=== PATIENT | female | born 1935 | race Caucasian/White ===

== ENCOUNTER 2016-05-28 09:53 | Inpatient (IN) | payer MEDICARE, OTHER ==
[2016-05-28] MEDS ORDERED: SODIUM CHLORIDE 0.9% 500 ML IV STA (10:28)
[2016-05-28] MEDS ORDERED: PANTOPRAZOLE 40 MG/10 ML VIAL IVP STA (10:29)
--- NOTE | 2016-05-28 10:52 | ED ---
General Adult HPI - General Chief complaint: Nausea/Vomiting/Diarrhea Stated complaint: POST OP BLADDER VOMITING BLOOD Time Seen by Provider: 05/28/16 10:22 Source: patient, family, RN notes reviewed Mode of arrival: wheelchair Limitations: no limitations - History of Present Illness Initial comments: 81-year-old female with history of bladder cancer and recent significant surgery at [facility] presenting for nausea and vomiting. Patient states that she had significant surgeries on 05/16/2016 at [facility] including a cystectomy, total hysterectomy, partial colectomy, and diverting ileostomy. She states since this time her overall abdominal pain is improving, however she has had persistent nausea and vomiting. She states that last evening she was throwing up and they believe that there was some bright red blood in her emesis. She states that she has poor by mouth intake since discharge from [facility]. States that they called the doctor's office at [facility] recommended she go to the ER. She denies any fevers or chills. She denies any chest pain, but still states she is having persistent heartburn since the surgery. She states that her abdominal incisions are healing well. She denies blood in her stool. - Related Data Home Medications Medication Instructions Recorded Confirmed Cholecalciferol [Vitamin D3] 2,000 unit PO DAILY 03/05/15 05/28/16 Levothyroxine Sodium [Synthroid] 25 mcg PO DAILY 03/05/15 05/28/16 Losartan Potassium [Losartan 100 mg PO DAILY 03/05/15 05/28/16 Potassium] Metoprolol Succinate [Toprol XL] 50 mg PO AC-SUPPER 03/05/15 05/28/16 Omeprazole [PriLOSEC] 40 mg PO AC-BRKFST 03/05/15 05/28/16 Sodium Chloride 5% Ophth Soln 1 drops LEFT EYE QID 03/05/15 05/28/16 [Justin 128] cycloSPORINE 0.05% OPHTH SOLN 1 drop BOTH EYES BID 03/05/15 05/28/16 [Restasis] prednisoLONE ACETATE 1% OPHTH 1 drops BOTH EYES MO 03/05/15 05/28/16 [Pred Forte 1%] Aspirin EC [Ecotrin Low Dose] 81 mg PO DAILY 05/28/16 05/28/16 Carboxymethylcellulose Sodium 1 drop BOTH EYES QID PRN 05/28/16 05/28/16 [Refresh Tears] Allergies Allergy/AdvReac Type Severity Reaction Status Date / Time sulfamethoxazole Allergy Swelling Verified 05/28/16 10:44 [From Bactrim] lips, sore throat trimethoprim [From Bactrim] Allergy Swelling Verified 05/28/16 10:44 lips, sore throat levofloxacin [From Levaquin] AdvReac severe Verified 05/28/16 10:44 headache Ivbdsux-Yho-Uvs Reductase AdvReac PAINFUL Verified 05/28/16 10:44 Inhibitor ARMS AND LEGS W/ MULT RX TRIED Review of Systems ROS Statement: Those systems with pertinent positive or pertinent negative responses have been documented in the HPI. Constitutional: No fevers. No chills. Positive change in appetite. No unexpected weight loss. Eyes: No visual changes. No eye pain. No sensitivity to light. HENT: No sinus pressure. No ear pain. No hearing changes. No epistaxis. No sore throat. Respiratory: No cough. No SOB. No wheezing. Cardiovascular: No chest pain. No palpitations. No lower extremity edema. Abdomen: Positive abdominal pain. Positive nausea. Positive vomiting. No diarrhea. Positive hematemesis. Genitourinary: No dysuria. No hematuria. No difficulty urinating. No flank pain. Musculoskeletal: No injury. No back pain. No myalgias. Skin: No rash. No lesions. No lacerations. Neuro: No gross strength deficits. No LOC. No seizures. No headache. Psych: No confusion. No memory changes. No anxiety/depression. ROS Other: All systems not noted in ROS Statement are negative. Past Medical History Past Medical History: Cancer, Hyperlipidemia, Hypertension, Thyroid Disorder Additional Past Medical History / Comment(s): bladder,urterine,vaginal CA History of Any Multi-Drug Resistant Organisms: None Reported Past Surgical History: Bladder Surgery, Bowel Resection, Tubal Ligation Additional Past Surgical History / Comment(s): eye surgery Past Psychological History: No Psychological Hx Reported Smoking Status: Never smoker Past Alcohol Use History: None Reported Past Drug Use History: None Reported General Exam - General Exam Comments Initial Comments: General: Awake and Alert. No acute distress. Does not appear acutely ill. Eyes: GERRY, EOM intact. No nystagmus. No scleral icterus. HENT: Atraumatic, normocephalic. Mucous membranes moist. Trachea midline. Neck: The neck is supple, there is no tenderness or JVD. Cardiovascular: Regular rate and rhythm. No murmur, rub, or gallop is appreciated. Distal pulses intact. Lower extremity pitting edema 2+ bilateral. Respiratory: Lungs are clear to auscultation bilaterally. No wheezes, rales, rhonchi. No respiratory distress. Gastrointestinal: Soft, appropriate postsurgical mild diffuse tenderness. Midline surgical incision is well healing with mimi intact, there is a small area around the umbilicus used to be shows a small area of dehiscence and drainage - patient states this has been present since surgery and is healing well. Right lower abdomen ostomy with stoma intact. No rebound or guarding. Mild distension. Abdominal binder in place. Musculoskeletal: No tenderness. Normal ROM. No gross deformity. No strength deficits. Neurological: A&Ox3. CN II-XII grossly intact, There are no obvious motor or sensory deficits. Coordination appears grossly intact. Speech is normal. Skin: Skin is warm and dry and no rashes or lesions are noted. Psychiatric: Cooperative, appropriate mood & affect, normal judgment. Limitations: no limitations Course Vital Signs 05/28/16 05/28/16 10:15 13:32 Temperature 97.0 F L 99.4 F Pulse Rate 117 H 98 Respiratory 18 18 Rate Blood Pressure 137/66 145/75 O2 Sat by Pulse 97 100 Oximetry EKG Findings - EKG Comments: EKG Findings:: EKG 10:45. Sinus rhythm. Rate 108. NH 166. QRS 78. QT/QTC 368/493. Normal axis. No STEMI. Normal EKG. Medical Decision Making - Medical Decision Making 81-year-old female presenting for nausea and vomiting and abdominal pain. Patient has had persistent nausea and vomiting since significant surgery at [facility] on 05/16/2016. Initial exam was soft but mildly distended abdomen. She has mild diffuse tenderness. Her surgical incisions appear intact and well healing. Family also states that she's had small amount of hematemesis with red blood in vomiting last evening. Was given a dose of Protonix for possible GI bleed although she does not appear to have any significant or acute hemorrhage at this time. Lab work with stable CBC. Daughter states that her recent hemoglobin was down to 8 after surgery, which appears stable here today. BMP with hypoK, replacement ordered. LFTs are grossly stable. Lipase negative. Acute abdominal series showing evidence of obstructive process. NG tube was placed. There is concern for possible obstruction given her recent significant surgery. Daughter states that she did have an ileus while she was a [facility] prior to leaving. Patient was reevaluated and remained stable. Updated patient and family on results and imaging. Discussed concern for obstruction and plan for admission. They're agreeable to this. Patient is agreeable to NG tube placement at this time. Given history of a small amount hematemesis will defer anticoagulation for DVT prophylaxis time, we will order compression devices. I called discussed with Dr. Salinas, agrees with plan for admission. Requests consultation to Dr. Nevarez. - Lab Data Result diagrams: 05/28/16 11:15 05/28/16 11:15 Lab Results 05/28/16 05/28/16 Range/Units 11:15 11:15 WBC 10.3 (3.8-10.6) k/uL RBC 2.95 L (3.80-5.40) m/uL Hgb 8.8 L (11.4-16.0) gm/dL Hct 27.8 L (34.0-46.0) % MCV 94.4 (80.0-100.0) fL MCH 30.0 (25.0-35.0) pg MCHC 31.8 (31.0-37.0) g/dL RDW 13.9 (11.5-15.5) % Plt Count 644 H (150-450) k/uL Neutrophils % 87 % Lymphocytes % 7 % Monocytes % 4 % Eosinophils % 1 % Basophils % 0 % Neutrophils # 8.9 H (1.3-7.7) k/uL Lymphocytes # 0.7 L (1.0-4.8) k/uL Monocytes # 0.4 (0-1.0) k/uL Eosinophils # 0.1 (0-0.7) k/uL Basophils # 0.0 (0-0.2) k/uL Hypochromasia Slight Sodium 136 L (137-145) mmol/L Potassium 3.3 L (3.5-5.1) mmol/L Chloride 103 (98-107) mmol/L Carbon Dioxide 24 (22-30) mmol/L Anion Gap 9 mmol/L BUN 9 (7-17) mg/dL Creatinine 0.49 L (0.52-1.04) mg/dL Est GFR (MDRD) Af Amer >60 (>60 ml/min/1.73 sqM) Est GFR (MDRD) Non-Af >60 (>60 ml/min/1.73 sqM) Glucose 97 (74-99) mg/dL Calcium 8.1 L (8.4-10.2) mg/dL Magnesium 1.8 (1.6-2.3) mg/dL Total Bilirubin 0.5 (0.2-1.3) mg/dL AST 22 (14-36) U/L ALT 38 (9-52) U/L Alkaline Phosphatase 134 H (38-126) U/L Total Protein 5.2 L (6.3-8.2) g/dL Albumin 2.6 L (3.5-5.0) g/dL Lipase 108 (23-300) U/L - EKG Data -: EKG Interpreted by Tn EKG shows normal: sinus rhythm Rate: normal - Radiology Data Radiology results: report reviewed, image reviewed Disposition Clinical Impression: SBO (small bowel obstruction), Intractable nausea and vomiting, Abdominal pain , History of total cystectomy, Hematemesis, Anemia Disposition: ADMITTED IP TO THIS [facility] Condition: Stable Decision to Admit Reason: Admit from EC
[2016-05-28 11:30] LABS: Basophils % (A) 0 %; CH 30.5; CHCM 32.4; Eosinophils # (A) 0.1 k/uL (0-0.7); Eosinophils % (A) 1 %; HCT 27.8 % (34.0-46.0); HDW 3.12; HGB 8.8 gm/dL (11.4-16.0); Hypochromasia Slight; Luc # (Auto) 0.13; Luc % (Auto) 1; Lymphocytes # (A) 0.7 k/uL (1.0-4.8); Lymphocytes % (A) 7 %; MCHC 31.8 g/dL (31.0-37.0); MCV 94.4 fL (80.0-100.0); Mean Platelet Volume 6.9; Monocytes # (A) 0.4 k/uL (0-1.0); Monocytes % (A) 4 %; Neutrophils # (A) 8.9 k/uL (1.3-7.7); Neutrophils % (A) 87 %; RBC 2.95 m/uL (3.80-5.40); RDW 13.9 % (11.5-15.5); WBC 10.3 k/uL (3.8-10.6); WBC (Perox) 10.76
[2016-05-28 11:42] LABS: ALT 38 U/L (9-52); AST 22 U/L (14-36); Alkaline Phosphatase 134 U/L (38-126); Anion Gap 9 mmol/L; Blood Urea Nitrogen 9 mg/dL (7-17); Calcium 8.1 mg/dL (8.4-10.2); Carbon Dioxide 24 mmol/L (22-30); Chloride 103 mmol/L (98-107); Glucose 97 mg/dL (74-99); Magnesium 1.8 mg/dL (1.6-2.3); Non-African American GFR(MDRD) >60 (>60 ml/min/1.73 sqM); Potassium 3.3 mmol/L (3.5-5.1); Sodium 136 mmol/L (137-145); Total Bilirubin 0.5 mg/dL (0.2-1.3); Total Protein 5.2 g/dL (6.3-8.2)
[2016-05-28] MEDS ORDERED: POTASSIUM CHLORIDE ER 20 MEQ TAB.ER PO STA (12:36)
[2016-05-28] MEDS ORDERED: SODIUM CHLORIDE 0.9% 1,000 ML IV STA (12:40)
--- NOTE | 2016-05-28 12:59 | XR ---
EXAMINATION TYPE: XR abdomen acute w cxr DATE OF EXAM: 05/28/2016 12:47 PM COMPARISON: CT abdomen pelvis dated 31 January 2015 HISTORY: Vomiting, nausea and heartburn TECHNIQUE: Frontal view of the chest and 2 views of the abdomen on 3 images FINDINGS: There are dilated loops of small bowel present in the mid abdomen. Postop changes are present. No pne umoperitoneum. Lung bases are clear. Air-fluid levels on the upright exam. IMPRESSION: Findings suspicious for small bowel obstruction
[2016-05-28] MEDS ORDERED: NALOXONE 0.4 MG/ML 1 ML VIAL IV PRN (13:05)
[2016-05-28] MEDS ORDERED: MORPHINE SULFATE 4 MG/ML SYRINGE IV PRN (13:05)
[2016-05-28] MEDS ORDERED: ONDANSETRON 4 MG/2 ML VIAL IVP PRN (13:05)
[2016-05-28] MEDS ORDERED: MORPHINE SULFATE 2 MG/ML SYRINGE IV PRN (16:20)
--- NOTE | 2016-05-28 16:20 | P.HPIM ---
History of Present Illness H&P Date: 05/28/16 81-year-old female presented to the emergency room to be evaluated for persistent nausea vomiting inability to keep fluids down poor oral intake for the past several days. Patient stated this morning she vomited up what appeared to be dark bloody emesis. Patient recently had surgery at [facility] on May 16 a cystectomy total hysterectomy a partial colectomy and a diverting ileostomy for bladder cancer. Patient states that she was discharged 9 days after the procedure to home. Patient states that over the last several days she has experienced increased fatigue decreased endurance no appetite subjectively felt chills. In the emergency room the temp is 99.4 heart rate was in the 110s 120s the hemoglobin was 8.8 the abdominal x-ray done in the emergency room was suspicious for small bowel obstruction. Air-fluid levels on the upright exam noted dilated loops of small bowel noted postop changes noted currently has a nasogastric tube in place with clear secretions noted in the canister. Currently has an abdominal binder on abdomen slightly distended a few hypoactive bowel tones. The urostomy connected to a drainage bag moderate bony urine noted dark carlyn distal to the surgical incision area open draining serous drainage Review of Systems Essentially unremarkable except as mentioned in the present illness Past Medical History Past Medical History: Cancer, GERD/Reflux, Hyperlipidemia, Hypertension, Thyroid Disorder Additional Past Medical History / Comment(s): bladder,urterine,vaginal CA, VERTIGO,MURMUR,UTI. PER PAST MED HX -KERATOCONIS O[facility] History of Any Multi-Drug Resistant Organisms: None Reported Past Surgical History: Bladder Surgery, Bowel Resection, Tubal Ligation Additional Past Surgical History / Comment(s): 2015 CYSTOCOPY W/ TRANSURETHRAL RESECTION OF BLADDER TUMOR, JUANCARLOS CATARACTS, CORNEAL TRANSPLANTS, D&C, "[facility] CYSTECTOMY,TOTAL HYSTERECTOMY, PARTIAL COLECTOMY,DIVERTING ILEOSTOMY". Past Anesthesia/Blood Transfusion Reactions: Postoperative Nausea & Vomiting ( PONV) Past Psychological History: Depression Additional Psychological History / Comment(s): PT STATED THAT WITH ALL THE MEDCIAL PROBLEMS AND HOW SHE HAS FELT SINCE SX SHE AT TIMES THOUGHT SHE WOULD BE BETTER OFF NOT HERE, BUT NEVER WOULD ACT ON IT. JUST FEELS CRUMMY.PT LIVES WITH ([place]) IN SINGLE LEVEL HOME THAT HAS 3 STEPS TO ENTER,ALSO HAS A BASEMENT WHERE LAUNDRY IS BUT FAMILY HELPS OUT WITH THAT. CURRENTLY RECEIVING HOME CARE THRU BILLINGS. Smoking Status: Never smoker Past Alcohol Use History: None Reported Past Drug Use History: None Reported - Past Family History Father Family Medical History: Cancer Mother Family Medical History: Diabetes Mellitus Sister(s) Family Medical History: Cancer Additional Family Medical History / Comment(s): BREAST CANCER Brother(s) Family Medical History: Cancer Additional Family Medical History / Comment(s): COLON CANCER AND LEUKEMIA Medications and Allergies Home Medications Medication Instructions Recorded Confirmed Type Cholecalciferol [Vitamin D3] 2,000 unit PO DAILY 03/05/15 05/28/16 History Levothyroxine Sodium [Synthroid] 25 mcg PO DAILY 03/05/15 05/28/16 History Losartan Potassium [Losartan 100 mg PO DAILY 03/05/15 05/28/16 History Potassium] Metoprolol Succinate [Toprol XL] 50 mg PO AC-SUPPER 03/05/15 05/28/16 History Omeprazole [PriLOSEC] 40 mg PO AC-BRKFST 03/05/15 05/28/16 History Sodium Chloride 5% Ophth Soln 1 drops LEFT EYE QID 03/05/15 05/28/16 History [Justin 128] cycloSPORINE 0.05% OPHTH SOLN 1 drop BOTH EYES BID 03/05/15 05/28/16 History [Restasis] prednisoLONE ACETATE 1% OPHTH 1 drops BOTH EYES MO 03/05/15 05/28/16 History [Pred Forte 1%] Aspirin EC [Ecotrin Low Dose] 81 mg PO DAILY 05/28/16 05/28/16 History Carboxymethylcellulose Sodium 1 drop BOTH EYES QID PRN 05/28/16 05/28/16 History [Refresh Tears] Allergies Allergy/AdvReac Type Severity Reaction Status Date / Time sulfamethoxazole Allergy Swelling Verified 05/28/16 10:44 [From Bactrim] lips, sore throat trimethoprim [From Bactrim] Allergy Swelling Verified 05/28/16 10:44 lips, sore throat levofloxacin [From Levaquin] AdvReac severe Verified 05/28/16 10:44 headache Nztmkkt-Doh-Wdr Reductase AdvReac PAINFUL Verified 05/28/16 10:44 Inhibitor ARMS AND LEGS W/ MULT RX TRIED Physical Exam Vitals: Vital Signs Temp Pulse Pulse Resp BP BP Pulse Ox 05/28/16 14:30 98.3 F 109 H 18 150/78 96 05/28/16 13:32 99.4 F 98 18 145/75 100 GENERAL APPEARANCE: 81-year-old female pale is alert, oriented oriented 3, in no acute distress. VITAL SIGNS: Reviewed HEENT: Head is normocephalic and atraumatic. Pupils are equal and reactive. The nares are patent. Oropharynx is clear without lesions. NECK: Supple without lymphadenopathy. Traches midline. HEART: S1, S2. Regular rate and rhythm. No murmur noted denying chest pain LUNGS: No crackles or wheezes are heard. Diminished at the bases otherwise adequate air movement on room air no cough noted ABDOMEN: Slightly distended a few hypoactive bowel tones stoma pink urostomy connected to a drainage bag dark urine. No peritoneal signs. No palpable organomegaly or masses. Nasal gastric tube in the left Nare connected to suction clear secretions noted in the canister approximately 100 mL no blood noted patient states no stool states has been passing gas rectally EXTREMITIES: Normal skin color and turgor. No cyanosis, rash, ulceration, clubbing or edema. Radial pedal pulses are 2/4 bilaterally. NEUROLOGICAL: No focal deficits. Strength and sensation are grossly intact. Results CBC & Chem 7: 05/28/16 11:15 05/28/16 11:15 Assessment and Plan Plan: Impression Present on admission hematemesis unclear etiology History of bladder cancer diagnosed 2014 Present on admission nausea vomiting poor oral intake suspect due to small bowel obstruction not ruled out by abdominal imaging A recent discharge from the [facility] on the 16 of May for treatment of a cystectomy, total hysterectomy, partial colectomy and a diverging ileostomy for bladder, uterine, vaginal cancer Present on admission anemia suspect due to a GI bleed not ruled out Present on admission hypokalemia Mild protein calorie malnutrition suspect due to poor caloric intake Hyperlipidemia Essential hypertension Hypothyroid Plan Continue with the nasal gastric tube Continue recommendations by surgical service Repeat labs in the morning Potassium to be be replaced Pain control DVT and GI prophylaxis Further recommendations pending The above dictated assessment and findings were discussed with dr ray . Impression and the plan of care have been dictated as directed. Urvashi Waters nurse practitioner acting as a scribe for dr ray
[2016-05-28] MEDS: LACTATED RINGERS 1,000 ML IV SCH (17:21)
[2016-05-28] MEDS: POTASSIUM CHLORIDE 10 MEQ, LIDOCAINE 2% INJ 10 MG in SODIUM CHLORIDE 0.9% 100 ML IVPB SCH ×4 (17:22→22:14)
[2016-05-28 17:27] LABS: Appearance,Urine Cloudy (Clear); Bacteria,Urine Occasional /hpf; Bilirubin,Urine Negative (Negative); Glucose,Urine (UA) Negative (Negative); Ketones,Urine 2+ (Negative); Leukocyte Esterase,Urine Large (Negative); Mucus,Urine Many /hpf; Nitrite,Urine Negative (Negative); PH, Urine 6.5 (5.0-8.0); Particle Count 84371; Protein,Urine Trace (Negative); RBC,Urine 13 /hpf (0-5); UA Billing (MACRO vs. MICRO) MICRO; Urobilinogen,Urine <2.0 mg/dL (<2.0); WBC,Urine 63 /hpf (0-5)
[2016-05-28 20:27] LABS: Glucose,Whole Blood 77 mg/dL (75-99)
[2016-05-28] MEDS: METOPROLOL SUCCINATE (ER) 50 MG TAB.ER.24H PO SCH (21:28)
[2016-05-28] MEDS: DEXTROSE 5%-0.9% NACL 1,000 ML IV SCH (21:29)
[2016-05-29] MEDS: LACTATED RINGERS 1,000 ML IV SCH (01:37)
[2016-05-29 07:25] LABS: Glucose,Whole Blood 103 mg/dL (75-99)
[2016-05-29 08:29] LABS: Basophils % (A) 0 %; CH 30.4; CHCM 32.2; Eosinophils # (A) 0.3 k/uL (0-0.7); Eosinophils % (A) 3 %; HCT 28.1 % (34.0-46.0); HDW 3.11; HGB 8.9 gm/dL (11.4-16.0); Hypochromasia Slight; Luc % (Auto) 2; Lymphocytes # (A) 0.9 k/uL (1.0-4.8); Lymphocytes % (A) 9 %; MCH 30.2 pg (25.0-35.0); MCHC 31.8 g/dL (31.0-37.0); Mean Platelet Volume 8.3; Monocytes # (A) 0.6 k/uL (0-1.0); Monocytes % (A) 5 %; Neutrophils # (A) 8.6 k/uL (1.3-7.7); Neutrophils % (A) 81 %; RBC 2.96 m/uL (3.80-5.40); RDW 13.9 % (11.5-15.5); WBC 10.6 k/uL (3.8-10.6); WBC (Perox) 10.87
[2016-05-29] MEDS: PANTOPRAZOLE 40 MG/10 ML VIAL IV SCH (08:38)
[2016-05-29 09:28] LABS: Anion Gap 6 mmol/L; Blood Urea Nitrogen 7 mg/dL (7-17); Calcium 7.9 mg/dL (8.4-10.2); Carbon Dioxide 23 mmol/L (22-30); Chloride 112 mmol/L (98-107); Glucose 94 mg/dL (74-99); Magnesium 1.9 mg/dL (1.6-2.3); Non-African American GFR(MDRD) >60 (>60 ml/min/1.73 sqM); Phosphorous 3.4 mg/dL (2.5-4.5); Potassium 5.1 mmol/L (3.5-5.1); Sodium 141 mmol/L (137-145)
[2016-05-29 10:01] VITALS: BMI 25.4
--- NOTE | 2016-05-29 11:40 | XR ---
EXAMINATION TYPE: XR abdomen complete w decub DATE OF EXAM: 05/29/2016 11:34 AM COMPARISON: Acute abdominal series from yesterday. HISTORY: Possible small bowel obstruction progress study. TECHNIQUE: Supine, upright, and left side down lateral decubitus views of the abdomen are obtained. FINDINGS: Nasogastric tube is now present with gas seen in decompressed stomach. Some gas prominent s mall bowel loops in the midabdomen are identified, degree of gaseous distention in number of dilated loops is improved. Gas is seen in nondistended colon along the periphery. Vertical skin mimi overl ie the pelvis. There are numerous surgical clips overlying the bilateral pelvis. Moderate joint space loss in both hips is present. Lung bases are clear. No pneumoperitoneum is present. IMPRESSION: Overall nonspecific bowel gas pattern. Interval improvement in amount of dilated and degree of dilate d mid small bowel loops supports resolving ileus or obstruction.
[2016-05-29 11:57] LABS: Glucose,Whole Blood 108 mg/dL (75-99)
[2016-05-29] MEDS: DEXTROSE 5%-0.9% NACL 1,000 ML IV SCH ×2 (12:14→20:49)
--- NOTE | 2016-05-29 14:25 | P.PN ---
Subjective 81-year-old female being seen this morning no new events noted family at bedside updated on plan of care abdomen softer bowel tones present repeat abdominal x-ray done this morning show interval improvement in the amount of dilated and the degree of dilated mid small bowel loops support resolving ileus or obstruction Objective - Vital Signs Vital signs: Vital Signs Temp 98.3 F 05/29/16 07:00 Pulse 95 05/29/16 07:00 Resp 16 05/29/16 07:00 BP 154/81 05/29/16 07:00 Pulse Ox 98 05/29/16 07:00 Intake & Output 05/28/16 05/29/16 05/29/16 18:59 06:59 18:59 Intake Total 900 Output Total 900 600 Balance 0 -600 Weight 65.317 kg Intake: IV 900 Dextrose 5%-0.9% NaCl 1, 900 000 ml @ 100 mls/hr IV . Q10H [facility] Rx#:[id number] Output: Urine 900 600 Uretheral (Garcia) 600 - Exam Physical exam 81-year-old female pleasant cooperative sitting up in bed and nasal gastric tube connected to suction small amount output noted Lungs essentially clear adequate air movement on room air no shortness of breath Heart S1-S2 audible regular Abdomen soft bowel tones present dressing to surgical site dry urostomy connected to a drainage bag moderate amount of urine noted no stool nasal gastric tube connected to suction small amount of drainage noted in the container clear secretions Extremities no edema - Labs CBC & Chem 7: 05/29/16 07:24 05/29/16 07:24 Labs: Abnormal Lab Results - Last 24 Hours (Table) 05/28/16 05/29/16 05/29/16 Range/Units 17:00 07:06 07:24 RBC 2.96 L (3.80-5.40) m/uL Hgb 8.9 L (11.4-16.0) gm/dL Hct 28.1 L (34.0-46.0) % Plt Count 598 H (150-450) k/uL Neutrophils # 8.6 H (1.3-7.7) k/uL Lymphocytes # 0.9 L (1.0-4.8) k/uL Chloride (98-107) mmol/L Creatinine (0.52-1.04) mg/dL POC Glucose (mg/dL) 103 H (75-99) mg/dL Calcium (8.4-10.2) mg/dL Urine Appearance Cloudy H (Clear) Urine Protein Trace H (Negative) Urine Ketones 2+ H (Negative) Urine Blood Small H (Negative) Ur Leukocyte Esterase Large H (Negative) Urine RBC 13 H (0-5) /hpf Urine WBC 63 H (0-5) /hpf Urine WBC Clumps Few H (None) /hpf Urine Bacteria Occasional H (None) /hpf Urine Mucus Many H (None) /hpf Urine Yeast (Budding) Few H (None) /hpf 05/29/16 05/29/16 Range/Units 07:24 11:49 RBC (3.80-5.40) m/uL Hgb (11.4-16.0) gm/dL Hct (34.0-46.0) % Plt Count (150-450) k/uL Neutrophils # (1.3-7.7) k/uL Lymphocytes # (1.0-4.8) k/uL Chloride 112 H (98-107) mmol/L Creatinine 0.48 L (0.52-1.04) mg/dL POC Glucose (mg/dL) 108 H (75-99) mg/dL Calcium 7.9 L (8.4-10.2) mg/dL Urine Appearance (Clear) Urine Protein (Negative) Urine Ketones (Negative) Urine Blood (Negative) Ur Leukocyte Esterase (Negative) Urine RBC (0-5) /hpf Urine WBC (0-5) /hpf Urine WBC Clumps (None) /hpf Urine Bacteria (None) /hpf Urine Mucus (None) /hpf Urine Yeast (Budding) (None) /hpf Microbiology - Last 24 Hours (Table) 05/28/16 17:00 Urine Culture - Preliminary Urine,Catheterized Assessment and Plan Plan: Impression Present on admission hematemesis unclear etiology History of bladder cancer diagnosed 2014 Present on admission nausea vomiting poor oral intake suspect due to small bowel obstruction resolving A recent discharge from the [facility] on the 16 of May for treatment of a cystectomy, total hysterectomy, partial colectomy and a diverging ileostomy for bladder, uterine, vaginal cancer Present on admission anemia suspect due to a GI bleed not ruled out Present on admission hypokalemia Mild protein calorie malnutrition suspect due to poor caloric intake Hyperlipidemia Essential hypertension Hypothyroid on supplement Abdominal x-ray interval improvement in the amount of dilated small bowel loops supports resolving ileus or obstruction Plan Continue with the nasal gastric tube likely will remove within the next 24 hours if clinically stable Continue recommendations by surgical service Repeat labs in the morning Pain control DVT and GI prophylaxis Further recommendations pending Continue wound care as ordered The above dictated assessment and findings were discussed with dr ray . Impression and the plan of care have been dictated as directed. Urvashi Waters nurse practitioner acting as a scribe for dr ray
[2016-05-29] MEDS ORDERED: MORPHINE SULFATE 2 MG/ML SYRINGE IV PRN (14:26)
--- NOTE | 2016-05-29 16:14 | P.GSCN ---
History of Present Illness Consult date: 05/29/16 Reason for Consult: Small bowel obstruction Requesting physician: Madan Salinas History of present illness: Patient is an 85-year-old female, patient of Dr. Madan Salinas in the outpatient setting, with medical history significant for bladder cancer with recent surgery at [facility] 10 days ago including a cystectomy, total hysterectomy, partial colectomy, and diverting ileostomy. Patient presented to the emergency department with complaints of persistent nausea and vomiting and one episode of hematemesis prior to arrival. No history of fevers , chills, chest pain. Patient did complain of heartburn. No history of melena or hematochezia. Patient denies similar symptoms in past. Acute abdominal series with evidence of dilated loops of small bowel present in the mid abdomen with findings suspicious for small bowel obstruction. Hemoglobin on admission 8.8. In the emergency department, a nasogastric tube was inserted for small bowel decompression. Patient was made nothing by mouth and started on PPI in the form of Protonix. Patient was admitted to the surgical unit. Surgical consult was requested for small bowel obstruction. Repeat abdominal x-ray from this morning shows interval improvement in amount of dilated and degree of dilated mild small bowel loops supporting resolution of ileus or obstruction. Upon examination, patient is feeling much better. Denies chills, nausea, vomiting, shortness of breath, chest pain, epigastric or abdominal pain. Patient reports flatus without bowel movements. Gastric drainage 50 mL recorded since admission. T-max the last 24 hours 99. No evidence of leukocytosis. Hemoglobin stable at 8.9. Past Medical History Past Medical History: Cancer, GERD/Reflux, Hyperlipidemia, Hypertension, Thyroid Disorder Additional Past Medical History / Comment(s): bladder,urterine,vaginal CA, VERTIGO,MURMUR,UTI. PER PAST MED HX -KERATOCONIS OU History of Any Multi-Drug Resistant Organisms: None Reported Past Surgical History: Bladder Surgery, Bowel Resection, Tubal Ligation Additional Past Surgical History / Comment(s): 2015 CYSTOCOPY W/ TRANSURETHRAL RESECTION OF BLADDER TUMOR, JUANCARLOS CATARACTS, CORNEAL TRANSPLANTS, D&C, "[facility]16-16 [facility] CYSTECT[facility]Y,TOTAL HYSTERECTOMY, PARTIAL COLECTOMY,DIVERTING ILEOSTOMY". Past Anesthesia/Blood Transfusion Reactions: Postoperative Nausea & Vomiting ( PONV) Past Psychological History: Depression Additional Psychological History / Comment(s): PT STATED THAT WITH ALL THE MEDCIAL PROBLEMS AND HOW SHE HAS FELT SINCE SX SHE AT TIMES THOUGHT SHE WOULD BE BETTER OFF NOT HERE, BUT NEVER WOULD ACT ON IT. JUST FEELS CRUMMY.PT LIVES WITH (LIZ) IN SINGLE LEVEL HOME THAT HAS 3 STEPS TO ENTER,ALSO HAS A BASEMENT WHERE LAUNDRY IS BUT FAMILY HELPS OUT WITH THAT. CURRENTLY RECEIVING HOME CARE THRU [facility]. Smoking Status: Never smoker Past Alcohol Use History: None Reported Past Drug Use History: None Reported - Past Family History Father Family Medical History: Cancer Mother Family Medical History: Diabetes Mellitus Sister(s) Family Medical History: Cancer Additional Family Medical History / Comment(s): BREAST CANCER Brother(s) Family Medical History: Cancer Additional Family Medical History / Comment(s): COLON CANCER AND LEUKEMIA Medications and Allergies Home Medications Medication Instructions Recorded Confirmed Type Cholecalciferol [Vitamin D3] 2,000 unit PO DAILY 03/05/15 05/28/16 History Levothyroxine Sodium [Synthroid] 25 mcg PO DAILY 03/05/15 05/28/16 History Losartan Potassium [Losartan 100 mg PO DAILY 03/05/15 05/28/16 History Potassium] Metoprolol Succinate [Toprol XL] 50 mg PO AC-SUPPER 03/05/15 05/28/16 History Omeprazole [PriLOSEC] 40 mg PO AC-BRKFST 03/05/15 05/28/16 History Sodium Chloride 5% Ophth Soln 1 drops LEFT EYE QID 03/05/15 05/28/16 History [Justin 128] cycloSPORINE 0.05% OPHTH SOLN 1 drop BOTH EYES BID 03/05/15 05/28/16 History [Restasis] prednisoLONE ACETATE 1% OPHTH 1 drops BOTH EYES MO 03/05/15 05/28/16 History [Pred Forte 1%] Aspirin EC [Ecotrin Low Dose] 81 mg PO DAILY 05/28/16 05/28/16 History Carboxymethylcellulose Sodium 1 drop BOTH EYES QID PRN 05/28/16 05/28/16 History [Refresh Tears] Allergies Allergy/AdvReac Type Severity Reaction Status Date / Time sulfamethoxazole Allergy Swelling Verified 05/28/16 10:44 [From Bactrim] lips, sore throat trimethoprim [From Bactrim] Allergy Swelling Verified 05/28/16 10:44 lips, sore throat levofloxacin [From Levaquin] AdvReac severe Verified 05/28/16 10:44 headache Jzocycw-Glv-Ihs Reductase AdvReac PAINFUL Verified 05/28/16 10:44 Inhibitor ARMS AND LEGS W/ MULT RX TRIED Surgical - Exam Vital Signs Temp Pulse Resp BP Pulse Ox 97.0 F L 117 H 18 137/66 97 05/28/16 10:15 05/28/16 10:15 05/28/16 10:15 05/28/16 10:15 05/28/16 10:15 GENERAL: Pt awake and alert, well-appearing, well-nourished, and in no acute distress. HEAD: Atraumatic, normocephalic. EYES: Pupils equal and round. Sclera anicteric, conjunctiva are normal. ENT: Moist mucous membranes. Nasogastric tube to low intermittent suction for small bowel decompression. NECK: Supple without lymphadenopathy or JVD. LUNGS: Breath sounds clear to auscultation bilaterally. No wheezes, rales, or rhonchi. HEART: Heart S1, S2, no S3 or S4. Regular rate and rhythm. No murmurs, rubs or gallops. ABDOMEN: Soft, mild epigastric tenderness, nondistended, normoactive bowel sounds. No guarding, no rebound. No masses or organomegaly appreciated. Ileostomy present. Abdominal incision closed with mimi with a few areas open where mimi been removed. No evidence of erythema or purulent drainage. EXTREMITIES: Palpable peripheral pulses. NEUROLOGICAL: Pt oriented x 3. PSYCH: Normal mood, normal affect. SKIN: Warm, dry, intact. Results - Labs 05/29/16 07:24 05/29/16 07:24 Abnormal Lab Results - Last 24 Hours (Table) 05/28/16 05/29/16 05/29/16 Range/Units 17:00 07:06 07:24 RBC 2.96 L (3.80-5.40) m/uL Hgb 8.9 L (11.4-16.0) gm/dL Hct 28.1 L (34.0-46.0) % Plt Count 598 H (150-450) k/uL Neutrophils # 8.6 H (1.3-7.7) k/uL Lymphocytes # 0.9 L (1.0-4.8) k/uL Chloride (98-107) mmol/L Creatinine (0.52-1.04) mg/dL POC Glucose (mg/dL) 103 H (75-99) mg/dL Calcium (8.4-10.2) mg/dL Urine Appearance Cloudy H (Clear) Urine Protein Trace H (Negative) Urine Ketones 2+ H (Negative) Urine Blood Small H (Negative) Ur Leukocyte Esterase Large H (Negative) Urine RBC 13 H (0-5) /hpf Urine WBC 63 H (0-5) /hpf Urine WBC Clumps Few H (None) /hpf Urine Bacteria Occasional H (None) /hpf Urine Mucus Many H (None) /hpf Urine Yeast (Budding) Few H (None) /hpf 05/29/16 05/29/16 Range/Units 07:24 11:49 RBC (3.80-5.40) m/uL Hgb (11.4-16.0) gm/dL Hct (34.0-46.0) % Plt Count (150-450) k/uL Neutrophils # (1.3-7.7) k/uL Lymphocytes # (1.0-4.8) k/uL Chloride 112 H (98-107) mmol/L Creatinine 0.48 L (0.52-1.04) mg/dL POC Glucose (mg/dL) 108 H (75-99) mg/dL Calcium 7.9 L (8.4-10.2) mg/dL Urine Appearance (Clear) Urine Protein (Negative) Urine Ketones (Negative) Urine Blood (Negative) Ur Leukocyte Esterase (Negative) Urine RBC (0-5) /hpf Urine WBC (0-5) /hpf Urine WBC Clumps (None) /hpf Urine Bacteria (None) /hpf Urine Mucus (None) /hpf Urine Yeast (Budding) (None) /hpf Microbiology - Last 24 Hours (Table) 05/28/16 17:00 Urine Culture - Preliminary Urine,Catheterized Diabetes panel 05/29/16 05/29/16 Range/Units 01:58 07:24 Sodium 141 (137-145) mmol/L Potassium 4.1 5.1 (3.5-5.1) mmol/L Chloride 112 H (98-107) mmol/L Carbon Dioxide 23 (22-30) mmol/L BUN 7 (7-17) mg/dL Creatinine 0.48 L (0.52-1.04) mg/dL Glucose 94 (74-99) mg/dL Calcium 7.9 L (8.4-10.2) mg/dL Calcium panel 05/29/16 Range/Units 07:24 Calcium 7.9 L (8.4-10.2) mg/dL Phosphorus 3.4 (2.5-4.5) mg/dL Pituitary panel 05/29/16 05/29/16 Range/Units 01:58 07:24 Sodium 141 (137-145) mmol/L Potassium 4.1 5.1 (3.5-5.1) mmol/L Chloride 112 H (98-107) mmol/L Carbon Dioxide 23 (22-30) mmol/L BUN 7 (7-17) mg/dL Creatinine 0.48 L (0.52-1.04) mg/dL Glucose 94 (74-99) mg/dL Calcium 7.9 L (8.4-10.2) mg/dL Adrenal panel 05/29/16 05/29/16 Range/Units 01:58 07:24 Sodium 141 (137-145) mmol/L Potassium 4.1 5.1 (3.5-5.1) mmol/L Chloride 112 H (98-107) mmol/L Carbon Dioxide 23 (22-30) mmol/L BUN 7 (7-17) mg/dL Creatinine 0.48 L (0.52-1.04) mg/dL Glucose 94 (74-99) mg/dL Calcium 7.9 L (8.4-10.2) mg/dL - Imaging Abdominal x-ray: report reviewed Assessment and Plan Plan: Impression: 1. Abdominal pain associated with nausea and vomiting, present on admission, suspect secondary to ileus, improved. 2. History of hematemesis prior to admission suspect secondary to possible gastritis. Hemoglobin 8.8 on admission, 8.9 today. Plan: 1. Continue nothing by mouth status. Continue nasogastric tube to low intermittent suction until patient has bowel movement. Continue IV fluids. Continue PPI. Increase activity. Continue supportive treatment and pain management. Repeat CBC in a.m. We'll continue to follow with medical service. The above impression and plan have been discussed and directed by Dr. Hartman. Birgitte KERSEY DEPARTMENT SUPERVISOR-C acting as scribe for Dr. Mejía.
[2016-05-29 17:23] LABS: Glucose,Whole Blood 121 mg/dL (75-99)
[2016-05-29] MEDS: METOPROLOL SUCCINATE (ER) 50 MG TAB.ER.24H PO SCH (18:04)
[2016-05-30] MEDS: DEXTROSE 5%-0.9% NACL 1,000 ML IV SCH (06:13)
[2016-05-30 07:38] LABS: Basophils % (A) 0 %; CHCM 31.1; Eosinophils # (A) 0.2 k/uL (0-0.7); Eosinophils % (A) 2 %; HDW 3.17; HGB 8.4 gm/dL (11.4-16.0); Hypochromasia Moderate; Luc # (Auto) 0.12; Luc % (Auto) 1; Lymphocytes # (A) 0.7 k/uL (1.0-4.8); Lymphocytes % (A) 9 %; MCH 30.3 pg (25.0-35.0); MCHC 31.2 g/dL (31.0-37.0); MCV 97.1 fL (80.0-100.0); Mean Platelet Volume 6.5; Monocytes # (A) 0.4 k/uL (0-1.0); Monocytes % (A) 5 %; Neutrophils # (A) 6.8 k/uL (1.3-7.7); Neutrophils % (A) 83 %; RBC 2.78 m/uL (3.80-5.40); RDW 13.9 % (11.5-15.5); WBC 8.2 k/uL (3.8-10.6); WBC (Perox) 8.76
[2016-05-30 08:02] LABS: ALT 29 U/L (9-52); AST 14 U/L (14-36); Alkaline Phosphatase 108 U/L (38-126); Anion Gap 9 mmol/L; Blood Urea Nitrogen 3 mg/dL (7-17); Calcium 7.9 mg/dL (8.4-10.2); Carbon Dioxide 23 mmol/L (22-30); Chloride 110 mmol/L (98-107); Glucose 109 mg/dL (74-99); Non-African American GFR(MDRD) >60 (>60 ml/min/1.73 sqM); Potassium 3.5 mmol/L (3.5-5.1); Sodium 142 mmol/L (137-145); Total Bilirubin 0.3 mg/dL (0.2-1.3); Total Protein 4.9 g/dL (6.3-8.2)
[2016-05-30] MEDS ORDERED: Potassium Replacement Protocol 1 EACH MISC MISCELLANE PRN (08:27)
[2016-05-30] MEDS: PANTOPRAZOLE 40 MG/10 ML VIAL IV SCH (08:38)
--- NOTE | 2016-05-30 11:20 | P.PN ---
Subjective Thing up in bed 81 year female being seen on rounds this morning reports has been up ambulating in the hallway states "passing gas small stool" abdomen is softer with bowel tones present nasal gastric tube in place clear secretions in the canister urostomy pink connected to a drainage bag urine carlyn. Patients being treated for initial presentation nausea vomiting abdominal distention suspect due to early small bowel ileus or obstruction with repeat imaging showing an improvement Objective - Vital Signs Vital signs: Vital Signs Temp 98.4 F 05/30/16 07:00 Pulse 86 05/30/16 07:00 Resp 16 05/30/16 07:00 BP 142/71 05/30/16 07:00 Pulse Ox 99 05/30/16 07:00 Intake & Output 05/29/16 05/30/16 05/30/16 18:59 06:59 18:59 Intake Total 800 Output Total 650 1200 Balance 150 -1200 Weight 65.317 kg Intake: IV 800 Dextrose 5%-0.9% NaCl 1, 800 000 ml @ 100 mls/hr IV . Q10H [facility] Rx#:[id number] Output: Gastric Drainage 50 Urine 600 1200 Uretheral (Garcia) 600 - Exam Physical exam 81-year-old female pleasant oriented x 3 resting in bed states there is less abdominal pain this morning Lungs essentially clear with adequate air movement on room air sats greater than 95% no cough noted Heart S1-S2 audible and regular denying chest pain no murmur Abdomen softer less tenderness not distended bowel tones present nasal gastric tube in place connected to suction clear secretions noted small amount out for the last 24 hours patient states had a small stool last night reports no nausea vomiting states passing gas Extremities Venodyne's on to the bilateral lower extremities - Labs CBC & Chem 7: 05/30/16 07:12 05/30/16 07:12 Labs: Abnormal Lab Results - Last 24 Hours (Table) 05/29/16 05/29/16 05/30/16 Range/Units 11:49 17:11 07:12 RBC 2.78 L (3.80-5.40) m/uL Hgb 8.4 L (11.4-16.0) gm/dL Hct 27.0 L (34.0-46.0) % Plt Count 586 H (150-450) k/uL Lymphocytes # 0.7 L (1.0-4.8) k/uL Chloride (98-107) mmol/L BUN (7-17) mg/dL Creatinine (0.52-1.04) mg/dL Glucose (74-99) mg/dL POC Glucose (mg/dL) 108 H 121 H (75-99) mg/dL Calcium (8.4-10.2) mg/dL Total Protein (6.3-8.2) g/dL Albumin (3.5-5.0) g/dL 05/30/16 Range/Units 07:12 RBC (3.80-5.40) m/uL Hgb (11.4-16.0) gm/dL Hct (34.0-46.0) % Plt Count (150-450) k/uL Lymphocytes # (1.0-4.8) k/uL Chloride 110 H (98-107) mmol/L BUN 3 L (7-17) mg/dL Creatinine 0.51 L (0.52-1.04) mg/dL Glucose 109 H (74-99) mg/dL POC Glucose (mg/dL) (75-99) mg/dL Calcium 7.9 L (8.4-10.2) mg/dL Total Protein 4.9 L (6.3-8.2) g/dL Albumin 2.3 L (3.5-5.0) g/dL Microbiology - Last 24 Hours (Table) 05/28/16 17:00 Urine Culture - Preliminary Urine,Catheterized Gram Neg Bacilli Assessment and Plan Plan: Impression Present on admission hematemesis unclear etiology History of bladder cancer diagnosed 2014 Present on admission nausea vomiting poor oral intake suspect due to small bowel obstruction not ruled out by abdominal imaging A recent discharge from the [facility] on the 16 of May for treatment of a cystectomy, total hysterectomy, partial colectomy and a diverging ileostomy for bladder, uterine, vaginal cancer Present on admission anemia suspect due to a GI bleed not ruled out Present on admission hypokalemia corrected Mild protein calorie malnutrition suspect due to poor caloric intake Hyperlipidemia Essential hypertension Hypothyroid Plan Remove the nasal gastric tube Continue recommendations by surgical service Repeat labs in the morning Pain control DVT and GI prophylaxis Further recommendations pending Increase activity Spoke with the surgeon updated on plan of care will initiate full liquid diet and monitor the response Family at bedside updated on plan of care questions answered The above dictated assessment and findings were discussed with dr ray . Impression and the plan of care have been dictated as directed. Urvashi Waters nurse practitioner acting as a scribe for dr ray
[2016-05-30] MEDS: POTASSIUM CHLORIDE 10 MEQ, LIDOCAINE 2% INJ 10 MG in SODIUM CHLORIDE 0.9% 100 ML IV SCH ×2 (12:33→14:28)
--- NOTE | 2016-05-30 13:26 | CDI ---
In responding to this query, please exercise your independent professional judgment. The [facility] Coding Staff and Clinical Documentation Specialists appreciate your assistance in clarifying documentation, maintaining compliance with coding guidelines, accurately documenting patients condition and capturing severity of illness. The fact that a question is asked does not imply that any particular answer is desired or expected. Communication forms are a method of clarifying documentation and are not made part of the Legal Health Record. Thank you in advance for your clarification. Last Revision, May 2015 Marybeth Bethea [address] [place] [address] Documentation Clarification Form Date: 05/30/2016 12:25:00 PM From: Perlita Zhou Admit Date: 05/28/2016 1:05:00 PM Patient Name: Elsie Whitley Visit Number: [id number] Discharge Date: Dr. Kyle Mejía/Bill Haro INFANT CAREGIVER-C Ileus or obstruction is documented in the consult and progress notes on . Patients Admitting Diagnosis: Small bowel obstruction Procedure performed: Cystectomy, Total Hysterectomy, partial colectomy and diverting ileostomy at [facility] on 05/16/16. History/Risk Factors: Bladder cancer, hypertension, Clinical Indicators: Patient states that she has had persistent nausea and vomiting and abdominal pain since surgery. She has had poor intake since discharge from [facility]. Vital signs: 137/66 117 18 97.0 Labs: HGB 8.8, HCT 27.8, NA+ 136, K+ 3.3 Abdominal series: evidence of obstructive process. Air-fluid levels on the upright exam noted dilated loops of small bowel, postop changes. Treatment: NGT NPO IV Fluids Morphine Sulfate IV PRN, Protonix IVP daily Zofran IVP PRN Consults: In order to accurately reflect this patients severity of illness, please clarify if the Ileus Is: Post-operative diagnosis? An expected post-procedural or post-surgical condition Integral to the procedure Inherent to the procedure An unexpected post-procedural or post-surgical condition, related to the patients underlying medical comorbidities Other, please specify Unable to determine Please document in your progress notes in order to capture severity of illness and risk of mortality. Include clinical findings that support your diagnosis. FYI: Press F11 to launch patient chart Place X here if this finding has no clinical significance, is not applicable or if you are not able to provide any additional documentation. MTDD
--- NOTE | 2016-05-30 16:02 | P.PN ---
Subjective Principal diagnosis: Ileus Patient is 85-year-old female admitted with ileus. Patient is doing better. Nasogastric tube has been discontinued. Patient states tolerating a full liquid diet. Denies nausea, vomiting, or abdominal pain. Patient reports flatus and states she had a bowel movement last night. Afebrile. No evidence of leukocytosis. Hemoglobin stable at 8.4. Objective - Vital Signs Vital signs: Vital Signs Temp 98.1 F 05/30/16 15:00 Pulse 89 05/30/16 15:00 Resp 16 05/30/16 15:00 BP 135/84 05/30/16 15:00 Pulse Ox 100 05/30/16 15:00 Intake & Output 05/29/16 05/30/16 05/30/16 18:59 06:59 18:59 Intake Total 800 240 Output Total 650 1200 Balance 150 -1200 240 Weight 65.317 kg Intake: IV 800 Dextrose 5%-0.9% NaCl 1, 800 000 ml @ 100 mls/hr IV . Q10H [facility] Rx#:[id number] Oral 240 Output: Gastric Drainage 50 Urine 600 1200 Uretheral (Garcia) 600 Other: # Bowel Movements 1 - Exam GENERAL: Pt awake and alert, well-appearing, well-nourished, and in no acute distress. HEAD: Atraumatic, normocephalic. EYES: Pupils equal and round. Sclera anicteric, conjunctiva are normal. ENT: Moist mucous membranes. Nasogastric tube to low intermittent suction for small bowel decompression. NECK: Supple without lymphadenopathy or JVD. LUNGS: Breath sounds clear to auscultation bilaterally. No wheezes, rales, or rhonchi. HEART: Heart S1, S2, no S3 or S4. Regular rate and rhythm. No murmurs, rubs or gallops. ABDOMEN: Soft, nontender, nondistended, normoactive bowel sounds. No guarding, no rebound. No masses or organomegaly appreciated. Ileostomy present. Abdominal dry and intact. EXTREMITIES: Palpable peripheral pulses. NEUROLOGICAL: Pt oriented x 3. PSYCH: Normal mood, normal affect. SKIN: Warm, dry, intact. - Labs CBC & Chem 7: 05/30/16 07:12 05/30/16 07:12 Labs: Abnormal Lab Results - Last 24 Hours (Table) 05/29/16 05/30/16 05/30/16 Range/Units 17:11 07:12 07:12 RBC 2.78 L (3.80-5.40) m/uL Hgb 8.4 L (11.4-16.0) gm/dL Hct 27.0 L (34.0-46.0) % Plt Count 586 H (150-450) k/uL Lymphocytes # 0.7 L (1.0-4.8) k/uL Chloride 110 H (98-107) mmol/L BUN 3 L (7-17) mg/dL Creatinine 0.51 L (0.52-1.04) mg/dL Glucose 109 H (74-99) mg/dL POC Glucose (mg/dL) 121 H (75-99) mg/dL Calcium 7.9 L (8.4-10.2) mg/dL Total Protein 4.9 L (6.3-8.2) g/dL Albumin 2.3 L (3.5-5.0) g/dL Microbiology - Last 24 Hours (Table) 05/28/16 17:00 Urine Culture - Preliminary Urine,Catheterized Gram Neg Bacilli Assessment and Plan Plan: Impression: 1. Abdominal pain associated with nausea and vomiting, present on admission, suspect secondary to ileus, unable to determine. 2. History of hematemesis prior to admission suspect secondary to possible gastritis. Hemoglobin 8.8 on admission, 8.4 today. Plan: 1. Advance diet as tolerated. Continue PPI. Increase activity. Continue supportive treatment and pain management. We'll continue to follow with medical service. The above impression and plan have been discussed and directed by Dr. Hartman. Bill CLARKE acting as scribe for Dr. Mejía.
[2016-05-30] MEDS: METOPROLOL SUCCINATE (ER) 50 MG TAB.ER.24H PO SCH (18:04)
[2016-05-31] MEDS: DEXTROSE 5%-0.9% NACL 1,000 ML IV SCH ×3 (07:52→16:56)
[2016-05-31] MEDS: PANTOPRAZOLE 40 MG TABLET PO SCH (07:54)
[2016-05-31] MEDS: METOPROLOL SUCCINATE (ER) 50 MG TAB.ER.24H PO SCH (07:54)
--- NOTE | 2016-05-31 11:30 | XR ---
EXAMINATION TYPE: XR abdomen 2V DATE OF EXAM ORDERED: 05/31/2016 11:18 AM HISTORY: sbo. COMPARISON: Previous study dated 05/29/2016. FINDINGS: There are extensive surgical clips throughout the pelvis. There are metallic skin sutures present overlying the pelvis. There is mild small bowel dilatation. There are scattered air-fluid levels. No free air is seen. No u nusual calcifications are seen. IMPRESSION: FINDINGS MOST CONSISTENT WITH MILD ILEUS.
[2016-05-31] MEDS: SODIUM FERRIC GLUCONAT-SUCROSE 125 MG in SODIUM CHLORIDE 0.9% 100 ML IVPB SCH (13:09)
[2016-05-31] MEDS: LEVOFLOXACIN 500MG-D5W PMX 500 MG in DEXTROSE/WATER 1 100ML.BAG IVPB SCH (14:22)
[2016-05-31] MEDS ORDERED: ARTIFICIAL TEARS-HYPROMELLOSE DROPS 15 ML BTL BOTH EYES PRN (14:54)
--- NOTE | 2016-05-31 15:27 | P.PN ---
Progress Note - Text The patient is stable. She is tolerating her liquids. He is passing flatus and had some bowel movements. Any nausea or vomiting. Abdominal x-ray showed some mild ileus. On examination the patient is awake alert cheerful in no distress. Vitals are stable. Hydration is good. Abdomen is quite soft mild distention. Has seropurulent drainage from wound the day disease being packed with the gauze. Stoma looks healthy. Impression improving small bowel obstruction. Chronic wound infection. Recommendation. We will advance her diet. Close monitoring and local wound care. Cultures are pending.
[2016-05-31] MEDS: ASPIRIN 81 MG CHEW PO SCH (16:49)
[2016-05-31] MEDS: LOSARTAN 50 MG TAB PO SCH (16:49)
[2016-05-31] MEDS: SODIUM CHLORIDE 5% OPHTH DROPS 15 ML BTL LEFT EYE SCH ×3 (16:50→21:31)
[2016-05-31] MEDS: CHOLECALCIFEROL 1,000 UNIT TAB PO SCH (16:50)
[2016-05-31] MEDS ORDERED: LEVOTHYROXINE 25 MCG TAB PO SCH (17:00)
[2016-05-31] MEDS: cycloSPORINE 0.05% OPHTH 0.4 ML DROPERETTE BOTH EYES SCH (21:29)
[2016-06-01] MEDS ORDERED: LEVOTHYROXINE 50 MCG TAB PO SCH (06:30)
[2016-06-01] MEDS ORDERED: LEVOTHYROXINE 25 MCG TAB PO SCH (06:30)
[2016-06-01 07:34] LABS: ALT 29 U/L (9-52); AST 13 U/L (14-36); Alkaline Phosphatase 96 U/L (38-126); Anion Gap 7 mmol/L; Blood Urea Nitrogen <2 mg/dL (7-17); Calcium 7.8 mg/dL (8.4-10.2); Carbon Dioxide 23 mmol/L (22-30); Chloride 110 mmol/L (98-107); Glucose 98 mg/dL (74-99); Non-African American GFR(MDRD) >60 (>60 ml/min/1.73 sqM); Potassium 3.5 mmol/L (3.5-5.1); Sodium 140 mmol/L (137-145); Total Bilirubin 0.2 mg/dL (0.2-1.3); Total Protein 4.6 g/dL (6.3-8.2)
[2016-06-01 08:05] LABS: Basophils % (A) 0 %; CH 29.9; CHCM 31.3; Eosinophils # (A) 0.1 k/uL (0-0.7); Eosinophils % (A) 2 %; HCT 26.6 % (34.0-46.0); HDW 3.38; HGB 8.2 gm/dL (11.4-16.0); Hypochromasia Moderate; Luc % (Auto) 2; Lymphocytes # (A) 0.7 k/uL (1.0-4.8); Lymphocytes % (A) 13 %; MCH 29.6 pg (25.0-35.0); MCHC 30.9 g/dL (31.0-37.0); MCV 95.8 fL (80.0-100.0); Mean Platelet Volume 7.2; Monocytes # (A) 0.4 k/uL (0-1.0); Monocytes % (A) 8 %; Neutrophils # (A) 3.9 k/uL (1.3-7.7); Neutrophils % (A) 74 %; RBC 2.78 m/uL (3.80-5.40); RDW 13.9 % (11.5-15.5); WBC 5.2 k/uL (3.8-10.6); WBC (Perox) 5.79
[2016-06-01] MEDS: DEXTROSE 5%-0.9% NACL 1,000 ML IV SCH ×2 (08:36→15:50)
[2016-06-01] MEDS: PANTOPRAZOLE 40 MG TABLET PO SCH (08:36)
[2016-06-01] MEDS: ASPIRIN 81 MG CHEW PO SCH (08:36)
[2016-06-01] MEDS: cycloSPORINE 0.05% OPHTH 0.4 ML DROPERETTE BOTH EYES SCH ×2 (08:37→22:10)
[2016-06-01] MEDS: LOSARTAN 50 MG TAB PO SCH (08:37)
[2016-06-01] MEDS: SODIUM CHLORIDE 5% OPHTH DROPS 15 ML BTL LEFT EYE SCH ×4 (08:37→22:11)
[2016-06-01] MEDS: SODIUM FERRIC GLUCONAT-SUCROSE 125 MG in SODIUM CHLORIDE 0.9% 100 ML IVPB SCH (08:40)
--- NOTE | 2016-06-01 10:38 | P.PN ---
Progress Note - Text The patient is a progressively improving. Did have a good bowel movement yesterday. No nausea or vomiting. Tolerated a full liquids. Less drainage performed. On examination the patient is awake alert cheerful in no distress. No fever. Abdomen is soft nondistended. Open wound in the lower part. 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 Packing is in place. Remainder the incision looks fine. 2 mimi 1 above and below the opening are removed today. Impression improving small bowel obstruction. Extensive abdominal surgeries. Recommendation we will advance her diet to soft diet the and continue monitoring.
--- NOTE | 2016-06-01 12:17 | PN ---
SUBJECTIVE: This is a white female who is on a clear liquid diet. No nausea or vomiting. She had some diarrhea with some slight increase in firming of the stools today. Vital signs are stable. She had a hemoglobin that went from 8.8 down to 8.3, a lot of serosanguineous drainage from the wound, stoma looks okay. She has small bowel obstruction. chronic wound infection, urinary tract infection, positive pseudomonas. Advance her diet. Cultures are pending. Continue with Levaquin, IV iron will be given. PROGNOSIS: Guarded.
[2016-06-01] MEDS ORDERED: SODIUM FERRIC GLUCONAT-SUCROSE 125 MG in SODIUM CHLORIDE 0.9% 100 ML IVPB SCH (12:45)
[2016-06-01] MEDS: CHOLECALCIFEROL 1,000 UNIT TAB PO SCH (12:53)
[2016-06-01 13:25] LABS: Basophils % (A) 0 %; CH 29.8; CHCM 32.1; Eosinophils # (A) 0.2 k/uL (0-0.7); Eosinophils % (A) 3 %; HCT 29.7 % (34.0-46.0); HGB 9.4 gm/dL (11.4-16.0); Hypochromasia Moderate; Luc # (Auto) 0.13; Luc % (Auto) 2; Lymphocytes # (A) 0.9 k/uL (1.0-4.8); Lymphocytes % (A) 13 %; MCH 29.7 pg (25.0-35.0); MCHC 31.8 g/dL (31.0-37.0); MCV 93.4 fL (80.0-100.0); Mean Platelet Volume 7.6; Monocytes # (A) 0.5 k/uL (0-1.0); Monocytes % (A) 7 %; Neutrophils # (A) 5.3 k/uL (1.3-7.7); Neutrophils % (A) 75 %; Poikilocytosis Slight; RBC 3.18 m/uL (3.80-5.40); RDW 13.9 % (11.5-15.5); WBC (Perox) 6.97
--- NOTE | 2016-06-01 14:26 | PN ---
SUBJECTIVE: This is an 81-year-old white female, status post cholecystectomy. She is being treated for Pseudomonas UTI with IV Levaquin and half of the mimi were removed yesterday. A couple of mimi will be removed today, and possible seroma will be removed. CARDIOVASCULAR: S1, S2. LUNGS: Clear. GI: ( ) INTEGUMENT: Clean, dry, and intact. ASSESSMENT: Ileus wound infection, Pseudomonas urinary tract infection, bladder cancer, metastatic. PLAN: Continue with IV Levaquin, hypothyroid medicines will be continued. Wound care will be done and possible seroma drainage will be done.
[2016-06-01] MEDS: LEVOFLOXACIN 500 MG TAB PO SCH (15:52)
[2016-06-01] MEDS: LEVOFLOXACIN 500MG-D5W PMX 500 MG in DEXTROSE/WATER 1 100ML.BAG IVPB SCH (15:57)
[2016-06-01] MEDS: METOPROLOL SUCCINATE (ER) 50 MG TAB.ER.24H PO SCH (15:58)
[2016-06-02] MEDS: LEVOTHYROXINE 25 MCG TAB PO SCH (05:42)
[2016-06-02] MEDS: DEXTROSE 5%-0.9% NACL 1,000 ML IV SCH ×2 (05:46→10:32)
[2016-06-02] MEDS: LOSARTAN 50 MG TAB PO SCH (07:41)
[2016-06-02] MEDS: PANTOPRAZOLE 40 MG TABLET PO SCH (07:41)
[2016-06-02] MEDS: ASPIRIN 81 MG CHEW PO SCH (07:41)
[2016-06-02] MEDS: SODIUM CHLORIDE 5% OPHTH DROPS 15 ML BTL LEFT EYE SCH ×4 (07:41→21:15)
[2016-06-02] MEDS: cycloSPORINE 0.05% OPHTH 0.4 ML DROPERETTE BOTH EYES SCH ×2 (07:42→21:15)
[2016-06-02] MEDS: SODIUM FERRIC GLUCONAT-SUCROSE 125 MG in SODIUM CHLORIDE 0.9% 100 ML IVPB SCH (10:32)
[2016-06-02] MEDS: CHOLECALCIFEROL 1,000 UNIT TAB PO SCH (11:52)
[2016-06-02] MEDS ORDERED: BISACODYL 10 MG SUPP RECTAL STA (11:57)
[2016-06-02] MEDS ORDERED: prednisoLONE ACETATE 1% OPHTH DROPS 1 ML BTL BOTH EYES SCH (12:00)
--- NOTE | 2016-06-02 13:04 | P.PN ---
Subjective Principal diagnosis: Ileus Patient is 85-year-old female admitted with ileus. Patient is doing better. Patient complains of occasional abdominal cramping near incision site. Denies nausea or vomiting. Patient reports flatus. Patient's last bowel movement 2 days ago. Tolerating soft diet. Afebrile. No evidence of leukocytosis. Hemoglobin stable at 9.4. Objective - Vital Signs Vital signs: Vital Signs Temp 98.5 F 06/02/16 07:33 Pulse 102 H 06/02/16 07:33 Resp 16 06/02/16 07:33 BP 137/71 06/02/16 07:33 Pulse Ox 97 06/02/16 07:33 Intake & Output 06/01/16 06/02/16 06/02/16 18:59 06:59 18:59 Intake Total 180 60 240 Output Total 1100 2625 Balance -920 -2565 240 Intake: Oral 180 60 240 Output: Urine 600 2375 Uretheral (Garcia) 1750 Stool 500 250 Other: Voiding Method Ileal Conduit (Right) - Exam GENERAL: Pt awake and alert, well-appearing, well-nourished, and in no acute distress. HEAD: Atraumatic, normocephalic. EYES: Pupils equal and round. Sclera anicteric, conjunctiva are normal. ENT: Moist mucous membranes. Nasogastric tube to low intermittent suction for small bowel decompression. NECK: Supple without lymphadenopathy or JVD. LUNGS: Breath sounds clear to auscultation bilaterally. No wheezes, rales, or rhonchi. HEART: Heart S1, S2, no S3 or S4. Regular rate and rhythm. No murmurs, rubs or gallops. ABDOMEN: Soft, nontender, nondistended, normoactive bowel sounds. No guarding, no rebound. No masses or organomegaly appreciated. Ileostomy present. Abdominal dressings dry and intact. EXTREMITIES: Palpable peripheral pulses. NEUROLOGICAL: Pt oriented x 3. PSYCH: Normal mood, normal affect. SKIN: Warm, dry, intact. - Labs CBC & Chem 7: 06/01/16 13:02 06/01/16 06:33 Labs: Abnormal Lab Results - Last 24 Hours (Table) 06/01/16 Range/Units 13:02 RBC 3.18 L (3.80-5.40) m/uL Hgb 9.4 L (11.4-16.0) gm/dL Hct 29.7 L (34.0-46.0) % Plt Count 517 H (150-450) k/uL Lymphocytes # 0.9 L (1.0-4.8) k/uL Microbiology - Last 24 Hours (Table) 05/31/16 12:10 Gram Stain - Preliminary Abdomen Wound Culture - Preliminary Assessment and Plan Plan: Impression: 1. Abdominal pain associated with nausea and vomiting, present on admission, suspect secondary to ileus, unable to determine. 2. History of hematemesis prior to admission suspect secondary to possible gastritis. Hemoglobin stable. Plan: 1. Continue soft diet. Continue PPI. Increase activity. Continue supportive treatment and pain management. Continue local wound care. We'll continue to follow with medical service. The above impression and plan have been discussed and directed by Dr. Hartman. Bill CLARKE acting as scribe for Dr. Mejía.
[2016-06-02] MEDS: LEVOFLOXACIN 500 MG TAB PO SCH (13:08)
--- NOTE | 2016-06-02 13:31 | P.PN ---
Subjective 81-year-old up ambulating in the hallway states passing gas no stool. Patient reports the abdominal discomfort cramping resolving tolerating diet. Is been no reports of nausea vomiting patient's hemoglobin remained stable at 9.4 afebrile with no evidence of leukocytosis Objective - Vital Signs Vital signs: Vital Signs Temp 98.5 F 06/02/16 07:33 Pulse 102 H 06/02/16 07:33 Resp 16 06/02/16 07:33 BP 137/71 06/02/16 07:33 Pulse Ox 97 06/02/16 07:33 Intake & Output 06/01/16 06/02/16 06/02/16 18:59 06:59 18:59 Intake Total 180 60 240 Output Total 1100 2625 Balance -920 -2565 240 Intake: Oral 180 60 240 Output: Urine 600 2375 Uretheral (Garcia) 1750 Stool 500 250 Other: Voiding Method Ileal Conduit (Right) - Exam Physical exam 81-year-old female pleasant oriented x 3 resting in bed states there is less abdominal pain this morning Lungs essentially clear with adequate air movement on room air sats greater than 95% no cough noted Heart S1-S2 audible and regular denying chest pain no murmur Abdomen soft not distended nontender dressing removed suspected suture line mimi in place small opening to the distal incision line packing in place no redness at the site bowel tones present 4 quadrants urostomy right lower quadrant connected to a drainage bag carlyn urine noted Extremities Venodyne's on to the bilateral lower extremities - Labs CBC & Chem 7: 06/01/16 13:02 06/01/16 06:33 Labs: Abnormal Lab Results - Last 24 Hours (Table) 06/01/16 Range/Units 13:02 RBC 3.18 L (3.80-5.40) m/uL Hgb 9.4 L (11.4-16.0) gm/dL Hct 29.7 L (34.0-46.0) % Plt Count 517 H (150-450) k/uL Lymphocytes # 0.9 L (1.0-4.8) k/uL Microbiology - Last 24 Hours (Table) 05/31/16 12:10 Gram Stain - Preliminary Abdomen Wound Culture - Preliminary Pseudomonas spec Assessment and Plan Plan: Impression Present on admission hematemesis likely due to gastritis History of bladder cancer diagnosed 2014 Present on admission nausea vomiting poor oral intake suspect due to small bowel obstruction not ruled out by abdominal imaging A recent discharge from the [facility] on the 16 of May for treatment of a cystectomy, total hysterectomy, partial colectomy and a diverging ileostomy for bladder, uterine, vaginal cancer Present on admission anemia suspect due to a GI bleed not ruled out Present on admission hypokalemia corrected Mild protein calorie malnutrition suspect due to poor caloric intake Hyperlipidemia Essential hypertension Hypothyroid Present on admission UTI with positive urine culture for Pseudomonas aeruginosa Plan Continue recommendations by surgical service Repeat labs in the morning Pain control DVT and GI prophylaxis Increase activity Dulcolax suppository 1 now Continue Levaquin as ordered Anticipate discharge in 24 hours if medically stable The above dictated assessment and findings were discussed with dr ray . Impression and the plan of care have been dictated as directed. Urvashi Waters nurse practitioner acting as a scribe for dr ray
[2016-06-02] MEDS: METOPROLOL SUCCINATE (ER) 50 MG TAB.ER.24H PO SCH (15:59)
[2016-06-03 02:18] VITALS: RESP 16
[2016-06-03] MEDS: LEVOTHYROXINE 25 MCG TAB PO SCH (05:35)
[2016-06-03] MEDS: ASPIRIN 81 MG CHEW PO SCH (08:52)
[2016-06-03] MEDS: SODIUM CHLORIDE 5% OPHTH DROPS 15 ML BTL LEFT EYE SCH ×4 (08:52→21:11)
[2016-06-03] MEDS: cycloSPORINE 0.05% OPHTH 0.4 ML DROPERETTE BOTH EYES SCH ×2 (08:52→21:10)
[2016-06-03] MEDS: PANTOPRAZOLE 40 MG TABLET PO SCH (08:53)
[2016-06-03] MEDS: LOSARTAN 50 MG TAB PO SCH (08:53)
[2016-06-03] MEDS: CHOLECALCIFEROL 1,000 UNIT TAB PO SCH (12:43)
[2016-06-03] MEDS ORDERED: BISACODYL 5 MG TABLET.DR PO STA (13:56)
--- NOTE | 2016-06-03 14:07 | P.PN ---
Subjective 81-year-old female being seen. Currently is sitting up in a chair. Patient states she has ambulated twice in the hallway this morning. Patient states no stool passing gas. Patient states tolerating a diet no abdominal bloating or cramping the urostomy is functioning appropriately stoma pink. Adequate urine output noted currently no labs pending has remained afebrile Objective - Vital Signs Vital signs: Vital Signs Temp 98.1 F 06/03/16 08:48 Pulse 101 H 06/03/16 08:48 Resp 16 06/03/16 08:48 BP 148/67 06/03/16 08:48 Pulse Ox 97 06/03/16 08:48 Intake & Output 06/02/16 06/03/16 06/03/16 18:59 06:59 18:59 Intake Total 720 60 Output Total 1000 3525 Balance -280 -3465 Weight 65.317 kg 65.317 kg Intake: Oral 720 60 Output: Urine 1000 2525 Uretheral (Garcia) 1000 900 Stool 1000 Other: Voiding Method Ileal Conduit (Right) Ileal Conduit (Right) Ileal Conduit ( Right) - Exam Physical exam 81-year-old female pleasant oriented x 3 in up in a chair states there is less abdominal pain this morning Lungs essentially clear with adequate air movement on room air sats greater than 95% no cough noted Heart S1-S2 audible and regular denying chest pain no murmur Abdomen soft not distended nontender dressing removed suture line mimi in place small opening to the distal incision line packing in place no redness at the site mimi in place bowel tones present 4 quadrants urostomy right lower quadrant connected to a drainage bag carlyn urine noted no stool Extremities Venodyne's on to the bilateral lower extremities - Labs CBC & Chem 7: 06/01/16 13:02 06/01/16 06:33 Labs: Microbiology - Last 24 Hours (Table) 05/31/16 12:10 Gram Stain - Preliminary Abdomen Wound Culture - Preliminary Pseudomonas spec Assessment and Plan Plan: Impression Present on admission hematemesis likely due to gastritis History of bladder cancer diagnosed 2014 Present on admission nausea vomiting poor oral intake suspect due to small bowel obstruction not ruled out by abdominal imaging A recent discharge from the [facility] on the 16 of May for treatment of a cystectomy, total hysterectomy, partial colectomy and a diverging ileostomy for bladder, uterine, vaginal cancer Present on admission anemia suspect due to a GI bleed not ruled out Present on admission hypokalemia corrected Mild protein calorie malnutrition suspect due to poor caloric intake Hyperlipidemia Essential hypertension Hypothyroid Present on admission UTI with positive urine culture for Pseudomonas aeruginosa Positive wound culture Pseudomonas Plan He move the mimi and Steri-Strips Repeat labs in the morning Pain control DVT and GI prophylaxis Increase activity Bowel stimulant program Continue Levaquin as ordered The above dictated assessment and findings were discussed with dr ray . Impression and the plan of care have been dictated as directed. Urvashi Waters nurse practitioner acting as a scribe for dr ray
[2016-06-03] MEDS: SODIUM FERRIC GLUCONAT-SUCROSE 125 MG in SODIUM CHLORIDE 0.9% 100 ML IVPB SCH (14:17)
--- NOTE | 2016-06-03 15:40 | P.PN ---
Subjective Principal diagnosis: Ileus Patient is 85-year-old female admitted with ileus. Patient is doing better. Patient complains of occasional abdominal cramping near incision site. Denies nausea or vomiting. Patient reports flatus with no bowel movement.. Patient's last bowel movement 3 days ago. Tolerating soft diet. Afebrile. Objective - Vital Signs Vital signs: Vital Signs Temp 98.6 F 06/03/16 15:24 Pulse 101 H 06/03/16 15:24 Resp 16 06/03/16 15:24 BP 152/75 06/03/16 15:24 Pulse Ox 98 06/03/16 15:24 Intake & Output 06/02/16 06/03/16 06/03/16 18:59 06:59 18:59 Intake Total 720 60 Output Total 1000 3525 Balance -280 -3465 Weight 65.317 kg 65.317 kg Intake: Oral 720 60 Output: Urine 1000 2525 Uretheral (Garcia) 1000 900 Stool 1000 Other: Voiding Method Ileal Conduit (Right) Ileal Conduit (Right) Ileal Conduit ( Right) - Exam GENERAL: Pt awake and alert, well-appearing, well-nourished, and in no acute distress. LUNGS: Breath sounds clear to auscultation bilaterally. No wheezes, rales, or rhonchi. HEART: Heart S1, S2, no S3 or S4. Regular rate and rhythm. No murmurs, rubs or gallops. ABDOMEN: Soft, nontender, nondistended, normoactive bowel sounds. No guarding, no rebound. No masses or organomegaly appreciated. Ileostomy present, stoma healthy looking. Abdominal incision with no erythema or purulent drainage. Richard intact with a small opening inferiorly packed with dressing. NEUROLOGICAL: Pt oriented x 3. - Labs CBC & Chem 7: 06/01/16 13:02 06/01/16 06:33 Labs: Microbiology - Last 24 Hours (Table) 05/31/16 12:10 Gram Stain - Final Abdomen Wound Culture - Final Pseudomonas aeruginosa 05/31/16 12:10 Anaerobic Culture - Final Abdomen Anaerobic Gm Negative Bacilli Assessment and Plan Plan: Impression: 1. Abdominal pain associated with nausea and vomiting, present on admission, suspect secondary to ileus, unable to determine, improved. 2. History of hematemesis prior to admission suspect secondary to possible gastritis. Hemoglobin stable. Plan: 1. Continue soft diet. Continue PPI. Increase activity. Continue supportive treatment and pain management. Continue local wound care. We'll continue to follow with medical service. The above impression and plan have been discussed and directed by Dr. Hartman. Bill CLARKE acting as scribe for Dr. Mejía.
[2016-06-03] MEDS: LEVOFLOXACIN 500 MG TAB PO SCH (15:56)
[2016-06-03] MEDS: SENNOSIDES 8.6 MG TAB PO SCH ×2 (15:56→21:10)
[2016-06-03] MEDS: ACETAMINOPHEN TAB 325 MG TAB PO PRN ×2 (15:57→23:22)
[2016-06-03] MEDS: METOPROLOL SUCCINATE (ER) 50 MG TAB.ER.24H PO SCH (17:13)
[2016-06-04] MEDS: LEVOTHYROXINE 25 MCG TAB PO SCH (05:46)
[2016-06-04 07:53] LABS: CH 29.9; HCT 29.5 % (34.0-46.0); HDW 3.46; HGB 9.2 gm/dL (11.4-16.0); Hypochromasia Moderate; MCH 29.4 pg (25.0-35.0); MCHC 31.4 g/dL (31.0-37.0); MCV 93.8 fL (80.0-100.0); Mean Platelet Volume 8.2; Poikilocytosis Slight; RBC 3.14 m/uL (3.80-5.40); RDW 14.8 % (11.5-15.5); WBC 6.1 k/uL (3.8-10.6); WBC (Perox) 6.11
[2016-06-04 07:57] LABS: ALT 22 U/L (9-52); AST 28 U/L (14-36); Alkaline Phosphatase 83 U/L (38-126); Anion Gap 9 mmol/L; Blood Urea Nitrogen 8 mg/dL (7-17); Calcium 8.7 mg/dL (8.4-10.2); Carbon Dioxide 25 mmol/L (22-30); Chloride 109 mmol/L (98-107); Glucose 93 mg/dL (74-99); Non-African American GFR(MDRD) >60 (>60 ml/min/1.73 sqM); Potassium 4.6 mmol/L (3.5-5.1); Sodium 143 mmol/L (137-145); Total Bilirubin 0.5 mg/dL (0.2-1.3); Total Protein 5.6 g/dL (6.3-8.2)
[2016-06-04 08:20] LABS: Add Differential Manual Differential
[2016-06-04 08:22] LABS: Manual Review Performed; Nucleated Red Blood Cells 0 /100 WBC (0-0); Total Cells Counted 100
[2016-06-04] MEDS: SODIUM FERRIC GLUCONAT-SUCROSE 125 MG in SODIUM CHLORIDE 0.9% 100 ML IVPB SCH (09:52)
[2016-06-04] MEDS: cycloSPORINE 0.05% OPHTH 0.4 ML DROPERETTE BOTH EYES SCH (09:53)
[2016-06-04] MEDS: LOSARTAN 50 MG TAB PO SCH (09:53)
[2016-06-04] MEDS: PANTOPRAZOLE 40 MG TABLET PO SCH (09:53)
[2016-06-04] MEDS: SODIUM CHLORIDE 5% OPHTH DROPS 15 ML BTL LEFT EYE SCH ×2 (09:53→12:43)
[2016-06-04] MEDS: ASPIRIN 81 MG CHEW PO SCH (09:53)
[2016-06-04] MEDS: SENNOSIDES 8.6 MG TAB PO SCH (09:54)
[2016-06-04] MEDS: CHOLECALCIFEROL 1,000 UNIT TAB PO SCH (12:43)
[2016-06-04 14:03] VITALS: BP 121/60; PULSE 103; TEMP 98.9
--- NOTE | 2016-06-04 14:30 | P.PN ---
Subjective Patient is 85-year-old female admitted with ileus. Patient is doing better. Patient complains of occasional abdominal cramping near incision site. Denies nausea or vomiting. Patient reports flatus and states she had 2 bowel movements this morning. Tolerating soft diet. Afebrile. Objective - Vital Signs Vital signs: Vital Signs Temp 98.9 F 06/04/16 14:02 Pulse 103 H 06/04/16 14:02 Resp 16 06/04/16 14:02 BP 121/60 06/04/16 14:02 Pulse Ox 95 06/04/16 14:02 Intake & Output 06/03/16 06/04/16 06/04/16 18:59 06:59 18:59 Intake Total 650 470 Output Total 1450 1550 250 Balance -1450 -900 220 Weight 65.317 kg Intake: Oral 590 470 Other 60 Output: Urine 1200 1300 Uretheral (Garcia) 1200 Stool 250 250 250 Other: Voiding Method Ileal Conduit (Right) Ileal Conduit (Right) Ileal Conduit ( Right) # Voids 1 # Bowel Movements 1 - Exam GENERAL: Pt awake and alert, well-appearing, well-nourished, and in no acute distress. LUNGS: Breath sounds clear to auscultation bilaterally. No wheezes, rales, or rhonchi. HEART: Heart S1, S2, no S3 or S4. Regular rate and rhythm. No murmurs, rubs or gallops. ABDOMEN: Soft, nontender, nondistended, normoactive bowel sounds. No guarding, no rebound. No masses or organomegaly appreciated. Ileostomy present, stoma healthy looking. Abdominal incision with no erythema or purulent drainage. Richard intact with a small opening inferiorly packed with dressing. NEUROLOGICAL: Pt oriented x 3. - Labs CBC & Chem 7: 06/04/16 06:47 06/04/16 06:47 Labs: Abnormal Lab Results - Last 24 Hours (Table) 06/04/16 06/04/16 Range/Units 06:47 06:47 RBC 3.14 L (3.80-5.40) m/uL Hgb 9.2 L (11.4-16.0) gm/dL Hct 29.5 L (34.0-46.0) % Plt Count 498 H (150-450) k/uL Chloride 109 H (98-107) mmol/L Total Protein 5.6 L (6.3-8.2) g/dL Albumin 2.8 L (3.5-5.0) g/dL Microbiology - Last 24 Hours (Table) 05/31/16 12:10 Gram Stain - Final Abdomen Wound Culture - Final Pseudomonas aeruginosa 05/31/16 12:10 Anaerobic Culture - Final Abdomen Anaerobic Gm Negative Bacilli Assessment and Plan Plan: Impression: 1. Abdominal pain associated with nausea and vomiting, present on admission, suspect secondary to ileus, unable to determine, resolved. 2. History of hematemesis prior to admission suspect secondary to possible gastritis. Hemoglobin stable. Plan: 1. Continue soft diet. Continue PPI. Increase activity. Continue supportive treatment and pain management. Continue local wound care. We'll continue to follow with medical service. From a surgical standpoint, patient is stable for discharge. The above impression and plan have been discussed and directed by Dr. Hartman. Bill CLARKE acting as scribe for Dr. Mejía.
[2016-06-04] MEDS: LEVOFLOXACIN 500 MG TAB PO SCH (15:02)
--- NOTE | 2016-06-26 16:19 | P.DS ---
Providers Date of admission: 05/28/16 13:05 Expected date of discharge: 06/04/16 Attending physician: Madan Ray Consults: 05/29/16 10:43 Consult Physician Urgent Consulting Provider: Kyle Mejía Consult Reason/Comments: sbo Do you want consulting provider notified?: Yes Primary care physician: [facility] Course: 81-year-old female admitted on the day of admission was seen by surgical service treated for abdominal pain associated with nausea vomiting suspect due to an ileus unable to determine did resolve. Patient was followed throughout the hospitalization by surgical service stabilized and able to be discharged on June 04 Impression discharge diagnosis Present on admission abdominal pain associated with nausea vomiting suspect due to an ileus unable to determine resolved prior to admission suspect secondary to possible gastritis hemoglobin stable Present on admission nausea vomiting poor oral intake suspect due to a small bowel obstruction not ruled out by abdominal imaging A recent discharge from the [facility] on May 16 for treatment of bladder cancer and vaginal cancer underwent a cystectomy, total hysterectomy, partial colectomy, and a diverging ileostomy. Present on admission anemia suspect due to a GI bleed not ruled out Present on admission hypokalemia corrected Mild protein calorie malnutrition suspect due to poor caloric intake Hyperlipidemia Essential hypertension Hypothyroid Present on admission UTI with positive urine culture for Pseudomonas aeruguginos Positive wound culture Pseudomonas The above dictated assessment and findings were discussed with dr ray Impression and the plan of care have been dictated as directed. Urvashi Waters nurse practitioner acting as a scribe for dr ray . Patient Condition at Discharge: Stable Plan - Discharge Summary Discharge Medication List Cholecalciferol [Vitamin D3] 2,000 unit PO DAILY 03/05/15 [History] Levothyroxine Sodium [Synthroid] 25 mcg PO DAILY 03/05/15 [History] Losartan Potassium [Losartan Potassium] 100 mg PO DAILY 03/05/15 [History] Metoprolol Succinate [Toprol XL] 50 mg PO AC-SUPPER 03/05/15 [History] Omeprazole [PriLOSEC] 40 mg PO AC-BRKFST 03/05/15 [History] Sodium Chloride 5% Ophth Soln [Justin 128] 1 drops LEFT EYE QID 03/05/15 [History] cycloSPORINE 0.05% OPHTH SOLN [Restasis] 1 drop BOTH EYES BID 03/05/15 [History] prednisoLONE ACETATE 1% OPHTH [Pred Forte 1%] 1 drops BOTH EYES MO 03/05/15 [ History] Aspirin EC [Ecotrin Low Dose] 81 mg PO DAILY 05/28/16 [History] Carboxymethylcellulose Sodium [Refresh Tears] 1 drop BOTH EYES QID PRN 05/28/16 [History] Follow up Appointment(s)/Referral(s): [facility], [NON-STAFF] - 1 Week Madan Ray MD [Primary Care Provider] - 06/05/16 9:45 am Kyle Mejía MD [STAFF PHYSICIAN] - 06/10/16 2:00 pm (Please bring Medication List, DL and Insurance Cards.) Discharge Disposition: HOME WITH HOME HEALTH SERVICES
== END 2016-06-04 15:36 | disposition home health service (06) | DRG 389 ==
LOC: EC 09:53 → 3SUR 13:05
PROVIDERS: ADMIT Family Medicine; ATTEND Family Medicine
DX: K56.60 Unspecified intestinal obstruction (principal); E44.1 Mild protein-calorie malnutrition; K92.2 Gastrointestinal hemorrhage, unspecified; N39.0 Urinary tract infection, site not specified; C67.9 Malignant neoplasm of bladder, unspecified; I10 Essential (primary) hypertension; B96.5 Pseudomonas (aeruginosa) (mallei) (pseudomallei) as the cause of diseases classified elsewhere; D64.9 Anemia, unspecified; F32.9 Major depressive disorder, single episode, unspecified; E03.9 Hypothyroidism, unspecified; E78.5 Hyperlipidemia, unspecified; E87.6 Hypokalemia; K21.9 Gastro-esophageal reflux disease without esophagitis; Z79.899 Other long term (current) drug therapy; Z80.0 Family history of malignant neoplasm of digestive organs; Z80.3 Family history of malignant neoplasm of breast
CPT/HCPCS: 36415; 74020; 74022; 80048; 80053; 81001; 83690; 83735; 84100; 84132; 84439; 84443; 85025; 87070; 87075; 87077; 87086; 87186; 87205; 93005; 96361; 96374; 99285

== ENCOUNTER → 2016-07-02 | Outpatient (CLI) | payer MEDICARE, OTHER ==
--- NOTE | 2016-07-02 11:58 | CT ---
EXAMINATION TYPE: CT abdomen pelvis wo con DATE OF EXAM: 07/02/2016 11:49 AM COMPARISON: 01/31/2015 HISTORY: Lower pelvic pain, hx of bladder removal sx due to CA. CT DLP: 808 mGycm FINDINGS: LUNG BASES: No evidence for nodule. No evidence for infiltrate. Small sliding-type hiatal hernia is d etected. LIVER/GB: The gallbladder is unremarkable. No space-occupying hepatic lesion. PANCREAS: No pancreatic mass identified. No inflammatory process seen. SPLEEN: No evidence for splenomegaly. No intrasplenic lesions seen. ADRENALS: No adrenal nodules identified. No evidence for thickening. KIDNEYS: No evidence for renal mass. No nephrolithiasis. No hydronephrosis. There is evidence of radi kianna cystectomy with ileal loop and ileostomy. Fluid-filled structure right lower quadrant measures 8 x 6.2 cm may reflect neobladder. Correlate with surgical intervention. BOWEL: Nonvisualization of the appendix. Sigmoid diverticulosis without diverticulitis. No evidence o f bowel obstruction. No inflammatory process. Lymph nodes: No evidence for adenopathy greater than 1 cm. Abdominal aorta: Atheromatous changes seen. No evidence for aneurysm. Genital organs: No significant abnormality. Other: No significant abnormality. IMPRESSION: 1. POSTOPERATIVE CHANGES OF RADICAL CYSTECTOMY WITH PROBABLE NEOBLADDER FORMATION AND RIGHT LOWER STEPHANIE DRANT ILEOSTOMY. 2. SIGMOID DIVERTICULOSIS WITHOUT DIVERTICULITIS. 3. SMALL SLIDING-TYPE HIATAL HERNIA.
== END ==
LOC: RADCTMAIN 11:30
PROVIDERS: ATTEND Family Medicine
DX: K57.30 Diverticulosis of large intestine without perforation or abscess without bleeding (principal); K44.9 Diaphragmatic hernia without obstruction or gangrene; Z93.2 Ileostomy status; Z90.6 Acquired absence of other parts of urinary tract
CPT/HCPCS: 74176

== ENCOUNTER → 2016-10-28 | Outpatient (CLI) | payer MEDICARE, OTHER ==
[2016-10-28 13:02] LABS: Blood Urea Nitrogen 17 mg/dL (7-17); Non-African American GFR(MDRD) 58 (>60 ml/min/1.73 sqM)
--- NOTE | 2016-10-28 16:03 | CT ---
EXAMINATION TYPE: CT abdomen pelvis w con DATE OF EXAM: 10/28/2016 COMPARISON: NONE INDICATION: Bladder cancer DLP: 536 mGycm, Automated exposure control for dose reduction was used. CONTRAST: 95 mL of Omnipaque 300. Study performed with Oral Contrast TECHNIQUE: Axial images were obtained from above the diaphragm to the pubic rami in the axial plane a t 5 mm thick sections. Reconstructed images are reviewed on the computer in the coronal plane. FINDINGS: Limited CT sections are obtained the lung bases. The lung bases are clear. Small hiatal hernia is p resent. CT ABDOMEN: Liver: Normal Spleen: Normal Pancreas: Normal Adrenal glands: The adrenal glands are normal. Gallbladder: Normal Kidneys: No masses are evident. There is mild right and moderate left hydronephrosis. Bilateral hydro ureter extends to the ileal conduit. A urostomy is in the right upper quadrant. No filling defects ar e identified. Delayed images were obtained through the renal collecting system there is delayed contr ast within the left ureter. The right ureter appears normal to the ileal conduit. No cysts are presen t. Delayed images were obtained through the kidneys, which remain unremarkable. Aorta: Vascular calcification is within the aorta. Inferior vena cava: Normal. CT PELVIS: Loops of bowel within the abdomen and pelvis are normal. Postsurgical changes are present. Oral c ontrast extends to the distal colon. Multiple diverticuli without acute diverticulitis is within the sigmoid colon. Appendix: Not identified Urinary bladder: Surgically absent. No free fluid is within the pelvis. Genitourinary structures: Uterus and ovaries are not identified. Osseous structures: No suspicious lytic or sclerotic lesions. IMPRESSIONS: 1. Postsurgical changes discussed above. No recurrent masses are evident suggest recurrent urinary b ladder cancer. No suspicious filling defects are within the renal collecting system. There is some sl ight delay in contrast excretion into the ureters on the left compared to the right there is mild chidi ateral hydronephrosis.
== END | disposition home or self-care (01) ==
LOC: RADCTMAIN 12:26
PROVIDERS: ATTEND Urology
DX: C67.2 Malignant neoplasm of lateral wall of bladder (principal); N13.30 Unspecified hydronephrosis; Z88.1 Allergy status to other antibiotic agents; Z98.890 Other specified postprocedural states
CPT/HCPCS: 82565; 84520; 74177; 36415; Q9967

== ENCOUNTER → 2017-05-19 | Outpatient (CLI) | payer MEDICARE, OTHER ==
--- NOTE | 2017-05-19 13:43 | XR ---
EXAMINATION TYPE: XR chest 2V DATE OF EXAM: 05/19/2017 COMPARISON: 12/18/2009 INDICATION: Bladder cancer TECHNIQUE: Frontal and lateral views of the chest are obtained. FINDINGS: The heart size is normal. The pulmonary vasculature is normal. The lungs are clear. IMPRESSION: 1. No acute pulmonary process.
--- NOTE | 2017-05-19 13:48 | CT ---
EXAMINATION TYPE: CT abdomen pelvis w con DATE OF EXAM: 05/19/2017 COMPARISON: October 28, 2016 HISTORY: Bladder CA follow up CT DLP: 560.6 mGycm CONTRAST: CT scan of the abdomen and pelvis is performed with Oral Contrast and with IV Contrast, patient injec gayathri with 100 mL of Omnipaque 300. FINDINGS: LUNG BASES-: No visible nodule. No infiltrate. LIVER/GB: No calcified gallstones. No space occupying hepatic lesion. Biliary tree is of normal ca liber. PANCREAS: No inflammation. No distinct mass. SPLEEN: No splenic enlargement. No lesion seen. ADRENALS: No nodule. No thickening. KIDNEYS/BLADDER: No nephrolithiasis. No distinct renal mass. Cystectomy changes are noted with div erting ileostomy and ileal conduit. Mild hydroureter persists. No evidence for obstructing calculus o r mass. BOWEL: Normal appendix. Small sliding-type hiatal hernia. Normal bowel caliber. No inflammation. GENITAL ORGANS: No gross abnormality. LYMPH NODES: No greater than 1cm abdominal or pelvic lymph nodes are appreciated. AORTA: No significant abnormality. OSSEOUS STRUCTURES: No significant abnormality is seen. OTHER: No significant additional abnormality is seen. IMPRESSION: 1. Stable postoperative changes without evidence for recurrent or residual disease. No evidence for m etastatic disease. Mild bilateral hydroureter. 2. Small sliding-type hiatal hernia.
== END | disposition home or self-care (01) ==
LOC: RADCTMAIN 11:20
PROVIDERS: ATTEND Urology
DX: C67.9 Malignant neoplasm of bladder, unspecified (principal); K44.9 Diaphragmatic hernia without obstruction or gangrene; N13.4 Hydroureter; Z98.890 Other specified postprocedural states
CPT/HCPCS: 82565; 84520; 71046; 74177; 36415; Q9967

== ENCOUNTER → 2017-11-26 | Outpatient (CLI) | payer MEDICARE, OTHER ==
--- NOTE | 2017-11-26 10:28 | XR ---
EXAMINATION TYPE: XR chest 2V DATE OF EXAM: 11/26/2017 COMPARISON: Chest x-ray May 19, 2017 HISTORY: Ladder cancer. TECHNIQUE: Frontal and lateral views of the chest are obtained. FINDINGS: There is mild to moderate biapical pleural/parenchymal scarring. There is no focal air spac e opacity, pleural effusion, or pneumothorax seen. The cardiac silhouette size is within normal limi ts with atherosclerotic change in thoracic aorta. Slight underlying scoliotic curvature is redemonstr ated. Old right lateral mid rib fractures are redemonstrated IMPRESSION: Chronic changes without acute pulmonary process.
--- NOTE | 2017-11-26 12:42 | CT ---
EXAMINATION TYPE: CT abdomen pelvis w con DATE OF EXAM: 11/26/2017 COMPARISON: 05/19/2017 HISTORY: Bladder cancer CT DLP: 477 mGycm Automated exposure control for dose reduction was used. CONTRAST: CT scan of the abdomen pelvis is performed with IV Contrast, patient injected with 100 mL of Isovue 3 00. FINDINGS- LUNG BASES-interlobular septal thickening involving the right lower lobe could be associated with ear ly interstitial lung disease. There is a calcified lung nodule at the right lung base subpleural in l ocation LIVER/GB- No gross abnormality is appreciated. PANCREAS- No gross abnormality is seen. SPLEEN- No gross abnormality is seen. ADRENALS- No gross abnormality is seen. KIDNEYS/BLADDER- no hydronephrosis nephrolithiasis or renal mass. Cystectomy changes are noted with d iverting ileostomy and ileal conduit. Mild hydroureter persists. BOWEL-nonspecific abdomen small hiatal hernia noted. Diverticulosis of colon. LYMPH NODES- No greater than 1cm abdominal or pelvic lymph nodes areappreciated. OSSEOUS STRUCTURES-chronic rib deformity noted. Hypertrophic and degenerative changes spine noted. OTHER- aorta of normal caliber with atherosclerotic changes. 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 IMPRESSION- 1. Stable postoperative changes without evidence for recurrent or residual disease. No evidence for m etastatic disease. Mild bilateral hydroureter.
== END | disposition home or self-care (01) ==
LOC: RADCTMAIN 10:00
PROVIDERS: ATTEND Urology
DX: C67.9 Malignant neoplasm of bladder, unspecified (principal); N13.4 Hydroureter; Z98.890 Other specified postprocedural states
CPT/HCPCS: 82565; 84520; 71046; 74177; 36415; Q9967

== ENCOUNTER → 2018-05-28 | Outpatient (CLI) | payer MEDICARE ==
--- NOTE | 2018-05-28 10:20 | XR ---
EXAMINATION TYPE: XR chest 2V DATE OF EXAM: 05/28/2018 COMPARISON: Chest x-ray November 26, 2017 HISTORY: Bladder cancer. TECHNIQUE: Frontal and lateral views of the chest are obtained. FINDINGS: There is chronic parenchymal changes bilaterally without new suspicious focal air space op acity, pleural effusion, or pneumothorax seen. The cardiac silhouette size is within normal limits w ith atherosclerotic change in the aorta. Old right lateral rib fractures are redemonstrated.. IMPRESSION: No suspicious acute process. No significant change from prior.
--- NOTE | 2018-05-28 12:16 | CT ---
EXAMINATION TYPE: CT abdomen pelvis w con DATE OF EXAM: 05/28/2018 COMPARISON: 11/26/2017 HISTORY: Bladder CA follow up CT DLP: 521.3 mGycm CONTRAST: CT scan of the abdomen and pelvis is performed with Oral Contrast and with IV Contrast, patient injec gayathri with 100 mL of Isovue 300. FINDINGS: LUNG BASES-: No visible nodule. No infiltrate. Small hiatal hernia noted. LIVER/GB: Small gallbladder polyp or noncalcified gallstone. Mild hepatic steatosis. No space occu pying hepatic lesion. Biliary tree is of normal caliber. PANCREAS: No inflammation. No distinct mass. SPLEEN: No splenic enlargement. No lesion seen. ADRENALS: No nodule. No thickening. KIDNEYS/BLADDER: No hydronephrosis. No nephrolithiasis. No distinct renal mass. Cystectomy changes are redemonstrated with diverging ileostomy and ileal conduit. Mild hydroureter persists unchanged f rom prior study. No evidence for recurrent disease or metastatic disease. BOWEL: Normal appendix. Normal bowel caliber. No inflammation. GENITAL ORGANS: No gross abnormality. LYMPH NODES: No greater than 1cm abdominal or pelvic lymph nodes are appreciated. AORTA: No significant abnormality. OSSEOUS STRUCTURES: No significant abnormality is seen. OTHER: No significant additional abnormality is seen. IMPRESSION: 1. Cystectomy changes are redemonstrated with diverging ileostomy and ileal conduit. Mild hydrourete r persists unchanged from prior study. No evidence for recurrent disease or metastatic disease.
== END | disposition home or self-care (01) ==
LOC: RADCTMAIN 09:46
PROVIDERS: ATTEND Urology
DX: Z03.89 Encounter for observation for other suspected diseases and conditions ruled out (principal); N13.4 Hydroureter; Z85.51 Personal history of malignant neoplasm of bladder; Z90.6 Acquired absence of other parts of urinary tract; Z93.2 Ileostomy status
CPT/HCPCS: 82565; 84520; 71046; 74177; 36415; Q9967

== ENCOUNTER 2018-07-20 18:32 | Inpatient (IN) | payer MEDICARE ==
[2018-07-20] MEDS ORDERED: ONDANSETRON 4 MG/2 ML VIAL IVP STA (19:08)
[2018-07-20] MEDS ORDERED: MORPHINE SULFATE 4 MG/ML SYRINGE IV STA (19:08)
[2018-07-20] MEDS ORDERED: SODIUM CHLORIDE 0.9% 1,000 ML IV STA (19:08)
--- NOTE | 2018-07-20 19:31 | ED ---
Abdominal Pain HPI - General Source: patient Mode of arrival: ambulatory Limitations: no limitations <Lucero Valadez - Last Filed: 07/20/18 21:42> <Prosper Caraballo - Last Filed: 07/20/18 22:02> - General Chief Complaint: Abdominal Pain Stated Complaint: Vomiting Time Seen by Provider: 07/20/18 18:58 - History of Present Illness Initial Comments: 83-year-old female patient presents to the emergency department today for evaluation of generalized abdominal pain, dry heaves, and body aches. Patient states that symptoms started this morning. Patient states that she feels quite unwell. She is unsure if she is having chest pain. She denies any shortness of breath, dizziness, or weakness. Denies any constipation, diarrhea, hematochezia, or melena. Denies any hematemesis. Denies fever or chills. Patient does have history of urostomy due to bladder cancer, states her urine output has been normal. Patient denies any recent rash, back pain, numbness, tingling, dizziness, weakness, visual changes, or any other complaints. (Lucero Valadez) - Related Data Home Medications Medication Instructions Recorded Confirmed Cholecalciferol [Vitamin D3] 2,000 unit PO DAILY 03/05/15 07/20/18 Levothyroxine Sodium [Synthroid] 25 mcg PO DAILY 03/05/15 07/20/18 Losartan Potassium 100 mg PO DAILY 03/05/15 07/20/18 Omeprazole [PriLOSEC] 40 mg PO AC-BRKFST 03/05/15 07/20/18 cycloSPORINE 0.05% OPHTH SOLN 1 drop BOTH EYES BID 03/05/15 07/20/18 [Restasis] prednisoLONE ACETATE 1% OPHTH 1 drops BOTH EYES MO 03/05/15 07/20/18 [Pred Forte 1%] Aspirin EC [Ecotrin Low Dose] 81 mg PO DAILY 05/28/16 07/20/18 Docusate [Colace] 100 mg PO DAILY PRN 07/20/18 07/20/18 Metoprolol Tartrate 25 mg PO BID 07/20/18 07/20/18 Allergies Allergy/AdvReac Type Severity Reaction Status Date / Time sulfamethoxazole Allergy Swelling Verified 07/20/18 19:10 [From Bactrim] lips, sore throat trimethoprim [From Bactrim] Allergy Swelling Verified 07/20/18 19:10 lips, sore throat levofloxacin [From Levaquin] AdvReac severe Verified 07/20/18 19:10 headache Vvwskru-Nzu-Sdd Reductase AdvReac PAINFUL Verified 07/20/18 19:10 Inhibitor ARMS AND LEGS W/ MULT RX TRIED Review of Systems ROS Other: All systems not noted in ROS Statement are negative. <Lucero Valadez - Last Filed: 07/20/18 21:42> ROS Other: All systems not noted in ROS Statement are negative. <Prosper Caraballo - Last Filed: 07/20/18 22:02> ROS Statement: Those systems with pertinent positive or pertinent negative responses have been documented in the HPI. Past Medical History Past Medical History: Cancer, GERD/Reflux, Hyperlipidemia, Hypertension, Thyroid Disorder Additional Past Medical History / Comment(s): bladder,urterine,vaginal CA,VERTIGO,MURMUR,UTI. PER PAST MED HX -KERATOCONIS OU History of Any Multi-Drug Resistant Organisms: None Reported Past Surgical History: Bladder Surgery, Bowel Resection, Tubal Ligation Additional Past Surgical History / Comment(s): 2015 CYSTOCOPY W/ TRANSURETHRAL RESECTION OF BLADDER TUMOR, JUANCARLOS CATARACTS, CORNEAL TRANSPLANTS, D&C, "05-16-16 AT [facility] HAD CYSTECTOMY,TOTAL HYSTERECTOMY, PARTIAL COLECTOMY,DIVERTING ILEOSTOMY". Past Anesthesia/Blood Transfusion Reactions: Postoperative Nausea & Vomiting (PONV) Past Psychological History: Depression Smoking Status: Never smoker Past Alcohol Use History: None Reported Past Drug Use History: None Reported - Past Family History Father Family Medical History: Cancer Mother Family Medical History: Diabetes Mellitus Sister(s) Family Medical History: Cancer Additional Family Medical History / Comment(s): BREAST CANCER Brother(s) Family Medical History: Cancer Additional Family Medical History / Comment(s): COLON CANCER AND LEUKEMIA Father Brother(s) Family Medical History: Cancer <Lucero Valadez - Last Filed: 07/20/18 21:42> General Exam Limitations: no limitations General appearance: alert, in no apparent distress, other (Physical well- developed, well-nourished elderly female patient in no acute distress. Vital signs upon presentation are temperature 97.5F, pulse 97, respirations 20, blood pressure 167/91, pulse ox 98% on room air.) Eye exam: Present: normal appearance, PERRL, EOMI. Absent: scleral icterus, conjunctival injection, periorbital swelling ENT exam: Present: normal exam, normal oropharynx, mucous membranes moist Respiratory exam: Present: normal lung sounds bilaterally. Absent: respiratory distress, wheezes, rales, rhonchi, stridor Cardiovascular Exam: Present: regular rate, normal rhythm, normal heart sounds. Absent: systolic murmur, diastolic murmur, rubs, gallop, clicks GI/Abdominal exam: Present: soft, tenderness (Generalized), normal bowel sounds. Absent: distended, guarding, rebound, rigid Neurological exam: Present: alert, oriented X3, CN II-XII intact Psychiatric exam: Present: normal affect, normal mood Skin exam: Present: warm, dry, intact, normal color. Absent: rash <Lucero Valadez - Last Filed: 07/20/18 21:42> Course <Prosper Caraballo - Last Filed: 07/20/18 22:02> Vital Signs 07/20/18 18:44 Temperature 97.5 F L Pulse Rate 97 Respiratory 20 Rate Blood Pressure 167/91 O2 Sat by Pulse 98 Oximetry - Reevaluation(s) Reevaluation #1: 07/20/18 22:02 And P supervision: I proceeded [id number] evaluation the patient she did present with complaints of lower abdominal pain of a urostomy. Patient feels weak she does demonstrate evidence of dehydration with urinary tract infection. She will be admitted I did discuss case with Dr. Salinas. (Prosper Caraballo) Medical Decision Making - Lab Data Result diagrams: 07/20/18 19:30 07/20/18 19:30 - Radiology Data Radiology results: report reviewed, image reviewed <Lucero Valadez - Last Filed: 07/20/18 21:42> - Lab Data Result diagrams: 07/20/18 19:30 07/20/18 19:30 - EKG Data -: EKG Interpreted by Dc EKG shows normal: sinus rhythm (Sinus rhythm rate 96. Interval 166 QRS duration 82 QT since QTC 386/487 by atrial enlargement poor R-wave progression) <Prosper Caraballo - Last Filed: 07/20/18 22:02> - Medical Decision Making 83-year-old female patient presented to the emergency department today for evaluation of generalized abdominal pain, vomiting, leg cramping. Physical examination did reveal generalized abdominal tenderness. Labs reviewed and were unremarkable. Patient does have urostomy, urine sample was obtained from her bag did show evidence of urinary tract infection, this is possibly chronic colonization but we will treat with Rocephin. Upon reevaluation patient reports no improvement in symptoms and does not feel comfortable being discharged home. We will admit for intractable abdominal pain and vomiting. She'll be admitted [facility]inas [facility] - Lab Data Lab Results 07/20/18 07/20/18 07/20/18 Range/Units 19:30 19:30 19:30 WBC 9.0 (3.8-10.6) k/uL RBC 4.48 (3.80-5.40) m/uL Hgb 13.2 (11.4-16.0) gm/dL Hct 40.7 (34.0-46.0) % MCV 90.9 (80.0-100.0) fL MCH 29.6 (25.0-35.0) pg MCHC 32.5 (31.0-37.0) g/dL RDW 14.0 (11.5-15.5) % Plt Count 323 (150-450) k/uL Neutrophils % 83 % Lymphocytes % 9 % Monocytes % 5 % Eosinophils % 2 % Basophils % 0 % Neutrophils # 7.5 (1.3-7.7) k/uL Lymphocytes # 0.8 L (1.0-4.8) k/uL Monocytes # 0.4 (0-1.0) k/uL Eosinophils # 0.1 (0-0.7) k/uL Basophils # 0.0 (0-0.2) k/uL Sodium 135 L (137-145) mmol/L Potassium 3.9 (3.5-5.1) mmol/L Chloride 105 (98-107) mmol/L Carbon Dioxide 22 (22-30) mmol/L Anion Gap 8 mmol/L BUN 14 (7-17) mg/dL Creatinine 0.61 (0.52-1.04) mg/dL Est GFR (CKD-EPI)AfAm >90 (>60 ml/min/1.73 sqM) Est GFR (CKD-EPI)NonAf 84 (>60 ml/min/1.73 sqM) Glucose 123 H (74-99) mg/dL Calcium 9.4 (8.4-10.2) mg/dL Magnesium (1.6-2.3) mg/dL Total Bilirubin 0.7 (0.2-1.3) mg/dL AST 20 (14-36) U/L ALT 17 (9-52) U/L Alkaline Phosphatase 103 (38-126) U/L Creatine Kinase 44 (30-135) U/L Troponin I <0.012 (0.000-0.034) ng/mL Total Protein 7.4 (6.3-8.2) g/dL Albumin 4.2 (3.5-5.0) g/dL Amylase 136 H (30-110) U/L Lipase 154 (23-300) U/L Urine Color Urine Appearance (Clear) Urine pH (5.0-8.0) Ur Specific [place] (1.001-1.035) Urine Protein (Negative) Urine Glucose (UA) (Negative) Urine Ketones (Negative) Urine Blood (Negative) Urine Nitrite (Negative) Urine Bilirubin (Negative) Urine Urobilinogen (<2.0) mg/dL Ur Leukocyte Esterase (Negative) Urine RBC (0-5) /hpf Urine WBC (0-5) /hpf Urine WBC Clumps (None) /hpf Urine Bacteria (None) /hpf Urine Mucus (None) /hpf 07/20/18 07/20/18 Range/Units 19:30 20:39 WBC (3.8-10.6) k/uL RBC (3.80-5.40) m/uL Hgb (11.4-16.0) gm/dL Hct (34.0-46.0) % MCV (80.0-100.0) fL MCH (25.0-35.0) pg MCHC (31.0-37.0) g/dL RDW (11.5-15.5) % Plt Count (150-450) k/uL Neutrophils % % Lymphocytes % % Monocytes % % Eosinophils % % Basophils % % Neutrophils # (1.3-7.7) k/uL Lymphocytes # (1.0-4.8) k/uL Monocytes # (0-1.0) k/uL Eosinophils # (0-0.7) k/uL Basophils # (0-0.2) k/uL Sodium (137-145) mmol/L Potassium (3.5-5.1) mmol/L Chloride (98-107) mmol/L Carbon Dioxide (22-30) mmol/L Anion Gap mmol/L BUN (7-17) mg/dL Creatinine (0.52-1.04) mg/dL Est GFR (CKD-EPI)AfAm (>60 ml/min/1.73 sqM) Est GFR (CKD-EPI)NonAf (>60 ml/min/1.73 sqM) Glucose (74-99) mg/dL Calcium (8.4-10.2) mg/dL Magnesium 1.7 (1.6-2.3) mg/dL Total Bilirubin (0.2-1.3) mg/dL AST (14-36) U/L ALT (9-52) U/L Alkaline Phosphatase (38-126) U/L Creatine Kinase (30-135) U/L Troponin I (0.000-0.034) ng/mL Total Protein (6.3-8.2) g/dL Albumin (3.5-5.0) g/dL Amylase (30-110) U/L Lipase (23-300) U/L Urine Color Light Yellow Urine Appearance Turbid H (Clear) Urine pH 6.5 (5.0-8.0) Ur Specific [place] 1.014 (1.001-1.035) Urine Protein Trace H (Negative) Urine Glucose (UA) Negative (Negative) Urine Ketones 1+ H (Negative) Urine Blood Small H (Negative) Urine Nitrite Positive H (Negative) Urine Bilirubin Negative (Negative) Urine Urobilinogen <2.0 (<2.0) mg/dL Ur Leukocyte Esterase Moderate H (Negative) Urine RBC 5 (0-5) /hpf Urine WBC 22 H (0-5) /hpf Urine WBC Clumps Rare H (None) /hpf Urine Bacteria Occasional H (None) /hpf Urine Mucus Rare H (None) /hpf - Radiology Data CT abdomen and pelvis without contrast was obtained. Report was reviewed in its entirety. Impression by Dr. Wagner shows ileal conduit. Cystectomy. I see no sign of recurrent tumor. There is slight fullness of the renal collecting systems but this is unchanged compared to old exam. I do not see evidence for obstruction. No renal atrophy. Colonic diverticulosis without diverticulitis. (Lucero Valadez) Disposition Decision to Admit Reason: Admit from EC Decision Date: 07/20/18 Decision Time: 21:46 <Lucero Valadez - Last Filed: 07/20/18 21:42> <Prosper Caraballo - Last Filed: 07/20/18 22:02> Clinical Impression: Intractable abdominal pain, Vomiting Disposition: ADMITTED IP TO THIS [facility] Condition: Serious Referrals: Madan Salinas MD [Primary Care Provider] - 1-2 days
[2018-07-20 19:42] LABS: Basophils % (A) 0 %; Eosinophils # (A) 0.1 k/uL (0-0.7); Eosinophils % (A) 2 %; HCT 40.7 % (34.0-46.0); HGB 13.2 gm/dL (11.4-16.0); Lymphocytes # (A) 0.8 k/uL (1.0-4.8); Lymphocytes % (A) 9 %; MCH 29.6 pg (25.0-35.0); MCHC 32.5 g/dL (31.0-37.0); MCV 90.9 fL (80.0-100.0); Mean Platelet Volume 6.6; Monocytes # (A) 0.4 k/uL (0-1.0); Monocytes % (A) 5 %; Neutrophils # (A) 7.5 k/uL (1.3-7.7); Neutrophils % (A) 83 %; Platelet Count 323 k/uL (150-450); RBC 4.48 m/uL (3.80-5.40)
[2018-07-20 19:50] LABS: ALT 17 U/L (9-52); AST 20 U/L (14-36); Albumin 4.2 g/dL (3.5-5.0); Alkaline Phosphatase 103 U/L (38-126); Amylase 136 U/L (30-110); Anion Gap 8 mmol/L; Blood Urea Nitrogen 14 mg/dL (7-17); Calcium 9.4 mg/dL (8.4-10.2); Carbon Dioxide 22 mmol/L (22-30); Chloride 105 mmol/L (98-107); Creatine Kinase 44 U/L (30-135); Glucose 123 mg/dL (74-99); Lipase 154 U/L (23-300); Potassium 3.9 mmol/L (3.5-5.1); Sodium 135 mmol/L (137-145); Total Bilirubin 0.7 mg/dL (0.2-1.3); Total Protein 7.4 g/dL (6.3-8.2)
--- NOTE | 2018-07-20 20:54 | CT ---
EXAMINATION TYPE: CT abdomen pelvis wo con DATE OF EXAM: 07/20/2018 COMPARISON: 11/26/2017 HISTORY: Abdominal pain and vomiting CT DLP: 404.3 mGycm Automated exposure control for dose reduction was used. TECHNIQUE: Helical acquisition of images was performed from the lung bases through the pelvis. FINDINGS: Lung bases are clear. There is no pleural effusion. Heart size is normal. There is no pericardial eff usion. There is small hiatal hernia. Liver shows no focal defect. Gallbladder appears normal. There i s no evidence of pancreatic mass. Pancreas appears normal. Spleen appears normal. There is no adrenal mass. Kidneys have normal size. There is bilateral mild fullness of the renal col lecting systems. There is no retroperitoneal adenopathy. Abdominal aorta is atheromatous. There is ap parent ileal conduit in the right mid abdomen. Urinary bladder is present. I see no pelvic mass. Ther e is no free fluid in the pelvis. There are some sigmoid diverticula without evidence of diverticulit is. There is no mesenteric edema. The bony pelvis is intact. Lumbar spine is intact. I see no bony de structive process. IMPRESSION: THERE IS ILEAL CONDUIT. THERE IS CYSTECTOMY. I see no sign of recurrent tumor. There is slight fullne ss of the renal collecting systems but this is unchanged compared to old exam. I do not see evidence for obstruction.. No renal atrophy. Colonic diverticulosis without diverticulitis.
[2018-07-20 21:14] LABS: Appearance,Urine Turbid (Clear); Bacteria,Urine Occasional /hpf; Bilirubin,Urine Negative (Negative); Blood,Urine Small (Negative); Color,Urine Light Yellow; Glucose,Urine (UA) Negative (Negative); Ketones,Urine 1+ (Negative); Leukocyte Esterase,Urine Moderate (Negative); Mucus,Urine Rare /hpf; Nitrite,Urine Positive (Negative); PH, Urine 6.5 (5.0-8.0); Protein,Urine Trace (Negative); RBC,Urine 5 /hpf (0-5); Specific Gravity,Urine 1.014 (1.001-1.035); Urobilinogen,Urine <2.0 mg/dL (<2.0); WBC,Urine 22 /hpf (0-5)
[2018-07-20] MEDS ORDERED: cefTRIAXone IN SWFI 1,000 MG/10 ML SYRINGE IVP STA (21:16)
[2018-07-20] MEDS ORDERED: METOCLOPRAMIDE 5 MG/ML 2 ML VIAL IVP STA (21:38)
[2018-07-20] MEDS ORDERED: diphenhydrAMINE 50 MG/ML 1 ML VIAL IVP STA (21:38)
[2018-07-20] MEDS ORDERED: MORPHINE SULFATE 4 MG/ML SYRINGE IV PRN (21:39)
[2018-07-20] MEDS ORDERED: NALOXONE 0.4 MG/ML 1 ML VIAL IV PRN (21:39)
[2018-07-20] MEDS: SODIUM CHLORIDE 0.9% 1,000 ML IV SCH (22:00)
[2018-07-20] MEDS ORDERED: DOCUSATE 100 MG CAP PO PRN (22:43)
[2018-07-21] MEDS: PANTOPRAZOLE 40 MG TABLET PO SCH (07:49)
[2018-07-21] MEDS: METOPROLOL TARTRATE 25 MG TAB PO SCH ×2 (07:49→21:22)
[2018-07-21] MEDS: CHOLECALCIFEROL 1,000 UNIT TAB PO SCH (07:49)
[2018-07-21] MEDS: ASPIRIN 81 MG PO SCH (07:50)
[2018-07-21] MEDS: LEVOTHYROXINE 25 MCG TAB PO SCH (07:50)
[2018-07-21] MEDS: LOSARTAN 50 MG TAB PO SCH (07:50)
[2018-07-21] MEDS: cycloSPORINE 0.05% OPHTH 0.4 ML DROPERETTE BOTH EYES SCH ×2 (07:58→21:23)
--- NOTE | 2018-07-21 11:16 | HP ---
HISTORY AND PHYSICAL CHIEF COMPLAINT: An 83-year-old with generalized abdominal pain, dry heaves, body aches, started this morning, felt unwell. She was having some chest pain. She apparently had some nausea, vomiting but no diarrhea. History of urostomy due to bladder cancer. Urine output has been normal. Denied any rash, back pain, numbness, dizziness, or blood in the urine. She has a history of hypothyroidism, bladder cancer, hypertension, chronic renal disease, hypertension. ALLERGIES: BACTRIM, LEVAQUIN, STATINS. A 14-point review of systems is negative except for as mentioned in the HPI. FAMILY HISTORY: Father had cancer, mother diabetes mellitus. Sister with breast cancer. Brother with cancer of the colon and leukemia. PHYSICAL EXAM: Vital signs, temp 97.5, pulse 99, respiratory 18-20, blood pressure 140s 5o 160s/90, O2 98% on room air. CARDIOVASCULAR: S1, S2. LUNGS: Transmitted upper airway sounds. HEMATOLOGY: Negative Homans. GI: Increased bowel sounds. SKIN: Warm, dry, intact. ENT: External ear canals within normal limits. PSYCH: Fair mood and affect. ASSESSMENT: 1. Urinary tract infection, dehydration, history of bladder cancer with urostomy. 2. Hypertension. 3. Mild hyponatremia. PLAN: Rocephin. Wait for cultures. Rehydrate and then possible discharge once rehydrated. CT scan of the abdomen is reviewed. No recurrent tumor. No obstruction. She has diverticulosis without diverticulitis. Please see history and physical. MMODL / IJN: [id number] /
[2018-07-21] MEDS: ONDANSETRON 4 MG/2 ML VIAL IVP PRN (17:18)
[2018-07-21] MEDS: SODIUM CHLORIDE 0.9% 1,000 ML IV SCH (17:19)
[2018-07-22] MEDS: ONDANSETRON 4 MG/2 ML VIAL IVP PRN ×2 (03:10→08:44)
[2018-07-22] MEDS: PANTOPRAZOLE 40 MG TABLET PO SCH (07:44)
[2018-07-22] MEDS: METOPROLOL TARTRATE 25 MG TAB PO SCH ×2 (07:44→20:56)
[2018-07-22] MEDS: LEVOTHYROXINE 25 MCG TAB PO SCH (07:44)
[2018-07-22] MEDS: ASPIRIN 81 MG PO SCH (07:44)
[2018-07-22] MEDS: LOSARTAN 50 MG TAB PO SCH (07:44)
[2018-07-22] MEDS: cycloSPORINE 0.05% OPHTH 0.4 ML DROPERETTE BOTH EYES SCH ×2 (07:45→22:14)
[2018-07-22] MEDS: CHOLECALCIFEROL 1,000 UNIT TAB PO SCH (07:45)
[2018-07-22 08:34] LABS: ALT 20 U/L (9-52); AST 20 U/L (14-36); Albumin 3.9 g/dL (3.5-5.0); Alkaline Phosphatase 87 U/L (38-126); Amylase 138 U/L (30-110); Anion Gap 8 mmol/L; Blood Urea Nitrogen 12 mg/dL (7-17); Calcium 8.9 mg/dL (8.4-10.2); Carbon Dioxide 23 mmol/L (22-30); Chloride 108 mmol/L (98-107); Glucose 98 mg/dL (74-99); Lipase 96 U/L (23-300); Sodium 139 mmol/L (137-145); Total Bilirubin 0.8 mg/dL (0.2-1.3); Total Protein 6.9 g/dL (6.3-8.2)
[2018-07-22 08:36] LABS: Potassium 3.8 mmol/L (3.5-5.1)
[2018-07-22] MEDS: amLODIPine 5 MG TAB PO SCH (08:44)
[2018-07-22] MEDS ORDERED: KETOROLAC 30 MG/ML 1 ML VIAL IVP STA (08:44)
[2018-07-22] MEDS: LIDOCAINE 5% PATCH TOPICAL SCH (08:44)
[2018-07-22] MEDS: MAGNESIUM HYDROXIDE 2,400 MG/10 ML CUP PO PRN (08:44)
[2018-07-22] MEDS ORDERED: PANTOPRAZOLE 40 MG/10 ML VIAL IVP SCH (09:00)
[2018-07-22 09:09] LABS: Basophils % (A) 1 %; Eosinophils # (A) 0.1 k/uL (0-0.7); Eosinophils % (A) 1 %; HCT 40.7 % (34.0-46.0); HGB 13.2 gm/dL (11.4-16.0); Lymphocytes # (A) 0.8 k/uL (1.0-4.8); Lymphocytes % (A) 11 %; MCH 30.1 pg (25.0-35.0); MCHC 32.4 g/dL (31.0-37.0); MCV 92.9 fL (80.0-100.0); Mean Platelet Volume 6.6; Monocytes # (A) 0.4 k/uL (0-1.0); Monocytes % (A) 6 %; Neutrophils # (A) 5.4 k/uL (1.3-7.7); Neutrophils % (A) 79 %; Platelet Count 298 k/uL (150-450); RBC 4.38 m/uL (3.80-5.40); RDW 13.8 % (11.5-15.5); WBC 6.8 k/uL (3.8-10.6)
--- NOTE | 2018-07-22 10:22 | P.PN ---
Subjective Progress Note Date: 07/22/18 This is an 83-year-old female admitted with abdominal pain, history of urostomy secondary to bladder CA, diverticulosis, hypertension and multiple other medical issues. Abdominal CT reported no recurrent tumor, no obstruction, no free fluid in pelvis, diverticulosis without diverticulitis, slight fullness of the renal collecting system-unchanged compared to prior exam. Maintained on IV antibiotics. Afebrile, normal WBC.Urine Culture pending. Urostomy appliance/last changed on Thursday. Good urine output. Continues to have nausea, vomiting -reports one emesis early this morning.Denies diarrhea. Reports last bowel movement was Thursday, normal .Currently denies abdominal pain , states it fluctuates,worse at night.Denies chest pain, palpitations or shortness of breath. Objective - Vital Signs Vital signs: Vital Signs Temp 97.7 F 07/22/18 07:00 Pulse 67 07/22/18 07:00 Resp 20 07/22/18 07:00 BP 191/92 07/22/18 07:00 Pulse Ox 98 07/22/18 07:00 Intake & Output 07/21/18 07/22/18 07/22/18 18:59 06:59 18:59 Output Total 301 1300 Balance -301 -1300 Output: Urine 300 1300 Right Lower Abdomen 200 Emesis 1 Other: Voiding Method Ileal Conduit (Right) Ileal Conduit (Right) # Voids 2 - Exam PHYSICAL EXAM: VITAL SIGNS: As above GENERAL: Sitting up in bed, no acute distress HEENT: Conjunctivae normal. eyes normal. NECK: No JVD. No thyroid enlargement. No LNs CARDIOVASCULAR: S1, S2 muffled. No murmur RESPIRATION: Breath sounds diminished in the bases. No rhonchi or crackles. ABDOMEN: Soft, mild diffuse tenderness-noted more on suprapubic to right lower quadrant . No guarding. no masses palpable. Bowel sounds heard. LEGS: No edema. no swelling PSYCHIATRY: Alert and oriented -3, mood and affect normal. NERVOUS SYSTEM: Cranial N 2-12 grossly normal. Moves all 4 limbs. Diffuse weakness No focal deficits. No sensory deficit. Skin: no lesions no rash Joints: No active swelling. No inflammation. Lymphatic system. No LN neck axilla or groin. - Labs CBC & Chem 7: 07/22/18 08:07 07/22/18 08:07 Labs: Microbiology - Last 24 Hours (Table) 07/20/18 22:02 Urine Culture - Preliminary Urine,Voided Assessment and Plan Assessment: -Acute UTI, cultures pending -Dehydration -Hypertension -Hyponatremia resolved -History of bladder cancer with urostomy -Diverticulosis Plan: Continue on current medication regime ,monitoring and symptomatic treatment. Gentle IV fluid hydration.Maintain IV antibiotics, urine culture pending. Ultrasound and general surgical consult ordered. Continue Zofran. Norvasc added with close monitoring of blood pressure. Further recommendations to follow. The impression and plan of care has been dictated as directed. : I performed a history and examination of this patient, discussed the same with the dictator. I agree with the dictator's note ,documented as a scribe. Any additional findings or plans will be noted.
[2018-07-22] MEDS: KETOROLAC 30 MG/ML 1 ML VIAL IVP SCH ×2 (11:14→17:23)
--- NOTE | 2018-07-22 13:38 | P.GSCN ---
<Stephanie Sandy - Last Filed: 07/22/18 13:36> History of Present Illness Consult date: 07/22/18 Reason for Consult: abdominal pain Requesting physician: Madan Salinas History of present illness: CHIEF COMPLAINT: abdominal pain HISTORY OF PRESENT ILLNESS: 83-year-old female with a history of bladder cancer and urostomy who presented to the hospital with abdominal pain and malaise. General surgery was consulted for further evaluation. Patient examined at the bedside. Spouse present. Patient reports she has been feeling unwell since Thursday. She reports suprapubic since that time that comes and goes. She reports her stomach feels "unsettled". She reports nausea, but denies episodes of vomiting. She reports only taking a few sips of water today and little PO intake over the past few days. Last bowel movement was Thursday and was normal in characteristics. Reports last colonoscopy was performed in [address] Marin revealing diverticulosis. PAST MEDICAL HISTORY: See list. PAST SURGICAL HISTORY: See list. SOCIAL HISTORY: No illicit drug use. REVIEW OF SYSTEMS: CONSTITUTIONAL: Denies fever or chills. HEENT: Denies blurred vision, vision changes, or eye pain. Denies hemoptysis CARDIOVASCULAR: Denies chest pain or pressure. RESPIRATORY: No shortness of breath. GASTROINTESTINAL: Refer to HPI for pertinent findings HEMATOLOGIC: Denies bleeding disorders. GENITOURINARY: Denies any blood in urine. SKIN: Denies pruitis. Denies rash. PHYSICAL EXAM: VITAL SIGNS: Reviewed. GENERAL: Well-developed in no acute distress. HEENT: No sclera icterus. Extraocular movements grossly intact. Moist buccal mucosa. Head is atraumatic, normocephalic. ABDOMEN: Soft. Nondistended. Positive bowel sounds. Suprapubic tenderness upon palpation. Urostomy present with pale yellow urine. NEUROLOGIC: Alert and oriented. Cranial nerves II through XII grossly intact. LABORATORY DATA: Laboratory data upon admission reveals white count 9.0. Hemoglobin 13.2. Sodium 135. Potassium 3.9. Bilirubin 0.7. AST 20. ALT 17. Alk phos 103. Amylase 136. Lipase 154. IMAGING: CT abdomen/pelvis: Sigmoid diverticulosis without evidence of diverticulitis. No pelvic mass. No free fluid in pelvis. No mesenteric edema. No evidence of obstruction. ASSESSMENT: 1. Suprapubic pain with nausea 2. History of bladder cancer with urostomy 3. History of partial colectomy secondary to urostomy creation PLAN: Patients suprapubic pain may be secondary to UTI. Patient reports urine sample was collected from drainage bag that had not been changed since beginning of the week. Recommend to change urostomy bag today to a new bag and obtain new UA/culture to ensure accurate results. Continue Zofran. Continue IV fluids for hydration. Continue clear liquid diet as tolerated. Further recommendations pending evaluation this afternoon by Dr. Marin Nurse practitioner note has been reviewed by physician. Signing provider agrees with the documented findings, assessment, and plan of care. Past Medical History Past Medical History: Cancer, GERD/Reflux, Hyperlipidemia, Hypertension, Thyroid Disorder Additional Past Medical History / Comment(s): bladder,urterine,vaginal CA,VERTI GO,MURMUR,UTI. PER PAST MED HX -KERATOCONIS OU History of Any Multi-Drug Resistant Organisms: None Reported Past Surgical History: Bladder Surgery, Bowel Resection, Tubal Ligation Additional Past Surgical History / Comment(s): 2015 CYSTOCOPY W/ TRANSURETHRAL RESECTION OF BLADDER TUMOR, JUANCARLOS CATARACTS, CORNEAL TRANSPLANTS, D&C, "05-16-16 AT [facility] HAD CYSTECTOMY,TOTAL HYSTERECTOMY, PARTIAL COLECTOMY,DIVERTING ILEOSTOMY". Past Anesthesia/Blood Transfusion Reactions: Postoperative Nausea & Vomiting ( PONV) Past Psychological History: Depression Smoking Status: Never smoker Past Alcohol Use History: None Reported Past Drug Use History: None Reported - Past Family History Father Family Medical History: Cancer Mother Family Medical History: Diabetes Mellitus Sister(s) Family Medical History: Cancer Additional Family Medical History / Comment(s): BREAST CANCER Brother(s) Family Medical History: Cancer Additional Family Medical History / Comment(s): COLON CANCER AND LEUKEMIA Father Brother(s) Family Medical History: Cancer Medications and Allergies Home Medications Medication Instructions Recorded Confirmed Type Cholecalciferol [Vitamin D3] 2,000 unit PO DAILY 03/05/15 07/20/18 History Levothyroxine Sodium [Synthroid] 25 mcg PO DAILY 03/05/15 07/20/18 History Losartan Potassium 100 mg PO DAILY 03/05/15 07/20/18 History Omeprazole [PriLOSEC] 40 mg PO AC-BRKFST 03/05/15 07/20/18 History cycloSPORINE 0.05% OPHTH SOLN 1 drop BOTH EYES BID 03/05/15 07/20/18 History [Restasis] prednisoLONE ACETATE 1% OPHTH 1 drops BOTH EYES MO 03/05/15 07/20/18 History [Pred Forte 1%] Aspirin EC [Ecotrin Low Dose] 81 mg PO DAILY 05/28/16 07/20/18 History Docusate [Colace] 100 mg PO DAILY PRN 07/20/18 07/20/18 History Metoprolol Tartrate 25 mg PO BID 07/20/18 07/20/18 History Allergies Allergy/AdvReac Type Severity Reaction Status Date / Time sulfamethoxazole Allergy Swelling Verified 07/20/18 19:10 [From Bactrim] lips, sore throat trimethoprim [From Bactrim] Allergy Swelling Verified 07/20/18 19:10 lips, sore throat levofloxacin [From Levaquin] AdvReac severe Verified 07/20/18 19:10 headache Pkaavyv-Lsp-Qcw Reductase AdvReac PAINFUL Verified 07/20/18 19:10 Inhibitor ARMS AND LEGS W/ MULT RX TRIED Surgical - Exam Vital Signs Temp Pulse Resp BP Pulse Ox 97.5 F L 97 20 167/91 98 07/20/18 18:44 07/20/18 18:44 07/20/18 18:44 07/20/18 18:44 07/20/18 18:44 Results - Labs 07/22/18 08:07 07/22/18 08:07 Abnormal Lab Results - Last 24 Hours (Table) 07/22/18 07/22/18 Range/Units 08:07 08:07 Lymphocytes # 0.8 L (1.0-4.8) k/uL Chloride 108 H (98-107) mmol/L Amylase 138 H (30-110) U/L Microbiology - Last 24 Hours (Table) 07/20/18 22:02 Urine Culture - Preliminary Urine,Voided Diabetes panel 07/22/18 Range/Units 08:07 Sodium 139 (137-145) mmol/L Potassium 3.8 (3.5-5.1) mmol/L Chloride 108 H (98-107) mmol/L Carbon Dioxide 23 (22-30) mmol/L BUN 12 (7-17) mg/dL Creatinine 0.68 (0.52-1.04) mg/dL Glucose 98 (74-99) mg/dL Calcium 8.9 (8.4-10.2) mg/dL AST 20 (14-36) U/L ALT 20 (9-52) U/L Alkaline Phosphatase 87 (38-126) U/L Total Protein 6.9 (6.3-8.2) g/dL Albumin 3.9 (3.5-5.0) g/dL Calcium panel 07/22/18 Range/Units 08:07 Calcium 8.9 (8.4-10.2) mg/dL Albumin 3.9 (3.5-5.0) g/dL Pituitary panel 07/22/18 Range/Units 08:07 Sodium 139 (137-145) mmol/L Potassium 3.8 (3.5-5.1) mmol/L Chloride 108 H (98-107) mmol/L Carbon Dioxide 23 (22-30) mmol/L BUN 12 (7-17) mg/dL Creatinine 0.68 (0.52-1.04) mg/dL Glucose 98 (74-99) mg/dL Calcium 8.9 (8.4-10.2) mg/dL Adrenal panel 07/22/18 Range/Units 08:07 Sodium 139 (137-145) mmol/L Potassium 3.8 (3.5-5.1) mmol/L Chloride 108 H (98-107) mmol/L Carbon Dioxide 23 (22-30) mmol/L BUN 12 (7-17) mg/dL Creatinine 0.68 (0.52-1.04) mg/dL Glucose 98 (74-99) mg/dL Calcium 8.9 (8.4-10.2) mg/dL Total Bilirubin 0.8 (0.2-1.3) mg/dL AST 20 (14-36) U/L ALT 20 (9-52) U/L Alkaline Phosphatase 87 (38-126) U/L Total Protein 6.9 (6.3-8.2) g/dL Albumin 3.9 (3.5-5.0) g/dL <Prakash Marin - Last Filed: 07/22/18 18:55> History of Present Illness History of present illness: As above. Patient says her pain has improved. Some nausea with narcotic use last night. Tolerating clear liquids currently. CAT scan report noted. Her abdominal examination is benign. We'll reevaluate tomorrow. Continue clear liquids for now. Surgical - Exam Vital Signs Temp Pulse Resp BP Pulse Ox 97.5 F L 97 20 167/91 98 07/20/18 18:44 07/20/18 18:44 07/20/18 18:44 07/20/18 18:44 07/20/18 18:44 Results - Labs 07/22/18 08:07 07/22/18 08:07 Abnormal Lab Results - Last 24 Hours (Table) 07/22/18 07/22/18 Range/Units 08:07 08:07 Lymphocytes # 0.8 L (1.0-4.8) k/uL Chloride 108 H (98-107) mmol/L Amylase 138 H (30-110) U/L Microbiology - Last 24 Hours (Table) 07/20/18 22:02 Urine Culture - Preliminary Urine,Voided Gram Neg Bacilli Diabetes panel 07/22/18 Range/Units 08:07 Sodium 139 (137-145) mmol/L Potassium 3.8 (3.5-5.1) mmol/L Chloride 108 H (98-107) mmol/L Carbon Dioxide 23 (22-30) mmol/L BUN 12 (7-17) mg/dL Creatinine 0.68 (0.52-1.04) mg/dL Glucose 98 (74-99) mg/dL Calcium 8.9 (8.4-10.2) mg/dL AST 20 (14-36) U/L ALT 20 (9-52) U/L Alkaline Phosphatase 87 (38-126) U/L Total Protein 6.9 (6.3-8.2) g/dL Albumin 3.9 (3.5-5.0) g/dL Calcium panel 07/22/18 Range/Units 08:07 Calcium 8.9 (8.4-10.2) mg/dL Albumin 3.9 (3.5-5.0) g/dL Pituitary panel 07/22/18 Range/Units 08:07 Sodium 139 (137-145) mmol/L Potassium 3.8 (3.5-5.1) mmol/L Chloride 108 H (98-107) mmol/L Carbon Dioxide 23 (22-30) mmol/L BUN 12 (7-17) mg/dL Creatinine 0.68 (0.52-1.04) mg/dL Glucose 98 (74-99) mg/dL Calcium 8.9 (8.4-10.2) mg/dL Adrenal panel 07/22/18 Range/Units 08:07 Sodium 139 (137-145) mmol/L Potassium 3.8 (3.5-5.1) mmol/L Chloride 108 H (98-107) mmol/L Carbon Dioxide 23 (22-30) mmol/L BUN 12 (7-17) mg/dL Creatinine 0.68 (0.52-1.04) mg/dL Glucose 98 (74-99) mg/dL Calcium 8.9 (8.4-10.2) mg/dL Total Bilirubin 0.8 (0.2-1.3) mg/dL AST 20 (14-36) U/L ALT 20 (9-52) U/L Alkaline Phosphatase 87 (38-126) U/L Total Protein 6.9 (6.3-8.2) g/dL Albumin 3.9 (3.5-5.0) g/dL
[2018-07-22] MEDS: SODIUM CHLORIDE 0.9% 1,000 ML IV SCH (15:37)
[2018-07-22] MEDS: METOCLOPRAMIDE 5 MG/ML 2 ML VIAL IVP PRN (15:55)
[2018-07-22 23:22] LABS: Appearance,Urine Clear (Clear); Bacteria,Urine Rare /hpf; Bilirubin,Urine Negative (Negative); Blood,Urine Small (Negative); Color,Urine Light Yellow; Glucose,Urine (UA) Negative (Negative); Ketones,Urine 2+ (Negative); Leukocyte Esterase,Urine Small (Negative); Mucus,Urine Rare /hpf; Nitrite,Urine Negative (Negative); PH, Urine 6.5 (5.0-8.0); Protein,Urine Trace (Negative); RBC,Urine 21 /hpf (0-5); Specific Gravity,Urine 1.016 (1.001-1.035); Urobilinogen,Urine <2.0 mg/dL (<2.0); WBC,Urine 24 /hpf (0-5)
[2018-07-23] MEDS: KETOROLAC 30 MG/ML 1 ML VIAL IVP SCH ×4 (00:08→17:28)
[2018-07-23] MEDS: LEVOTHYROXINE 25 MCG TAB PO SCH (05:57)
[2018-07-23] MEDS: amLODIPine 5 MG TAB PO SCH (09:01)
[2018-07-23] MEDS: METOPROLOL TARTRATE 25 MG TAB PO SCH ×2 (09:01→20:38)
[2018-07-23] MEDS: ASPIRIN 81 MG PO SCH (09:01)
[2018-07-23] MEDS: LOSARTAN 50 MG TAB PO SCH (09:02)
[2018-07-23] MEDS: CHOLECALCIFEROL 1,000 UNIT TAB PO SCH (09:02)
[2018-07-23] MEDS: cycloSPORINE 0.05% OPHTH 0.4 ML DROPERETTE BOTH EYES SCH ×2 (09:03→20:38)
[2018-07-23] MEDS: PANTOPRAZOLE 40 MG/10 ML VIAL IVP SCH (09:04)
[2018-07-23] MEDS: hydrALAZINE HCL 20 MG/ML 1 ML VIAL IVP PRN (09:04)
[2018-07-23] MEDS: MAGNESIUM HYDROXIDE 2,400 MG/10 ML CUP PO PRN (09:08)
--- NOTE | 2018-07-23 10:24 | P.PN ---
<Stephanie Sandy - Last Filed: 07/23/18 11:16> Subjective Progress Note Date: 07/23/18 CHIEF COMPLAINT: abdominal pain HISTORY OF PRESENT ILLNESS: Patient examined at the bedside this morning. Patient states she is overall feeling better in comparison to yesterday. Patient reports improvement in suprapubic pain. She denies nausea this morning. She is hungry and asking for her diet to be advanced. PHYSICAL EXAM: VITAL SIGNS: Reviewed. GENERAL: Well-developed in no acute distress. HEENT: No sclera icterus. Extraocular movements grossly intact. Moist buccal mucosa. Head is atraumatic, normocephalic. ABDOMEN: Soft. Nondistended. Positive bowel sounds. Nontender. Urostomy present with yellow urine. NEUROLOGIC: Alert and oriented. Cranial nerves II through XII grossly intact. ASSESSMENT: 1. Suprapubic pain with nausea 2. History of bladder cancer with urostomy 3. History of partial colectomy secondary to urostomy creation PLAN: Advance diet as tolerated No surgical intervention recommended Nurse practitioner note has been reviewed by physician. Signing provider agrees with the documented findings, assessment, and plan of care. Objective - Vital Signs Vital signs: Vital Signs Temp 98.3 F 07/23/18 07:00 Pulse 71 07/23/18 07:00 Resp 14 07/23/18 07:00 BP 185/77 07/23/18 07:00 Pulse Ox 98 07/23/18 07:00 Intake & Output 07/22/18 07/23/18 07/23/18 18:59 06:59 18:59 Intake Total 400 Output Total 300 Balance 400 -300 Intake: IV 400 Sodium Chloride 0.9% 1, 400 000 ml @ 50 mls/hr IV . Q20H [facility] Rx#:[id number] Output: Urine 300 Other: Voiding Method Ileal Conduit (Right) # Voids 2 - Labs CBC & Chem 7: 07/22/18 08:07 07/22/18 08:07 Labs: Abnormal Lab Results - Last 24 Hours (Table) 07/22/18 Range/Units 23:00 Urine Protein Trace H (Negative) Urine Ketones 2+ H (Negative) Urine Blood Small H (Negative) Ur Leukocyte Esterase Small H (Negative) Urine RBC 21 H (0-5) /hpf Urine WBC 24 H (0-5) /hpf Urine WBC Clumps Rare H (None) /hpf Urine Bacteria Rare H (None) /hpf Urine Mucus Rare H (None) /hpf Microbiology - Last 24 Hours (Table) 07/20/18 22:02 Urine Culture - Preliminary Urine,Voided Gram Neg Bacilli <Prakash Marin - Last Filed: 07/23/18 20:06> Subjective As above. Patient had episodes of vomiting today. Denies abdominal pain. X- rays from today show ileus versus enteritis. Abdominal exam benign. Continue antibiotics for suspected urinary tract infection. We'll reevaluate in a.m. Objective - Vital Signs Vital signs: Vital Signs Temp 98.2 F 07/23/18 19:27 Pulse 84 07/23/18 19:27 Resp 17 07/23/18 19:27 BP 168/80 07/23/18 19:27 Pulse Ox 96 07/23/18 19:27 Intake & Output 07/23/18 07/23/18 07/24/18 06:59 18:59 06:59 Output Total 300 200 Balance -300 -200 Weight 63.503 kg Output: Urine 300 200 Other: Voiding Method Ileal Conduit (Right) Ileal Conduit (Right) # Voids 2 - Labs CBC & Chem 7: 07/22/18 08:07 07/22/18 08:07 Labs: Abnormal Lab Results - Last 24 Hours (Table) 07/22/18 Range/Units 23:00 Urine Protein Trace H (Negative) Urine Ketones 2+ H (Negative) Urine Blood Small H (Negative) Ur Leukocyte Esterase Small H (Negative) Urine RBC 21 H (0-5) /hpf Urine WBC 24 H (0-5) /hpf Urine WBC Clumps Rare H (None) /hpf Urine Bacteria Rare H (None) /hpf Urine Mucus Rare H (None) /hpf Microbiology - Last 24 Hours (Table) 07/20/18 22:02 Urine Culture - Final Urine,Voided Escherichia coli 07/22/18 23:00 Urine Culture - Preliminary Urine,Suprapubic
[2018-07-23] MEDS: LIDOCAINE 5% PATCH TOPICAL SCH (10:56)
[2018-07-23] MEDS: SODIUM CHLORIDE 0.9% 1,000 ML IV SCH (11:03)
[2018-07-23] MEDS: METOCLOPRAMIDE 5 MG/ML 2 ML VIAL IVP PRN (11:07)
--- NOTE | 2018-07-23 11:57 | P.PN ---
Subjective Progress Note Date: 07/23/18 This is an 83-year-old female admitted with abdominal pain, history of urostomy secondary to bladder CA, diverticulosis, hypertension and multiple other medical issues. Abdominal CT reported no recurrent tumor, no obstruction, no free fluid in pelvis, diverticulosis without diverticulitis, slight fullness of the renal collecting system-unchanged compared to prior exam. Maintained on IV antibiotics. Afebrile, normal WBC.Urine Culture pending. Urostomy appliance/last changed on Thursday. Good urine output. Continues to have nausea, vomiting -reports one emesis early this morning.Denies diarrhea. Reports last bowel movement was Thursday, normal .Currently denies abdominal pain , states it fluctuates,worse at night.Denies chest pain, palpitations or shortness of breath. 07/23/2018 Minimal nausea this morning, reports last emesis -last night. Significant improvement in abdominal pain, reports minimal suprapubic to left lower quadrant discomfort. Feels hungry and requesting diet advancement. Afebrile, initial urine culture growing gram-negative bacilli. Urostomy appliance change with repeat urine culture sent yesterday, pending. Norvasc added to med regime yesterday for uncontrolled hypertension, blood pressure post-administration of antihypertensives pending. Denies chest pain, p alpitations or shortness of breath. Denies lightheadedness dizziness or focal deficits. Denies headache. Objective - Vital Signs Vital signs: Vital Signs Temp 98.3 F 07/23/18 07:00 Pulse 71 07/23/18 07:00 Resp 14 07/23/18 07:00 BP 185/77 07/23/18 07:00 Pulse Ox 98 07/23/18 07:00 Intake & Output 07/22/18 07/23/18 07/23/18 18:59 06:59 18:59 Intake Total 400 Output Total 300 Balance 400 -300 Intake: IV 400 Sodium Chloride 0.9% 1, 400 000 ml @ 50 mls/hr IV . Q20H [facility] Rx#:[id number] Output: Urine 300 Other: # Voids 2 - Exam PHYSICAL EXAM: VITAL SIGNS: As above GENERAL: Sitting up in bed, no acute distress HEENT: Conjunctivae normal. eyes normal. NECK: No JVD. No thyroid enlargement. No LNs CARDIOVASCULAR: S1, S2 muffled. No murmur RESPIRATION: Breath sounds diminished in the bases. No rhonchi or crackles. ABDOMEN: Soft, mild diffuse tenderness-noted more on suprapubic to left lower quadrant . No guarding. no masses palpable. Bowel sounds heard. Urostomy appliance present with clear yellow urine. LEGS: No edema. no swelling PSYCHIATRY: Alert and oriented -3, mood and affect normal. NERVOUS SYSTEM: Cranial N 2-12 grossly normal. Moves all 4 limbs. Diffuse weakness No focal deficits. No sensory deficit. Skin: no lesions no rash Joints: No active swelling. No inflammation. Lymphatic system. No LN neck axilla or groin. - Labs CBC & Chem 7: 07/22/18 08:07 07/22/18 08:07 Labs: Abnormal Lab Results - Last 24 Hours (Table) 07/22/18 07/22/18 07/22/18 Range/Units 08:07 08:07 23:00 Lymphocytes # 0.8 L (1.0-4.8) k/uL Chloride 108 H (98-107) mmol/L Amylase 138 H (30-110) U/L Urine Protein Trace H (Negative) Urine Ketones 2+ H (Negative) Urine Blood Small H (Negative) Ur Leukocyte Esterase Small H (Negative) Urine RBC 21 H (0-5) /hpf Urine WBC 24 H (0-5) /hpf Urine WBC Clumps Rare H (None) /hpf Urine Bacteria Rare H (None) /hpf Urine Mucus Rare H (None) /hpf Microbiology - Last 24 Hours (Table) 07/20/18 22:02 Urine Culture - Preliminary Urine,Voided Gram Neg Bacilli Assessment and Plan Assessment: -Acute UTI, gram-negative bacilli from initial culture, repeat cultures pending. -Dehydration, improving -Hypertension -History of bladder cancer with urostomy -Diverticulosis Plan: Continue on current medication regime ,monitoring and symptomatic treatment. Gentle IV fluid hydration.Maintain IV antibiotics, repeat urine culture pending. Diet advancement as per surgery. Increase ambulation as tolerated. Further recommendations to follow. The impression and plan of care has been dictated as directed. : I performed a history and examination of this patient, discussed the same with the dictator. I agree with the dictator's note ,documented as a scribe. Any additional findings or plans will be noted.
[2018-07-23] MEDS: ONDANSETRON 4 MG/2 ML VIAL IVP PRN (12:57)
--- NOTE | 2018-07-23 13:21 | XR ---
2 view abdomen HISTORY: Nausea vomiting and pain 2 views the abdomen on 3 images Correlated to prior exam 05/31/2016 Multiple surgical clips are present in the pelvis. Lung bases are clear. There is no evident bowel ob struction or pneumoperitoneum. There are air-fluid levels without bowel distention. Degenerative disc changes in the visualized spine. IMPRESSION: Correlate for ileus or enteritis. Follow-up as indicated.
[2018-07-23] MEDS: HEPARIN SODIUM,PORCINE 5,000 UNIT/ML 1 ML VIAL SQ SCH ×2 (13:39→20:39)
[2018-07-23 16:22] VITALS: BMI 24.7
[2018-07-24] MEDS: KETOROLAC 30 MG/ML 1 ML VIAL IVP SCH ×5 (02:11→18:20)
[2018-07-24] MEDS: SODIUM CHLORIDE 0.9% 1,000 ML IV SCH (05:52)
[2018-07-24] MEDS: LEVOTHYROXINE 25 MCG TAB PO SCH (05:57)
[2018-07-24] MEDS ORDERED: ACETAMINOPHEN TAB 500 MG TAB PO PRN (08:42)
[2018-07-24] MEDS: ACETAMINOPHEN TAB 500 MG TAB PO PRN ×2 (09:10→20:30)
[2018-07-24] MEDS: PANTOPRAZOLE 40 MG/10 ML VIAL IVP SCH (09:11)
[2018-07-24] MEDS: HEPARIN SODIUM,PORCINE 5,000 UNIT/ML 1 ML VIAL SQ SCH ×2 (09:11→20:31)
[2018-07-24] MEDS: LOSARTAN 50 MG TAB PO SCH (10:08)
[2018-07-24] MEDS: amLODIPine 5 MG TAB PO SCH (10:08)
--- NOTE | 2018-07-24 14:45 | P.PN ---
Subjective Progress Note Date: 07/24/18 Principal diagnosis: Abdominal pain Patient doing better today. Denies abdominal pain currently. She did have a small bowel movement. She is currently tolerating solid foods without nausea or vomiting. Objective - Vital Signs Vital signs: Vital Signs Temp 98.2 F 07/24/18 07:35 Pulse 86 07/24/18 07:35 Resp 15 07/24/18 07:35 BP 156/72 07/24/18 07:35 Pulse Ox 98 07/24/18 07:35 Intake & Output 07/23/18 07/24/18 07/24/18 18:59 06:59 18:59 Intake Total 400 Output Total 200 500 425 Balance -200 -500 -25 Weight 63.503 kg Intake: IV 400 Sodium Chloride 0.9% 1, 400 000 ml @ 50 mls/hr IV . Q20H [facility] Rx#:[id number] Output: Urine 200 500 425 Other: Voiding Method Ileal Conduit (Right) Ileal Conduit (Right) Ileal Conduit (Right) - Exam Abdomen: Soft, nontender, nondistended - Labs CBC & Chem 7: 07/22/18 08:07 07/22/18 08:07 Labs: Microbiology - Last 24 Hours (Table) 07/22/18 23:00 Urine Culture - Preliminary Urine,Suprapubic Group D Enterococcus 07/20/18 22:02 Urine Culture - Final Urine,Voided Escherichia coli Assessment and Plan (1) Abdominal pain Narrative/Plan: Patient doing well at this time. Suspect ileus related to underlying urinary tract infection. Tolerating regular diet currently. We'll sign off. Please call if needed. Current Visit: No Status: Acute Code(s): R10.9 - UNSPECIFIED ABDOMINAL PAIN SNOMED Code(s): 85239485
[2018-07-24] MEDS: METOPROLOL TARTRATE 25 MG TAB PO SCH ×2 (17:25→20:31)
[2018-07-24] MEDS: ASPIRIN 81 MG PO SCH (17:25)
[2018-07-24] MEDS: CHOLECALCIFEROL 1,000 UNIT TAB PO SCH (17:25)
[2018-07-24] MEDS: LIDOCAINE 5% PATCH TOPICAL SCH (17:25)
[2018-07-24] MEDS: cycloSPORINE 0.05% OPHTH 0.4 ML DROPERETTE BOTH EYES SCH ×2 (17:25→20:31)
--- NOTE | 2018-07-24 19:21 | PN ---
PROGRESS NOTE SUBJECTIVE: An 82-year-old white female, irretractable nausea, vomiting. X-ray show ileus versus enteritis. She is able to tolerate some soft material today without vomiting. Her labs are improving. Her urine cultures are back. Remains on IV antibiotics. With advanced diet slowly over the next couple days. Possible discharge home. CARDIOVASCULAR: S1, S2. LUNGS are clear. HEMATOLOGY negative Homans. GI is increased bowel sounds, less than yesterday, more normal bowel sounds. ASSESSMENT: 1. Ileus versus enteritis. 2. Urinary tract infection. 3. Abdominal pain secondary to above. Continue current treatments at this time with IV antibiotics. Advance diet. Follow up in the next 24-48 hours. MMODL / IJN: [id number] /
[2018-07-25] MEDS: SODIUM CHLORIDE 0.9% 1,000 ML IV SCH ×2 (01:17→23:26)
[2018-07-25] MEDS: KETOROLAC 30 MG/ML 1 ML VIAL IVP SCH ×5 (01:17→23:27)
[2018-07-25] MEDS: ACETAMINOPHEN TAB 500 MG TAB PO PRN (04:41)
[2018-07-25] MEDS: LEVOTHYROXINE 25 MCG TAB PO SCH (04:41)
[2018-07-25] MEDS: PANTOPRAZOLE 40 MG/10 ML VIAL IVP SCH (08:43)
[2018-07-25] MEDS: CHOLECALCIFEROL 1,000 UNIT TAB PO SCH (08:43)
[2018-07-25] MEDS: LOSARTAN 50 MG TAB PO SCH (08:44)
[2018-07-25] MEDS: ASPIRIN 81 MG PO SCH (08:44)
[2018-07-25] MEDS: HEPARIN SODIUM,PORCINE 5,000 UNIT/ML 1 ML VIAL SQ SCH ×2 (08:45→20:15)
[2018-07-25] MEDS: amLODIPine 5 MG TAB PO SCH (08:45)
[2018-07-25] MEDS: cycloSPORINE 0.05% OPHTH 0.4 ML DROPERETTE BOTH EYES SCH ×2 (08:45→20:15)
[2018-07-25] MEDS: LIDOCAINE 5% PATCH TOPICAL SCH (08:49)
[2018-07-25] MEDS: METOPROLOL TARTRATE 25 MG TAB PO SCH ×2 (08:49→20:15)
--- NOTE | 2018-07-25 17:12 | P.CONS ---
History of Present Illness - Reason for Consult Consult date: 07/25/18 - Chief Complaint abdominal pain - History of Present Illness 83-year-old female presents to Hospital several days ago from her home setting feeling poorly. The patient relates that she had some vague abdominal pain, felt like an abdominal fullness. It was quite uncomfortable and she had difficulty eating. She was having nausea without much emesis. She had no hematemesis. She had no diarrhea. The patient did not believe that she had significant fever. She over felt poorly enough to present to Hospital where she was found evidence of an ileus surgical consult occurred. There is evidence of a bowel obstruction and it was thought that underlying infection was etiology for her ileus. The patient has an extensive past medical history in that she had a cystectomy for bladder cancer and does have an ileoconduit in place. She has have difficulties intermittently with urinary tract infection and routinely she feels very poorly with a UTI with nausea and abdominal discomforts. Because she is an ileoconduit her urine is often somewhat murky with mucus. Review of Systems HEENT patient denies sinus her mouth discomfort. No dysphagia. No oral pain. No neck stiffness or lymphadenopathy Lungs patient denies shortness of breath cough or sputum production no hemoptysis Heart patient denies chest pain or pressure. He is not having dyspnea on exertion, orthopnea, or syncope Abdomen as per the history of present illness make abdominal pain some nausea at admission this is improved. She's had no hematemesis melena or hematochezia. Extremities patient denies pain or swelling to the upper extremities. Patient as per the history of present illness has difficulties with the ulcerations to the bilateral heels but does not have ongoing difficulties with edema Neuro patient denies dizziness, or new deficits Past Medical History Past Medical History: Cancer, GERD/Reflux, Hyperlipidemia, Hypertension, Thyroid Disorder Additional Past Medical History / Comment(s): bladder,urterine,vaginal CA,VERTIGO,MURMUR,UTI. PER PAST MED HX -KERATOCONIS O[facility] History of Any Multi-Drug Resistant Organisms: None Reported Past Surgical History: Bladder Surgery, Bowel Resection, Tubal Ligation Additional Past Surgical History / Comment(s): 2015 CYSTOCOPY W/ TRANSURETHRAL RESECTION OF BLADDER TUMOR, JUANCARLOS CATARACTS, CORNEAL TRANSPLANTS, D&C, "05[facility]16-16 [facility] CYSTECTOMY,TOTAL HYSTERECTOMY, PARTIAL COLECTOMY,DIVERTING ILEOS REGINA". Past Anesthesia/Blood Transfusion Reactions: Postoperative Nausea & Vomiting (PONV) Past Psychological History: Depression Additional Psychological History / Comment(s): and lives in the family home with her . Adult children who are involved. Try to go to a wedding out of town next weekend. [employer] nonsmoker no alcohol use. Retired. No experience. No current animal exposures Smoking Status: Never smoker Past Alcohol Use History: None Reported Past Drug Use History: None Reported - Past Family History Father Family Medical History: Cancer Mother Family Medical History: Diabetes Mellitus Sister(s) Family Medical History: Cancer Additional Family Medical History / Comment(s): BREAST CANCER Brother(s) Family Medical History: Cancer Additional Family Medical History / Comment(s): COLON CANCER AND LEUKEMIA Father Brother(s) Family Medical History: Cancer Medications and Allergies Home Medications and Allergies Comment(s): Current Medications Acetaminophen (Tylenol Tab) 500 mg PO Q6HR PRN PRN Reason: Fever and/ or Pain Last Admin: 07/25/18 04:41 Dose: 500 mg Documented by: Acetaminophen (Tylenol Tab) 1,000 mg PO Q6HR PRN PRN Reason: Fever and/ or Pain Amlodipine Besylate (Norvasc) 5 mg PO DAILY [facility] Last Admin: 07/25/18 08:45 Dose: 5 mg Documented by: Aspirin (Aspirin) 81 mg PO DAILY [facility] Last Admin: 07/25/18 08:44 Dose: 81 mg Documented by: Cholecalciferol (Vitamin D3 (25 Mcg = 1000 Iu)) 2,000 unit PO DAILY [facility] Last Admin: 07/25/18 08:43 Dose: 2,000 unit Documented by: Cyclosporine (Restasis 0.05% Ophth Soln) 1 drops BOTH EYES BID [facility] Last Admin: 07/25/18 08:45 Dose: 1 drops Documented by: Docusate Sodium (Colace) 100 mg PO DAILY PRN PRN Reason: Constipation Heparin Sodium (Porcine) (Heparin) 5,000 unit SQ Q12HR [facility] Last Admin: 07/25/18 08:45 Dose: 5,000 unit Documented by: Hydralazine HCl (Apresoline) 10 mg IVP Q6HR PRN PRN Reason: Blood Pressure - High Last Admin: 07/23/18 09:04 Dose: 10 mg Documented by: Ceftriaxone Sodium 1 gm/ (Sodium Chloride) 50 mls @ 100 mls/hr IVPB HS [facility] Last Admin: 07/24/18 20:30 Dose: 100 mls/hr Documented by: Sodium Chloride (Saline 0.9%) 1,000 mls @ 50 mls/hr IV .Q20H [facility] Last Admin: 07/25/18 01:17 Dose: Not Given Documented by: Ketorolac Tromethamine (Toradol) 15 mg IVP Q6HR [facility] Stop: 07/26/18 08:45 Last Admin: 07/25/18 15:03 Dose: Not Given Documented by: Levothyroxine Sodium (Synthroid) 25 mcg PO DAILY@0630 [facility] Last Admin: 07/25/18 04:41 Dose: 25 mcg Documented by: Lidocaine (Lidoderm) 1 patch TOPICAL DAILY [facility] Last Admin: 07/25/18 08:49 Dose: Not Given Documented by: Losartan Potassium (Cozaar) 100 mg PO DAILY [facility] Last Admin: 07/25/18 08:44 Dose: 100 mg Documented by: Magnesium Hydroxide (Milk Of Magnesia) 2,400 mg PO DAILY PRN PRN Reason: Constipation Last Admin: 07/23/18 09:08 Dose: 2,400 mg Documented by: Metoclopramide HCl (Reglan) 10 mg IVP Q6HR PRN PRN Reason: Nausea Last Admin: 07/23/18 11:07 Dose: 10 mg Documented by: Metoprolol Tartrate (Lopressor) 25 mg PO BID [facility] Last Admin: 07/25/18 08:49 Dose: 25 mg Documented by: Naloxone HCl (Narcan) 0.2 mg IV Q2M PRN PRN Reason: Opioid Reversal Ondansetron HCl (Zofran) 4 mg IVP Q6HR PRN PRN Reason: Nausea And Vomiting Last Admin: 07/23/18 12:57 Dose: 4 mg Documented by: Pantoprazole Sodium (Protonix) 40 mg IVP DAILY [facility] Last Admin: 07/25/18 08:43 Dose: 40 mg Documented by: Prednisolone Acetate (Pred Forte 1%) 1 drops BOTH EYES MO [facility] ceftriaxone Home Medications Medication Instructions Recorded Confirmed Type Cholecalciferol [Vitamin D3] 2,000 unit PO DAILY 03/05/15 07/20/18 History Levothyroxine Sodium [Synthroid] 25 mcg PO DAILY 03/05/15 07/20/18 History Losartan Potassium 100 mg PO DAILY 03/05/15 07/20/18 History Omeprazole [PriLOSEC] 40 mg PO AC-BRKFST 03/05/15 07/20/18 History cycloSPORINE 0.05% OPHTH SOLN 1 drop BOTH EYES BID 03/05/15 07/20/18 History [Restasis] prednisoLONE ACETATE 1% OPHTH 1 drops BOTH EYES MO 03/05/15 07/20/18 History [Pred Forte 1%] Aspirin EC [Ecotrin Low Dose] 81 mg PO DAILY 05/28/16 07/20/18 History Docusate [Colace] 100 mg PO DAILY PRN 07/20/18 07/20/18 History Metoprolol Tartrate 25 mg PO BID 07/20/18 07/20/18 History Allergies Allergy/AdvReac Type Severity Reaction Status Date / Time sulfamethoxazole Allergy Swelling Verified 07/20/18 19:10 [From Bactrim] lips, sore throat trimethoprim [From Bactrim] Allergy Swelling Verified 07/20/18 19:10 lips, sore throat levofloxacin [From Levaquin] AdvReac severe Verified 07/20/18 19:10 headache Iaeuuow-Wax-Tey Reductase AdvReac PAINFUL Verified 07/20/18 19:10 Inhibitor ARMS AND LEGS W/ MULT RX TRIED Physical Exam Vitals: Vital Signs Temp Pulse Resp BP Pulse Ox 07/25/18 16:13 16 07/25/18 14:23 98.5 F 66 16 144/78 97 07/25/18 07:34 97.7 F 71 16 166/78 99 07/25/18 01:24 98.4 F 81 17 148/82 93 L 07/24/18 19:59 98.5 F 85 18 156/85 98 Intake and Output 07/25/18 07/25/18 07/25/18 06:59 14:59 22:59 Output Total 300 500 Balance -300 -500 Output: Urine 300 500 Other: Voiding Method Ileal Conduit (Right) Ileal Conduit (Right) HEENT: Anicteric, conjunctiva are pink and moist, nasal or oral mucosa are without lesion. The neck is supple without lymphadenopathy or thyromegaly. No oral thrush is noted. Lungs: good bilateral air entry, there are no significant crackles or wheezes, no bronchial sounds or egophony. Heart: Regular rate and rhythm with an audible S1-S2, no S3 or S4 noted. No sign ificant murmur click or rub noted. Abdomen: Positive bowel sounds, it is soft there is tenderness in the mid epigastric area The urostomy from ileoconduit is intact with nonbloody urine present in the urostomy pouch no significant flank tenderness Extremities:Upper extremities reveal evidence of equal pulses, no lesions are seen, no petechiae or telangiectasia. The lower extremities have no significant edema, peripheral pulses were 2+ and symmetric, no lesions or ulcerations are seen. Capillary refill was brisk. Skin: Intact without significant rash or lesions. Neuro:Awake and alert, oriented to person place and time. No gross focal sensory motor deficits noted. Musculoskeletal: Patient is ambulatory No acute joint effusions are noted. Lymph: No cervical, supraclavicular, axillary, epitrochlear, or inguinal lymphadenopathy was noted. Results CBC & Chem 7: 07/22/18 08:07 07/22/18 08:07 Labs: Microbiology - Last 24 Hours (Table) 07/22/18 23:00 Urine Culture - Final Urine,Suprapubic Enterococcus faecalis Laboratory Results WBC 6.8 k/uL (3.8-10.6) 07/22/18 08:07 RBC 4.38 m/uL (3.80-5.40) 07/22/18 08:07 Hgb 13.2 gm/dL (11.4-16.0) 07/22/18 08:07 Hct 40.7 % (34.0-46.0) 07/22/18 08:07 MCV 92.9 fL (80.0-100.0) 07/22/18 08:07 MCH 30.1 pg (25.0-35.0) 07/22/18 08:07 MCHC 32.4 g/dL (31.0-37.0) 07/22/18 08:07 RDW 13.8 % (11.5-15.5) 07/22/18 08:07 Plt Count 298 k/uL (150-450) 07/22/18 08:07 Neutrophils % 79 % 07/22/18 08:07 Lymphocytes % 11 % 07/22/18 08:07 Monocytes % 6 % 07/22/18 08:07 Eosinophils % 1 % 07/22/18 08:07 Basophils % 1 % 07/22/18 08:07 Neutrophils # 5.4 k/uL (1.3-7.7) 07/22/18 08:07 Lymphocytes # 0.8 k/uL (1.0-4.8) L 07/22/18 08:07 Monocytes # 0.4 k/uL (0-1.0) 07/22/18 08:07 Eosinophils # 0.1 k/uL (0-0.7) 07/22/18 08:07 Basophils # 0.0 k/uL (0-0.2) 07/22/18 08:07 Sodium 139 mmol/L (137-145) 07/22/18 08:07 Potassium 3.8 mmol/L (3.5-5.1) 07/22/18 08:07 Chloride 108 mmol/L (98-107) H 07/22/18 08:07 Carbon Dioxide 23 mmol/L (22-30) 07/22/18 08:07 Anion Gap 8 mmol/L 07/22/18 08:07 BUN 12 mg/dL (7-17) 07/22/18 08:07 Creatinine 0.68 mg/dL (0.52-1.04) 07/22/18 08:07 Est GFR (CKD-EPI)AfAm >90 (>60 ml/min/1.73 sqM) 07/22/18 08:07 Est GFR (CKD-EPI)NonAf 81 (>60 ml/min/1.73 sqM) 07/22/18 08:07 Glucose 98 mg/dL (74-99) 07/22/18 08:07 Calcium 8.9 mg/dL (8.4-10.2) 07/22/18 08:07 Magnesium 1.7 mg/dL (1.6-2.3) 07/20/18 19:30 Total Bilirubin 0.8 mg/dL (0.2-1.3) 07/22/18 08:07 AST 20 U/L (14-36) 07/22/18 08:07 ALT 20 U/L (9-52) 07/22/18 08:07 Alkaline Phosphatase 87 U/L (38-126) 07/22/18 08:07 Creatine Kinase 44 U/L (30-135) 07/20/18 19:30 Troponin I <0.012 ng/mL (0.000-0.034) 07/20/18 19:30 Total Protein 6.9 g/dL (6.3-8.2) 07/22/18 08:07 Albumin 3.9 g/dL (3.5-5.0) 07/22/18 08:07 Amylase 138 U/L (30-110) H 07/22/18 08:07 Lipase 96 U/L (23-300) 07/22/18 08:07 Urine Color Light Yellow 07/22/18 23:00 Urine Appearance Clear (Clear) 07/22/18 23:00 Urine pH 6.5 (5.0-8.0) 07/22/18 23:00 Ur Specific Inez 1.016 (1.001-1.035) 07/22/18 23:00 Urine Protein Trace (Negative) H 07/22/18 23:00 Urine Glucose (UA) Negative (Negative) 07/22/18 23:00 Urine Ketones 2+ (Negative) H 07/22/18 23:00 Urine Blood Small (Negative) H 07/22/18 23:00 Urine Nitrite Negative (Negative) 07/22/18 23:00 Urine Bilirubin Negative (Negative) 07/22/18 23:00 Urine Urobilinogen <2.0 mg/dL (<2.0) 07/22/18 23:00 Ur Leukocyte Esterase Small (Negative) H 07/22/18 23:00 Urine RBC 21 /hpf (0-5) H 07/22/18 23:00 Urine WBC 24 /hpf (0-5) H 07/22/18 23:00 Urine WBC Clumps Rare /hpf (None) H 07/22/18 23:00 Urine Bacteria Rare /hpf (None) H 07/22/18 23:00 Urine Mucus Rare /hpf (None) H 07/22/18 23:00 Microbiology 07/22/18 23:00 Urine,Suprapubic Urine Culture - Final Enterococcus faecalis 07/20/18 22:02 Urine,Voided Urine Culture - Final Escherichia coli Assessment and Plan (1) Intractable abdominal pain Current Visit: Yes Status: Acute Code(s): R10.9 - UNSPECIFIED ABDOMINAL PAIN SNOMED Code(s): 39848491 (2) Ileus Current Visit: Yes Status: Acute Code(s): K56.7 - ILEUS, UNSPECIFIED SNOMED Code(s): 708616696 (3) Enterococcus UTI Narrative/Plan: 83-year-old female presents to Hospital complaining of abdominal pain nausea malaise and some vague symptoms related to urinary infection that she's had in the past. Since admission and hydration she is definitely feeling better. Cytosis some lactic acidosis of definitely improved but she still feels poorly. The most recent culture does show evidence of enterococcus faecalis her which the Rocephin would not be effective. Consequently antibiotic therapy is transition to Unasyn. The should give adequate coverage for the isolate a pathogen's. Hopefully will rapidly improve and they can be transitioned to oral Augmentin to complete her therapy at home. We'll expect with treatment of urinary tract infection the ileus will also rapidly improve, concur with surgical opinion. Current Visit: Yes Status: Acute Code(s): N39.0 - URINARY TRACT INFECTION, SITE NOT SPECIFIED; B95.2 - ENTEROCOCCUS THE CAUSE OF DISEASES CLASSIFIED ELSEWHERE SNOMED Code(s): 913048964762791
[2018-07-25] MEDS: AMPICILLIN-SULBACTAM 3 GM in SODIUM CHLORIDE 0.9% 100 ML IVPB SCH ×2 (18:12→23:25)
--- NOTE | 2018-07-25 22:56 | PN ---
PROGRESS NOTE SUBJECTIVE: 83-year-old white female with irretractable nausea, vomiting, abdominal pain. Antibiotics were switched per Infectious Disease to Unasyn. Hopefully ileus and UTI will be improved. 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 Vital signs stable. Afebrile. Cardiovascular S1, S2. Lungs clear. GI: Urostomy tubes intact. Clear urine. ASSESSMENT: 1. Acute abdominal pain. Unclear etiology, possibly due to drug-resistant urinary tract infection versus ileus. 2. History of bladder cancer. Switched antibiotics to Unasyn. Please see further orders. If she does not improve, we will have to order an MRI of the abdomen. MMODL / IJN: [id number] /
[2018-07-26] MEDS: hydrALAZINE HCL 20 MG/ML 1 ML VIAL IVP PRN ×2 (01:59→23:48)
[2018-07-26] MEDS: KETOROLAC 30 MG/ML 1 ML VIAL IVP SCH (05:18)
[2018-07-26] MEDS: AMPICILLIN-SULBACTAM 3 GM in SODIUM CHLORIDE 0.9% 100 ML IVPB SCH ×4 (05:19→23:37)
[2018-07-26] MEDS: LEVOTHYROXINE 25 MCG TAB PO SCH (07:24)
[2018-07-26] MEDS: cycloSPORINE 0.05% OPHTH 0.4 ML DROPERETTE BOTH EYES SCH ×2 (10:22→21:15)
[2018-07-26] MEDS: PANTOPRAZOLE 40 MG/10 ML VIAL IVP SCH (10:22)
[2018-07-26] MEDS: HEPARIN SODIUM,PORCINE 5,000 UNIT/ML 1 ML VIAL SQ SCH ×2 (10:22→21:15)
[2018-07-26] MEDS: LOSARTAN 50 MG TAB PO SCH (10:23)
[2018-07-26] MEDS: amLODIPine 5 MG TAB PO SCH (10:23)
[2018-07-26] MEDS: ASPIRIN 81 MG PO SCH (10:23)
[2018-07-26] MEDS: METOPROLOL TARTRATE 25 MG TAB PO SCH ×2 (10:24→21:15)
[2018-07-26] MEDS: LIDOCAINE 5% PATCH TOPICAL SCH (10:24)
[2018-07-26] MEDS: ACETAMINOPHEN TAB 500 MG TAB PO PRN ×2 (13:24→22:25)
--- NOTE | 2018-07-26 14:35 | P.PN ---
Subjective Progress Note Date: 07/26/18 This is an 83-year-old female admitted with abdominal pain, history of urostomy secondary to bladder CA, diverticulosis, hypertension and multiple other medical issues. Abdominal CT reported no recurrent tumor, no obstruction, no free fluid in pelvis, diverticulosis without diverticulitis, slight fullness of the renal collecting system-unchanged compared to prior exam. Maintained on IV antibiotics. Afebrile, normal WBC.Urine Culture pending. Urostomy appliance/last changed on Thursday. Good urine output. Continues to have nausea, vomiting -reports one emesis early this morning.Denies diarrhea. Reports last bowel movement was Thursday, normal .Currently denies abdominal pain , states it fluctuates,worse at night.Denies chest pain, palpitations or shortness of breath. 07/23/2018 Minimal nausea this morning, reports last emesis -last night. Significant improvement in abdominal pain, reports minimal suprapubic to left lower quadrant discomfort. Feels hungry and requesting diet advancement. Afebrile, initial urine culture growing gram-negative bacilli. Urostomy appliance change with repeat urine culture sent yesterday, pending. Norvasc added to med regime yesterday for uncontrolled hypertension, blood pressure post-administration of antihypertensives pending. Denies chest pain, p alpitations or shortness of breath. Denies lightheadedness dizziness or focal deficits. Denies headache. 07/26/2018 improving -denies abdominal pain.antibiotics adjusted and patient now on Unasyn as per infectious disease. Afebrile, normal WBC .Low Fiber Diet intake improved. No nausea, No emesis. Passing flatus, no bowel movement. Objective - Vital Signs Vital signs: Vital Signs Temp 97.9 F 07/26/18 07:00 Pulse 86 07/26/18 07:00 Resp 16 07/26/18 08:10 BP 155/75 07/26/18 07:00 Pulse Ox 99 07/26/18 07:00 Intake & Output 07/25/18 07/26/18 07/26/18 18:59 06:59 18:59 Intake Total 540 250 Output Total 875 809 500 Balance -335 -700 -500 Weight 63.503 kg Intake: Intake, IV Titration 250 Amount Ampicillin-Sulbactam 3 gm 100 In Sodium Chloride 0.9% 100 ml @ 200 mls/hr IVPB Q6HR [facility] Rx#:[id number] Sodium Chloride 0.9% 1, 150 000 ml @ 50 mls/hr IV . Q20H [facility] Rx#:[id number] Oral 540 Output: Urine 875 950 500 Other: Voiding Method Ileal Conduit (Right) Ileal Conduit (Right) Ileal Conduit (Right) - Exam PHYSICAL EXAM: VITAL SIGNS: As above GENERAL: Sitting up in chair, no acute distress HEENT: Conjunctivae normal. eyes normal. Oral mucosa moist NECK: No JVD. No thyroid enlargement. No LNs CARDIOVASCULAR: S1, S2 muffled. No murmur RESPIRATION: Breath sounds diminished in the bases. No rhonchi or crackles. ABDOMEN: Soft, nondistended, nontender. No guarding. no masses palpable. Bowel sounds heard. Urostomy appliance with clear yellow urine. LEGS: No edema. no swelling PSYCHIATRY: Alert and oriented -3, mood and affect normal. NERVOUS SYSTEM: Cranial N 2-12 grossly normal. Moves all 4 limbs. Diffuse weakness No focal deficits. No sensory deficit. Skin: no lesions no rash Joints: No active swelling. No inflammation. Lymphatic system. No LN neck axilla or groin. Microbiology 07/22/18 23:00 Urine,Suprapubic Urine Culture - Final Enterococcus faecalis 07/20/18 22:02 Urine,Voided Urine Culture - Final Escherichia coli - Labs CBC & Chem 7: 07/22/18 08:07 07/22/18 08:07 Labs: Microbiology - Last 24 Hours (Table) 07/22/18 23:00 Urine Culture - Final Urine,Suprapubic Enterococcus faecalis Assessment and Plan Assessment: -Acute UTI, Enterococcus faecalis -No pain, acute of unclear etiology, possibly secondary to ileus secondary to underlying drug resistant UTI -Ileus secondary to underlying UTI, -Dehydration, improving -Hypertension -History of bladder cancer with urostomy -Diverticulosis Plan: Continue on current medication regime ,monitoring and symptomatic treatment. Antibiotics changed, patient improving .discharge planning in progress pending ID clearance. Increase ambulation as tolerated. Further recommendations to follow. The impression and plan of care has been dictated as directed. : I performed a history and examination of this patient, discussed the same with the dictator. I agree with the dictator's note ,documented as a scribe. Any additional findings or plans will be noted.
[2018-07-26] MEDS: ONDANSETRON 4 MG/2 ML VIAL IVP PRN (15:32)
[2018-07-26] MEDS: SODIUM CHLORIDE 0.9% 1,000 ML IV SCH (17:49)
[2018-07-26] MEDS ORDERED: prednisoLONE ACETATE 1% OPHTH DROPS 5 ML BTL BOTH EYES SCH (22:43)
[2018-07-26] MEDS: METOCLOPRAMIDE 5 MG/ML 2 ML VIAL IVP PRN (23:48)
--- NOTE | 2018-07-27 00:16 | P.PN ---
Subjective Progress Note Date: 07/26/18 83-year-old female presents to Hospital several days ago from her home setting feeling poorly. The patient relates that she had some vague abdominal pain, felt like an abdominal fullness. It was quite uncomfortable and she had difficulty eating. She was having nausea without much emesis. She had no hematemesis. She had no diarrhea. The patient did not believe that she had significant fever. She over felt poorly enough to present to Hospital where she was found evidence of an ileus surgical consult occurred. There is evidence of a bowel obstruction and it was thought that underlying infection was etiology for her ileus. The patient has an extensive past medical history in that she had a cystectomy for bladder cancer and does have an ileoconduit in place. She has have difficulties intermittently with urinary tract infection and routinely she feels very poorly with a UTI with nausea and abdominal discomforts. Because she is an ileoconduit her urine is often somewhat murky with mucus. 07/26/2018 patient is feeling better. They have a bout of nausea and dry heaves during the day that responded well to some Zofran. She routinely has nausea and GI symptoms when she has urinary tract infection. She's been initiated antibiotic therapy with Unasyn for the enterococcus since been found. She does believe this afternoon she is feeling considerably better. Objective - Vital Signs Vital signs: Vital Signs Temp 98.2 F 07/26/18 19:34 Pulse 67 07/26/18 23:44 Resp 14 07/26/18 23:48 BP 184/81 07/26/18 23:44 Pulse Ox 97 07/26/18 19:34 Intake & Output 07/26/18 07/26/18 07/27/18 06:59 18:59 06:59 Intake Total 250 400 Output Total 950 500 325 Balance -700 -500 75 Weight 63.503 kg Intake: IV 400 Sodium Chloride 0.9% 1, 400 000 ml @ 50 mls/hr IV . Q20H [facility] Rx#:[id number] Intake, IV Titration 250 Amount Ampicillin-Sulbactam 3 gm 100 In Sodium Chloride 0.9% 100 ml @ 200 mls/hr IVPB Q6HR [facility] Rx#:[id number] Sodium Chloride 0.9% 1, 150 000 ml @ 50 mls/hr IV . Q20H [facility] Rx#:[id number] Output: Urine 950 500 325 Other: Voiding Method Ileal Conduit (Right) Ileal Conduit (Right) Ileal Conduit (Right) - Exam HEENT: Anicteric, conjunctiva are pink and moist, nasal or oral mucosa are without lesion. The neck is supple without lymphadenopathy or thyromegaly. No oral thrush is noted. Lungs: good bilateral air entry, there are no significant crackles or wheezes, no bronchial sounds or egophony. Heart: Regular rate and rhythm with an audible S1-S2, no S3 or S4 noted. No significant murmur click or rub noted. Abdomen: Positive bowel sounds, it is soft there is tenderness in the mid epigastric area The urostomy from ileoconduit is intact with nonbloody urine present in the urostomy pouch no significant flank tenderness Extremities:Upper extremities reveal evidence of equal pulses, no lesions are seen, no petechiae or telangiectasia. The lower extremities have no significant edema, peripheral pulses were 2+ and symmetric, no lesions or ulcerations are seen. Capillary refill was brisk. Skin: Intact without significant rash or lesions. Neuro:Awake and alert, oriented to person place and time. No gross focal sensory motor deficits noted. Musculoskeletal: Patient is ambulatory No acute joint effusions are noted. Lymph: No cervical, supraclavicular, axillary, epitrochlear, or inguinal lymphadenopathy was noted. - Labs CBC & Chem 7: 07/22/18 08:07 07/22/18 08:07 Assessment and Plan (1) Intractable abdominal pain Current Visit: Yes Status: Acute Code(s): R10.9 - UNSPECIFIED ABDOMINAL PAIN SNOMED Code(s): 95482566 (2) Ileus Current Visit: Yes Status: Acute Code(s): K56.7 - ILEUS, UNSPECIFIED SNOMED Code(s): 230722087 (3) Enterococcus UTI Narrative/Plan: 83-year-old female presents to Hospital complaining of abdominal pain nausea malaise and some vague symptoms related to urinary infection that she's had in the past. Since admission and hydration she is definitely feeling better. Cytosis some lactic acidosis of definitely improved but she still feels poorly. The most recent culture does show evidence of enterococcus faecalis her which the Rocephin would not be effective. Consequently antibiotic therapy is transition to Unasyn. The should give adequate coverage for the isolate a pathogen's. Hopefully will rapidly improve and they can be transitioned to oral Augmentin to complete her therapy at home. We'll expect with treatment of urinary tract infection the ileus will also rapidly improve, concur with surgical opinion. 07/26/2018 reveals the patient to be showing some improvement. She had one bout of nausea and dry heaves earlier which is now resolved. Appears her ileus is improving. Urinary tract infection with enterococcus has been found in she's been initiated Unison. She is to be tolerating this well and overall improvement. When she has resolved her ileus and is eating well can complete a course of oral Augmentin the home setting. Current Visit: Yes Status: Acute Code(s): N39.0 - URINARY TRACT INFECTION, SITE NOT SPECIFIED; B95.2 - ENTEROCOCCUS THE CAUSE OF DISEASES CLASSIFIED ELSEWHERE SNOMED Code(s): 648009517989775
[2018-07-27 01:45] VITALS: RESP 16
[2018-07-27] MEDS: LEVOTHYROXINE 25 MCG TAB PO SCH (05:33)
[2018-07-27] MEDS: AMPICILLIN-SULBACTAM 3 GM in SODIUM CHLORIDE 0.9% 100 ML IVPB SCH ×2 (05:33→11:19)
[2018-07-27 07:58] LABS: Basophils # (A) 0.1 k/uL (0-0.2); Basophils % (A) 1 %; Eosinophils # (A) 0.2 k/uL (0-0.7); Eosinophils % (A) 3 %; HCT 40.6 % (34.0-46.0); HGB 13.2 gm/dL (11.4-16.0); Lymphocytes # (A) 0.8 k/uL (1.0-4.8); Lymphocytes % (A) 14 %; MCH 29.7 pg (25.0-35.0); MCHC 32.5 g/dL (31.0-37.0); MCV 91.5 fL (80.0-100.0); Mean Platelet Volume 7.1; Monocytes # (A) 0.3 k/uL (0-1.0); Monocytes % (A) 6 %; Neutrophils # (A) 4.2 k/uL (1.3-7.7); Neutrophils % (A) 74 %; Platelet Count 248 k/uL (150-450); RBC 4.44 m/uL (3.80-5.40); RDW 14.6 % (11.5-15.5); WBC 5.7 k/uL (3.8-10.6)
[2018-07-27 07:59] LABS: ALT 22 U/L (9-52); AST 18 U/L (14-36); Albumin 3.5 g/dL (3.5-5.0); Alkaline Phosphatase 76 U/L (38-126); Anion Gap 6 mmol/L; Blood Urea Nitrogen 12 mg/dL (7-17); Calcium 8.8 mg/dL (8.4-10.2); Carbon Dioxide 25 mmol/L (22-30); Chloride 108 mmol/L (98-107); Glucose 90 mg/dL (74-99); Potassium 3.8 mmol/L (3.5-5.1); Sodium 139 mmol/L (137-145); Total Bilirubin 0.5 mg/dL (0.2-1.3); Total Protein 6.4 g/dL (6.3-8.2)
[2018-07-27 09:23] VITALS: TEMP 98.4
[2018-07-27] MEDS: LIDOCAINE 5% PATCH TOPICAL SCH (09:23)
[2018-07-27] MEDS: LOSARTAN 50 MG TAB PO SCH (09:28)
[2018-07-27] MEDS: ASPIRIN 81 MG PO SCH (09:28)
[2018-07-27] MEDS: amLODIPine 5 MG TAB PO SCH (09:28)
[2018-07-27] MEDS: METOPROLOL TARTRATE 25 MG TAB PO SCH (09:28)
[2018-07-27] MEDS: PANTOPRAZOLE 40 MG/10 ML VIAL IVP SCH (09:29)
[2018-07-27] MEDS: HEPARIN SODIUM,PORCINE 5,000 UNIT/ML 1 ML VIAL SQ SCH (09:29)
[2018-07-27] MEDS: cycloSPORINE 0.05% OPHTH 0.4 ML DROPERETTE BOTH EYES SCH (09:29)
[2018-07-27 11:53] VITALS: BP 167/74; PULSE 68
[2018-07-27] MEDS: SODIUM CHLORIDE 0.9% 1,000 ML IV SCH (13:49)
--- NOTE | 2018-07-27 15:24 | P.DS ---
Providers Date of admission: 07/23/18 13:20 Expected date of discharge: 07/27/18 Attending physician: Madan Salinas Consults: 07/22/18 07:50 Consult Physician Routine Consulting Provider: Prakash Marin Consult Reason/Comments: abd pain, n/v Do you want consulting provider notified?: Yes 07/23/18 20:09 Consult Physician Routine Consulting Provider: Madan Poon Consult Reason/Comments: urosepsis Do you want consulting provider notified?: Yes Primary care physician: [facility] Hospital Course: Final Diagnoses: -Acute UTI, Enterococcus faecalis -No pain, acute of unclear etiology, possibly secondary to ileus secondary to underlying drug resistant UTI -Ileus secondary to underlying UTI, -Dehydration, improving -Hypertension -History of bladder cancer with urostomy -Diverticulosis Hospital course:This is an 83-year-old female admitted with abdominal pain, history of urostomy secondary to bladder CA, diverticulosis, hypertension and multiple other medical issues. Abdominal CT reported no recurrent tumor, no obstruction, no free fluid in pelvis, diverticulosis without diverticulitis, slight fullness of the renal collecting system-unchanged compared to prior exam. Maintained on IV antibiotics. Afebrile, normal WBC.Urine Culture pending. Urostomy appliance/last changed on Thursday. Good urine output. Continues to have nausea, vomiting -reports one emesis early this morning.Denies diarrhea. Reports last bowel movement was Thursday, normal .Currently denies abdominal pain , states it fluctuates,worse at night.Denies chest pain, palpitations or shor tness of breath. 07/23/2018 Minimal nausea this morning, reports last emesis -last night. Significant improvement in abdominal pain, reports minimal suprapubic to left lower quadrant discomfort. Feels hungry and requesting diet advancement. Afebrile, initial urine culture growing gram-negative bacilli. Urostomy appliance change with repeat urine culture sent yesterday, pending. Norvasc added to med regime yesterday for uncontrolled hypertension, blood pressure post-administration of antihypertensives pending. Denies chest pain, palpitations or shortness of breath. Denies lightheadedness dizziness or focal deficits. Denies headache. Evaluated by a general surgery, suspected ileus related to underlying UTI, conservative management recommended. 07/26/2018 improving -denies abdominal pain.antibiotics adjusted and patient now on Unasyn as per infectious disease. Afebrile, normal WBC .Low Fiber Diet intake improved. No nausea, No emesis. Passing flatus, no bowel movement. Significant clinical improvement. Patient has been cleared by all consults for discharge. Patient is being discharged home in a stable condition with guarded prognosis. EXAM: GENERAL: alert & oriented X3, no acute distress CARDIOVASCULAR: S1, S2 muffled. No murmur RESPIRATION: Breath sounds diminished in the bases. No rhonchi or crackles. ABDOMEN: Soft, nondistended, nontender. No guarding. no masses palpable. Bowel sounds heard. Urostomy appliance with clear yellow urine. NERVOUS SYSTEM: No focal deficits. The impression and plan of care has been dictated as directed. : I performed a history and examination of this patient, discussed the same with the dictator. I agree with the dictator's note ,documented as a scribe. Any additional findings or plans will be noted. Time taken: 35 minutes Patient Condition at Discharge: Stable Plan - Discharge Summary Discharge Rx Participant: No New Discharge Prescriptions: New amLODIPine [Norvasc] 5 mg PO DAILY #30 tab Amoxic-Pot Clav 875-125Mg [Augmentin 875-125] 1 tab PO Q12HR #14 tablet Continue prednisoLONE ACETATE 1% OPHTH [Pred Forte 1%] 1 drops BOTH EYES MO cycloSPORINE 0.05% OPHTH SOLN [Restasis] 1 drop BOTH EYES BID Cholecalciferol [Vitamin D3 (25 Mcg = 1000 Iu)] 2,000 unit PO DAILY Omeprazole [PriLOSEC] 40 mg PO AC-BRKFST Losartan Potassium 100 mg PO DAILY Levothyroxine Sodium [Synthroid] 25 mcg PO DAILY Aspirin EC [Ecotrin Low Dose] 81 mg PO DAILY Docusate [Colace] 100 mg PO DAILY PRN PRN Reason: Constipation Metoprolol Tartrate 25 mg PO BID Discharge Medication List Cholecalciferol [Vitamin D3 (25 Mcg = 1000 Iu)] 2,000 unit PO DAILY 03/05/15 [History] Levothyroxine Sodium [Synthroid] 25 mcg PO DAILY 03/05/15 [History] Losartan Potassium 100 mg PO DAILY 03/05/15 [History] Omeprazole [PriLOSEC] 40 mg PO AC-BRKFST 03/05/15 [History] cycloSPORINE 0.05% OPHTH SOLN [Restasis] 1 drop BOTH EYES BID 03/05/15 [History] prednisoLONE ACETATE 1% OPHTH [Pred Forte 1%] 1 drops BOTH EYES MO 03/05/15 [History] Aspirin EC [Ecotrin Low Dose] 81 mg PO DAILY 05/28/16 [History] Docusate [Colace] 100 mg PO DAILY PRN 07/20/18 [History] Metoprolol Tartrate 25 mg PO BID 07/20/18 [History] Amoxic-Pot Clav 875-125Mg [Augmentin 875-125] 1 tab PO Q12HR #14 tablet 07/27/18 [Rx] amLODIPine [Norvasc] 5 mg PO DAILY #30 tab 07/27/18 [Rx] Follow up Appointment(s)/Referral(s): Madan Salinas MD [Primary Care Provider] - 08/03/18 10:00 am Ambulatory/Diagnostic Orders: Complete Blood Count w/diff [LAB.AMB] Time Frame: 3 Days, Location: None Selected Patient Instructions/Handouts: Urinary Tract Infection in Women (DC), Acute Nausea and Vomiting (DC) Activity/Diet/Wound Care/Special Instructions: Blood pressures every morning, maintain log and take to follow-up visit with PCP for further recommendations. Antibiotics as per ID Diet: Low fiber Activity: Limited until follow up
[2018-07-28] MEDS ORDERED: AMOXIC-POT CLAV 875-125MG 1 EACH TAB PO SCH (21:00)
== END 2018-07-27 15:14 | disposition home or self-care (01) | DRG 690 ==
LOC: EC 18:32 → 4MS4W 22:02 → 4SSUR 07-22 17:49 → OBSVTOIN 07-23 13:20
PROVIDERS: ADMIT Family Medicine; ATTEND Family Medicine
DX: N39.0 Urinary tract infection, site not specified (principal); E87.1 Hypo-osmolality and hyponatremia; K56.7 Ileus, unspecified; E87.2 Acidosis; E86.0 Dehydration; Z93.6 Other artificial openings of urinary tract status; B95.2 Enterococcus as the cause of diseases classified elsewhere; E03.9 Hypothyroidism, unspecified; K57.30 Diverticulosis of large intestine without perforation or abscess without bleeding; I12.9 Hypertensive chronic kidney disease with stage 1 through stage 4 chronic kidney disease, or unspecified chronic kidney disease; N18.9 Chronic kidney disease, unspecified; K21.9 Gastro-esophageal reflux disease without esophagitis; E78.5 Hyperlipidemia, unspecified; Z79.82 Long term (current) use of aspirin; Z79.890 Hormone replacement therapy; Z79.899 Other long term (current) drug therapy; Z94.7 Corneal transplant status; Z85.51 Personal history of malignant neoplasm of bladder; Z90.49 Acquired absence of other specified parts of digestive tract; Z90.710 Acquired absence of both cervix and uterus; Z85.44 Personal history of malignant neoplasm of other female genital organs; Z86.59 Personal history of other mental and behavioral disorders; Z98.51 Tubal ligation status; Z98.42 Cataract extraction status, left eye; Z98.41 Cataract extraction status, right eye; Z88.2 Allergy status to sulfonamides; Z88.1 Allergy status to other antibiotic agents; Z88.8 Allergy status to other drugs, medicaments and biological substances; Z83.3 Family history of diabetes mellitus; Z80.3 Family history of malignant neoplasm of breast; Z80.0 Family history of malignant neoplasm of digestive organs; Z80.6 Family history of leukemia
CPT/HCPCS: 36415; 74019; 74176; 80053; 81001; 82150; 82550; 83690; 83735; 84484; 85025; 87077; 87086; 87186; 93005; 96361; 96374; 96375; 99285

== ENCOUNTER 2018-08-11 09:00 | Inpatient (IN) | payer MEDICARE ==
[2018-08-11] MEDS ORDERED: DOCUSATE 100 MG CAP PO PRN (10:49)
[2018-08-11] MEDS ORDERED: PANTOPRAZOLE 40 MG/10 ML VIAL IVP SCH (11:00)
[2018-08-11] MEDS: SODIUM CHLORIDE 0.9% 1,000 ML IV SCH (11:26)
[2018-08-11] MEDS: HEPARIN SODIUM,PORCINE 5,000 UNIT/ML 1 ML VIAL SQ SCH ×2 (11:26→21:17)
[2018-08-11] MEDS: ASPIRIN 81 MG PO SCH (11:27)
[2018-08-11 11:47] LABS: Basophils # (A) 0.1 k/uL (0-0.2); Basophils % (A) 1 %; Eosinophils % (A) 1 %; HCT 43.4 % (34.0-46.0); HGB 14.2 gm/dL (11.4-16.0); Lymphocytes # (A) 0.4 k/uL (1.0-4.8); Lymphocytes % (A) 6 %; MCH 29.7 pg (25.0-35.0); MCHC 32.7 g/dL (31.0-37.0); MCV 90.6 fL (80.0-100.0); Mean Platelet Volume 7.1; Monocytes # (A) 0.4 k/uL (0-1.0); Monocytes % (A) 6 %; Neutrophils # (A) 5.8 k/uL (1.3-7.7); Neutrophils % (A) 85 %; Platelet Count 335 k/uL (150-450); RBC 4.79 m/uL (3.80-5.40); WBC 6.8 k/uL (3.8-10.6)
[2018-08-11 11:52] LABS: African American GFR (CKD) >90 (>60 ml/min/1.73 sqM); Anion Gap 11 mmol/L; Blood Urea Nitrogen 15 mg/dL (7-17); Calcium 9.5 mg/dL (8.4-10.2); Carbon Dioxide 25 mmol/L (22-30); Chloride 101 mmol/L (98-107); Glucose 102 mg/dL (74-99); Potassium 4.6 mmol/L (3.5-5.1); Sodium 137 mmol/L (137-145)
[2018-08-11] MEDS: cycloSPORINE 0.05% OPHTH 0.4 ML DROPERETTE BOTH EYES SCH ×2 (12:28→21:20)
[2018-08-11] MEDS ORDERED: VANCOMYCIN IV PER PHARMACY 1 EACH MISC MISCELLANE PRN (12:31)
[2018-08-11] MEDS: VANCOMYCIN 1,000 MG in SODIUM CHLORIDE 0.9% 250 ML IVPB SCH ×2 (13:58→21:15)
--- NOTE | 2018-08-11 14:10 | P.PN ---
Progress Note - Text Progress Note Date: 08/11/18 Consult placed today to Dr. Marin for abdominal pain and emesis. Patient known to our service from most recent admission, July 2018. Dr. Mejía is currently covering for Dr. Marin for the rest of the week and Dr. Mejía covering surgery over the weekend. Patient very pleasant but does not want to be seen by Dr. Mejía. Explained that Dr. Marin will not be available until Thursday08/16/2018. Patient requesting consult with a different surgical group. Spoke with Demond CORE ANALYST with Dr. Salinas who will place consult for Dr. Wolf/Marlon
--- NOTE | 2018-08-11 17:28 | P.GSCN ---
History of Present Illness Consult date: 08/11/18 History of present illness: This is a 83-year-old female who presented to the hospital with a chief complaint of malaise and nausea. She is passing normal bowel movements daily. She is also passing flatus. She denies abdominal pain but she does admit to some right flank pain. She was being treated as an outpatient for UTI. She has a past history of bladder cancer and had a cystectomy with ileal conduit 2 years ago by the urology team at [facility]. She denies any fevers or chills. She denies any other abdominal surgeries. She has no other complaints at this time. Her last colonoscopy showed diverticulosis. Past Medical History Past Medical History: Cancer, GERD/Reflux, Hyperlipidemia, Hypertension, Thyroid Disorder Additional Past Medical History / Comment(s): bladder,urterine,vaginal CA,VERTIGO,MURMUR,UTI. PER PAST MED HX -KERATOCONIS OU; urostomy History of Any Multi-Drug Resistant Organisms: None Reported Past Surgical History: Bladder Surgery, Bowel Resection, Tubal Ligation Additional Past Surgical History / Comment(s): 2015 CYSTOCOPY W/ TRANSURETHRAL RESECTION OF BLADDER TUMOR, JUANCARLOS CATARACTS, CORNEAL TRANSPLANTS, D&C, "05-16-16 AT [facility] HAD CYSTECTOMY,TOTAL HYSTERECTOMY, PARTIAL COLECTOMY,DIVERTING ILEOSTOMY" reversal. Past Anesthesia/Blood Transfusion Reactions: Postoperative Nausea & Vomiting (PONV) Past Psychological History: Depression Additional Psychological History / Comment(s): and lives in the family home with her . Adult children who are involved. Try to go to a wedding out of town next weekend. [employer] nonsmoker no alcohol use. Retired. No experience. No current animal exposures Smoking Status: Never smoker Past Alcohol Use History: None Reported Past Drug Use History: None Reported - Past Family History Father Family Medical History: Cancer Mother Family Medical History: Diabetes Mellitus Sister(s) Family Medical History: Cancer Additional Family Medical History / Comment(s): BREAST CANCER Brother(s) Family Medical History: Cancer Additional Family Medical History / Comment(s): COLON CANCER AND LEUKEMIA Father Brother(s) Family Medical History: Cancer Medications and Allergies Home Medications Medication Instructions Recorded Confirmed Type Cholecalciferol [Vitamin D3 (25 3,000 unit PO DAILY 03/05/15 08/11/18 History Mcg = 1000 Iu)] Levothyroxine Sodium [Synthroid] 50 mcg PO DAILY 03/05/15 08/11/18 History Omeprazole [PriLOSEC] 40 mg PO AC-BRKFST 03/05/15 08/11/18 History cycloSPORINE 0.05% OPHTH SOLN 1 drop BOTH EYES BID 03/05/15 08/11/18 History [Restasis] prednisoLONE ACETATE 1% OPHTH 1 drops BOTH EYES MO 03/05/15 08/11/18 History [Pred Forte 1%] Aspirin EC [Ecotrin Low Dose] 81 mg PO DAILY 05/28/16 08/11/18 History Docusate [Colace] 100 mg PO DAILY PRN 07/20/18 08/11/18 History Metoprolol Tartrate 25 mg PO BID 07/20/18 08/11/18 History amLODIPine [Norvasc] 5 mg PO DAILY #30 tab 07/27/18 08/11/18 Rx Nitrofurantoin Monohyd/M-Cryst 100 mg PO BID 08/11/18 08/11/18 History [Macrobid] Allergies Allergy/AdvReac Type Severity Reaction Status Date / Time sulfamethoxazole Allergy Swelling Verified 08/11/18 11:08 [From Bactrim] lips, sore throat trimethoprim [From Bactrim] Allergy Swelling Verified 08/11/18 11:08 lips, sore throat levofloxacin [From Levaquin] AdvReac severe Verified 08/11/18 11:08 headache Znlofmb-Kds-Lrg Reductase AdvReac PAINFUL Verified 08/11/18 11:08 Inhibitor ARMS AND LEGS W/ MULT RX TRIED Surgical - Exam Osteopathic Statement: *. No significant issues noted on an osteopathic structural exam other than those noted in the History and Physical/Consult. Vital Signs Temp Pulse Resp BP Pulse Ox 98.2 F 112 H 16 124/84 99 08/11/18 10:08/11/18 10:05 08/11/18 10:05 08/11/18 10:08/11/18 10:05 - General well developed, well nourished, no distress - Eyes PERRL - Neck no masses, no bruits - Respiratory normal expansion, normal respiratory effort - Cardiovascular Rhythm: regular - Abdomen Ileal conduit is pink and patent with urination urostomy bag. Abdomen: soft, non tender - Neurologic normal coordination, normal sensation - Psychiatric oriented to time, oriented to person, oriented to place Results - Labs 08/11/18 11:10 08/11/18 11:10 Abnormal Lab Results - Last 24 Hours (Table) 08/11/18 08/11/18 Range/Units 11:10 11:10 Lymphocytes # 0.4 L (1.0-4.8) k/uL Glucose 102 H (74-99) mg/dL Diabetes panel 08/11/18 Range/Units 11:10 Sodium 137 (137-145) mmol/L Potassium 4.6 (3.5-5.1) mmol/L Chloride 101 (98-107) mmol/L Carbon Dioxide 25 (22-30) mmol/L BUN 15 (7-17) mg/dL Creatinine 0.69 (0.52-1.04) mg/dL Glucose 102 H (74-99) mg/dL Calcium 9.5 (8.4-10.2) mg/dL Calcium panel 08/11/18 Range/Units 11:10 Calcium 9.5 (8.4-10.2) mg/dL Pituitary panel 08/11/18 Range/Units 11:10 Sodium 137 (137-145) mmol/L Potassium 4.6 (3.5-5.1) mmol/L Chloride 101 (98-107) mmol/L Carbon Dioxide 25 (22-30) mmol/L BUN 15 (7-17) mg/dL Creatinine 0.69 (0.52-1.04) mg/dL Glucose 102 H (74-99) mg/dL Calcium 9.5 (8.4-10.2) mg/dL Adrenal panel 08/11/18 Range/Units 11:10 Sodium 137 (137-145) mmol/L Potassium 4.6 (3.5-5.1) mmol/L Chloride 101 (98-107) mmol/L Carbon Dioxide 25 (22-30) mmol/L BUN 15 (7-17) mg/dL Creatinine 0.69 (0.52-1.04) mg/dL Glucose 102 H (74-99) mg/dL Calcium 9.5 (8.4-10.2) mg/dL Assessment and Plan Assessment: Malaise and nausea, UTI Plan: I do not believe the patient has an acute intra-abdominal process that would require surgery at this time. Patient may have a clear liquid diet as tolerated and advance as tolerated. Continue antibiotics per primary and infectious disease. Antiemetics as needed.
--- NOTE | 2018-08-11 20:43 | P.GSCN ---
History of Present Illness Consult date: 08/11/18 Reason for Consult: Urosepsis History of present illness: The patient is an 83-year-old female admitted earlier today with an admitting diagnosis of urosepsis. According to the patient she has had no recent fever or chills and her main complaint has been anorexia, nausea and intermittent vomiting. The patient was admitted to this hospital on 07/20 with the same complaints. During her hospital stay she remained afebrile. Her initial urine culture on 07/20 grew Escherichia coli and a follow-up urine culture on 07/22 grew enterococcus. The patient has a history of bladder cancer treated with radical cystectomy and ileal conduit urinary diversion at [facility] in 2017. She says that the urine samples that had been obtained for culture have come from her urostomy bag and never from catheterization of her ileal conduit. CT scan of the abdomen and pelvis without IV contrast on 07/20 showed no evidence of hydronephrosis and was essentially unchanged from a previous CT scan of the abdomen and pelvis performed with IV contrast on 05/28. The patient was discharged on an antibiotic for treatment of the enterococcus urinary tract infection but she says she never actually felt better. She had an MR of the pelvis with and without IV contrast at [facility] last week which showed no evidence of hydronephrosis or other abnormality of the urinary system. She does have some discomfort in the lower abdomen but denies any flank tenderness. She has had no gross hematuria. Her urine has been more concentrated over the last 24 hours but she attributes this to reduce fluid intake. Review of Systems - Constitutional Reports anorexia, Denies chills, Denies fever - Cardiovascular Denies chest pain, Denies shortness of breath - Respiratory Denies cough - Gastrointestinal Reports as per HPI - Genitourinary Genitourinary: Reports as per HPI Past Medical History Past Medical History: Cancer, GERD/Reflux, Hyperlipidemia, Hypertension, Thyroid Disorder Additional Past Medical History / Comment(s): bladder,urterine,vaginal CA,VERTIGO,MURMUR,UTI. PER PAST MED HX -KERATOCONIS OU; urostomy History of Any Multi-Drug Resistant Organisms: None Reported Past Surgical History: Bladder Surgery, Bowel Resection, Tubal Ligation Additional Past Surgical History / Comment(s): 2015 CYSTOCOPY W/ TRANSURETHRAL RESECTION OF BLADDER TUMOR, JUANCARLOS CATARACTS, CORNEAL TRANSPLANTS, D&C, "3-10-17 Radical cystectomy with ileal conduit urinary diversion at [facility],TOTAL HYSTERECTOMY, PARTIAL COLECTOMY,DIVERTING ILEOSTOMY" reversal. Past Anesthesia/Blood Transfusion Reactions: Postoperative Nausea & Vomiting (PONV) Past Psychological History: Depression Additional Psychological History / Comment(s): and lives in the family home with her . Adult children who are involved. Try to go to a wedding out of town next weekend. [employer] nonsmoker no alcohol use. Retired. No experience. No current animal exposures Smoking Status: Never smoker Past Alcohol Use History: None Reported Past Drug Use History: None Reported - Past Family History Father Family Medical History: Cancer Mother Family Medical History: Diabetes Mellitus Sister(s) Family Medical History: Cancer Additional Family Medical History / Comment(s): BREAST CANCER Brother(s) Family Medical History: Cancer Additional Family Medical History / Comment(s): COLON CANCER AND LEUKEMIA Father Brother(s) Family Medical History: Cancer Medications and Allergies Home Medications Medication Instructions Recorded Confirmed Type Cholecalciferol [Vitamin D3 (25 3,000 unit PO DAILY 03/05/15 08/11/18 History Mcg = 1000 Iu)] Levothyroxine Sodium [Synthroid] 50 mcg PO DAILY 03/05/15 08/11/18 History Omeprazole [PriLOSEC] 40 mg PO AC-BRKFST 03/05/15 08/11/18 History cycloSPORINE 0.05% OPHTH SOLN 1 drop BOTH EYES BID 03/05/15 08/11/18 History [Restasis] prednisoLONE ACETATE 1% OPHTH 1 drops BOTH EYES MO 03/05/15 08/11/18 History [Pred Forte 1%] Aspirin EC [Ecotrin Low Dose] 81 mg PO DAILY 05/28/16 08/11/18 History Docusate [Colace] 100 mg PO DAILY PRN 07/20/18 08/11/18 History Metoprolol Tartrate 25 mg PO BID 07/20/18 08/11/18 History amLODIPine [Norvasc] 5 mg PO DAILY #30 tab 07/27/18 08/11/18 Rx Nitrofurantoin Monohyd/M-Cryst 100 mg PO BID 08/11/18 08/11/18 History [Macrobid] Allergies Allergy/AdvReac Type Severity Reaction Status Date / Time sulfamethoxazole Allergy Swelling Verified 08/11/18 11:08 [From Bactrim] lips, sore throat trimethoprim [From Bactrim] Allergy Swelling Verified 08/11/18 11:08 lips, sore throat levofloxacin [From Levaquin] AdvReac severe Verified 08/11/18 11:08 headache Ugswnat-Xec-Hqc Reductase AdvReac PAINFUL Verified 08/11/18 11:08 Inhibitor ARMS AND LEGS W/ MULT RX TRIED Surgical - Exam Vital Signs Temp Pulse Resp BP Pulse Ox 98.2 F 112 H 16 124/84 99 08/11/18 10:05 08/11/18 10:05 08/11/18 10:05 08/11/18 10:05 08/11/18 10:05 - General well developed, well nourished, no distress - ENT no hearing loss - Neck no masses, no lymphadectomy - Respiratory normal respiratory effort - Abdomen Abdomen: soft, tender (Minimal tenderness lower abdomen. Urostomy bud is pink), no organomegaly Results - Labs 08/11/18 11:10 08/11/18 11:10 Abnormal Lab Results - Last 24 Hours (Table) 08/11/18 08/11/18 Range/Units 11:10 11:10 Lymphocytes # 0.4 L (1.0-4.8) k/uL Glucose 102 H (74-99) mg/dL Diabetes panel 08/11/18 Range/Units 11:10 Sodium 137 (137-145) mmol/L Potassium 4.6 (3.5-5.1) mmol/L Chloride 101 (98-107) mmol/L Carbon Dioxide 25 (22-30) mmol/L BUN 15 (7-17) mg/dL Creatinine 0.69 (0.52-1.04) mg/dL Glucose 102 H (74-99) mg/dL Calcium 9.5 (8.4-10.2) mg/dL Calcium panel 08/11/18 Range/Units 11:10 Calcium 9.5 (8.4-10.2) mg/dL Pituitary panel 08/11/18 Range/Units 11:10 Sodium 137 (137-145) mmol/L Potassium 4.6 (3.5-5.1) mmol/L Chloride 101 (98-107) mmol/L Carbon Dioxide 25 (22-30) mmol/L BUN 15 (7-17) mg/dL Creatinine 0.69 (0.52-1.04) mg/dL Glucose 102 H (74-99) mg/dL Calcium 9.5 (8.4-10.2) mg/dL Adrenal panel 08/11/18 Range/Units 11:10 Sodium 137 (137-145) mmol/L Potassium 4.6 (3.5-5.1) mmol/L Chloride 101 (98-107) mmol/L Carbon Dioxide 25 (22-30) mmol/L BUN 15 (7-17) mg/dL Creatinine 0.69 (0.52-1.04) mg/dL Glucose 102 H (74-99) mg/dL Calcium 9.5 (8.4-10.2) mg/dL Assessment and Plan (1) Abdominal pain Narrative/Plan: The source of the patient's abdominal pain, nausea and vomiting is not clear. She has no evidence of hydronephrosis. It is unclear whether the patient has actually had urinary tract infections or colonization of her urostomy bag. She has no systemic symptoms of sepsis such as fever, chills or leukocytosis. She has no evidence of hydronephrosis or recurrance of her bladder cancer and the source of her discomfort and nausea is most likely not related to her urinary system. Current Visit: No Status: Acute Code(s): R10.9 - UNSPECIFIED ABDOMINAL PAIN SNOMED Code(s): 65805692
[2018-08-11] MEDS: METOPROLOL TARTRATE 25 MG TAB PO SCH (21:17)
--- NOTE | 2018-08-11 23:32 | HP ---
HISTORY AND PHYSICAL CHIEF COMPLAINT: [age] female came to the hospital with malaise, nausea, passing normal bowel movements at the baseline, passing flatus. She has drug-resistant UTI with enterococcus with some right flank pain, failed outpatient treatment with penicillin, Macrobid, and she has never fully recovered from her recent stay 3 weeks ago. She has a history of bladder cancer. Recent MRI of the abdomen showed no further worsening of bladder cancer. She had a cystectomy with ileal conduit 2 years ago. She has a history of diverticulosis. PAST MEDICAL HISTORY: 1. Bladder cancer. 2. GERD. 3. Dyslipidemia. 4. Hypertension. 5. Hypothyroidism. 6. Vertigo. PAST SURGICAL HISTORY: 1. Bladder surgery. 2. Bowel resection. 3. Tubal ligation. 4. Total hysterectomy. 5. Partial colectomy. 6. Diverting ileostomy. 7. Cystectomy. 8. Corneal transplants. SOCIAL HISTORY: No smoking. No alcohol. FAMILY HISTORY: Father had cancer. Mother had diabetes mellitus. Sister with cancer of breast. Brother with cancer of the colon and leukemia. HOME MEDICINES: Home medicines include: 1. Synthroid 50 mcg daily. 2. Prilosec 40 mg daily. 3. Cyclosporin ophthalmologic drops b.i.d. 4. Prednisolone ophthalmologic drops daily. 5. Aspirin 81 daily. 6. Colace 100 daily. 7. Metoprolol 25 b.i.d. 8. Norvasc 5 mg daily. ALLERGIES: See above. PHYSICAL EXAMINATION: Respiratory rate 16 to 18, pulse 100 to 120, temperature 98.2, oxygen saturation 99. Well developed, well nourished, no acute distress. CARDIOVASCULAR: S1, S2. HEMATOLOGY: Negative Homans. PSYCH: Fair mood and affect. OPHTHALMOLOGIC: Pupils equal, round, reactive to light and accommodation. ASSESSMENT: 1. Acute abdominal pain of unclear etiology. 2. Drug-resistant enterococcus urinary tract infection. Start IV vancomycin. Surgical and urology recommendations. Unclear why she has nausea, vomiting and severe abdominal pain at this point except for possible drug-resistant UTI from enterococcus, failing all outpatient oral medicines. Will start with vancomycin and the next resistant medication that she could possibly take if she is resistant to all the oral stuff. MMODL / IJN: [id number] /
[2018-08-12] MEDS: LEVOTHYROXINE 50 MCG TAB PO SCH (06:14)
[2018-08-12] MEDS: VANCOMYCIN 1,000 MG in SODIUM CHLORIDE 0.9% 250 ML IVPB SCH ×2 (07:20→21:14)
[2018-08-12] MEDS: CHOLECALCIFEROL 1,000 UNIT TAB PO SCH (07:20)
[2018-08-12] MEDS: ASPIRIN 81 MG PO SCH (07:21)
[2018-08-12] MEDS: HEPARIN SODIUM,PORCINE 5,000 UNIT/ML 1 ML VIAL SQ SCH ×2 (07:21→21:18)
[2018-08-12] MEDS: amLODIPine 5 MG TAB PO SCH (07:21)
[2018-08-12] MEDS: METOPROLOL TARTRATE 25 MG TAB PO SCH ×2 (07:21→21:18)
[2018-08-12] MEDS: SODIUM CHLORIDE 0.9% 1,000 ML IV SCH (07:57)
[2018-08-12] MEDS: cycloSPORINE 0.05% OPHTH 0.4 ML DROPERETTE BOTH EYES SCH ×2 (07:57→21:17)
[2018-08-12] MEDS ORDERED: ONDANSETRON 4 MG/2 ML VIAL IVP PRN (08:59)
[2018-08-12] MEDS ORDERED: PANTOPRAZOLE 40 MG TABLET PO SCH (09:00)
[2018-08-12] MEDS ORDERED: KETOROLAC 30 MG/ML 1 ML VIAL IVP STA (09:00)
[2018-08-12] MEDS: METOCLOPRAMIDE 5 MG/ML 2 ML VIAL IVP SCH ×3 (09:16→17:03)
[2018-08-12] MEDS: LOSARTAN 50 MG TAB PO SCH (11:14)
[2018-08-12] MEDS: PANTOPRAZOLE 40 MG/10 ML VIAL IVP SCH (11:15)
--- NOTE | 2018-08-12 12:06 | P.CONS ---
History of Present Illness - Reason for Consult Consult date: 08/12/18 Drug-resistant urinary tract infection, failed outpatient treatment - History of Present Illness This is an 83-year-old female known to ID service due to her recent hospitalization in July at which time she presented with feeling poorly, abdominal pain, felt like an abdominal fullness. It was quite uncomfortable and she had difficulty eating. She was having nausea without much emesis. She had no hematemesis. She had no diarrhea. The patient did not believe that she had significant fever. She over felt poorly enough to present to Hospital where she was found evidence of an ileus surgical consult occurred. There is evidence of a bowel obstruction and it was thought that underlying infection was etiology for her ileus. The patient has an extensive past medical history in that she had a cystectomy for bladder cancer and does have an ileoconduit in place. She has have difficulties intermittently with urinary tract infection and routinely she feels very poorly with a UTI with nausea and abdominal discomfo rts. Because she is an ileoconduit her urine is often somewhat murky with mucus. Urine culture was positive for Enterococcus faecalis and Rocephin was then transitioned to Unasyn and she was discharged home on Augmentin. Patient states she completed her course but states she really did not feel much better at home. She has abdominal pain, nausea with dry heaving and no appetite. She complains of right lower quadrant pain with no significant tenderness but does have tenderness in the right flank. She has had good urine output from ileoconduit. She denies having any fever or chills. She had an MR of the pelvis with and without IV contrast at [facility] last week which showed no evidence of hydronephrosis or other abnormality of the urinary system. She attained urine specimen from her ostomy bag and took this to Dr. Salinas's office on Thursday. There was concern for continued enterococcus urinary tract infection and patient was placed on vancomycin and [facility] She has been seen by Dr. macias in no acute abdomen and no surgical intervention is needed. She was resumed on clear liquid diet and this has been advanced. Patient is also been seen by Dr. Woods and he feels symptoms are not likely related to her urinary system. Review Of Systems: Constitutional: No fever, no chills, no night sweats. No weight change. Generalized fatigue. No daytime sleepiness. EENT: No headache. No blurred vision or double vision, no loss of vision. No loss of Hearing, no ringing in the ears, no dizziness. No nasal drainage or congestion. No epistaxis. No sore throat. Lungs: No shortness of breath, cough, no sputum production. No wheezing. Cardiovascular: No chest pain, no lower extremity edema. No palpitations. No paroxysmal nocturnal dyspnea. No orthopnea. Reports lightheadedness denies dizziness. No syncopal episodes. Abdominal: Reports abdominal pain. Reports nausea with dry heaving. No diarrhea. No constipation. No bloody or tarry stools reports loss of appetite. Genitourinary: Good urine output from ileoconduit Musculoskeletal: No myalgias. No muscle weakness, no gait dysfunction, no frequent falls. No back pain. No neck pain. Integumentary: No wounds, no lesions. No rash or pruritus. No unusual bruising. No change in hair or nails. Neurologic: No aphasia. No facial droop. No change in mentation. No head injury. No headache. No paralysis. No paresthesia. Psychiatric: No depression. No anxiety. No mood swings. Endocrine: No abnormal blood sugars. No weight change. No excessive sweating or thirst. No cold intolerance. Past Medical History Past Medical History: Cancer, GERD/Reflux, Hyperlipidemia, Hypertension, Thyroid Disorder Additional Past Medical History / Comment(s): bladder,urterine,vaginal CA,VERTIGO,MURMUR,UTI. PER PAST MED HX -KERATOCONIS OU; urostomy History of Any Multi-Drug Resistant Organisms: None Reported Past Surgical History: Bladder Surgery, Bowel Resection, Tubal Ligation Additional Past Surgical History / Comment(s): 2015 CYSTOCOPY W/ TRANSURETHRAL RESECTION OF BLADDER TUMOR, JUANCARLOS CATARACTS, CORNEAL TRANSPLANTS, D&C, "05-16-16 Radical cystectomy with ileal conduit urinary diversion at [facility],TOTAL HYSTERECTOMY, PARTIAL COLECTOMY,DIVERTING ILEOSTOMY" reversal. Past Anesthesia/Blood Transfusion Reactions: Postoperative Nausea & Vomiting (PONV) Past Psychological History: Depression Additional Psychological History / Comment(s): and lives in the family home with her . Adult children who are involved. Try to go to a wedding out of town next weekend. [employer] nonsmoker no alcohol use. Retired. No experience. No current animal exposures Smoking Status: Never smoker Past Alcohol Use History: None Reported Past Drug Use History: None Reported - Past Family History Father Family Medical History: Cancer Mother Family Medical History: Diabetes Mellitus Sister(s) Family Medical History: Cancer Additional Family Medical History / Comment(s): BREAST CANCER Brother(s) Family Medical History: Cancer Additional Family Medical History / Comment(s): COLON CANCER AND LEUKEMIA Father Brother(s) Family Medical History: Cancer Medications and Allergies Home Medications Medication Instructions Recorded Confirmed Type Cholecalciferol [Vitamin D3 (25 3,000 unit PO DAILY 03/05/15 08/11/18 History Mcg = 1000 Iu)] Levothyroxine Sodium [Synthroid] 50 mcg PO DAILY 03/05/15 08/11/18 History Omeprazole [PriLOSEC] 40 mg PO AC-BRKFST 03/05/15 08/11/18 History cycloSPORINE 0.05% OPHTH SOLN 1 drop BOTH EYES BID 03/05/15 08/11/18 History [Restasis] prednisoLONE ACETATE 1% OPHTH 1 drops BOTH EYES MO 03/05/15 08/11/18 History [Pred Forte 1%] Aspirin EC [Ecotrin Low Dose] 81 mg PO DAILY 05/28/16 08/11/18 History Docusate [Colace] 100 mg PO DAILY PRN 07/20/18 08/11/18 History Metoprolol Tartrate 25 mg PO BID 07/20/18 08/11/18 History amLODIPine [Norvasc] 5 mg PO DAILY #30 tab 07/27/18 08/11/18 Rx Nitrofurantoin Monohyd/M-Cryst 100 mg PO BID 08/11/18 08/11/18 History [Macrobid] Allergies Allergy/AdvReac Type Severity Reaction Status Date / Time sulfamethoxazole Allergy Swelling Verified 08/11/18 11:08 [From Bactrim] lips, sore throat trimethoprim [From Bactrim] Allergy Swelling Verified 08/11/18 11:08 lips, sore throat levofloxacin [From Levaquin] AdvReac severe Verified 08/11/18 11:08 headache Iaovrgn-Wal-Cei Reductase AdvReac PAINFUL Verified 08/11/18 11:08 Inhibitor ARMS AND LEGS W/ MULT RX TRIED Physical Exam Vitals: Vital Signs Temp Pulse Resp BP Pulse Ox 08/12/18 11:11 61 136/75 08/12/18 06:15 98.2 F 76 18 155/80 96 08/11/18 21:39 98.0 F 92 18 136/74 97 08/11/18 12:43 98.0 F 99 18 123/77 98 Intake and Output 08/11/18 08/12/18 08/12/18 22:59 06:59 14:59 Intake Total 200 600 Output Total 300 Balance 200 300 Intake: IV 600 Sodium Chloride 0.9% 1, 300 000 ml @ 50 mls/hr IV . Q20H MARY Rx#:[id number] Vancomycin 1,000 mg In 250 Sodium Chloride 0.9% 250 ml @ 125 mls/hr IVPB Q12HR MARY Rx#:[id number] cefTRIAXone 1 gm In 50 Sodium Chloride 0.9% 50 ml @ 100 mls/hr IVPB Q24HR MARY Rx#:[id number] Oral 200 0 Output: Urine 300 Other: # Voids 0 Gen.: This is an 83-year-old female. She is resting in bed and appears to be comfortable and in no acute distress. Patient's is at the bedside. HEENT: Anicteric, conjunctiva are pink and moist, nasal or oral mucosa are without lesion. The neck is supple without lymphadenopathy or thyromegaly. No oral thrush is noted. Oral mucous membranes are moist. Lungs: good bilateral air entry, there are no significant crackles or wheezes, no bronchial sounds or egophony. Heart: Regular rate and rhythm with an audible S1-S2, no S3 or S4 noted. No significant murmur click or rub noted. Abdomen: Positive bowel sounds, it is soft there is tenderness right lower quadrant. The urostomy from ileoconduit is intact with nonbloody urine present in the urostomy pouch, mild right flank tenderness Extremities:Upper extremities reveal evidence of equal pulses, no lesions are seen, no petechiae or telangiectasia. The lower extremities have no significant edema, peripheral pulses were 2+ and symmetric, no lesions or ulcerations are seen. Capillary refill was brisk. Skin: Intact without significant rash or lesions. Neuro:Awake and alert, oriented to person place and time. No gross focal sensory motor deficits noted. Musculoskeletal: Patient is ambulatory Results Results: Laboratory Results WBC 6.8 k/uL (3.8-10.6) 08/11/18 11:10 RBC 4.79 m/uL (3.80-5.40) 08/11/18 11:10 Hgb 14.2 gm/dL (11.4-16.0) 08/11/18 11:10 Hct 43.4 % (34.0-46.0) 08/11/18 11:10 MCV 90.6 fL (80.0-100.0) 08/11/18 11:10 MCH 29.7 pg (25.0-35.0) 08/11/18 11:10 MCHC 32.7 g/dL (31.0-37.0) 08/11/18 11:10 RDW 15.0 % (11.5-15.5) 08/11/18 11:10 Plt Count 335 k/uL (150-450) 08/11/18 11:10 Neutrophils % 85 % 08/11/18 11:10 Lymphocytes % 6 % 08/11/18 11:10 Monocytes % 6 % 08/11/18 11:10 Eosinophils % 1 % 08/11/18 11:10 Basophils % 1 % 08/11/18 11:10 Neutrophils # 5.8 k/uL (1.3-7.7) 08/11/18 11:10 Lymphocytes # 0.4 k/uL (1.0-4.8) L 08/11/18 11:10 Monocytes # 0.4 k/uL (0-1.0) 08/11/18 11:10 Eosinophils # 0.0 k/uL (0-0.7) 08/11/18 11:10 Basophils # 0.1 k/uL (0-0.2) 08/11/18 11:10 Sodium 137 mmol/L (137-145) 08/11/18 11:10 Potassium 4.6 mmol/L (3.5-5.1) 08/11/18 11:10 Chloride 101 mmol/L (98-107) 08/11/18 11:10 Carbon Dioxide 25 mmol/L (22-30) 08/11/18 11:10 Anion Gap 11 mmol/L 08/11/18 11:10 BUN 15 mg/dL (7-17) 08/11/18 11:10 Creatinine 0.69 mg/dL (0.52-1.04) 08/11/18 11:10 Est GFR (CKD-EPI)AfAm >90 (>60 ml/min/1.73 sqM) 08/11/18 11:10 Est GFR (CKD-EPI)NonAf 81 (>60 ml/min/1.73 sqM) 08/11/18 11:10 Glucose 102 mg/dL (74-99) H 08/11/18 11:10 Calcium 9.5 mg/dL (8.4-10.2) 08/11/18 11:10 CBC & Chem 7: 08/11/18 11:10 08/11/18 11:10 Labs: Abnormal Lab Results - Last 24 Hours (Table) 08/11/18 08/11/18 Range/Units 11:10 11:10 Lymphocytes # 0.4 L (1.0-4.8) k/uL Glucose 102 H (74-99) mg/dL Microbiology - Last 24 Hours (Table) 08/11/18 18:19 Urine Culture - Preliminary Urine,Suprapubic Assessment and Plan Plan: Pleasant 83-year-old female who has had ongoing difficulty with abdominal pain as well as nausea and dry heaving, lack of appetite. She was recently treated for enterococcus urinary tract infection. She had a urinalysis and urine culture completed and Dr. Salinas's office. We will try to obtain this from the office. A urine culture is in progress here. Patient is currently on vancomycin. Continue supportive care. Further recommendations as patient progresses. The above dictated assessment and findings were discussed with Dr. Poon. The impression and plan of care have been directed as dictated. Venita Rivera nurse practitioner acting as scribe for Dr. Poon.
[2018-08-12] MEDS: KETOROLAC 30 MG/ML 1 ML VIAL IVP SCH ×2 (13:25→17:03)
--- NOTE | 2018-08-12 22:20 | P.CON ---
Consult Note - . Consult date: 08/12/18 Assessment/Plan:: This is an 83-year-old female known to ID service due to her recent hospitalization in July at which time she presented with feeling poorly, abdominal pain, felt like an abdominal fullness. It was quite uncomfortable and she had difficulty eating. She was having nausea without much emesis. She had no hematemesis. She had no diarrhea. The patient did not believe that she had significant fever. She over felt poorly enough to present to Hospital where she was found evidence of an ileus surgical consult occurred. There is evidence of a bowel obstruction and it was thought that underlying infection was etiology for her ileus. The patient has an extensive past medical history in that she had a cystectomy for bladder cancer and does have an ileoconduit in place. She has have difficulties intermittently with urinary tract infection and routinely she feels very poorly with a UTI with nausea and abdominal discomforts. Because she is an ileoconduit her urine is often somewhat murky with mucus. Urine culture was positive for Enterococcus faecalis and Rocephin was then transitioned to Unasyn and she was discharged home on Augmentin. Patient states she completed her course but states she really did not feel much better at home. She has abdominal pain, nausea with dry heaving and no appetite. She complains of right lower quadrant pain with no significant tenderness but does have tenderness in the right flank. She has had good urine output from ileoconduit. She denies having any fever or chills. She had an MR of the pelvis with and without IV contrast at [facility] last week which showed no evidence of hydronephrosis or other abnormality of the urinary system. She attained urine specimen from her ostomy bag and took this to Dr. Salinas's office on Thursday. There was concern for continued enterococcus urinary tract infection and patient was placed on vancomycin [facility] She has been seen by Dr. macias in no acute abdomen and no surgical intervention is needed. She was resumed on clear liquid diet and this has been advanced. Patient is also been seen by Dr. Woods and he feels symptoms are not likely related to her urinary system.Please see the consult note as dictated by nurse practitioner Mrs. Venita Rivera. The patient has been seen by neurology without evidence of acute urinary obstruction or infection. Patient is without leukocytosis or fever. She again presented with some nausea and abdominal discomfort since been seen by surgery and not thought to have a surgical issue. I agree with evaluation, assessment and plan as dictated by nurse practitioner Mrs. Venita Rivera. No evidence of infection at this time.
[2018-08-13] MEDS: METOCLOPRAMIDE 5 MG/ML 2 ML VIAL IVP SCH ×4 (00:40→16:53)
[2018-08-13] MEDS: KETOROLAC 30 MG/ML 1 ML VIAL IVP SCH ×4 (00:42→16:56)
[2018-08-13] MEDS: SODIUM CHLORIDE 0.9% 1,000 ML IV SCH (03:10)
[2018-08-13] MEDS: amLODIPine 5 MG TAB PO SCH (05:49)
[2018-08-13] MEDS: LEVOTHYROXINE 50 MCG TAB PO SCH (05:56)
[2018-08-13] MEDS: METOPROLOL TARTRATE 25 MG TAB PO SCH ×2 (07:03→20:33)
[2018-08-13] MEDS: CHOLECALCIFEROL 1,000 UNIT TAB PO SCH (07:03)
[2018-08-13] MEDS: LOSARTAN 50 MG TAB PO SCH (07:03)
[2018-08-13] MEDS: ASPIRIN 81 MG PO SCH (07:03)
[2018-08-13] MEDS: HEPARIN SODIUM,PORCINE 5,000 UNIT/ML 1 ML VIAL SQ SCH ×2 (07:04→20:34)
[2018-08-13] MEDS: PANTOPRAZOLE 40 MG/10 ML VIAL IVP SCH (07:04)
[2018-08-13] MEDS: cycloSPORINE 0.05% OPHTH 0.4 ML DROPERETTE BOTH EYES SCH ×2 (07:05→20:33)
[2018-08-13] MEDS ORDERED: VANCOMYCIN TROUGH DUE 1 EACH MISC MISCELLANE ONE ×2 (08:00→20:00)
[2018-08-13] MEDS: CYCLOBENZAPRINE 5 MG TAB PO PRN ×2 (08:13→20:34)
--- NOTE | 2018-08-13 08:44 | XR ---
EXAMINATION TYPE: XR abdomen 2V DATE OF EXAM: 08/13/2018 8:03 AM CLINICAL HISTORY: Abdominal pain and hyperactive bowel sounds. TECHNIQUE: Single upright image of the abdomen is obtained. COMPARISON: 07/23/2018. FINDINGS: No evidence of pneumoperitoneum is seen. Old healed fracture deformities of the right mid p osterior lateral ribs are identified. Postsurgical change is seen of the pelvis with numerous surgica l clips present. New faint punctate calcification overlying the right L4 transverse process could be within bowel or a right ureter. This measures 2 mm. Small bowel loops appear nondilated but clustered within the low pelvis as seen on the prior. When correlated with the prior CT this is a result of pr ior with prolapse of bowel inferiorly. Generalized osseous demineralization is seen with degenerative changes of the spine and femoral acetabular joints. Overall no dilated large or small bowel. There a ppears to be curvilinear sutures overlying the right sacrum. IMPRESSION: 1. Nonobstructive bowel gas pattern. Low-lying small bowel in the pelvis from prior cystectomy. 2. Faint 2 mm density in the possible calcification overlying the right L4 transverse process is favo red to be within large bowel and related to colonic debris rather than within a ureter as no renal ca lculi were seen on the CT of 07/20/2018.
[2018-08-13] MEDS: VANCOMYCIN 1,000 MG in SODIUM CHLORIDE 0.9% 250 ML IVPB SCH ×2 (09:35→21:36)
[2018-08-13 10:25] LABS: African American GFR (CKD) >90 (>60 ml/min/1.73 sqM); Amylase 74 U/L (30-110); Lipase 184 U/L (23-300)
--- NOTE | 2018-08-13 13:58 | P.CONS ---
History of Present Illness - Reason for Consult Consult date: 08/13/18 Nausea vomiting Requesting physician: Madan Salinas - Chief Complaint Weakness nausea and dry heaves right flank pain - History of Present Illness 83-year-old female with a history of bladder carcinoma status post neobladder ileal conduit approximately 2 years ago [facility], UTIs, hypertension, hyperlipidemia, GERD, vertigo. Admitted with multiple constitut ional symptoms malaise weakness nausea and dry heaves denies fever chills hematemesis hematochezia or melena. She has been seen by general surgery and urology with no surgical or urologic plans at this time. She reports recent MRI of the abdomen showed no evidence of recurrent disease. Abdominal x-rays this morning nonobstructive bowel gas pattern. Multiple CAT scans of the abdomen over the past month reported expected findings of ileal conduit surgery. No pelvic mass. Colonic diverticulosis. No obstruction. No sign of recurrent tumor. Presently she denies epigastric or abdominal pain. She is reporting right flank retroperitoneal discomfort. This morning she tolerated O male and a banana without emesis or dry heaves. Mild nausea. Overall she states her GI symptoms are improving. Denies diarrhea or constipation. Passing flatus. White count 6.8. Hemoglobin 14.2. BUN 15. Creatinine 0.6. Amylase lipase within normal limits. Home medications include omeprazole 40 mg daily. Baby aspirin. No NSAIDs or alcohol. Last colonoscopy 5-6 years ago colonic diverticulosis. No recent EGD. Review of Systems Constitutional: Denies fever, chills, sweats, weight gain, or loss. HEENT: Negative for migraines, blurred vision or loss, earaches, drainage, tinnitus, oral mucosal lesions, dysphagia, or odynophagia. CARDIAC: Negative for chest pain, arrhythmias, or palpitation. RESPIRATORY: Negative for shortness of breath, hemoptysis, cough, or sputum production. GI: See HPI for pertinent findings. : Negative for hematuria, urgency, frequency, polyuria, or dysuria. History of ileal conduit GYNc: Negative vaginal discharge. MUSCULOSKELETAL: Negative for muscle aches, swelling, arthritis, and arthralgias. NEUROLOGIC: Negative for stroke or TIA. ENDOCRINE: Negative for thyroid problems. SKIN: Negative for rash or itching. PSYCHIATRIC: Negative history for depression and anxiety Past Medical History Past Medical History: Cancer, GERD/Reflux, Hyperlipidemia, Hypertension, Thyroid Disorder Additional Past Medical History / Comment(s): bladder,urterine,vaginal CA,VERTIGO,MURMUR,UTI. PER PAST MED HX -KERATOCONIS OU; urostomy History of Any Multi-Drug Resistant Organisms: None Reported Past Surgical History: Bladder Surgery, Bowel Resection, Tubal Ligation Additional Past Surgical History / Comment(s): 2015 CYSTOCOPY W/ TRANSURETHRAL RESECTION OF BLADDER TUMOR, JUANCARLOS CATARACTS, CORNEAL TRANSPLANTS, D&C, "05-16-16 Radical cystectomy with ileal conduit urinary diversion at [facility],TOTAL HYSTERECTOMY, PARTIAL COLECTOMY,DIVERTING ILEOSTOMY" reversal. Past Anesthesia/Blood Transfusion Reactions: Postoperative Nausea & Vomiting (PONV) Past Psychological History: Depression Additional Psychological History / Comment(s): and lives in the family home with her . Adult children who are involved. Try to go to a wedding out of town next weekend. [employer] nonsmoker no alcohol use. Retired. No experience. No current animal exposures Smoking Status: Never smoker Past Alcohol Use History: None Reported Past Drug Use History: None Reported - Past Family History Father Family Medical History: Cancer Mother Family Medical History: Diabetes Mellitus Sister(s) Family Medical History: Cancer Additional Family Medical History / Comment(s): BREAST CANCER Brother(s) Family Medical History: Cancer Additional Family Medical History / Comment(s): COLON CANCER AND LEUKEMIA Father Brother(s) Family Medical History: Cancer Medications and Allergies Home Medications Medication Instructions Recorded Confirmed Type Cholecalciferol [Vitamin D3 (25 3,000 unit PO DAILY 03/05/15 08/11/18 History Mcg = 1000 Iu)] Levothyroxine Sodium [Synthroid] 50 mcg PO DAILY 03/05/15 08/11/18 History Omeprazole [PriLOSEC] 40 mg PO AC-BRKFST 03/05/15 08/11/18 History cycloSPORINE 0.05% OPHTH SOLN 1 drop BOTH EYES BID 03/05/15 08/11/18 History [Restasis] prednisoLONE ACETATE 1% OPHTH 1 drops BOTH EYES MO 03/05/15 08/11/18 History [Pred Forte 1%] Aspirin EC [Ecotrin Low Dose] 81 mg PO DAILY 05/28/16 08/11/18 History Docusate [Colace] 100 mg PO DAILY PRN 07/20/18 08/11/18 History Metoprolol Tartrate 25 mg PO BID 07/20/18 08/11/18 History amLODIPine [Norvasc] 5 mg PO DAILY #30 tab 07/27/18 08/11/18 Rx Nitrofurantoin Monohyd/M-Cryst 100 mg PO BID 08/11/18 08/11/18 History [Macrobid] Allergies Allergy/AdvReac Type Severity Reaction Status Date / Time sulfamethoxazole Allergy Swelling Verified 08/11/18 11:08 [From Bactrim] lips, sore throat trimethoprim [From Bactrim] Allergy Swelling Verified 08/11/18 11:08 lips, sore throat levofloxacin [From Levaquin] AdvReac severe Verified 08/11/18 11:08 headache Cscauuc-Aad-Xsc Reductase AdvReac PAINFUL Verified 08/11/18 11:08 Inhibitor ARMS AND LEGS W/ MULT RX TRIED Physical Exam Vitals: Vital Signs Temp Pulse Resp BP Pulse Ox 08/13/18 13:13 97.3 F L 73 16 114/66 98 08/13/18 05:59 98.2 F 70 18 163/78 99 08/12/18 23:26 67 16 08/12/18 21:30 98.3 F 67 18 147/67 98 08/12/18 14:30 98.4 F 67 16 109/65 99 Intake and Output 08/12/18 08/13/18 08/13/18 22:59 06:59 14:59 Intake Total 250 225 400 Output Total 200 1000 Balance 50 -775 400 Intake: Oral 250 225 400 Output: Urine 200 1000 Other: # Voids 0 0 # Bowel Movements 0 0 1 General appearance: The patient is alert, oriented, in no acute distress. HET: Head is normocephalic and atraumatic. Pupils are equal and reactive. Oropharynx is clear without lesions. Neck: Supple without lymphadenopathy. Trachea midline. Heart: S1 S2. Regular rate and rhythm. Lungs: No crackles or wheezes are heard. Abdomen: Soft, mild tenderness to the right flank otherwise nontender, nondistended with bowel sounds. No peritoneal signs. No palpable organomegaly or masses. Extremities: Urostomy ileal conduit clear urine. Normal skin color and turgor. No cyanosis, rash, ulceration, clubbing, or edema. Radial and pedal pulses are 2/4 bilaterally. Neurological: No focal deficits. Strength and sensation are grossly intact. Results CBC & Chem 7: 08/11/18 11:10 08/13/18 09:29 Labs: Microbiology - Last 24 Hours (Table) 08/11/18 18:19 Urine Culture - Preliminary Urine,Suprapubic Gram Neg Bacilli Abdominal x-ray: report reviewed (Dr. Gilliland) Assessment and Plan (1) Weakness Narrative/Plan: 83-year-old female admitted with malaise weakness dry heaves nausea right flank pain without fever chills hematemesis hematochezia or melena. Patient has been seen by urology infectious disease and general surgery no surgical urologic plans at this time. No clinical evidence of active UTI at this time. Etiology of her symptoms are unclear. Biochemically stable. Morning x-rays reported no evidence of bowel obstruction or ileus. She is tolerating small amounts of liquid diet with some improvement of nausea without dry heaves. Presently without abdominal pain. Current Visit: Yes Status: Acute Code(s): R53.1 - WEAKNESS SNOMED Code(s): 46542065 (2) History of total cystectomy Current Visit: No Status: Acute Code(s): Z98.890 - OTHER SPECIFIED POSTPROCEDURAL STATES SNOMED Code(s): 688865963 (3) Intractable nausea and vomiting Current Visit: No Status: Acute Code(s): R11.2 - NAUSEA WITH VOMITING, UNSPECIFIED SNOMED Code(s): 063076102 Plan: 1. Supportive measures. IV hydration. Continue GI prophylaxis. Thank you for this kind referral and the opportunity to participate in the care of your patient. This consultation was discussed with Dr. Gilliland. The impression and plan of care have been directed as dictated.
--- NOTE | 2018-08-13 15:10 | P.PN ---
Subjective Progress Note Date: 08/12/18 This is an 83-year-old female admitted with acute diffuse abdominal pain, unclear etiology, generalized weakness, fatigue, nausea and vomiting 2 weeks, recent drug-resistant enterococcus UTI, history of bladder cancer, status post ileal conduit, colonic diverticulosis and multiple other medical issues. E valuated by surgery and urology with no further recommendations at this time. Completed MRI of the abdomen at [facility] last Thursday, report being obtained; patient states was negative. Complains of diffuse right lower quadrant pain radiating to right flank further radiating to lower mid back. Upon further questioning patient reports that she did stumble on bedspread ,nearly fell, prior to this visit. Flexeril added to med regime. Reports she did not sleep well. Maintained on clear liquid diet. Positive nausea with no emesis. Zofran and reglan added to med regime. Afebrile, normal WBCs, urine culture pending. Objective - Vital Signs Vital signs: Vital Signs Temp 98.2 F 08/12/18 06:15 Pulse 61 08/12/18 11:11 Resp 18 08/12/18 06:15 BP 136/75 08/12/18 11:11 Pulse Ox 96 08/12/18 06:15 Intake & Output 08/11/18 08/12/18 08/12/18 18:59 06:59 18:59 Intake Total 700 800 Output Total 175 300 Balance 525 500 Weight 59.24 kg Intake: IV 700 600 Sodium Chloride 0.9% 1, 400 300 000 ml @ 50 mls/hr IV . Q20H [facility] Rx#:[id number] Vancomycin 1,000 mg In 250 250 Sodium Chloride 0.9% 250 ml @ 125 mls/hr IVPB Q12HR [facility] Rx#:[id number] cefTRIAXone 1 gm In 50 50 Sodium Chloride 0.9% 50 ml @ 100 mls/hr IVPB Q24HR [facility] Rx#:[id number] Oral 200 Output: Urine 175 300 Other: # Voids 0 # Bowel Movements 0 - Exam PHYSICAL EXAM: VITAL SIGNS: As above GENERAL: Sitting up in bed, no acute distress HEENT: Conjunctivae normal. eyes normal. Oral mucosa moist NECK: No JVD. No thyroid enlargement. No LNs CARDIOVASCULAR: S1, S2 regular.No murmur, rub or gallop RESPIRATION: Breath sounds diminished in the bases. No rhonchi or crackles. No bronchial breathing. ABDOMEN: Soft, nondistended, mild right lower quadrant tenderness. Urostomy pouch present with clear urine No guarding. no masses palpable. No ascites, No hepatosplenomegaly.Bowel sounds heard. LEGS: No edema. no swelling PSYCHIATRY: Alert and oriented ?-3, mood and affect normal. NERVOUS SYSTEM: Cranial N 2-12 grossly normal. Moves all 4 limbs. Diffuse weakness No focal deficits. Strength and sensation grossly intact.. Skin: no lesions, no rash Joints: No active swelling. No inflammation. Lymphatic system. No LN neck axilla or groin. - Labs CBC & Chem 7: 08/11/18 11:10 08/13/18 09:29 Labs: Microbiology - Last 24 Hours (Table) 08/11/18 18:19 Urine Culture - Preliminary Urine,Suprapubic Assessment and Plan Assessment: -Abdominal pain with nausea ,vomiting weakness,of unclear etiology, in a patient with recently treated for drug-resistant enterococcus UTI -Hypertension -History of bladder cancer with urostomy -Diverticulosis Plan: Continue on current medication regime ,monitoring and symptomatic treatment. Maintain IV fluid hydration, PPI. Patient completed an MRI this past Thursday at [facility]; both CD and report being obtained. GI consulted regarding nausea and vomiting 2 weeks.GI and DVT prophylaxis in place. Pain management/anti-emetics. Home meds have been reviewed and resumed. Further recommendations to follow. The impression and plan of care has been dictated as directed. : I performed a history and examination of this patient, discussed the same with the dictator. I agree with the dictator's note ,documented as a scribe. Any additional findings or plans will be noted.
--- NOTE | 2018-08-13 15:19 | P.PN ---
Subjective Progress Note Date: 08/13/18 This is an 83-year-old female admitted with acute diffuse abdominal pain, unclear etiology, generalized weakness, fatigue, nausea and vomiting 2 weeks, recent drug-resistant enterococcus UTI, history of bladder cancer, status post ileal conduit, colonic diverticulosis and multiple other medical issues. E valuated by surgery and urology with no further recommendations at this time. Completed MRI of the abdomen at [facility] last Thursday, report being obtained; patient states was negative. Complains of diffuse right lower quadrant pain radiating to right flank further radiating to lower mid back. Upon further questioning patient reports that she did stumble on bedspread ,nearly fell, prior to this visit. Flexeril added to med regime. Reports she did not sleep well. Maintained on clear liquid diet. Positive nausea with no emesis. Zofran and reglan added to med regime. Afebrile, normal WBCs, urine culture pending. 08/23/2018 Significant improvement on Flexeril, currently denies abdominal//back pain. Mild right flank pain. Tolerating diet with no nausea this morning. Denies diarrhea. Denies constipation-passing flatus. Diet intake 50%. Afebrile. Labs unremarkable.[facility] MRI report still being obtained. Denies chest pain, palpitations or shortness of breath. Denies lightheadedness dizziness or focal deficits. Objective - Vital Signs Vital signs: Vital Signs Temp 97.3 F L 08/13/18 13:13 Pulse 73 08/13/18 13:13 Resp 16 08/13/18 13:13 BP 114/66 08/13/18 13:13 Pulse Ox 98 08/13/18 13:13 Intake & Output 08/12/18 08/13/18 08/13/18 18:59 06:59 18:59 Intake Total 475 400 Output Total 650 1200 Balance -650 -725 400 Intake: Oral 475 400 Output: Urine 650 1200 Other: # Voids 0 # Bowel Movements 0 1 - Exam PHYSICAL EXAM: VITAL SIGNS: As above GENERAL: Sitting up in chair, no acute distress HEENT: Conjunctivae normal. eyes normal. Oral mucosa moist NECK: No JVD. No thyroid enlargement. No LNs CARDIOVASCULAR: S1, S2 regular.No murmur, rub or gallop RESPIRATION: Breath sounds diminished in the bases. No rhonchi or crackles. ABDOMEN: Soft, nondistended, mild right flank tenderness. Urostomy pouch present with clear urine No guarding. no masses palpable. Bowel sounds heard. LEGS: No edema. no swelling PSYCHIATRY: Alert and oriented ?-3, mood and affect normal. NERVOUS SYSTEM: Cranial N 2-12 grossly normal. Moves all 4 limbs. Diffuse weakness No focal deficits. Strength and sensation grossly intact.. Skin: no lesions, no rash - Labs CBC & Chem 7: 08/11/18 11:10 08/13/18 09:29 Labs: Microbiology - Last 24 Hours (Table) 08/11/18 18:19 Urine Culture - Preliminary Urine,Suprapubic Gram Neg Bacilli Assessment and Plan Assessment: -Abdominal pain with nausea ,vomiting weakness,of unclear etiology, in a patient with recently treated for drug-resistant enterococcus UTI -Hypertension -History of bladder cancer with urostomy -Diverticulosis Plan: Continue on current medication regime ,monitoring and symptomatic treatment. Maintain IV fluid hydration, PPI, Zofran, Reglan, Flexeril. [facility] MRI report/CD being obtained. GI evaluation in progress, recommendations pending. Further recommendations to follow. The impression and plan of care has been dictated as directed. : I performed a history and examination of this patient, discussed the same with the dictator. I agree with the dictator's note ,documented as a scribe. Any ad ditional findings or plans will be noted.
[2018-08-14] MEDS: KETOROLAC 30 MG/ML 1 ML VIAL IVP SCH ×4 (00:06→17:28)
[2018-08-14] MEDS: METOCLOPRAMIDE 5 MG/ML 2 ML VIAL IVP SCH ×4 (00:07→17:27)
[2018-08-14] MEDS: SODIUM CHLORIDE 0.9% 1,000 ML IV SCH ×2 (01:03→05:42)
[2018-08-14] MEDS: LEVOTHYROXINE 50 MCG TAB PO SCH (05:38)
[2018-08-14 07:33] LABS: Basophils % (A) 1 %; Eosinophils # (A) 0.2 k/uL (0-0.7); Eosinophils % (A) 4 %; HCT 38.5 % (34.0-46.0); HGB 12.5 gm/dL (11.4-16.0); Lymphocytes # (A) 0.8 k/uL (1.0-4.8); Lymphocytes % (A) 18 %; MCH 29.5 pg (25.0-35.0); MCHC 32.4 g/dL (31.0-37.0); MCV 91.2 fL (80.0-100.0); Monocytes # (A) 0.3 k/uL (0-1.0); Monocytes % (A) 7 %; Neutrophils # (A) 2.7 k/uL (1.3-7.7); Neutrophils % (A) 67 %; Platelet Count 301 k/uL (150-450); RBC 4.22 m/uL (3.80-5.40); RDW 15.6 % (11.5-15.5); WBC 4.1 k/uL (3.8-10.6)
[2018-08-14 07:47] LABS: ALT 20 U/L (9-52); AST 16 U/L (14-36); African American GFR (CKD) >90 (>60 ml/min/1.73 sqM); Albumin 3.3 g/dL (3.5-5.0); Alkaline Phosphatase 68 U/L (38-126); Anion Gap 6 mmol/L; Blood Urea Nitrogen 10 mg/dL (7-17); Calcium 8.6 mg/dL (8.4-10.2); Carbon Dioxide 25 mmol/L (22-30); Chloride 109 mmol/L (98-107); Glucose 89 mg/dL (74-99); Potassium 4.2 mmol/L (3.5-5.1); Sodium 140 mmol/L (137-145); Total Bilirubin 0.4 mg/dL (0.2-1.3); Total Protein 6.1 g/dL (6.3-8.2)
[2018-08-14] MEDS: METOPROLOL TARTRATE 25 MG TAB PO SCH ×2 (08:20→21:59)
[2018-08-14] MEDS: HEPARIN SODIUM,PORCINE 5,000 UNIT/ML 1 ML VIAL SQ SCH ×2 (08:20→22:08)
[2018-08-14] MEDS: VANCOMYCIN 1,000 MG in SODIUM CHLORIDE 0.9% 250 ML IVPB SCH (08:21)
[2018-08-14] MEDS: ASPIRIN 81 MG PO SCH (08:21)
[2018-08-14] MEDS: LOSARTAN 50 MG TAB PO SCH (08:21)
[2018-08-14] MEDS: PANTOPRAZOLE 40 MG TABLET PO SCH (08:21)
[2018-08-14] MEDS: amLODIPine 5 MG TAB PO SCH (08:21)
[2018-08-14] MEDS: cycloSPORINE 0.05% OPHTH 0.4 ML DROPERETTE BOTH EYES SCH ×2 (08:21→21:59)
[2018-08-14] MEDS: CHOLECALCIFEROL 1,000 UNIT TAB PO SCH (08:21)
[2018-08-14] MEDS: CYCLOBENZAPRINE 5 MG TAB PO PRN (10:54)
--- NOTE | 2018-08-14 13:14 | P.PN ---
Subjective Progress Note Date: 08/14/18 Principal diagnosis: Nausea and dry heaving Patient seen lying in bed reporting that nausea is improved. She is tolerating her diet. No vomiting reported. Flank pain improved. Objective - Vital Signs Vital signs: Vital Signs Temp 98.3 F 08/14/18 07:42 Pulse 68 08/14/18 07:42 Resp 16 08/14/18 07:42 BP 130/71 08/14/18 07:42 Pulse Ox 98 08/14/18 07:42 Intake & Output 08/13/18 08/14/18 08/14/18 18:59 06:59 18:59 Intake Total 400 600 Output Total 1200 850 Balance -800 -250 Intake: IV 600 Sodium Chloride 0.9% 1, 600 000 ml @ 50 mls/hr IV . Q20H [facility] Rx#:[id number] Oral 400 Output: Urine 1200 850 Other: Voiding Method Ileal Conduit (Right) # Bowel Movements 1 - Exam On physical examination, patient appears comfortable in no apparent distress. HEAD: Normocephalic, atraumatic. EYES: No scleral icterus. No conjunctival injection. MOUTH: No lesions, tongue midline. NECK: Trachea midline, no gross abnormalities. CHEST: Clear to auscultation with no wheezing or rhonchi appreciated. HEART: Regular rate and rhythm. ABDOMEN: Soft, nontender to palpation. Bowel sounds are positive. No organomegaly. No guarding or rigidity. EXTREMITIES: No pedal edema. SKIN: No rashes, no jaundice. NEUROLOGIC: Alert and oriented x3. No focal deficits. - Labs CBC & Chem 7: 08/14/18 07:04 08/14/18 07:04 Labs: Abnormal Lab Results - Last 24 Hours (Table) 08/14/18 08/14/18 Range/Units 07:04 07:04 RDW 15.6 H (11.5-15.5) % Lymphocytes # 0.8 L (1.0-4.8) k/uL Chloride 109 H (98-107) mmol/L Total Protein 6.1 L (6.3-8.2) g/dL Albumin 3.3 L (3.5-5.0) g/dL Microbiology - Last 24 Hours (Table) 08/11/18 18:19 Urine Culture - Final Urine,Suprapubic Stenotrophomonas maltophilia Assessment and Plan (1) Nausea Narrative/Plan: 83-year-old female admitted with multiple complaints including malaise, weakness, nausea and dry heaving as well as right flank pain. The patient had denied any signs or symptoms of GI bleeding on admission. Currently she is receiving antibiotic treatment for urinary tract infection. She is continued to tolerate diet and reports improvement in nausea. Current Visit: Yes Status: Acute Code(s): R11.0 - NAUSEA SNOMED Code(s): 424100088 (2) History of total cystectomy Current Visit: No Status: Acute Code(s): Z98.890 - OTHER SPECIFIED POSTPROC EDURAL STATES SNOMED Code(s): 827786909 Plan: Supportive care Continue IV hydration Continue antibiotic therapy Continue antiemetic therapy as needed Continue to monitor symptoms No plan for endoscopic evaluation at this time Thank you for allowing us to dissipate in the care of the patient we will continue to follow
--- NOTE | 2018-08-14 13:36 | P.PN ---
Subjective Progress Note Date: 08/14/18 Principal diagnosis: Abdominal pain nausea. Tract infection, bladder cancer diverticulosis history of lung cancer with urostomy 08/14/2018, patient seen eval reexamined while covering for Dr. Madan Salinas this patient has urine come back positive for S. Maltophillia in the Urine, Bactrim and Levaquin cannot be taken due to ALLERGIES will put on Rocephin and hold the discharge This is an 83-year-old female admitted with acute diffuse abdominal pain, unclear etiology, generalized weakness, fatigue, nausea and vomiting 2 weeks, recent drug-resistant enterococcus UTI, history of bladder cancer, status post ileal conduit, colonic diverticulosis and multiple other medical issues. Evaluated by surgery and urology with no further recommendations at this time. Completed MRI of the abdomen at [facility] last Thursday, report being obtained; patient states was negative. Complains of diffuse right lower quadrant pain radiating to right flank further radiating to lower mid back. Upon further questioning patient reports that she did stumble on bedspread ,nearly f ell, prior to this visit. Flexeril added to med regime. Reports she did not sleep well. Maintained on clear liquid diet. Positive nausea with no emesis. Zofran and reglan added to med regime. Afebrile, normal WBCs, urine culture pending. Objective - Vital Signs Vital signs: Vital Signs Temp 98.3 F 08/14/18 07:42 Pulse 68 08/14/18 07:42 Resp 16 08/14/18 07:42 BP 130/71 08/14/18 07:42 Pulse Ox 98 08/14/18 07:42 Intake & Output 08/13/18 08/14/18 08/14/18 18:59 06:59 18:59 Intake Total 400 600 Output Total 1200 850 Balance -800 -250 Intake: IV 600 Sodium Chloride 0.9% 1, 600 000 ml @ 50 mls/hr IV . Q20H [facility] Rx#:[id number] Oral 400 Output: Urine 1200 850 Other: Voiding Method Ileal Conduit (Right) # Bowel Movements 1 - Constitutional General appearance: Present: average body habitus, cooperative - EENT Eyes: Present: PERRLA, dentition normal ENT: Present: normal oropharynx Ears: bilateral: normal - Neck Neck: Present: normal ROM Carotids: bilateral: upstroke normal Thyroid: bilateral: normal size - Respiratory Respiratory: bilateral: CTA - Cardiovascular Rhythm: regular Heart sounds: normal: S1, S2 - Gastrointestinal General gastrointestinal: Present: soft - Neurologic Neurologic: Present: CNII-XII intact - Musculoskeletal Musculoskeletal: Present: gait normal, generalized weakness, strength equal bilaterally - Psychiatric Psychiatric: Present: A&O x's 3, appropriate affect, intact judgment & insight - Labs CBC & Chem 7: 08/14/18 07:04 08/14/18 07:04 Labs: Abnormal Lab Results - Last 24 Hours (Table) 08/14/18 08/14/18 Range/Units 07:04 07:04 RDW 15.6 H (11.5-15.5) % Lymphocytes # 0.8 L (1.0-4.8) k/uL Chloride 109 H (98-107) mmol/L Total Protein 6.1 L (6.3-8.2) g/dL Albumin 3.3 L (3.5-5.0) g/dL Microbiology - Last 24 Hours (Table) 08/11/18 18:19 Urine Culture - Final Urine,Suprapubic Stenotrophomonas maltophilia Assessment and Plan Assessment: Urinary tract infection Abdominal pain nausea vomiting related to that Hypertension hypertensive cardiovascular disease History of bladder cancer with urostomy Diverticulosis Plan: Start Rocephin Repeat urine culture Hold discharge Further recommendations pending plan of care as per clinical response Time with Patient: Greater than 30
[2018-08-14 17:49] LABS: Glucose,Whole Blood 91 mg/dL (75-99)
--- NOTE | 2018-08-14 18:07 | CT ---
EXAMINATION TYPE: CT brain wo con for TPA DATE OF EXAM: 08/14/2018 COMPARISON: 02/25/2014 HISTORY: Altered mental status. Aphasia. CT DLP: 1070.4 mGycm Automated exposure control for dose reduction was used. FINDINGS: There is some cerebral cortical atrophy. There is no mass effect nor midline shift. There is no sign of intracranial hemorrhage. Calvarium is intact. There is some 2 x 1 cm area of slight decreased dens ity white matter of the left frontal lobe near the left anterior internal capsule. There are small fo ci of increased signal in the left and right anterior internal capsule. IMPRESSION: CEREBRAL ATROPHY. 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 No change compared to old exam.
[2018-08-14 18:30] LABS: Basophils % (A) 1 %; Eosinophils # (A) 0.2 k/uL (0-0.7); Eosinophils % (A) 3 %; HGB 12.9 gm/dL (11.4-16.0); Lymphocytes % (A) 20 %; MCH 28.9 pg (25.0-35.0); MCHC 31.6 g/dL (31.0-37.0); MCV 91.6 fL (80.0-100.0); Mean Platelet Volume 6.6; Monocytes # (A) 0.3 k/uL (0-1.0); Monocytes % (A) 6 %; Neutrophils # (A) 3.4 k/uL (1.3-7.7); Neutrophils % (A) 68 %; Platelet Count 292 k/uL (150-450); RBC 4.47 m/uL (3.80-5.40)
[2018-08-14 18:31] LABS: Prothrombin Time 10.4 sec (9.0-12.0)
[2018-08-14 18:41] LABS: Albumin 3.8 g/dL (3.5-5.0); Potassium 3.8 mmol/L (3.5-5.1); Total Bilirubin 0.3 mg/dL (0.2-1.3); Total Protein 6.7 g/dL (6.3-8.2)
[2018-08-14] MEDS ORDERED: tPA (Alteplase) PER PHARMACY 1 EACH MISC MISCELLANE PRN (19:08)
[2018-08-14] MEDS ORDERED: ALTEPLASE BOLUS IV STA (19:15)
[2018-08-14] MEDS ORDERED: ALTEPLASE 47 MG in EMPTY BAG 1 BAG IV STA (19:16)
[2018-08-14] MEDS ORDERED: SODIUM CHLORIDE 0.9% 50 ML IVPB ONE (20:16)
[2018-08-14] MEDS ORDERED: Magnesium Replacement Protocol 1 EACH MISC MISCELLANE PRN (21:08)
[2018-08-14] MEDS ORDERED: Phosphorus Replacement Protoco 1 EACH MISC MISCELLANE PRN (21:08)
[2018-08-14] MEDS ORDERED: NALOXONE 0.4 MG/ML 1 ML VIAL IV PRN (21:08)
[2018-08-14] MEDS ORDERED: Potassium Replacement Protocol 1 EACH MISC MISCELLANE PRN (21:08)
[2018-08-14] MEDS ORDERED: ACETAMINOPHEN IV (For NPO) 1,000 MG in EMPTY BAG 1 BAG IVPB PRN (21:08)
[2018-08-15] MEDS: KETOROLAC 30 MG/ML 1 ML VIAL IVP SCH ×4 (00:24→17:32)
[2018-08-15] MEDS: METOCLOPRAMIDE 5 MG/ML 2 ML VIAL IVP SCH ×4 (00:29→17:31)
[2018-08-15 05:00] LABS: Basophils % (A) 1 %; Eosinophils # (A) 0.2 k/uL (0-0.7); Eosinophils % (A) 3 %; HCT 41.4 % (34.0-46.0); HGB 13.2 gm/dL (11.4-16.0); Lymphocytes # (A) 0.7 k/uL (1.0-4.8); Lymphocytes % (A) 10 %; MCH 29.1 pg (25.0-35.0); MCHC 31.9 g/dL (31.0-37.0); MCV 91.1 fL (80.0-100.0); Mean Platelet Volume 6.8; Monocytes # (A) 0.4 k/uL (0-1.0); Monocytes % (A) 6 %; Neutrophils # (A) 5.3 k/uL (1.3-7.7); Neutrophils % (A) 79 %; Platelet Count 320 k/uL (150-450); RBC 4.55 m/uL (3.80-5.40); RDW 15.2 % (11.5-15.5); WBC 6.7 k/uL (3.8-10.6)
[2018-08-15 05:07] LABS: INR 0.9 (<1.2); Partial Thromboplastin Time 24.6 sec (22.0-30.0); Prothrombin Time 10.2 sec (9.0-12.0)
[2018-08-15 05:22] LABS: African American GFR (CKD) >90 (>60 ml/min/1.73 sqM); Anion Gap 8 mmol/L; Blood Urea Nitrogen 9 mg/dL (7-17); Carbon Dioxide 24 mmol/L (22-30); Chloride 105 mmol/L (98-107); Glucose 95 mg/dL (74-99); Magnesium 1.8 mg/dL (1.6-2.3); Phosphorus 4.2 mg/dL (2.5-4.5); Sodium 137 mmol/L (137-145)
[2018-08-15] MEDS: LEVOTHYROXINE 50 MCG TAB PO SCH (06:18)
[2018-08-15] MEDS: PANTOPRAZOLE 40 MG TABLET PO SCH (09:08)
[2018-08-15] MEDS: CHOLECALCIFEROL 1,000 UNIT TAB PO SCH (09:08)
[2018-08-15] MEDS: cycloSPORINE 0.05% OPHTH 0.4 ML DROPERETTE BOTH EYES SCH ×2 (09:22→20:59)
[2018-08-15] MEDS: HEPARIN SODIUM,PORCINE 5,000 UNIT/ML 1 ML VIAL SQ SCH ×2 (09:33→21:00)
[2018-08-15] MEDS: ASPIRIN 81 MG PO SCH (09:33)
[2018-08-15] MEDS: METOPROLOL TARTRATE 25 MG TAB PO SCH ×2 (09:33→21:00)
--- NOTE | 2018-08-15 10:55 | US ---
EXAMINATION TYPE: US carotid duplex BILAT DATE OF EXAM: 08/15/2018 COMPARISON: CT CLINICAL HISTORY: Code Stroke; dysarthria EXAM MEASUREMENTS: RIGHT: Peak Systolic Velocity (PSV) cm/sec ----- Right CCA: 43.5 ----- Right ICA: 74.4 ----- Right ECA: 59.8 ICA/CCA ratio: 1.7 RIGHT: End Diastole cm/sec ----- Right CCA: 10.4 ----- Right ICA: 17.7 ----- Right ECA: 0.0 LEFT: Peak Systolic Velocity (PSV) cm/sec ----- Left CCA: 50.1 ----- Left ICA: 71.2 ----- Left ECA: 59.8 ICA/CCA ratio: 1.4 LEFT: End Diastole cm/sec ----- Left CCA: 9.5 ----- Left ICA: 18.0 ----- Left ECA: 0.0 VERTEBRALS (direction of flow): Right Vertebral: Antegrade Left Vertebral: Antegrade Rhythm: Normal Irregular and mixed plaque is noted at bilateral carotid bifurcation, but PSV is wnl bilaterally. IMPRESSION: I DO NOT SEE EVIDENCE OF A HEMODYNAMICALLY SIGNIFICANT STENOSIS IN EITHER CAROTID SYSTEM. Criteria for Assigning % of Stenosis / Diameter reduction (Estimation based on the indirect measurements of the internal carotid artery velocities (ICA PSV). 1. Normal (no stenosis)=ICA PSV < 125 cm/s: ratio < 2.0: ICA EDV<40 cm/s. 2. Less than 50% stenosis=ICA PSV < 125 cm/s: ratio < 2.0: ICA EDV<40 cm/s. 3. 50 to 69% stenosis=ICA PSV of 125 to 230 cm/s: ration 2.0 ? 4.0: ICA EDV 40-100 cm/s. 4. Greater than 70% stenosis to near occlusion= ICA PSV > 230 cm/s: ratio > 4.0: ICA EDV > 100 cm/s. 5. Near occlusion= ICA PSV velocities may be low or undetectable: variable ratio and ICA EDV. 6. Total occlusion=unable to detect flow.
--- NOTE | 2018-08-15 11:02 | P.PN ---
Subjective Progress Note Date: 08/15/18 Principal diagnosis: Acute CVA Abdominal pain nausea. Tract infection, bladder cancer diverticulosis history of lung cancer with urostomy 08/15/2018, patient seen and evaluated examined during the rounds he even from yesterday noted patient yesterday evening had some speech impairment and sensory impairment upper extremity on the right side case was discussed by staff to neuro service and neurology recommended to give TPA and observe at [facility] her speech is better computed tomography scan of the head unremarkable except encephalomalacia and repeat is pending been ordered patient is getting every hourly neuro check breathing comfortably alert oriented 3 sensation in the right upper extremity has improved, and labs reviewed medications reviewed care plan discussed with nursing at length, 08/14/2018, patient seen eval reexamined while covering for Dr. Madan Salinas this patient has urine come back positive for S. Maltophillia in the Urine, Bactrim and Levaquin cannot be taken due to ALLERGIES will put on Rocephin and hold the discharge This is an 83-year-old female admitted with acute diffuse abdominal pain, unclear etiology, generalized weakness, fatigue, nausea and vomiting 2 weeks, recent drug-resistant enterococcus UTI, history of bladder cancer, status post ileal conduit, colonic diverticulosis and multiple other medical issues. Evaluated by surgery and urology with no further recommendations at this time. Completed MRI of the abdomen at [facility] last Thursday, report being obtained; patient states was negative. Complains of diffuse right lower quadrant pain radiating to right flank further radiating to lower mid back. Upon further questioning patient reports that she did stumble on bedspread ,nearly fell, prior to this visit. Flexeril added to med regime. Reports she did not sleep well. Maintained on clear liquid diet. Positive nausea with no emesis. Zofran and reglan added to med regime. Afebrile, normal WBCs, urine culture pending. Objective - Vital Signs Vital signs: Vital Signs Temp 98.1 F 08/15/18 09:00 Pulse 88 08/15/18 10:00 Resp 17 08/15/18 10:00 BP 150/80 08/15/18 10:00 Pulse Ox 98 08/15/18 10:00 Intake & Output 08/14/18 08/15/18 08/15/18 18:59 06:59 18:59 Intake Total 700 500 250 Output Total 1635 330 Balance 700 -8655 -80 Weight 58.8 kg Intake: IV 700 500 250 Sodium Chloride 0.9% 1, 400 500 200 000 ml @ 50 mls/hr IV . Q20H [facility] Rx#:[id number] Vancomycin 1,000 mg In 250 Sodium Chloride 0.9% 250 ml @ 125 mls/hr IVPB Q12HR [facility] Rx#:[id number] cefTRIAXone 1 gm In 50 50 Sodium Chloride 0.9% 50 ml @ 100 mls/hr IVPB Q24HR [facility] Rx#:[id number] Output: Urine 1635 330 Other: Voiding Method Ileal Conduit (Right) Ileal Conduit (Right) - Exam - Constitutional General appearance: Present: average body habitus, cooperative - EENT Eyes: Present: PERRLA, dentition normal ENT: Present: normal oropharynx Ears: bilateral: normal - Neck Neck: Present: normal ROM Carotids: bilateral: upstroke normal Thyroid: bilateral: normal size - Respiratory Respiratory: bilateral: CTA - Cardiovascular Rhythm: regular Heart sounds: normal: S1, S2 - Gastrointestinal General gastrointestinal: Present: soft - Neurologic Neurologic: Present: CNII-XII intact - Musculoskeletal Musculoskeletal: Present: gait normal, generalized weakness, strength equal bilaterally - Psychiatric Psychiatric: Present: A&O x's 3, appropriate affect, intact judgment & insight - Labs CBC & Chem 7: 08/15/18 04:47 08/15/18 04:47 Labs: Abnormal Lab Results - Last 24 Hours (Table) 08/14/18 08/15/18 Range/Units 18:11 04:47 Lymphocytes # 0.7 L (1.0-4.8) k/uL Chloride 108 H (98-107) mmol/L Glucose 101 H (74-99) mg/dL Microbiology - Last 24 Hours (Table) 08/15/18 02:50 Urine Culture - Preliminary Urine,Catheterized Assessment and Plan Assessment: Left hemispheric TIA versus CVA with transient aphasia and speech impairment along with sensory deficit in right upper extremity Urinary tract infection Abdominal pain nausea vomiting related to that Hypertension hypertensive cardiovascular disease History of bladder cancer with urostomy Diverticulosis Plan: Patient is status post TPA per neurology recommendation from [facility] and NIH stroke scale We'll obtain a follow-up CT Continue neuro checks every hour after 24-hour decreases to every 2 hours he Continue Rocephin Repeat urine culture Hold discharge Further recommendations pending plan of care as per clinical response Time with Patient: Greater than 30
[2018-08-15] MEDS: amLODIPine 5 MG TAB PO SCH (13:28)
[2018-08-15] MEDS: LOSARTAN 50 MG TAB PO SCH (13:29)
--- NOTE | 2018-08-15 13:51 | P.CNNES ---
History of Present Illness Consult date: 08/15/18 Reason for Consult: Stroke code, status post TPA History of Present Illness: Patient is a 83-year-old female, who was actually admitted on 08/11/2018 for UTI and sepsis. Patient does have urostomy related to her history of bladder cancer. Patient was also complaining of abdominal pain. Yesterday patient was noted to have acute onset of neurological deficits, with evidence of speech difficulty, difficulty expressing herself, right arm weakness, right arm numbness and some visual field deficits, that started at 5 PM, which was last known well time. Patient underwent computed tomography scan of the head, which revealed cerebral atrophy. 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 No change compared to the old exam from 02/25/2014. Patient's NIH stroke scale was reported as 4. I was contacted at 6:29 PM about patient's condition. Patient still had measurable deficits. I discussed with patient's family on the phone about risk and benefits of TPA. After some time of discussion between the family members, they consented for TPA. Patient was transferred to ICU. Bolus dose of IV TPA was given at 7:34 PM, infusion started at 7:36 PM. Patient apparently tolerated TPA well, and at this time her neurological deficits have completely resolved as per examination below. Patient denies any headache. Patient has history of hypertension but no diabetes,. She has hyperlipidemia. Patient does take aspirin 81 mg daily for last 3 years. Denies any tobacco use. Patient has history of bladder cancer for which she has urostomy. Patient has history of bilateral corneal transplant, and has some baseline visual field deficits on the right. Past Medical History Past Medical History: Cancer, GERD/Reflux, Hyperlipidemia, Hypertension, Thyroid Disorder Additional Past Medical History / Comment(s): bladder,urterine,vaginal CA,VERTIGO,MURMUR,UTI. PER PAST MED HX -KERATOCONIS OU; urostomy History of Any Multi-Drug Resistant Organisms: None Reported Past Surgical History: Bladder Surgery, Bowel Resection, Tubal Ligation Additional Past Surgical History / Comment(s): 2015 CYSTOCOPY W/ TRANSURETHRAL RESECTION OF BLADDER TUMOR, JUANCARLOS CATARACTS, CORNEAL TRANSPLANTS, D&C, "05-16-16 Radical cystectomy with ileal conduit urinary diversion at [facility],TOTAL HYSTERECTOMY, PARTIAL COLECTOMY,DIVERTING ILEOSTOMY" reversal. Past Anesthesia/Blood Transfusion Reactions: Postoperative Nausea & Vomiting (PONV) Past Psychological History: Depression Additional Psychological History / Comment(s): and lives in the family home with her . Adult children who are involved. Try to go to a wedding out of town next weekend. [employer] nonsmoker no alcohol use. Retired. No experience. No current animal exposures Smoking Status: Never smoker Past Alcohol Use History: None Reported Past Drug Use History: None Reported - Past Family History Father Family Medical History: Cancer Mother Family Medical History: Diabetes Mellitus Sister(s) Family Medical History: Cancer Additional Family Medical History / Comment(s): BREAST CANCER Brother(s) Family Medical History: Cancer Additional Family Medical History / Comment(s): COLON CANCER AND LEUKEMIA Father Brother(s) Family Medical History: Cancer Medications and Allergies Home Medications Medication Instructions Recorded Confirmed Type Cholecalciferol [Vitamin D3 (25 3,000 unit PO DAILY 03/05/15 08/11/18 History Mcg = 1000 Iu)] Levothyroxine Sodium [Synthroid] 50 mcg PO DAILY 03/05/15 08/11/18 History Omeprazole [PriLOSEC] 40 mg PO AC-BRKFST 03/05/15 08/11/18 History cycloSPORINE 0.05% OPHTH SOLN 1 drop BOTH EYES BID 03/05/15 08/11/18 History [Restasis] prednisoLONE ACETATE 1% OPHTH 1 drops BOTH EYES MO 03/05/15 08/11/18 History [Pred Forte 1%] Aspirin EC [Ecotrin Low Dose] 81 mg PO DAILY 05/28/16 08/11/18 History Docusate [Colace] 100 mg PO DAILY PRN 07/20/18 08/11/18 History Metoprolol Tartrate 25 mg PO BID 07/20/18 08/11/18 History amLODIPine [Norvasc] 5 mg PO DAILY #30 tab 07/27/18 08/11/18 Rx Nitrofurantoin Monohyd/M-Cryst 100 mg PO BID 08/11/18 08/11/18 History [Macrobid] Allergies Allergy/AdvReac Type Severity Reaction Status Date / Time sulfamethoxazole Allergy Swelling Verified 08/11/18 11:08 [From Bactrim] lips, sore throat trimethoprim [From Bactrim] Allergy Swelling Verified 08/11/18 11:08 lips, sore throat levofloxacin [[facility] AdvReac severe Verified 08/11/18 11:08 headache Arrudqa-Wfa-Eep Reductase AdvReac PAINFUL Verified 08/11/18 11:08 Inhibitor ARMS AND LEGS W/ MULT RX TRIED Physical Examination - Vital Signs Vital Signs: Vital Signs Temp Pulse Pulse Resp BP BP Pulse Ox 08/15/18 13:00 74 20 133/62 99 08/15/18 12:30 73 24 163/83 99 08/15/18 12:00 98.9 F 67 16 158/70 100 08/15/18 11:30 87 15 156/71 98 08/15/18 11:00 18 143/71 98 08/15/18 10:30 16 147/89 99 08/15/18 10:00 88 17 150/80 98 08/15/18 09:30 67 14 137/85 99 08/15/18 09:00 98.1 F 74 16 149/76 98 08/15/18 08:30 19 139/67 99 08/15/18 08:00 14 159/83 99 08/15/18 07:30 89 18 150/80 98 08/15/18 07:00 65 15 154/74 99 08/15/18 06:30 81 18 142/77 99 08/15/18 06:00 67 20 153/77 98 08/15/18 05:30 73 18 148/69 99 08/15/18 05:00 79 16 166/81 98 08/15/18 04:30 56 L 15 144/87 100 08/15/18 04:00 98 F 66 16 167/70 99 08/15/18 03:30 73 15 179/82 99 08/15/18 03:00 74 21 149/89 99 08/15/18 02:30 77 16 132/97 99 08/15/18 02:00 70 14 174/81 99 08/15/18 01:30 61 18 170/75 99 08/15/18 01:20 70 17 170/75 99 08/15/18 01:10 69 17 162/80 99 08/15/18 01:00 66 13 168/84 99 08/15/18 00:30 13 172/82 99 08/15/18 00:10 63 18 172/80 98 08/15/18 00:00 98 F 54 L 15 169/79 97 08/14/18 23:40 69 32 H 165/70 98 08/14/18 23:30 54 L 30 H 169/79 98 08/14/18 23:10 54 L 16 166/78 98 08/14/18 23:00 55 L 17 162/83 98 08/14/18 22:50 60 13 162/83 99 08/14/18 22:40 63 13 157/73 99 08/14/18 22:30 54 L 17 167/81 99 08/14/18 22:20 62 73 H 167/81 99 08/14/18 22:10 67 15 158/80 98 08/14/18 22:00 76 12 155/77 97 08/14/18 21:50 65 17 155/77 98 08/14/18 21:40 74 15 151/70 98 08/14/18 21:30 79 15 142/70 96 08/14/18 21:20 72 12 164/84 98 08/14/18 21:10 78 18 158/74 98 08/14/18 21:00 66 13 147/83 98 08/14/18 20:50 75 16 158/75 99 08/14/18 20:40 97.7 F 77 12 162/76 98 08/14/18 20:30 74 17 156/73 98 08/14/18 20:20 67 20 160/74 98 08/14/18 20:10 69 16 164/74 98 08/14/18 20:00 68 18 148/88 98 08/14/18 19:50 70 19 156/75 98 08/14/18 19:40 67 9 L 161/74 98 08/14/18 19:30 70 14 169/82 98 08/14/18 19:20 73 18 169/82 98 08/14/18 19:10 76 11 L 182/85 99 08/14/18 19:02 98.1 F 77 12 182/91 97 08/14/18 18:37 85 175/97 100 08/14/18 18:22 73 159/84 100 08/14/18 18:07 73 148/81 08/14/18 17:35 98.2 F 84 16 177/89 98 08/14/18 15:10 98.4 F 61 16 119/69 97 Intake and Output 0608/15/18 08/15/18 22:59 06:59 14:59 Intake Total 100 400 400 Output Total 800 835 630 Balance -700 -435 -230 Intake: IV 100 400 400 Sodium Chloride 0.9% 1, 100 400 350 000 ml @ 50 mls/hr IV . Q20H MARY Rx#:[id number] cefTRIAXone 1 gm In 50 Sodium Chloride 0.9% 50 ml @ 100 mls/hr IVPB Q24HR MARY Rx#:[id number] Output: Urine 800 835 630 Other: Voiding Method Ileal Conduit (Right) Ileal Conduit (Right) Ileal Conduit (Right) Weight 57.9 kg 58.8 kg On examination patient is an elderly female, very pleasant in no acute distress. Patient is alert and awake oriented to time place and person. Speech and language functions are normal. No aphasia or dysarthria. Patient can name and repeat very well. On cranial nerve examination her pupils are round and reacting, patient has right corneal opacity with keratoconus. visual taveras reveal right upper quadrantanopia, and right lower lateral visual field deficit. Uncertain if related to previous corneal transplant surgeries. Patient apparently does have some visual field deficits as baseline from her corneal problems. Her face is symmetric and tongue protrudes the midline. On muscle strength is in there is no pronator drift and the strength is normal in arms and legs distally and proximally. Reflexes are symmetric, 1 in the upper limbs, 2 in the lower limbs and plantars downgoing bilaterally. Sensory touch is equal. No ataxia for [id number] testing. Tone and bulk of muscles normal. Gait deferred. Results PT/PTT was normal, liver panel normal. Computed tomography scan of head was reviewed. There is evidence of small vessel ischemic disease. Some hypodensity noted in the left anterior limb of internal capsule. This was probably present on the previous computed tomography scan also from 2013. - Laboratory Findings CBC and BMP: 08/15/18 04:47 08/15/18 04:47 Abnormal Lab Findings: Abnormal Labs 08/11/18 08/11/18 08/14/18 11:10 11:10 07:04 RDW Lymphocytes # 0.4 L Chloride 109 H Glucose 102 H Total Protein 6.1 L Albumin 3.3 L 08/14/18 08/14/18 08/15/18 07:04 18:11 04:47 RDW 15.6 H Lymphocytes # 0.8 L 0.7 L Chloride 108 H Glucose 101 H Total Protein Albumin Assessment and Plan Assessment: * Probable acute ischemic CVA, status post TPA. Her current NIH stroke scale is 0. (Visual field deficits, noted on the right side probably related to old finding from corneal transplants.) * Hypertension * History of bladder cancer, status post urostomy. * Hypothyroidism Plan: * Patient's current NIH stroke scale is 0. Continue neuro checks for now. * Patient to undergo repeat computed tomography scan of the head at 5 PM for follow-up, rule out any intracranial bleed. * Carotid Doppler showed no significant stenosis. * We will check MRI of the brain to evaluate for CVA, MRA of the head. * We will check 2-D echo with bubble study to rule out PFO and other embolic source. * Fasting a.m. lipid panel, hemoglobin A1c. * If the 24 hours computed tomography scan negative for bleed, then would recommend starting aspirin 325 mg daily. * Discussed with patient's and nursing staff in detail.
[2018-08-15] MEDS: SODIUM CHLORIDE 0.9% 1,000 ML IV SCH (15:10)
--- NOTE | 2018-08-15 16:38 | CT ---
EXAMINATION TYPE: CT brain wo con DATE OF EXAM: 08/15/2018 COMPARISON: 08/14/2018 HISTORY: Follow up scan from yesterday. Patient was given tpa after altered mental status and code st roke. CT DLP: 1066.4 mGycm Automated exposure control for dose reduction was used. FINDINGS: There is cerebral cortical atrophy. There is no mass effect nor midline shift. There is no sign of in tracranial hemorrhage. There is mild hypodensity in the periventricular white matter. This is more no ticeable in the anterior left internal capsule. Calvarium is intact. IMPRESSION: CEREBRAL ATROPHY AND CHRONIC SMALL VESSEL ISCHEMIA. NO CHANGE COMPARED TO YESTERDAY.
[2018-08-15] MEDS: ASPIRIN 325 MG TAB PO SCH (20:58)
[2018-08-15] MEDS: CYCLOBENZAPRINE 5 MG TAB PO PRN (21:00)
[2018-08-16] MEDS: METOCLOPRAMIDE 5 MG/ML 2 ML VIAL IVP SCH ×5 (03:17→22:08)
[2018-08-16] MEDS: KETOROLAC 30 MG/ML 1 ML VIAL IVP SCH ×2 (03:17→06:17)
[2018-08-16 06:00] LABS: Basophils % (A) 1 %; Eosinophils # (A) 0.2 k/uL (0-0.7); Eosinophils % (A) 4 %; HCT 39.5 % (34.0-46.0); Lymphocytes # (A) 0.9 k/uL (1.0-4.8); Lymphocytes % (A) 19 %; MCH 29.9 pg (25.0-35.0); MCV 90.5 fL (80.0-100.0); Mean Platelet Volume 6.9; Monocytes # (A) 0.4 k/uL (0-1.0); Monocytes % (A) 8 %; Neutrophils % (A) 66 %; Platelet Count 275 k/uL (150-450); RBC 4.37 m/uL (3.80-5.40); RDW 14.8 % (11.5-15.5); WBC 4.5 k/uL (3.8-10.6)
[2018-08-16 06:08] LABS: African American GFR (CKD) >90 (>60 ml/min/1.73 sqM); Anion Gap 7 mmol/L; Blood Urea Nitrogen 9 mg/dL (7-17); Calcium 8.9 mg/dL (8.4-10.2); Carbon Dioxide 25 mmol/L (22-30); Chloride 107 mmol/L (98-107); Cholesterol 186 mg/dL (<200); Glucose 88 mg/dL (74-99); HDL Cholesterol 36 mg/dL (40-60); LDL Cholesterol,Calculated 113 mg/dL (0-99); Magnesium 1.9 mg/dL (1.6-2.3); Phosphorus 4.1 mg/dL (2.5-4.5); Potassium 3.9 mmol/L (3.5-5.1); Sodium 139 mmol/L (137-145); Triglycerides 183 mg/dL (<150)
[2018-08-16 06:13] LABS: INR 0.9 (<1.2); Partial Thromboplastin Time 25.4 sec (22.0-30.0); Prothrombin Time 10.2 sec (9.0-12.0)
[2018-08-16] MEDS: LEVOTHYROXINE 50 MCG TAB PO SCH (06:13)
[2018-08-16] MEDS: CHOLECALCIFEROL 1,000 UNIT TAB PO SCH (08:36)
[2018-08-16] MEDS: PANTOPRAZOLE 40 MG TABLET PO SCH (08:36)
[2018-08-16] MEDS: cycloSPORINE 0.05% OPHTH 0.4 ML DROPERETTE BOTH EYES SCH ×2 (08:37→20:53)
[2018-08-16] MEDS: HEPARIN SODIUM,PORCINE 5,000 UNIT/ML 1 ML VIAL SQ SCH ×2 (08:37→20:53)
[2018-08-16] MEDS: ASPIRIN 325 MG TAB PO SCH (08:37)
[2018-08-16] MEDS ORDERED: prednisoLONE ACETATE 1% OPHTH DROPS 5 ML BTL BOTH EYES SCH (09:00)
--- NOTE | 2018-08-16 10:24 | ECHOF ---
Referral Reason:CVA MEASUREMENTS -------- HEIGHT: 160.0 cm WEIGHT: 59.0 kg BP: RVIDd: 2.6 cm (< 3.3) IVSd: 0.8 cm (0.6 - 1.1) LVIDd: 3.0 cm (3.9 - 5.3) LVPWd: 1.0 cm (0.6 - 1.1) IVSs: 1.3 cm LVIDs: 2.1 cm LVPWs: 1.5 cm Ao Diam: 2.8 cm (2.0 - 3.7) AV Cusp: 1.3 cm (1.5 - 2.6) LA Diam: 2.6 cm (2.7 - 3.8) MV EXCURSION: 11.844 mm (> 18.000) MV EF SLOPE: 80 mm/s (70 - 150) EPSS: 0.5 cm MV E Jerardo: 1.06 m/s MV DecT: 178 ms MV A Jerardo: 1.09 m/s MV E/A Ratio: 0.98 AV maxP.36 mmHg AV meanP.67 mmHg RAP: 5.00 mmHg RVSP: 27.33 mmHg FINDINGS -------- Sinus rhythm. This was a technically good study. The left ventricular size is normal. Left ventricular wall thickness is normal. Overall left vent ricular systolic function is normal with, an EF between 55 - 60 %. The right ventricle is normal in size. The left atrial size is normal. The right atrial size is normal. Bubble study done to rule out shunt. Negative contrast seen. Can not exclude left to right shunt. Aortic valve is trileaflet and is mildly thickened. There is mild aortic valve sclerosis. Peak/me an gradient across the Aortic Valve is 13.36mmHg / 6.67mmHg. The mitral valve is normal. There is trace mitral regurgitation. Mild tricuspid regurgitation present. There is no evidence of pulmonary hypertension. The right v entricular systolic pressure, as measured by Doppler, is 27.33mmHg. There is no pulmonic regurgitation present. The aortic root size is normal. Normal inferior vena cava with normal inspiratory collapse consistent with estimated right atrial pre ssure of 5 mmHg. There is no pericardial effusion. SUBOPTIMAL OPACIFICATION OF RA DURING BUBBLE STUDY CONCLUSIONS -------- 1. Sinus rhythm. 2. This was a technically good study. 3. The left ventricular size is normal. 4. Left ventricular wall thickness is normal. 5. Overall left ventricular systolic function is normal with, an EF between 55 - 60 %. 6. The right ventricle is normal in size. 7. The left atrial size is normal. 8. The right atrial size is normal. 9. Bubble study done to rule out shunt. Negative contrast seen. Can not exclude left to right shunt. 10. Aortic valve is trileaflet and is mildly thickened. 11. There is mild aortic valve sclerosis. 12. Peak/mean gradient across the Aortic Valve is 13.36mmHg / 6.67mmHg. 13. The mitral valve is normal. 14. There is trace mitral regurgitation. 15. Mild tricuspid regurgitation present. 16. There is no evidence of pulmonary hypertension. 17. The right ventricular systolic pressure, as measured by Doppler, is 27.33mmHg. 18. There is no pulmonic regurgitation present. 19. The aortic root size is normal. 20. Normal inferior vena cava with normal inspiratory collapse consistent with estimated right atrial pressure of 5 mmHg. 21. There is no pericardial effusion. CURB SUPERVISOR: Pretty Alvarez RDCS
[2018-08-16] MEDS: SODIUM CHLORIDE 0.9% 1,000 ML IV SCH (10:59)
[2018-08-16] MEDS: LOSARTAN 50 MG TAB PO SCH (10:59)
[2018-08-16] MEDS: METOPROLOL TARTRATE 25 MG TAB PO SCH ×2 (10:59→20:54)
[2018-08-16] MEDS: amLODIPine 5 MG TAB PO SCH (10:59)
[2018-08-16 11:28] LABS: Hemoglobin A1C 5.7 % (4.0-6.0)
[2018-08-16] MEDS ORDERED: LORazepam 2 MG/ML INJ IV STA (14:19)
--- NOTE | 2018-08-16 15:40 | EEG ---
ELECTROENCEPHALOGRAM REPORT DATE OF SERVICE: 08/16/2018. PREAMBLE: This is an 83-year-old female with history of possible TIA versus CVA. MEDICATIONS: Zofran, Cozaar, levothyroxine, Toradol, Flexeril, Rocephin, aspirin, and amlodipine. EEG FINDINGS: A routine 21 channel awake digital EEG recording was accomplished utilizing the 10/20 international system with bipolar and referential montages. The background consists of well developed, well regulated, moderate amplitude activity in 9 hertz alpha. Background is posterior dominant and reactive to eye opening and closing. Photic driving response was seen in almost all flash frequencies. Some drowsiness was seen but deeper stages of sleep was not attained. Intermittent left temporal slowing with some sharp waves were seen. The EKG rhythm leads revealed no arrhythmia. IMPRESSION: This is a mildly abnormal EEG due to intermittent left temporal slowing with occasional sharp waves. This is suggestive of focal cortical neural dysfunction, and may suggest underlying cortical irritability and tendency for seizure. Clinical correlation is strongly recommended. MMANGELINA / BUNNYN: [id number] / TRACEY
--- NOTE | 2018-08-16 16:25 | P.PN ---
Subjective Progress Note Date: 08/16/18 This is an 83-year-old female admitted with acute diffuse abdominal pain, unclear etiology, generalized weakness, fatigue, nausea and vomiting 2 weeks, recent drug-resistant enterococcus UTI, history of bladder cancer, status post ileal conduit, colonic diverticulosis and multiple other medical issues. E valuated by surgery and urology with no further recommendations at this time. Completed MRI of the abdomen at [facility] last Thursday, report being obtained; patient states was negative. Complains of diffuse right lower quadrant pain radiating to right flank further radiating to lower mid back. Upon further questioning patient reports that she did stumble on bedspread ,nearly fell, prior to this visit. Flexeril added to med regime. Reports she did not sleep well. Maintained on clear liquid diet. Positive nausea with no emesis. Zofran and reglan added to med regime. Afebrile, normal WBCs, urine culture pending. 08/13/2018 Significant improvement on Flexeril, currently denies abdominal//back pain. Mild right flank pain. Tolerating diet with no nausea this morning. Denies diarrhea. Denies constipation-passing flatus. Diet intake 50%. Afebrile. Labs unremarkable.[facility] MRI report still being obtained. Denies chest pain, palpitations or shortness of breath. Denies lightheadedness dizziness or focal deficits. 08/16/18 Over the weekend, patient experienced speech difficulty, some visual field deficits ,right-sided upper extremity weakness. Evaluated by neurology. 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 Significant clinical improvement, this morning her neurological deficits have completely resolved. Denies lightheadedness, dizziness, focal deficits. Denies headache. Echo reporting normal LV function, EF 55-60%. Bubble study reported negative contrast, cannot exclude [id number] shunt. Carotid Doppler reports no hemodynamic significant stenosis. EEG completed, final report pending. MRI, MRA pending. Urine culture reporting Stenotrophomonas Maltophilia with IV antibiotics as per infectious disease. Objective - Vital Signs Vital signs: Vital Signs Temp 98.1 F 08/16/18 08:00 Pulse 78 08/16/18 10:00 Resp 14 08/16/18 10:00 BP 144/86 08/16/18 10:00 Pulse Ox 95 08/16/18 10:00 Intake & Output 08/15/18 08/16/18 08/16/18 18:59 06:59 18:59 Intake Total 1470 600 200 Output Total 1180 660 475 Balance 290 -60 -275 Weight 59.4 kg Intake: IV 650 600 200 Sodium Chloride 0.9% 1, 600 600 150 000 ml @ 50 mls/hr IV . Q20H MARY Rx#:[id number] cefTRIAXone 1 gm In 50 50 Sodium Chloride 0.9% 50 ml @ 100 mls/hr IVPB Q24HR MARY Rx#:[id number] Oral 820 Output: Urine 1180 660 475 Other: Voiding Method Ileal Conduit (Right) Ileal Conduit (Right) Ileal Conduit (Right) - Exam PHYSICAL EXAM: VITAL SIGNS: As above GENERAL: Sitting up in bed, no acute distress HEENT: Conjunctivae normal. eyes normal. Oral mucosa moist NECK: No JVD. No thyroid enlargement. No LNs CARDIOVASCULAR: S1, S2 regular.No murmur, rub or gallop RESPIRATION: Breath sounds diminished in the bases. No rhonchi or crackles. ABDOMEN: Soft, nondistended, mild right flank tenderness. Urostomy pouch pres ent with clear urine No guarding. no masses palpable. Bowel sounds heard. LEGS: No edema. no swelling PSYCHIATRY: Alert and oriented ?-3, mood and affect normal. NERVOUS SYSTEM: Cranial N 2-12 grossly normal. Speech fluent and appropriate , no facial asymmetry.Moves all 4 limbs. Diffuse weakness No focal deficits. Strength and sensation grossly intact.. Skin: no lesions, no rash Microbiology 08/15/18 02:50 Urine,Catheterized Urine Culture - Final 08/11/18 18:19 Urine,Suprapubic Urine Culture - Final Stenotrophomonas maltophilia - Labs CBC & Chem 7: 08/16/18 05:43 08/16/18 05:43 Labs: Abnormal Lab Results - Last 24 Hours (Table) 08/16/18 08/16/18 Range/Units 05:43 05:43 Lymphocytes # 0.9 L (1.0-4.8) k/uL Triglycerides 183 H (<150) mg/dL LDL Cholesterol, Calc 113 H (0-99) mg/dL HDL Cholesterol 36 L (40-60) mg/dL Microbiology - Last 24 Hours (Table) 08/15/18 02:50 Urine Culture - Final Urine,Catheterized Assessment and Plan Assessment: -Abdominal pain with nausea ,vomiting weakness,of unclear etiology, in a patient with recently treated for drug-resistant enterococcus UTI, abdominal pain subsided. -Possible acute CVA, possible TIA, status post TPA -Acute UTI with Stenotrophomonas maltophilia -Hypertension -History of bladder cancer with urostomy -Diverticulosis Plan: Continue on current medication regime ,monitoring and symptomatic treatment. Further antibiotic recommendations as per ID.Maintain neuro checks. Neuro workup in progress. Discharge planning in progress for tomorrow pending neurology clearance. Further recommendations to follow. The impression and plan of care has been dictated as directed. : I performed a history and examination of this patient, discussed the same with the dictator. I agree with the dictator's note ,documented as a scribe. Any additional findings or plans will be noted.
--- NOTE | 2018-08-16 17:37 | MR ---
EXAMINATION TYPE: MR angio head wo con DATE OF EXAM: 08/16/2018 COMPARISON: CT 08/15/2018, MR 08/16/2018 HISTORY: Mental status changes, CVA TECHNIQUE: 3D time of flight images focusing on the [place] of [place] were performed without contrast. FINDINGS: The anterior circulation is widely patent bilaterally, without focal stricture or other pathology. Similarly, the posterior circulation is widely patent bilaterally, without focal stricture or other p athology. No incidental findings. IMPRESSION: Negative examination.
--- NOTE | 2018-08-16 17:45 | MR ---
EXAMINATION TYPE: MR brain wo con DATE OF EXAM: 08/16/2018 COMPARISON: Noncontrast CT head 08/15/2017 HISTORY: Mental status changes, CVA TECHNIQUE: Standard multiplanar, multisequence MRI departmental protocol. Several multiplanar [place] were acquired, including DWI. FINDINGS: There is no mass or mass effect or intracranial hemorrhage. There is no restricted diffusion to suggest acute or subacute infarction. No focal encephalomalacia to suggest prior macrovascular infarction. Bilateral salcedo radiata and centrum semiovale nonspecific tiny T2 hyperintensities are noted, most m easuring 4 mm. Such findings are seen frequently in asymptomatic patients within this age group. Arguello annita, the T2 hyperintensities represent nonspecific deep white matter findings. The calvarium and orbits are unremarkable, as are the paranasal sinuses and middle ear cavities and m astoid sinus air cells. IMPRESSION: 1) No definite acute process. 2) Bilateral salcedo radiata / centrum semiovale T2 hyperintensities.
--- NOTE | 2018-08-16 18:12 | P.PN ---
Subjective Progress Note Date: 08/16/18 Principal diagnosis: Acute CVA Abdominal pain nausea. Tract infection, bladder cancer diverticulosis history of lung cancer with urostomy 08/16/2018, patient seen and evaluated examined during the rounds she is comfortable breathing swann denies any chest pain no further deterioration is noted, MRI is pending care plan discussed with primary service 08/15/2018, patient seen and evaluated examined during the rounds he even from yesterday noted patient yesterday evening had some speech impairment and sensory impairment upper extremity on the right side case was discussed by staff to neuro service and neurology recommended to give TPA and observe at [facility] her speech is better computed tomography scan of the head unremarkable except encephalomalacia and repeat is pending been ordered patient is getting every hourly neuro check breathing comfortably alert oriented 3 sensation in the right upper extremity has improved, and labs reviewed medications reviewed care plan discussed with nursing at length, 08/14/2018, patient seen eval reexamined while covering for Dr. Madan Salinas this patient has urine come back positive for S. Maltophillia in the Urine, B actrim and Levaquin cannot be taken due to ALLERGIES will put on Rocephin and hold the discharge This is an 83-year-old female admitted with acute diffuse abdominal pain, unclear etiology, generalized weakness, fatigue, nausea and vomiting 2 weeks, recent drug-resistant enterococcus UTI, history of bladder cancer, status post ileal conduit, colonic diverticulosis and multiple other medical issues. Evaluated by surgery and urology with no further recommendations at this time. Completed MRI of the abdomen at [facility] last Thursday, report being obtained; patient states was negative. Complains of diffuse right lower quadrant pain radiating to right flank further radiating to lower mid back. Upon further questioning patient reports that she did stumble on bedspread ,nearly fell, prior to this visit. Flexeril added to med regime. Reports she did not sleep well. Maintained on clear liquid diet. Positive nausea with no emesis. Zofran and reglan added to med regime. Afebrile, normal WBCs, urine culture pending. Objective - Vital Signs Vital signs: Vital Signs Temp 98 F 08/16/18 12:00 Pulse 69 08/16/18 15:00 Resp 20 08/16/18 15:00 BP 138/60 08/16/18 15:00 Pulse Ox 98 08/16/18 15:00 Intake & Output 08/15/18 08/16/18 08/16/18 18:59 06:59 18:59 Intake Total 1470 600 400 Output Total 3693 432 3640 Balance 290 -60 -700 Weight 59.4 kg Intake: IV 650 600 400 Sodium Chloride 0.9% 1, 600 600 350 000 ml @ 50 mls/hr IV . Q20H MARY Rx#:[id number] cefTRIAXone 1 gm In 50 50 Sodium Chloride 0.9% 50 ml @ 100 mls/hr IVPB Q24HR MARY Rx#:[id number] Oral 820 Output: Urine 3259 002 [id number] Other: Voiding Method Ileal Conduit (Right) Ileal Conduit (Right) Ileal Conduit (Right) - Exam - Constitutional General appearance: Present: average body habitus, cooperative - EENT Eyes: Present: PERRLA, dentition normal ENT: Present: normal oropharynx Ears: bilateral: normal - Neck Neck: Present: normal ROM Carotids: bilateral: upstroke normal Thyroid: bilateral: normal size - Respiratory Respiratory: bilateral: CTA - Cardiovascular Rhythm: regular Heart sounds: normal: S1, S2 - Gastrointestinal General gastrointestinal: Present: soft - Neurologic Neurologic: Present: CNII-XII intact - Musculoskeletal Musculoskeletal: Present: gait normal, generalized weakness, strength equal bilaterally - Psychiatric Psychiatric: Present: A&O x's 3, appropriate affect, intact judgment & insight - Labs CBC & Chem 7: 08/16/18 05:43 08/16/18 05:43 Labs: Abnormal Lab Results - Last 24 Hours (Table) 08/16/18 08/16/18 Range/Units 05:43 05:43 Lymphocytes # 0.9 L (1.0-4.8) k/uL Triglycerides 183 H (<150) mg/dL LDL Cholesterol, Calc 113 H (0-99) mg/dL HDL Cholesterol 36 L (40-60) mg/dL Microbiology - Last 24 Hours (Table) 08/15/18 02:50 Urine Culture - Final Urine,Catheterized Assessment and Plan Assessment: Left hemispheric TIA versus CVA with transient aphasia and speech impairment along with sensory deficit in right upper extremity Urinary tract infection Abdominal pain nausea vomiting related to that Hypertension hypertensive cardiovascular disease History of bladder cancer with urostomy Diverticulosis Plan: Patient is status post TPA per neurology recommendation and NIH stroke scale We'll obtain a follow-up MRI of the brain Continue neuro checks as per protocol Continue Rocephin Repeat urine culture reviewed is negative Further recommendations pending plan of care as per clinical response Time with Patient: Greater than 30
--- NOTE | 2018-08-16 18:14 | P.PN ---
Subjective Progress Note Date: 08/16/18 Patient offers no new complaints. Patient is laying comfortably in the bed. Very pleasant. Objective - Vital Signs Vital signs: Vital Signs Temp 98 F 08/16/18 12:00 Pulse 69 08/16/18 15:00 Resp 20 08/16/18 15:00 BP 138/60 08/16/18 15:00 Pulse Ox 98 08/16/18 15:00 Intake & Output 08/15/18 08/16/18 08/16/18 18:59 06:59 18:59 Intake Total 1470 600 400 Output Total 7062 061 9959 Balance 290 -60 -700 Weight 59.4 kg Intake: IV 650 600 400 Sodium Chloride 0.9% 1, 600 600 350 000 ml @ 50 mls/hr IV . Q20H MARY Rx#:[id number] cefTRIAXone 1 gm In 50 50 Sodium Chloride 0.9% 50 ml @ 100 mls/hr IVPB Q24HR MARY Rx#:[id number] Oral 820 Output: Urine 8895 199 0511 Other: Voiding Method Ileal Conduit (Right) Ileal Conduit (Right) Ileal Conduit (Right) - Exam Nonfocal. Some right visual field deficits which is chronic. Otherwise examination is nonfocal. - Labs CBC & Chem 7: 08/16/18 05:43 08/16/18 05:43 Labs: Abnormal Lab Results - Last 24 Hours (Table) 08/16/18 08/16/18 Range/Units 05:43 05:43 Lymphocytes # 0.9 L (1.0-4.8) k/uL Triglycerides 183 H (<150) mg/dL LDL Cholesterol, Calc 113 H (0-99) mg/dL HDL Cholesterol 36 L (40-60) mg/dL Microbiology - Last 24 Hours (Table) 08/15/18 02:50 Urine Culture - Final Urine,Catheterized Assessment and Plan Assessment: * Probable acute ischemic CVA, versus TIA status post TPA. Her current NIH stroke scale is 0. 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 MRI showed no acute ischemia. * Hypertension * History of bladder cancer, status post urostomy. * Hypothyroidism Plan: * Patient's current NIH stroke scale is 0. * Carotid Doppler showed no significant stenosis. * MRI of the brain revealed no acute ischemic process, no bleed. Revealed bilateral salcedo radiata/centrum semiovale hypointensities likely due to small vessel disease. On my review, there was slight abnormal bright signal in the DWI in the right parietal cortex, which after review with the radiologist felt was possible artifactual versus T2 shine through, as there was no associated signal abnormality on ADC map or FLAIR sequences. MRA of the head negative for any occlusion, stenosis or aneurysm. * 2-D echo with bubble study showed EF 55-60%. Right atrial and left atrial size normal. No itdit-yj-yzed shunt. No embolic source found. * Fasting a.m. lipid panel showed cholesterol 183, LDL 113, HDL 36. Hemoglobin A1c 5.7. Suggest starting statins, but patient is ALLERGIC to statins. Target LDL <70. * Continue aspirin 325 mg daily. * EEG showed intermittent left temporal slowing with occasional sharp waves. This may suggest focal cortical neuronal dysfunction with underlying cortical irritability and tendency for seizure. Patient never has any history of seizure. No indication for antiepileptic medication at this time.
--- NOTE | 2018-08-16 23:20 | P.PN ---
Subjective Progress Note Date: 08/16/18 This is an 83-year-old female known to ID service due to her recent hospitalization in July at which time she presented with feeling poorly, abdominal pain, felt like an abdominal fullness. It was quite uncomfortable and she had difficulty eating. She was having nausea without much emesis. She had no hematemesis. She had no diarrhea. The patient did not believe that she had significant fever. She over felt poorly enough to present to Hospital where she was found evidence of an ileus surgical consult occurred. There is evidence of a bowel obstruction and it was thought that underlying infection was etiology for her ileus. The patient has an extensive past medical history in that she had a cystectomy for bladder cancer and does have an ileoconduit in place. She has have difficulties intermittently with urinary tract infection and routinely she feels very poorly with a UTI with nausea and abdominal discomforts. Because she is an ileoconduit her urine is often somewhat murky with mucus. Urine culture was positive for Enterococcus faecalis and Rocephin was then transitioned to Unasyn and she was discharged home on Augmentin. Patient states she completed her course but states she really did not feel much better at home. She has abdominal pain, nausea with dry heaving and no appet ite. She complains of right lower quadrant pain with no significant tenderness but does have tenderness in the right flank. She has had good urine output from ileoconduit. She denies having any fever or chills. She had an MR of the pelvis with and without IV contrast at [facility] last week which showed no evidence of hydronephrosis or other abnormality of the urinary system. She attained urine specimen from her ostomy bag and took this to Dr. Salinas's office on Thursday. There was concern for continued enterococcus urinary tract infection and patient was placed on vancomycin and directly admitted to the [facility] floor. She has been seen by Dr. macias in no acute abdomen and no surgical intervention is needed. She was resumed on clear liquid diet and this has been advanced. Patient is also been seen by Dr. Woods and he feels symptoms are not likely related to her urinary system. 08/16/2018 the patient has been transferred to intensive care unit after her last evaluation. She'll acute strokelike symptoms and was given TPA. She then had complete reversal of her symptoms. Remains in the ICU with further improvement. Her abdominal pain is improved. Nausea and emesis of improve. Does not have acute complaints at this time. Has just returned from her MRI. Objective - Vital Signs Vital signs: Vital Signs Temp 98.1 F 08/16/18 20:00 Pulse 67 08/16/18 22:00 Resp 17 08/16/18 22:00 BP 119/69 08/16/18 22:00 Pulse Ox 95 08/16/18 22:00 Intake & Output 08/16/18 08/16/18 08/17/18 06:59 18:59 06:59 Intake Total 600 600 250 Output Total 660 1415 335 Balance -60 -815 -85 Weight 59.4 kg Intake: IV 600 600 250 Sodium Chloride 0.9% 1, 600 550 250 000 ml @ 50 mls/hr IV . Q20H MARY Rx#:[id number] cefTRIAXone 1 gm In 50 Sodium Chloride 0.9% 50 ml @ 100 mls/hr IVPB Q24HR MARY Rx#:[id number] Output: Urine 660 1415 335 Other: Voiding Method Ileal Conduit (Right) Ileal Conduit (Right) Ileal Conduit (Right) - Exam Gen.: This is an 83-year-old female. She is resting in bed and appears to be comfortable and in no acute distress. Patient's is at the bedside. HEENT: Anicteric, conjunctiva are pink and moist, nasal or oral mucosa are without lesion. The neck is supple without lymphadenopathy or thyromegaly. No oral thrush is noted. Oral mucous membranes are moist. Lungs: good bilateral air entry, there are no significant crackles or wheezes, no bronchial sounds or egophony. Heart: Regular rate and rhythm with an audible S1-S2, no S3 or S4 noted. No significant murmur click or rub noted. Abdomen: Positive bowel sounds, it is soft there is tenderness right lower quadrant. The urostomy from ileoconduit is intact with nonbloody urine present in the urostomy pouch, mild right flank tenderness Extremities:Upper extremities reveal evidence of equal pulses, no lesions are seen, no petechiae or telangiectasia. The lower extremities have no significant edema, peripheral pulses were 2+ and symmetric, no lesions or ulcerations are seen. Capillary refill was brisk. Skin: Intact without significant rash or lesions. Neuro:Awake and alert, oriented to person place and time. No gross focal sensory motor deficits noted. Appears to have no residual from her recent CVA/TIA Musculoskeletal: Patient is ambulatory - Labs CBC & Chem 7: 08/16/18 05:43 08/16/18 05:43 Labs: Abnormal Lab Results - Last 24 Hours (Table) 08/16/18 08/16/18 Range/Units 05:43 05:43 Lymphocytes # 0.9 L (1.0-4.8) k/uL Triglycerides 183 H (<150) mg/dL LDL Cholesterol, Calc 113 H (0-99) mg/dL HDL Cholesterol 36 L (40-60) mg/dL Microbiology - Last 24 Hours (Table) 08/15/18 02:50 Urine Culture - Final Urine,Catheterized Laboratory Results WBC 4.5 k/uL (3.8-10.6) 08/16/18 05:43 RBC 4.37 m/uL (3.80-5.40) 08/16/18 05:43 Hgb 13.0 gm/dL (11.4-16.0) 08/16/18 05:43 Hct 39.5 % (34.0-46.0) 08/16/18 05:43 MCV 90.5 fL (80.0-100.0) 08/16/18 05:43 MCH 29.9 pg (25.0-35.0) 08/16/18 05:43 MCHC 33.0 g/dL (31.0-37.0) 08/16/18 05:43 RDW 14.8 % (11.5-15.5) 08/16/18 05:43 Plt Count 275 k/uL (150-450) 08/16/18 05:43 Neutrophils % 66 % 08/16/18 05:43 Lymphocytes % 19 % 08/16/18 05:43 Monocytes % 8 % 08/16/18 05:43 Eosinophils % 4 % 08/16/18 05:43 Basophils % 1 % 08/16/18 05:43 Neutrophils # 3.0 k/uL (1.3-7.7) 08/16/18 05:43 Lymphocytes # 0.9 k/uL (1.0-4.8) L 08/16/18 05:43 Monocytes # 0.4 k/uL (0-1.0) 08/16/18 05:43 Eosinophils # 0.2 k/uL (0-0.7) 08/16/18 05:43 Basophils # 0.0 k/uL (0-0.2) 08/16/18 05:43 PT 10.2 sec (9.0-12.0) 08/16/18 05:43 INR 0.9 (<1.2) 08/16/18 05:43 APTT 25.4 sec (22.0-30.0) 08/16/18 05:43 Sodium 139 mmol/L (137-145) 08/16/18 05:43 Potassium 3.9 mmol/L (3.5-5.1) 08/16/18 05:43 Chloride 107 mmol/L (98-107) 08/16/18 05:43 Carbon Dioxide 25 mmol/L (22-30) 08/16/18 05:43 Anion Gap 7 mmol/L 08/16/18 05:43 BUN 9 mg/dL (7-17) 08/16/18 05:43 Creatinine 0.63 mg/dL (0.52-1.04) 08/16/18 05:43 Est GFR (CKD-EPI)AfAm >90 (>60 ml/min/1.73 sqM) 08/16/18 05:43 Est GFR (CKD-EPI)NonAf 83 (>60 ml/min/1.73 sqM) 08/16/18 05:43 Glucose 88 mg/dL (74-99) 08/16/18 05:43 POC Glucose (mg/dL) 91 mg/dL (75-99) 08/14/18 17:38 POC Glu Service Loss Control Consultant ID Jayashree Barr 08/14/18 17:[address] Glu mg/dL 117 08/15/18 04:47 Hemoglobin A1c 5.7 % (4.0-6.0) 08/15/18 04:47 Plasma Lactic Acid Bobby 0.8 mmol/L (0.7-2.0) 08/14/18 18:11 Calcium 8.9 mg/dL (8.4-10.2) 08/16/18 05:43 Phosphorus 4.1 mg/dL (2.5-4.5) 08/16/18 05:43 Magnesium 1.9 mg/dL (1.6-2.3) 08/16/18 05:43 Total Bilirubin 0.3 mg/dL (0.2-1.3) 08/14/18 18:11 AST 18 U/L (14-36) 08/14/18 18:11 ALT 17 U/L (9-52) 08/14/18 18:11 Alkaline Phosphatase 78 U/L (38-126) 08/14/18 18:11 Troponin I <0.012 ng/mL (0.000-0.034) 08/14/18 18:11 Total Protein 6.7 g/dL (6.3-8.2) 08/14/18 18:11 Albumin 3.8 g/dL (3.5-5.0) 08/14/18 18:11 Triglycerides 183 mg/dL (<150) H 08/16/18 05:43 Cholesterol 186 mg/dL (<200) 08/16/18 05:43 LDL Cholesterol, Calc 113 mg/dL (0-99) H 08/16/18 05:43 HDL Cholesterol 36 mg/dL (40-60) L 08/16/18 05:43 Amylase 74 U/L (30-110) 08/13/18 09:29 Lipase 184 U/L (23-300) 08/13/18 09:29 Vancomycin Trough 13.9 ug/mL 08/13/18 20:49 Microbiology 08/15/18 02:50 Urine,Catheterized Urine Culture - Final 08/11/18 18:19 Urine,Suprapubic Urine Culture - Final Stenotrophomonas maltophilia Assessment and Plan (1) Abdominal pain Narrative/Plan: he patient has been seen by urology without evidence of acute urinary obstr uction or infection. Patient is without leukocytosis or fever. She again presented with some nausea and abdominal discomfort since been seen by surgery and not thought to have a surgical issue. Patient did develop the acute neurological symptoms and was thought to have acute CVA/TIA responded to her TPA treatment. She is currently without any acute neurological changes. Her abdominal pain has resolved. She is eating and drinking well. He has no acute flank pain at this time. 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 Current Visit: Yes Status: Acute Code(s): R10.9 - UNSPECIFIED ABDOMINAL PAIN SNOMED Code(s): 51522716 (2) Acute CVA (cerebrovascular accident) Current Visit: Yes Status: Acute Code(s): I63.9 - CEREBRAL INFARCTION, UNSPECIFIED SNOMED Code(s): 901312470
[2018-08-17] MEDS: METOCLOPRAMIDE 5 MG/ML 2 ML VIAL IVP SCH ×3 (05:52→20:03)
[2018-08-17] MEDS: LEVOTHYROXINE 50 MCG TAB PO SCH (05:52)
[2018-08-17 05:58] LABS: HCT 40.1 % (34.0-46.0); HGB 12.9 gm/dL (11.4-16.0); MCH 29.5 pg (25.0-35.0); MCHC 32.2 g/dL (31.0-37.0); MCV 91.4 fL (80.0-100.0); Mean Platelet Volume 7.6; Platelet Count 272 k/uL (150-450); RBC 4.39 m/uL (3.80-5.40); RDW 14.9 % (11.5-15.5); WBC 4.7 k/uL (3.8-10.6)
[2018-08-17] MEDS: SODIUM CHLORIDE 0.9% 1,000 ML IV SCH (05:59)
[2018-08-17 06:14] LABS: African American GFR (CKD) >90 (>60 ml/min/1.73 sqM); Anion Gap 7 mmol/L; Blood Urea Nitrogen 9 mg/dL (7-17); Carbon Dioxide 25 mmol/L (22-30); Chloride 108 mmol/L (98-107); Glucose 86 mg/dL (74-99); Magnesium 1.8 mg/dL (1.6-2.3); Potassium 3.8 mmol/L (3.5-5.1); Sodium 140 mmol/L (137-145)
[2018-08-17] MEDS: MAGNESIUM SULFATE-D5W PMX 1 GM in DEXTROSE/WATER 1 100ML.BAG IVPB SCH ×2 (07:22→09:42)
[2018-08-17] MEDS ORDERED: POTASSIUM CHLORIDE ER 20 MEQ TAB.ER PO ONE (08:00)
[2018-08-17 09:04] LABS: INR 0.9 (<1.2); Prothrombin Time 9.9 sec (9.0-12.0)
[2018-08-17] MEDS: HEPARIN SODIUM,PORCINE 5,000 UNIT/ML 1 ML VIAL SQ SCH ×2 (09:42→20:54)
[2018-08-17] MEDS: ASPIRIN 325 MG TAB PO SCH (09:42)
[2018-08-17] MEDS: LOSARTAN 50 MG TAB PO SCH (09:43)
[2018-08-17] MEDS: PANTOPRAZOLE 40 MG TABLET PO SCH (09:43)
[2018-08-17] MEDS: CHOLECALCIFEROL 1,000 UNIT TAB PO SCH (09:43)
[2018-08-17] MEDS: amLODIPine 5 MG TAB PO SCH (09:43)
[2018-08-17] MEDS: METOPROLOL TARTRATE 25 MG TAB PO SCH ×2 (09:43→20:54)
[2018-08-17] MEDS: cycloSPORINE 0.05% OPHTH 0.4 ML DROPERETTE BOTH EYES SCH ×2 (09:44→20:53)
[2018-08-17 10:11] LABS: Partial Thromboplastin Time 20.8 sec (22.0-30.0)
--- NOTE | 2018-08-17 13:21 | P.PN ---
Subjective Progress Note Date: 08/17/18 Patient offers no new complaints. Patient is sitting on the recliner chair, having lunch. Very pleasant. Objective - Vital Signs Vital signs: Vital Signs Temp 97.9 F 08/17/18 12:00 Pulse 61 08/17/18 12:00 Resp 17 08/17/18 12:00 BP 133/6 08/17/18 12:00 Pulse Ox 97 08/17/18 12:00 Intake & Output 08/16/18 08/17/18 08/17/18 18:59 06:59 18:59 Intake Total 600 600 500 Output Total 1415 890 755 Balance -815 -290 -255 Weight 60.7 kg Intake: IV 600 600 400 Sodium Chloride 0.9% 1, 550 600 300 000 ml @ 50 mls/hr IV . Q20H MARY Rx#:[id number] cefTRIAXone 1 gm In 50 100 Sodium Chloride 0.9% 50 ml @ 100 mls/hr IVPB Q24HR MARY Rx#:[id number] Intake, IV Titration 100 Amount Magnesium Sulfate-D5w Pmx 100 1 gm In Dextrose/Water 1 100ml.bag @ 100 mls/hr IVPB Q1H MARY Rx#: [id number] Output: Urine 1415 890 755 Other: Voiding Method Ileal Conduit (Right) Ileal Conduit (Right) - Exam Nonfocal. Some right visual field deficits which is chronic. Otherwise examination is nonfocal. - Labs CBC & Chem 7: 08/17/18 05:42 08/17/18 05:42 Labs: Abnormal Lab Results - Last 24 Hours (Table) 08/17/18 08/17/18 Range/Units 05:42 08:15 APTT 20.8 L (22.0-30.0) sec Chloride 108 H (98-107) mmol/L Microbiology - Last 24 Hours (Table) 08/15/18 02:50 Urine Culture - Final Urine,Catheterized Erika sp,not albicans/galbr Assessment and Plan Assessment: * Probable acute ischemic CVA, versus TIA status post TPA. Her current NIH stroke scale is 0. 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 MRI showed no acute ischemia. * Hypertension * History of bladder cancer, status post urostomy. * Hypothyroidism Plan: * Patient's current NIH stroke scale is 0. * Carotid Doppler showed no significant stenosis. * MRI of the brain revealed no acute ischemic process, no bleed. Revealed bilateral salcedo radiata/centrum semiovale hypointensities likely due to small vessel disease. On my review, there was slight abnormal bright signal in the DWI in the right parietal cortex, which after review with the radiologist felt was possible artifactual versus T2 shine through, as there was no associated signal abnormality on ADC map or FLAIR sequences. MRA of the head negative for any occlusion, stenosis or aneurysm. * 2-D echo with bubble study showed EF 55-60%. Right atrial and left atrial size normal. No gdzvn-zr-lcbi shunt. No embolic source found. * Fasting a.m. lipid panel showed cholesterol 183, LDL 113, HDL 36. Hemoglobin A1c 5.7. Suggest starting statins, but patient is ALLERGIC to statins. Target LDL <70. * Continue aspirin 325 mg daily. * EEG showed intermittent left temporal slowing with occasional sharp waves. This may suggest focal cortical neuronal dysfunction with underlying cortical irritability and tendency for seizure. Patient never has any history of seizure. No indication for antiepileptic medication at this time. Continue watchful observation. * Clear for discharge from neurology point. Patient may go to rehabilitation.
--- NOTE | 2018-08-17 16:49 | P.PN ---
Subjective Progress Note Date: 08/17/18 Principal diagnosis: Acute CVA Abdominal pain nausea. Tract infection, bladder cancer diverticulosis history of lung cancer with urostomy 08/17/2018, patient seen and evaluated examined during the rounds sitting upright in chair breathing comfortably denies any chest pain her neurological status is back to baseline has been evaluated by neurology, due to weakness patient is considered for placement in rehab, MRI done no acute ischemia is identified 08/16/2018, patient seen and evaluated examined during the rounds she is comfortable breathing swann denies any chest pain no further deterioration is noted, MRI is pending care plan discussed with primary service 08/15/2018, patient seen and evaluated examined during the rounds he even from yesterday noted patient yesterday evening had some speech impairment and sensory impairment upper extremity on the right side case was discussed by staff to neuro service and neurology recommended to give TPA and observe at [facility] her speech is better computed tomography scan of the head unremarkable except encephalomalacia and repeat is pending been ordered patient is getting every hourly neuro check breathing comfortably alert oriented 3 sensation in the right upper extremity has improved, and labs reviewed medications reviewed care plan discussed with nursing at length, 08/14/2018, patient seen eval reexamined while covering for Dr. Madan Salinas this patient has urine come back positive for S. Maltophillia in the Urine, Bactrim and Levaquin cannot be taken due to ALLERGIES will put on Rocephin and hold the discharge This is an 83-year-old female admitted with acute diffuse abdominal pain, unclear etiology, generalized weakness, fatigue, nausea and vomiting 2 weeks, recent drug-resistant enterococcus UTI, history of bladder cancer, status post ileal conduit, colonic diverticulosis and multiple other medical issues. Evaluated by surgery and urology with no further recommendations at this time. Completed MRI of the abdomen at [facility] last Thursday, report being obtained; patient states was negative. Complains of diffuse right lower quadrant pain radiating to right flank further radiating to lower mid back. Upon further questioning patient reports that she did stumble on bedspread ,nearly fell, prior to this visit. Flexeril added to med regime. Reports she did not sleep well. Maintained on clear liquid diet. Positive nausea with no emesis. Zofran and reglan added to med regime. Afebrile, normal WBCs, urine culture pending. Objective - Vital Signs Vital signs: Vital Signs Temp 97.9 F 08/17/18 12:00 Pulse 71 08/17/18 15:58 Resp 14 08/17/18 15:58 BP 132/77 08/17/18 15:00 Pulse Ox 97 08/17/18 15:00 Intake & Output 08/16/18 08/17/18 08/17/18 18:59 06:59 18:59 Intake Total 600 600 650 Output Total 1415 890 905 Balance -815 -290 -255 Weight 60.7 kg Intake: IV 600 600 550 Sodium Chloride 0.9% 1, 550 600 450 000 ml @ 50 mls/hr IV . Q20H MARY Rx#:[id number] cefTRIAXone 1 gm In 50 100 Sodium Chloride 0.9% 50 ml @ 100 mls/hr IVPB Q24HR MARY Rx#:[id number] Intake, IV Titration 100 Amount Magnesium Sulfate-D5w Pmx 100 1 gm In Dextrose/Water 1 100ml.bag @ 100 mls/hr IVPB Q1H MARY Rx#: [id number] Output: Urine 1415 890 905 Other: Voiding Method Ileal Conduit (Right) Ileal Conduit (Right) Ileal Conduit (Right) - Exam - Constitutional General appearance: Present: average body habitus, cooperative - EENT Eyes: Present: PERRLA, dentition normal ENT: Present: normal oropharynx Ears: bilateral: normal - Neck Neck: Present: normal ROM Carotids: bilateral: upstroke normal Thyroid: bilateral: normal size - Respiratory Respiratory: bilateral: CTA - Cardiovascular Rhythm: regular Heart sounds: normal: S1, S2 - Gastrointestinal General gastrointestinal: Present: soft - Neurologic Neurologic: Present: CNII-XII intact - Musculoskeletal Musculoskeletal: Present: gait normal, generalized weakness, strength equal bilaterally - Psychiatric Psychiatric: Present: A&O x's 3, appropriate affect, intact judgment & insight - Labs CBC & Chem 7: 08/17/18 05:42 08/17/18 05:42 Labs: Abnormal Lab Results - Last 24 Hours (Table) 08/17/18 08/17/18 Range/Units 05:42 08:15 APTT 20.8 L (22.0-30.0) sec Chloride 108 H (98-107) mmol/L Microbiology - Last 24 Hours (Table) 08/15/18 02:50 Urine Culture - Final Urine,Catheterized Erika sp,not albicans/galbr Assessment and Plan Assessment: Left hemispheric TIA versus CVA with transient aphasia and speech impairment along with sensory deficit in right upper extremity resolved now Urinary tract infection Abdominal pain nausea vomiting related to that Hypertension hypertensive cardiovascular disease History of bladder cancer with urostomy Diverticulosis Plan: Patient is status post TPA per neurology recommendation and NIH stroke scale Reviewed MRI of the brain Continue neuro checks as per protocol Repeat urine culture reviewed is negative Can replace in rehab from pulmonary standpoint Further recommendations pending plan of care as per clinical response Time with Patient: Greater than 30
[2018-08-17] MEDS: CYCLOBENZAPRINE 5 MG TAB PO PRN (20:02)
--- NOTE | 2018-08-18 00:11 | P.PN ---
Subjective Progress Note Date: 08/17/18 This is an 83-year-old female known to ID service due to her recent hospitalization in July at which time she presented with feeling poorly, abdominal pain, felt like an abdominal fullness. It was quite uncomfortable and she had difficulty eating. She was having nausea without much emesis. She had no hematemesis. She had no diarrhea. The patient did not believe that she had significant fever. She over felt poorly enough to present to Hospital where she was found evidence of an ileus surgical consult occurred. There is evidence of a bowel obstruction and it was thought that underlying infection was etiology for her ileus. The patient has an extensive past medical history in that she had a cystectomy for bladder cancer and does have an ileoconduit in place. She has have difficulties intermittently with urinary tract infection and routinely she feels very poorly with a UTI with nausea and abdominal discomforts. Because she is an ileoconduit her urine is often somewhat murky with mucus. Urine culture was positive for Enterococcus faecalis and Rocephin was then transitioned to Unasyn and she was discharged home on Augmentin. Patient states she completed her course but states she really did not feel much better at home. She has abdominal pain, nausea with dry heaving and no appet ite. She complains of right lower quadrant pain with no significant tenderness but does have tenderness in the right flank. She has had good urine output from ileoconduit. She denies having any fever or chills. She had an MR of the pelvis with and without IV contrast at [facility] last week which showed no evidence of hydronephrosis or other abnormality of the urinary system. She attained urine specimen from her ostomy bag and took this to Dr. Salinas's office on Thursday. There was concern for continued enterococcus urinary tract infection and patient was placed on vancomycin and directly admitted to the [facility] floor. She has been seen by Dr. macias in no acute abdomen and no surgical intervention is needed. She was resumed on clear liquid diet and this has been advanced. Patient is also been seen by Dr. Woods and he feels symptoms are not likely related to her urinary system. 08/16/2018 the patient has been transferred to intensive care unit after her last evaluation. She'll acute strokelike symptoms and was given TPA. She then had complete reversal of her symptoms. Remains in the ICU with further improvement. Her abdominal pain is improved. Nausea and emesis of improve. Does not have acute complaints at this time. Has just returned from her MRI. 08/17/2018 patient continues to improve and is being moved out of intensive care unit today. Her stroke symptoms have resolved. Overall she is feeling better. Current no significant abdominal pains, appetite still somewhat poor but no other new symptoms at this time Objective - Vital Signs Vital signs: Vital Signs Temp 97.9 F 08/17/18 21:00 Pulse 73 08/17/18 21:00 Resp 16 08/17/18 21:00 BP 150/72 08/17/18 21:00 Pulse Ox 98 08/17/18 21:00 Intake & Output 08/17/18 08/17/18 08/18/18 06:59 18:59 06:59 Intake Total 600 750 Output Total 890 2000 Balance -290 -1250 Weight 60.7 kg Intake: IV 600 650 Sodium Chloride 0.9% 1, 600 550 000 ml @ 50 mls/hr IV . Q20H MARY Rx#:[id number] cefTRIAXone 1 gm In 100 Sodium Chloride 0.9% 50 ml @ 100 mls/hr IVPB Q24HR MARY Rx#:[id number] Intake, IV Titration 100 Amount Magnesium Sulfate-D5w Pmx 100 1 gm In Dextrose/Water 1 100ml.bag @ 100 mls/hr IVPB Q1H MARY Rx#: [id number] Output: Urine 890 2000 Other: Voiding Method Ileal Conduit (Right) Ileal Conduit (Right) - Exam Gen.: This is an 83-year-old female. She is resting in bed and appears to be comfortable and in no acute distress. Patient's is at the bedside. HEENT: Anicteric, conjunctiva are pink and moist, nasal or oral mucosa are without lesion. The neck is supple without lymphadenopathy or thyromegaly. No oral thrush is noted. Oral mucous membranes are moist. Lungs: good bilateral air entry, there are no significant crackles or wheezes, no bronchial sounds or egophony. Heart: Regular rate and rhythm with an audible S1-S2, no S3 or S4 noted. No significant murmur click or rub noted. Abdomen: Positive bowel sounds, it is soft there is tenderness right lower quadrant. The urostomy from ileoconduit is intact with nonbloody urine present in the urostomy pouch, mild right flank tenderness Extremities:Upper extremities reveal evidence of equal pulses, no lesions are seen, no petechiae or telangiectasia. The lower extremities have no significant edema, peripheral pulses were 2+ and symmetric, no lesions or ulcerations are seen. Capillary refill was brisk. Skin: Intact without significant rash or lesions. Neuro:Awake and alert, oriented to person place and time. No gross focal sensory motor deficits noted. Appears to have no residual from her recent CVA/TIA Musculoskeletal: Patient is ambulatory - Labs CBC & Chem 7: 08/17/18 05:42 08/17/18 05:42 Labs: Abnormal Lab Results - Last 24 Hours (Table) 08/17/18 08/17/18 Range/Units 05:42 08:15 APTT 20.8 L (22.0-30.0) sec Chloride 108 H (98-107) mmol/L Microbiology - Last 24 Hours (Table) 08/15/18 02:50 Urine Culture - Final Urine,Catheterized Erika sp,not albicans/galbr - Imaging and Cardiology MRI - head: report reviewed (No new acute stroke or masses seen) Assessment and Plan (1) Abdominal pain Narrative/Plan: The patient has been seen by urology without evidence of acute urinary obstruction or infection. Patient is without leukocytosis or fever. She again presented with some nausea and abdominal discomfort since been seen by surgery and not thought to have a surgical issue. Patient did develop the acute neurological symptoms and was thought to have acute CVA/TIA responded to her TPA treatment. She is currently without any acute neurological changes. Her abdominal pain has resolved. She is eating and drinking well. He has no acute flank pain at this time. 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 Current Visit: Yes Status: Acute Code(s): R10.9 - UNSPECIFIED ABDOMINAL PAIN SNOMED Code(s): 44296315 (2) Acute CVA (cerebrovascular accident) Current Visit: Yes Status: Acute Code(s): I63.9 - CEREBRAL INFARCTION, UNSPECIFIED SNOMED Code(s): 179717689
[2018-08-18] MEDS: METOCLOPRAMIDE 5 MG/ML 2 ML VIAL IVP SCH ×5 (01:45→23:44)
[2018-08-18] MEDS: SODIUM CHLORIDE 0.9% 1,000 ML IV SCH ×2 (03:00→21:36)
[2018-08-18] MEDS: LEVOTHYROXINE 50 MCG TAB PO SCH (07:01)
[2018-08-18] MEDS: CHOLECALCIFEROL 1,000 UNIT TAB PO SCH (07:56)
[2018-08-18] MEDS: HEPARIN SODIUM,PORCINE 5,000 UNIT/ML 1 ML VIAL SQ SCH ×2 (07:56→21:35)
[2018-08-18] MEDS: ASPIRIN 325 MG TAB PO SCH (07:57)
[2018-08-18] MEDS: METOPROLOL TARTRATE 25 MG TAB PO SCH ×2 (07:57→21:35)
[2018-08-18] MEDS: LOSARTAN 50 MG TAB PO SCH (07:57)
[2018-08-18] MEDS: amLODIPine 5 MG TAB PO SCH (07:58)
[2018-08-18] MEDS: PANTOPRAZOLE 40 MG TABLET PO SCH (07:58)
[2018-08-18] MEDS: cycloSPORINE 0.05% OPHTH 0.4 ML DROPERETTE BOTH EYES SCH ×2 (10:36→23:44)
[2018-08-18 15:30] VITALS: BMI 23.7
--- NOTE | 2018-08-18 16:46 | P.PN ---
Subjective Progress Note Date: 08/17/18 This is an 83-year-old female admitted with acute diffuse abdominal pain, unclear etiology, generalized weakness, fatigue, nausea and vomiting 2 weeks, recent drug-resistant enterococcus UTI, history of bladder cancer, status post ileal conduit, colonic diverticulosis and multiple other medical issues. E valuated by surgery and urology with no further recommendations at this time. Completed MRI of the abdomen at [facility] last Thursday, report being obtained; patient states was negative. Complains of diffuse right lower quadrant pain radiating to right flank further radiating to lower mid back. Upon further questioning patient reports that she did stumble on bedspread ,nearly fell, prior to this visit. Flexeril added to med regime. Reports she did not sleep well. Maintained on clear liquid diet. Positive nausea with no emesis. Zofran and reglan added to med regime. Afebrile, normal WBCs, urine culture pending. 08/13/2018 Significant improvement on Flexeril, currently denies abdominal//back pain. Mild right flank pain. Tolerating diet with no nausea this morning. Denies diarrhea. Denies constipation-passing flatus. Diet intake 50%. Afebrile. Labs unremarkable.[facility] MRI report still being obtained. Denies chest pain, palpitations or shortness of breath. Denies lightheadedness dizziness or focal deficits. 08/16/18 Over the weekend, patient experienced speech difficulty, some visual field deficits ,right-sided upper extremity weakness. Evaluated by neurology. 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 Significant clinical improvement, this morning her neurological deficits have completely resolved. Denies lightheadedness, dizziness, focal deficits. Denies headache. Echo reporting normal LV function, EF 55-60%. Bubble study reported negative contrast, cannot exclude [id number] shunt. Carotid Doppler reports no hemodynamic significant stenosis. EEG completed, final report pending. MRI, MRA pending. Urine culture reporting Stenotrophomonas Maltophilia with IV antibiotics as per infectious disease. 08/17/2018 significant clinical improvement. Denies abdominal/flank pain. No right-sided weakness, no visual deficits with the exception of -patient does have history of right corneal transplant with some mild visual deficit related to that, which she states is chronic. MRI of the brain reported no acute ischemic process, no bleed, MRA of the head reported negative for any occlusion, stenosis or aneurysm. Statins recommended but not initiated related to patient's ALLERGY of statins. Maintained on aspirin. Objective - Vital Signs Vital signs: Vital Signs Temp 97.9 F 08/17/18 12:00 Pulse 71 08/17/18 15:58 Resp 14 08/17/18 15:58 BP 132/77 08/17/18 15:00 Pulse Ox 97 08/17/18 15:00 Intake & Output 08/16/18 08/17/18 08/17/18 18:59 06:59 18:59 Intake Total 600 600 650 Output Total 1415 890 905 Balance -815 -290 -255 Weight 60.7 kg Intake: IV 600 600 550 Sodium Chloride 0.9% 1, 550 600 450 000 ml @ 50 mls/hr IV . Q20H MARY Rx#:[id number] cefTRIAXone 1 gm In 50 100 Sodium Chloride 0.9% 50 ml @ 100 mls/hr IVPB Q24HR MARY Rx#:[id number] Intake, IV Titration 100 Amount Magnesium Sulfate-D5w Pmx 100 1 gm In Dextrose/Water 1 100ml.bag @ 100 mls/hr IVPB Q1H MARY Rx#: [id number] Output: Urine 1415 890 905 Other: Voiding Method Ileal Conduit (Right) Ileal Conduit (Right) Ileal Conduit (Right) - Exam PHYSICAL EXAM: VITAL SIGNS: As above GENERAL: Sitting up in bed, no acute distress HEENT: Conjunctivae normal. eyes normal. Oral mucosa moist NECK: No JVD. No thyroid enlargement. No LNs CARDIOVASCULAR: S1, S2 regular.No murmur, rub or gallop RESPIRATION: Breath sounds diminished in the bases. No rhonchi or crackles. ABDOMEN: Soft, nondistended, minimal right flank tenderness. Urostomy pouch present with clear urine, nonbloody. No guarding. no masses palpable. Bowel sounds heard. LEGS: No edema. no swelling PSYCHIATRY: Alert and oriented ?-3, mood and affect normal. NERVOUS SYSTEM: Cranial N 2-12 grossly normal. Speech fluent and appropriate , no facial asymmetry.Moves all 4 limbs. Diffuse weakness No focal deficits. Strength and sensation grossly intact. No apparent residual from recent CVA/TIA. Skin: no lesions, no rash Microbiology 08/15/18 02:50 Urine,Catheterized Urine Culture - Final 08/11/18 18:19 Urine,Suprapubic Urine Culture - Final Stenotrophomonas maltophilia - Labs CBC & Chem 7: 08/17/18 05:42 08/17/18 05:42 Labs: Abnormal Lab Results - Last 24 Hours (Table) 08/17/18 08/17/18 Range/Units 05:42 08:15 APTT 20.8 L (22.0-30.0) sec Chloride 108 H (98-107) mmol/L Microbiology - Last 24 Hours (Table) 08/15/18 02:50 Urine Culture - Final Urine,Catheterized Erika sp,not albicans/galbr Assessment and Plan Assessment: -Abdominal pain with nausea ,vomiting weakness,of unclear etiology, in a patient with recently treated for drug-resistant enterococcus UTI, abdominal pain subsided. -Possible acute CVA, possible acute TIA, status post TPA -Acute UTI with Stenotrophomonas maltophilia. Chronic colonization. -Hypertension -History of bladder cancer with urostomy -Diverticulosis Plan: Continue on current medication regime ,monitoring and symptomatic treatment. [facility]. At discharge, no further antibiotic therapy recommended at this time per infectious disease.Discharge planning in progress pending preauthorization for subacute rehab. Further recommendations to follow. The impression and plan of care has been dictated as directed. : I performed a history and examination of this patient, discussed the same with the dictator. I agree with the dictator's note ,documented as a scribe. Any additional findings or plans will be noted.
--- NOTE | 2018-08-18 16:55 | P.PN ---
Subjective Progress Note Date: 08/18/18 This is an 83-year-old female admitted with acute diffuse abdominal pain, unclear etiology, generalized weakness, fatigue, nausea and vomiting 2 weeks, recent drug-resistant enterococcus UTI, history of bladder cancer, status post ileal conduit, colonic diverticulosis and multiple other medical issues. E valuated by surgery and urology with no further recommendations at this time. Completed MRI of the abdomen at [facility] last Thursday, report being obtained; patient states was negative. Complains of diffuse right lower quadrant pain radiating to right flank further radiating to lower mid back. Upon further questioning patient reports that she did stumble on bedspread ,nearly fell, prior to this visit. Flexeril added to med regime. Reports she did not sleep well. Maintained on clear liquid diet. Positive nausea with no emesis. Zofran and reglan added to med regime. Afebrile, normal WBCs, urine culture pending. 08/13/2018 Significant improvement on Flexeril, currently denies abdominal//back pain. Mild right flank pain. Tolerating diet with no nausea this morning. Denies diarrhea. Denies constipation-passing flatus. Diet intake 50%. Afebrile. Labs unremarkable.[facility] MRI report still being obtained. Denies chest pain, palpitations or shortness of breath. Denies lightheadedness dizziness or focal deficits. 08/16/18 Over the weekend, patient experienced speech difficulty, some visual field deficits ,right-sided upper extremity weakness. Evaluated by neurology. 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 Significant clinical improvement, this morning her neurological deficits have completely resolved. Denies lightheadedness, dizziness, focal deficits. Denies headache. Echo reporting normal LV function, EF 55-60%. Bubble study reported negative contrast, cannot exclude [id number] shunt. Carotid Doppler reports no hemodynamic significant stenosis. EEG completed, final report pending. MRI, MRA pending. Urine culture reporting Stenotrophomonas Maltophilia with IV antibiotics as per infectious disease. 08/17/2018 significant clinical improvement. Denies abdominal/flank pain. No right-sided weakness, no visual deficits with the exception of -patient does have history of right corneal transplant with some mild visual deficit related to that, which she states is chronic. MRI of the brain reported no acute ischemic process, no bleed, MRA of the head reported negative for any occlusion, stenosis or aneurysm. Statins recommended but not initiated related to patient's ALLERGY of statins. Maintained on aspirin. 08/18/2018 currently residing on [facility] unit with no new complaints. Maintained on IV antibiotics of Rocephin. Afebrile, normal WBC. Urine culture Erika SP. Diet intake improving, consumed 75% of breakfast. Denies nausea or vomiting. No diarrhea.Denies abdominal pain. Denies chest pain, palpitations or shortness of breath. Denies lightheadedness dizziness or focal deficits. Objective - Vital Signs Vital signs: Vital Signs Temp 97.9 F 08/18/18 11:24 Pulse 56 L 08/18/18 14:33 Resp 16 08/18/18 11:24 BP 133/64 08/18/18 11:24 Pulse Ox 97 08/18/18 11:24 Intake & Output 08/17/18 08/18/18 08/18/18 18:59 06:59 18:59 Intake Total 750 740 800 Output Total 2000 1000 1100 Balance -1250 -260 -300 Weight 60.7 kg Intake: IV 650 150 800 Sodium Chloride 0.9% 1, 550 150 750 000 ml @ 50 mls/hr IV . Q20H MARY Rx#:[id number] cefTRIAXone 1 gm In 100 50 Sodium Chloride 0.9% 50 ml @ 100 mls/hr IVPB Q24HR MARY Rx#:[id number] Intake, IV Titration 100 Amount Magnesium Sulfate-D5w Pmx 100 1 gm In Dextrose/Water 1 100ml.bag @ 100 mls/hr IVPB Q1H MARY Rx#: [id number] Oral 590 Output: Urine 1999 1000 1100 Other: Voiding Method Ileal Conduit (Right) Ileal Conduit (Right) Ileal Conduit (Right) - Exam PHYSICAL EXAM: VITAL SIGNS: As above GENERAL: Sitting up in bed, no acute distress HEENT: Conjunctivae normal. eyes normal. Oral mucosa moist. No thrush NECK: No JVD. No thyroid enlargement. No LNs CARDIOVASCULAR: S1, S2 regular.No murmur, rub or gallop RESPIRATION: Breath sounds diminished in the bases. No rhonchi or crackles. No wheezing. ABDOMEN: Soft, nondistended, minimal right flank tenderness. Urostomy pouch present with clear urine. No guarding. no masses palpable. Positive bowel sounds. LEGS: No edema. no swelling. PSYCHIATRY: Alert and oriented lert and oriented-3, mood and affect normal. NERVOUS SYSTEM: Cranial N 2-12 grossly normal. Speech fluent and appropriate , no facial asymmetry.Moves all 4 limbs. Diffuse weakness, No focal deficits. Strength and sensation grossly intact. No apparent residual from recent CVA/TIA. Skin: no lesions, no rash Microbiology 08/15/18 02:50 Urine,Catheterized Urine Culture - Final 08/11/18 18:19 Urine,Suprapubic Urine Culture - Final Stenotrophomonas maltophilia - Labs CBC & Chem 7: 08/17/18 05:42 08/17/18 05:42 Assessment and Plan Assessment: -Abdominal pain with nausea ,vomiting weakness,of unclear etiology, in a patient with recently treated for drug-resistant enterococcus UTI, abdominal pain subsided. -Possible acute CVA, possible acute TIA, status post TPA -Acute UTI with Stenotrophomonas maltophilia. Chronic colonization. -Hypertension -History of bladder cancer with urostomy -Diverticulosis Plan: Continue on current medication regime ,monitoring and symptomatic treatment. PT/OT. Encourage diet intake. Increase ambulation as tolerated. Discharge planning in progress pending preauthorization for subacute rehab. At discharge, no further antibiotic therapy recommended at this time per infectious disease. The impression and plan of care has been dictated as directed. : I performed a history and examination of this patient, discussed the same with the dictator. I agree with the dictator's note ,documented as a scribe. Any additional findings or plans will be noted.
--- NOTE | 2018-08-18 19:05 | P.PN ---
Subjective Progress Note Date: 08/18/18 Patient offers no new complaints. Patient is laying comfortably in the bed. Patient's and daughters were present. Patient's insurance is declining transfer to rehab facility. Objective - Vital Signs Vital signs: Vital Signs Temp 97.9 F 08/18/18 11:24 Pulse 56 L 08/18/18 14:33 Resp 16 08/18/18 11:24 BP 133/64 08/18/18 11:24 Pulse Ox 97 08/18/18 11:24 Intake & Output 08/17/18 08/18/18 08/18/18 18:59 06:59 18:59 Intake Total 750 740 800 Output Total 2000 1000 1600 Balance -1250 -260 -800 Weight 60.7 kg Intake: IV 650 150 800 Sodium Chloride 0.9% 1, 550 150 750 000 ml @ 50 mls/hr IV . Q20H MARY Rx#:[id number] cefTRIAXone 1 gm In 100 50 Sodium Chloride 0.9% 50 ml @ 100 mls/hr IVPB Q24HR MARY Rx#:[id number] Intake, IV Titration 100 Amount Magnesium Sulfate-D5w Pmx 100 1 gm In Dextrose/Water 1 100ml.bag @ 100 mls/hr IVPB Q1H MARY Rx#: [id number] Oral 590 Output: Urine 2000 1000 1600 Other: Voiding Method Ileal Conduit (Right) Ileal Conduit (Right) Ileal Conduit (Right) - Exam Nonfocal. Some right visual field deficits which is chronic. Otherwise examination is nonfocal. 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 Her current NIH stroke scale is 0. 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 MRI showed no acute ischemia. * Hypertension * History of bladder cancer, status post urostomy. * Hypothyroidism Plan: * Patient's current NIH stroke scale is 0. * Carotid Doppler showed no significant stenosis. * MRI of the brain revealed no acute ischemic process, no bleed. Revealed bilateral salcedo radiata/centrum semiovale hypointensities likely due to small vessel disease. On my review, there was slight abnormal bright signal in the DWI in the right parietal cortex, which after review with the radiologist felt was possible artifactual versus T2 shine through, as there was no associated signal abnormality on ADC map or FLAIR sequences. MRA of the head negative for any occlusion, stenosis or aneurysm. * 2-D echo with bubble study showed EF 55-60%. Right atrial and left atrial size normal. No ivuhk-mt-vyhk shunt. No embolic source found. * Fasting a.m. lipid panel showed cholesterol 183, LDL 113, HDL 36. Hemoglobin A1c 5.7. Suggest starting statins, but patient states she has been intolerant to various statins in the past. Target LDL <70. She will discuss with her PCP if she wants to go on statins. Wants to hold off on it. D/W patients daughters also. * Continue aspirin 325 mg daily. Patient on Protonix for gastric ulcer prophylaxis. Also on Reglan. * EEG showed intermittent left temporal slowing with occasional sharp waves. This may suggest focal cortical neuronal dysfunction with underlying cortical irritability and tendency for seizure. Patient never has any history of sei zure. No indication for antiepileptic medication at this time. Continue watchful observation. * Clear for discharge from neurology point. Patient may go to rehabilitation versus home with home care.
[2018-08-18] MEDS ORDERED: FAMOTIDINE 20 MG TAB PO SCH (21:00)
[2018-08-19] MEDS: METOCLOPRAMIDE 5 MG/ML 2 ML VIAL IVP SCH ×4 (05:54→23:54)
[2018-08-19] MEDS: LEVOTHYROXINE 50 MCG TAB PO SCH (05:54)
[2018-08-19 07:49] LABS: Basophils # (A) 0.1 k/uL (0-0.2); Basophils % (A) 1 %; Eosinophils # (A) 0.1 k/uL (0-0.7); Eosinophils % (A) 3 %; HCT 39.1 % (34.0-46.0); HGB 12.5 gm/dL (11.4-16.0); Lymphocytes # (A) 0.8 k/uL (1.0-4.8); Lymphocytes % (A) 18 %; MCH 29.4 pg (25.0-35.0); MCV 91.7 fL (80.0-100.0); Mean Platelet Volume 7.4; Monocytes # (A) 0.3 k/uL (0-1.0); Monocytes % (A) 7 %; Neutrophils # (A) 3.2 k/uL (1.3-7.7); Neutrophils % (A) 70 %; Platelet Count 273 k/uL (150-450); RBC 4.26 m/uL (3.80-5.40); RDW 15.2 % (11.5-15.5); WBC 4.5 k/uL (3.8-10.6)
[2018-08-19 07:59] LABS: African American GFR (CKD) >90 (>60 ml/min/1.73 sqM); Anion Gap 7 mmol/L; Blood Urea Nitrogen 10 mg/dL (7-17); Calcium 8.9 mg/dL (8.4-10.2); Carbon Dioxide 23 mmol/L (22-30); Chloride 108 mmol/L (98-107); Glucose 87 mg/dL (74-99); Potassium 4.2 mmol/L (3.5-5.1); Sodium 138 mmol/L (137-145)
[2018-08-19] MEDS: amLODIPine 5 MG TAB PO SCH (08:35)
[2018-08-19] MEDS: ASPIRIN 325 MG TAB PO SCH (08:35)
[2018-08-19] MEDS: CHOLECALCIFEROL 1,000 UNIT TAB PO SCH (08:35)
[2018-08-19] MEDS: HEPARIN SODIUM,PORCINE 5,000 UNIT/ML 1 ML VIAL SQ SCH ×2 (08:36→20:08)
[2018-08-19] MEDS: LOSARTAN 50 MG TAB PO SCH (08:37)
[2018-08-19] MEDS: METOPROLOL TARTRATE 25 MG TAB PO SCH ×2 (08:37→20:08)
[2018-08-19] MEDS: PANTOPRAZOLE 40 MG TABLET PO SCH (08:37)
[2018-08-19] MEDS: cycloSPORINE 0.05% OPHTH 0.4 ML DROPERETTE BOTH EYES SCH ×2 (08:39→20:08)
[2018-08-19] MEDS: CYCLOBENZAPRINE 5 MG TAB PO PRN (16:14)
[2018-08-19] MEDS: SODIUM CHLORIDE 0.9% 1,000 ML IV SCH (17:06)
--- NOTE | 2018-08-19 17:46 | P.PN ---
Subjective Progress Note Date: 08/19/18 Patient offers no new complaints. Patient is laying comfortably in the bed. Patient's and a friend were present. Patient's insurance is declining transfer to rehab facility. Patient states she walked in the hallway with the nurse and was doing fairly well. Denies any new focal symptoms. Objective - Vital Signs Vital signs: Vital Signs Temp 97.9 F 08/19/18 11:38 Pulse 66 08/19/18 11:38 Resp 16 08/19/18 11:38 BP 122/61 08/19/18 11:38 Pulse Ox 97 08/19/18 11:38 Intake & Output 08/18/18 08/19/18 08/19/18 18:59 06:59 18:59 Intake Total 800 740 450 Output Total 6546 201 3833 Balance -800 -240 -650 Weight 60.7 kg Intake: IV 800 150 450 Sodium Chloride 0.9% 1, 750 150 400 000 ml @ 50 mls/hr IV . Q20H MARY Rx#:[id number] cefTRIAXone 1 gm In 50 50 Sodium Chloride 0.9% 50 ml @ 100 mls/hr IVPB Q24HR MARY Rx#:[id number] Oral 590 Output: Urine 6035 344 1702 Other: Voiding Method Ileal Conduit (Right) Ileal Conduit (Right) Ileal Conduit (Right) - Exam Nonfocal. Some right visual field deficits which is chronic. Otherwise examination is nonfocal. 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 Her current NIH stroke scale is 0. 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 MRI showed no acute ischemia. * Hypertension * History of bladder cancer, status post urostomy. * Hypothyroidism Plan: * Patient's current NIH stroke scale is 0. * Carotid Doppler showed no significant stenosis. * MRI of the brain revealed no acute ischemic process, no bleed. Revealed bilateral salcedo radiata/centrum semiovale hypointensities likely due to small vessel disease. On my review, there was slight abnormal bright signal in the DWI in the right parietal cortex, which after review with the radiologist felt was possible artifactual versus T2 shine through, as there was no associated signal abnormality on ADC map or FLAIR sequences. MRA of the head negative for any occlusion, stenosis or aneurysm. * 2-D echo with bubble study showed EF 55-60%. Right atrial and left atrial size normal. No neuqx-yt-ifme shunt. No embolic source found. * Fasting a.m. lipid panel showed cholesterol 183, LDL 113, HDL 36. Hemoglobin A1c 5.7. Suggest starting statins, but patient states she has been intolerant to various statins in the past. Target LDL <70. She will discuss with her PCP if she wants to go on statins. Wants to hold off on it. D/W patients daughters also. * Continue aspirin 325 mg daily. Patient on Protonix for gastric ulcer prophylaxis. Also on Reglan. * EEG showed intermittent left temporal slowing with occasional sharp waves. This may suggest focal cortical neuronal dysfunction with underlying cortical irritability and tendency for seizure. Patient never has any history of seizure. No indication for antiepileptic medication at this time. Continue watchful observation. * Clear for discharge from neurology point. Patient may go to rehabilitation versus home with home care. * Will sign off.
[2018-08-20 00:24] VITALS: RESP 18
[2018-08-20] MEDS: CYCLOBENZAPRINE 5 MG TAB PO PRN (05:04)
[2018-08-20] MEDS: METOCLOPRAMIDE 5 MG/ML 2 ML VIAL IVP SCH ×2 (05:04→14:58)
[2018-08-20] MEDS: LEVOTHYROXINE 50 MCG TAB PO SCH (05:04)
--- NOTE | 2018-08-20 08:53 | P.PN ---
Subjective Progress Note Date: 08/18/18 Principal diagnosis: Acute CVA Abdominal pain nausea. Tract infection, bladder cancer diverticulosis history of lung cancer with urostomy 08/18/2018, patient seen eval reexamined during the rounds breathing comfortably awake and alert sitting upright in his chair she is been followed by neurology she is in ICU but being planned for transfer out of the ICU no symptoms that were noted previously have resolved I symptoms are mostly due to prior surgery which are consistent 08/17/2018, patient seen and evaluated examined during the rounds sitting upright in chair breathing comfortably denies any chest pain her neurological status is back to baseline has been evaluated by neurology, due to weakness patient is considered for placement in rehab, MRI done no acute ischemia is identified 08/16/2018, patient seen and evaluated examined during the rounds she is comfortable breathing swann denies any chest pain no further deterioration is noted, MRI is pending care plan discussed with primary service 08/15/2018, patient seen and evaluated examined during the rounds he even from yesterday noted patient yesterday evening had some speech impairment and sensory impairment upper extremity on the right side case was discussed by staff to neuro service and neurology recommended to give TPA and observe at [facility] her speech is better computed tomography scan of the head unremarkable except encephalomalacia and repeat is pending been ordered patient is getting every hourly neuro check breathing comfortably alert oriented 3 sensation in the right upper extremity has improved, and labs reviewed medications reviewed care plan discussed with nursing at length, 08/14/2018, patient seen eval reexamined while covering for Dr. Madan Salinas this patient has urine come back positive for S. Maltophillia in the Urine, Bactrim and Levaquin cannot be taken due to ALLERGIES will put on Rocephin and hold the discharge This is an 83-year-old female admitted with acute diffuse abdominal pain, unclear etiology, generalized weakness, fatigue, nausea and vomiting 2 weeks, recent drug-resistant enterococcus UTI, history of bladder cancer, status post ileal conduit, colonic diverticulosis and multiple other medical issues. Evaluated by surgery and urology with no further recommendations at this time. Completed MRI of the abdomen at [facility] last Thursday, report being obtained; patient states was negative. Complains of diffuse right lower quadrant pain radiating to right flank further radiating to lower mid back. Upon further questioning patient reports that she did stumble on bedspread ,nearly fell, prior to this visit. Flexeril added to med regime. Reports she did not sleep well. Maintained on clear liquid diet. Positive nausea with no emesis. Zofran and reglan added to med regime. Afebrile, normal WBCs, urine culture pending. Objective - Vital Signs Vital signs: Vital Signs Temp 97.9 F 08/18/18 11:24 Pulse 56 L 08/18/18 14:33 Resp 16 08/18/18 11:24 BP 133/64 08/18/18 11:24 Pulse Ox 97 08/18/18 11:24 Intake & Output 08/18/18 08/18/18 08/19/18 06:59 18:59 06:59 Intake Total 740 800 Output Total 1000 1600 Balance -260 -800 Weight 60.7 kg Intake: IV 150 800 Sodium Chloride 0.9% 1, 150 750 000 ml @ 50 mls/hr IV . Q20H MARY Rx#:[id number] cefTRIAXone 1 gm In 50 Sodium Chloride 0.9% 50 ml @ 100 mls/hr IVPB Q24HR MARY Rx#:[id number] Oral 590 Output: Urine 1000 1600 Other: Voiding Method Ileal Conduit (Right) Ileal Conduit (Right) - Exam - Constitutional General appearance: Present: average body habitus, cooperative - EENT Eyes: Present: PERRLA, dentition normal ENT: Present: normal oropharynx Ears: bilateral: normal - Neck Neck: Present: normal ROM Carotids: bilateral: upstroke normal Thyroid: bilateral: normal size - Respiratory Respiratory: bilateral: CTA - Cardiovascular Rhythm: regular Heart sounds: normal: S1, S2 - Gastrointestinal General gastrointestinal: Present: soft - Neurologic Neurologic: Present: CNII-XII intact - Musculoskeletal Musculoskeletal: Present: gait normal, generalized weakness, strength equal bilaterally - Psychiatric Psychiatric: Present: A&O x's 3, appropriate affect, intact judgment & insight - Labs CBC & Chem 7: 08/19/18 06:56 08/19/18 06:56 Assessment and Plan Assessment: Left hemispheric TIA versus CVA with transient aphasia and speech impairment along with sensory deficit in right upper extremity resolved now Urinary tract infection Abdominal pain nausea vomiting related to that Hypertension hypertensive cardiovascular disease History of bladder cancer with urostomy Diverticulosis Plan: Patient is status post TPA per neurology recommendation and NIH stroke scale Reviewed MRI of the brain Continue neuro checks as per protocol Repeat urine culture reviewed is negative Can replace in rehab from pulmonary standpoint Can be moved out of the ICU Further recommendations pending plan of care as per clinical response Time with Patient: Greater than 30
--- NOTE | 2018-08-20 08:55 | P.PN ---
Subjective Principal diagnosis: Acute CVA Abdominal pain nausea. Tract infection, bladder cancer diverticulosis history of lung cancer with urostomy 08/19/2018, patient seen and evaluated examined during the rounds she is moved out of the ICU on medical floor she is doing well denies any chest pain the issue is the placement no significant symptoms are present doing well 08/18/2018, patient seen eval reexamined during the rounds breathing comfortably awake and alert sitting upright in his chair she is been followed by neurology she is in ICU but being planned for transfer out of the ICU no symptoms that were noted previously have resolved I symptoms are mostly due to prior surgery which are consistent 08/17/2018, patient seen and evaluated examined during the rounds sitting upright in chair breathing comfortably denies any chest pain her neurological status is back to baseline has been evaluated by neurology, due to weakness oj ent is considered for placement in rehab, MRI done no acute ischemia is identified 08/16/2018, patient seen and evaluated examined during the rounds she is comfortable breathing swann denies any chest pain no further deterioration is noted, MRI is pending care plan discussed with primary service 08/15/2018, patient seen and evaluated examined during the rounds he even from yesterday noted patient yesterday evening had some speech impairment and sensory impairment upper extremity on the right side case was discussed by staff to neuro service and neurology recommended to give TPA and observe at [facility] her speech is better computed tomography scan of the head unremarkable except encephalomalacia and repeat is pending been ordered patient is getting every hourly neuro check breathing comfortably alert oriented 3 sensation in the right upper extremity has improved, and labs reviewed medications reviewed care plan discussed with nursing at length, 08/14/2018, patient seen eval reexamined while covering for Dr. Madan Salinas this patient has urine come back positive for S. Maltophillia in the Urine, Bactrim and Levaquin cannot be taken due to ALLERGIES will put on Rocephin and hold the discharge This is an 83-year-old female admitted with acute diffuse abdominal pain, u nclear etiology, generalized weakness, fatigue, nausea and vomiting 2 weeks, recent drug-resistant enterococcus UTI, history of bladder cancer, status post ileal conduit, colonic diverticulosis and multiple other medical issues. Evaluated by surgery and urology with no further recommendations at this time. Completed MRI of the abdomen at [facility] last Thursday, report being obtained; patient states was negative. Complains of diffuse right lower quadrant pain radiating to right flank further radiating to lower mid back. Upon further questioning patient reports that she did stumble on bedspread ,nearly fell, prior to this visit. Flexeril added to med regime. Reports she did not s leep well. Maintained on clear liquid diet. Positive nausea with no emesis. Zofran and reglan added to med regime. Afebrile, normal WBCs, urine culture pending. Objective - Vital Signs Vital signs: Vital Signs Temp 97.9 F 08/19/18 11:38 Pulse 66 08/19/18 11:38 Resp 16 08/19/18 11:38 BP 122/61 08/19/18 11:38 Pulse Ox 97 08/19/18 11:38 Intake & Output 08/18/18 08/19/18 08/19/18 18:59 06:59 18:59 Intake Total 800 740 450 Output Total 7718 612 3741 Balance -800 -240 -650 Weight 60.7 kg Intake: IV 800 150 450 Sodium Chloride 0.9% 1, 750 150 400 000 ml @ 50 mls/hr IV . Q20H MARY Rx#:[id number] cefTRIAXone 1 gm In 50 50 Sodium Chloride 0.9% 50 ml @ 100 mls/hr IVPB Q24HR MARY Rx#:[id number] Oral 590 Output: Urine 1457 428 2963 Other: Voiding Method Ileal Conduit (Right) Ileal Conduit (Right) Ileal Conduit (Right) - Exam - Constitutional General appearance: Present: average body habitus, cooperative - EENT Eyes: Present: PERRLA, dentition normal ENT: Present: normal oropharynx Ears: bilateral: normal - Neck Neck: Present: normal ROM Carotids: bilateral: upstroke normal Thyroid: bilateral: normal size - Respiratory Respiratory: bilateral: CTA - Cardiovascular Rhythm: regular Heart sounds: normal: S1, S2 - Gastrointestinal General gastrointestinal: Present: soft - Neurologic Neurologic: Present: CNII-XII intact - Musculoskeletal Musculoskeletal: Present: gait normal, generalized weakness, strength equal bilaterally - Psychiatric Psychiatric: Present: A&O x's 3, appropriate affect, intact judgment & insight - Labs CBC & Chem 7: 08/19/18 06:56 08/19/18 06:56 Labs: Abnormal Lab Results - Last 24 Hours (Table) 08/19/18 08/19/18 Range/Units 06:56 06:56 Lymphocytes # 0.8 L (1.0-4.8) k/uL Chloride 108 H (98-107) mmol/L Assessment and Plan Assessment: Left hemispheric TIA versus CVA with transient aphasia and speech impairment along with sensory deficit in right upper extremity resolved now Urinary tract infection Abdominal pain nausea vomiting related to that Hypertension hypertensive cardiovascular disease History of bladder cancer with urostomy Diverticulosis Plan: Patient is status post TPA per neurology recommendation and NIH stroke scale Reviewed MRI of the brain Continue neuro checks as per protocol Repeat urine culture reviewed is negative Can replace in rehab /discharged to home pending Further recommendations pending plan of care as per clinical response Time with Patient: Greater than 30
[2018-08-20] MEDS: LOSARTAN 50 MG TAB PO SCH (08:57)
[2018-08-20] MEDS: HEPARIN SODIUM,PORCINE 5,000 UNIT/ML 1 ML VIAL SQ SCH (08:57)
[2018-08-20] MEDS: ASPIRIN 325 MG TAB PO SCH (08:58)
[2018-08-20] MEDS: CHOLECALCIFEROL 1,000 UNIT TAB PO SCH (08:58)
[2018-08-20] MEDS: METOPROLOL TARTRATE 25 MG TAB PO SCH (08:58)
[2018-08-20] MEDS: cycloSPORINE 0.05% OPHTH 0.4 ML DROPERETTE BOTH EYES SCH (08:58)
[2018-08-20] MEDS: amLODIPine 5 MG TAB PO SCH (08:58)
[2018-08-20] MEDS: PANTOPRAZOLE 40 MG TABLET PO SCH (09:00)
--- NOTE | 2018-08-20 09:03 | P.PN ---
Subjective Progress Note Date: 08/20/18 Principal diagnosis: Acute CVA Abdominal pain nausea. Tract infection, bladder cancer diverticulosis history of lung cancer with urostomy 08/20/2018, patient seen eval reexamined during the rounds she is doing well no other [place] complains discharge planning is pending, she has been complaining of some small ulcer formation around the ostomy site with consult ostomy nurse 08/19/2018, patient seen and evaluated examined during the rounds she is moved out of the ICU on medical floor she is doing well denies any chest pain the issue is the placement no significant symptoms are present doing well 08/18/2018, patient seen eval reexamined during the rounds breathing comfortably awake and alert sitting upright in his chair she is been followed by neurology she is in ICU but being planned for transfer out of the ICU no symptoms that were noted previously have resolved I symptoms are mostly due to prior surgery which are consistent 08/17/2018, patient seen and evaluated examined during the rounds sitting upright in chair breathing comfortably denies any chest pain her neurological status is back to baseline has been evaluated by neurology, due to weakness patient is considered for placement in rehab, MRI done no acute ischemia is identified 08/16/2018, patient seen and evaluated examined during the rounds she is comfortable breathing swann denies any chest pain no further deterioration is noted, MRI is pending care plan discussed with primary service 08/15/2018, patient seen and evaluated examined during the rounds he even from yesterday noted patient yesterday evening had some speech impairment and sensory impairment upper extremity on the right side case was discussed by staff to neuro service and neurology recommended to give TPA and observe at [facility] her speech is better computed tomography scan of the head unremarkable except encephalomalacia and repeat is pending been ordered patient is getting every hourly neuro check breathing comfortably alert oriented 3 sensation in the right upper extremity has improved, and labs reviewed medications reviewed care plan discussed with nursing at length, 08/14/2018, patient seen eval reexamined while covering for Dr. Madan Salinas this patient has urine come back positive for S. Maltophillia in the Urine, Bactrim and Levaquin cannot be taken due to ALLERGIES will put on Rocephin and hold the discharge This is an 83-year-old female admitted with acute diffuse abdominal pain, unclear etiology, generalized weakness, fatigue, nausea and vomiting 2 weeks, recent drug-resistant enterococcus UTI, history of bladder cancer, status post ileal conduit, colonic diverticulosis and multiple other medical issues. Evaluated by surgery and urology with no further recommendations at this time. Completed MRI of the abdomen at [facility] last Thursday, report being obtained; patient states was negative. Complains of diffuse right lower quadrant pain radiating to right flank further radiating to lower mid back. Upon further questioning patient reports that she did stumble on bedspread ,nearly fell, prior to this visit. Flexeril added to med regime. Reports she did not sleep well. Maintained on clear liquid diet. Positive nausea with no emesis. Zofran and reglan added to med regime. Afebrile, normal WBCs, urine culture pending. Objective - Vital Signs Vital signs: Vital Signs Temp 97.9 F 08/20/18 05:00 Pulse 89 08/20/18 05:00 Resp 18 08/20/18 05:00 BP 147/76 08/20/18 05:17 Pulse Ox 100 08/20/18 05:00 Intake & Output 08/19/18 08/20/18 08/20/18 18:59 06:59 18:59 Intake Total 450 1420 Output Total 1100 900 550 Balance -650 520 -550 Intake: IV 450 700 Sodium Chloride 0.9% 1, 400 500 000 ml @ 50 mls/hr IV . Q20H MARY Rx#:[id number] cefTRIAXone 1 gm In 50 200 Sodium Chloride 0.9% 50 ml @ 100 mls/hr IVPB Q24HR MARY Rx#:[id number] Oral 720 Output: Urine 1100 900 550 Other: Voiding Method Ileal Conduit (Right) Ileal Conduit (Right) - Exam - Constitutional General appearance: Present: average body habitus, cooperative - EENT Eyes: Present: PERRLA, dentition normal ENT: Present: normal oropharynx Ears: bilateral: normal - Neck Neck: Present: normal ROM Carotids: bilateral: upstroke normal Thyroid: bilateral: normal size - Respiratory Respiratory: bilateral: CTA - Cardiovascular Rhythm: regular Heart sounds: normal: S1, S2 - Gastrointestinal General gastrointestinal: Present: soft - Neurologic Neurologic: Present: CNII-XII intact - Musculoskeletal Musculoskeletal: Present: gait normal, generalized weakness, strength equal bilaterally - Psychiatric Psychiatric: Present: A&O x's 3, appropriate affect, intact judgment & insight - Labs CBC & Chem 7: 08/19/18 06:56 08/19/18 06:56 Assessment and Plan Assessment: Left hemispheric TIA versus CVA with transient aphasia and speech impairment along with sensory deficit in right upper extremity resolved now Urinary tract infection Abdominal pain nausea vomiting related to that Hypertension hypertensive cardiovascular disease History of bladder cancer with urostomy Diverticulosis Plan: Patient is status post TPA per neurology recommendation and NIH stroke scale Reviewed MRI of the brain Continue neuro checks as per protocol Repeat urine culture reviewed is negative Can replace in rehab /discharged to home pending Consult ostomy nurse Further recommendations pending plan of care as per clinical response Time with Patient: Greater than 30
[2018-08-20 14:24] VITALS: BP 136/70; PULSE 75; TEMP 97.7
[2018-08-20] MEDS: SODIUM CHLORIDE 0.9% 1,000 ML IV SCH (14:59)
--- NOTE | 2018-08-20 15:53 | P.DS ---
Providers Date of admission: 08/11/18 09:36 Attending physician: Madan Salinas Consults: 08/11/18 12:35 Consult Physician Routine Consulting Provider: Nicholas Woods Consult Reason/Comments: bladder cancer Do you want consulting provider notified?: Yes 08/11/18 12:37 Consult Physician Routine Consulting Provider: Madan Poon Consult Reason/Comments: drug resistant uti/failed all oral meds Do you want consulting provider notified?: Yes 08/11/18 12:38 Consult Physician Routine Consulting Provider: Gerry Mason Consult Reason/Comments: low abdominal pain emesis Do you want consulting provider notified?: Yes 08/14/18 18:43 Consult Physician Stat Consulting Provider: Panda Granados Consult Reason/Comments: Code Stroke Do you want consulting provider notified?: Already Contacted 08/14/18 20:17 Consult Physician Stat Consulting Provider: Yehuda Walker Consult Reason/Comments: ICU management Do you want consulting provider notified?: Already Contacted Primary care physician: [facility] Course: 4 hospital course see detailed progress note and H&P Pertinent Studies: Head MRI and MRA, carotid Doppler, brain CT, status post TPA, Procedures: TPA infusion Patient Condition at Discharge: Stable Plan - Discharge Summary Discharge Rx Participant: No New Discharge Prescriptions: New Losartan [Cozaar] 100 mg PO DAILY #30 tab Cyclobenzaprine [Flexeril] 5 mg PO TID PRN #10 tab PRN Reason: Muscle Spasm Continue prednisoLONE ACETATE 1% OPHTH [Pred Forte 1%] 1 drops BOTH EYES MO cycloSPORINE 0.05% OPHTH SOLN [Restasis] 1 drop BOTH EYES BID Cholecalciferol [Vitamin D3 (25 Mcg = 1000 Iu)] 3,000 unit PO DAILY Omeprazole [PriLOSEC] 40 mg PO AC-BRKFST Levothyroxine Sodium [Synthroid] 50 mcg PO DAILY Aspirin EC [Ecotrin Low Dose] 81 mg PO DAILY Docusate [Colace] 100 mg PO DAILY PRN PRN Reason: Constipation Metoprolol Tartrate 25 mg PO BID amLODIPine [Norvasc] 5 mg PO DAILY #30 tab Discontinued Nitrofurantoin Monohyd/M-Cryst [Macrobid] 100 mg PO BID Discharge Medication List Cholecalciferol [Vitamin D3 (25 Mcg = 1000 Iu)] 3,000 unit PO DAILY 03/05/15 [History] Levothyroxine Sodium [Synthroid] 50 mcg PO DAILY 03/05/15 [History] Omeprazole [PriLOSEC] 40 mg PO AC-BRKFST 03/05/15 [History] cycloSPORINE 0.05% OPHTH SOLN [Restasis] 1 drop BOTH EYES BID 03/05/15 [History] prednisoLONE ACETATE 1% OPHTH [Pred Forte 1%] 1 drops BOTH EYES MO 03/05/15 [History] Aspirin EC [Ecotrin Low Dose] 81 mg PO DAILY 05/28/16 [History] Docusate [Colace] 100 mg PO DAILY PRN 07/20/18 [History] Metoprolol Tartrate 25 mg PO BID 07/20/18 [History] amLODIPine [Norvasc] 5 mg PO DAILY #30 tab 07/27/18 [Rx] Cyclobenzaprine [Flexeril] 5 mg PO TID PRN #10 tab 08/17/18 [Rx] Losartan [Cozaar] 100 mg PO DAILY #30 tab 08/17/18 [Rx] Follow up Appointment(s)/Referral(s): Yuri Chavez MD [STAFF PHYSICIAN] - 2 Weeks Madan Poon MD [STAFF PHYSICIAN] - 10 Days Madan Salinas MD [Primary Care Provider] - 1 Week Yehuda Walker MD [STAFF PHYSICIAN] - 1 Week [facility] Visiting Nurse, [NON-STAFF] - Activity/Diet/Wound Care/Special Instructions: Completed antibiotic therapy. Patient has ALLERGY to statins-therefore no statin .
== END 2018-08-20 16:50 | disposition home health service (06) | DRG 689 ==
LOC: 4MS4W 09:36 → 4SSUR 08-13 15:51 → 2SICU 08-14 19:05 → 3NMEDONC 08-17 18:23
PROVIDERS: ADMIT Family Medicine; ATTEND Family Medicine
DX: N39.0 Urinary tract infection, site not specified (principal); I63.9 Cerebral infarction, unspecified; G81.91 Hemiplegia, unspecified affecting right dominant side; R47.01 Aphasia; I11.9 Hypertensive heart disease without heart failure; B96.89 Other specified bacterial agents as the cause of diseases classified elsewhere; R40.2364 Coma scale, best motor response, obeys commands, 24 hours or more after hospital admission; R40.2144 Coma scale, eyes open, spontaneous, 24 hours or more after hospital admission; R40.2244 Coma scale, best verbal response, confused conversation, 24 hours or more after hospital admission; R29.707 NIHSS score 7; H53.40 Unspecified visual field defects; R47.89 Other speech disturbances; K57.30 Diverticulosis of large intestine without perforation or abscess without bleeding; K21.9 Gastro-esophageal reflux disease without esophagitis; E78.5 Hyperlipidemia, unspecified; E03.9 Hypothyroidism, unspecified; Z93.2 Ileostomy status; Z79.82 Long term (current) use of aspirin; Z79.890 Hormone replacement therapy; Z79.899 Other long term (current) drug therapy; Z87.440 Personal history of urinary (tract) infections; Z85.51 Personal history of malignant neoplasm of bladder; Z90.6 Acquired absence of other parts of urinary tract; Z90.49 Acquired absence of other specified parts of digestive tract; Z94.7 Corneal transplant status; Z86.59 Personal history of other mental and behavioral disorders; Z90.710 Acquired absence of both cervix and uterus; Z98.51 Tubal ligation status; Z98.42 Cataract extraction status, left eye; Z98.41 Cataract extraction status, right eye; Z88.1 Allergy status to other antibiotic agents; Z88.2 Allergy status to sulfonamides; Z88.8 Allergy status to other drugs, medicaments and biological substances; Z83.3 Family history of diabetes mellitus; Z80.3 Family history of malignant neoplasm of breast; Z80.0 Family history of malignant neoplasm of digestive organs; Z80.6 Family history of leukemia; Z86.73 Personal history of transient ischemic attack (TIA), and cerebral infarction without residual deficits; Z85.44 Personal history of malignant neoplasm of other female genital organs; Z85.118 Personal history of other malignant neoplasm of bronchus and lung
CPT/HCPCS: 70450; 70544; 70551; 74019; 80048; 80053; 80061; 80202; 82150; 82565; 83036; 83605; 83690; 83735; 84100; 84484; 85025; 85027; 85610; 85730; 87077; 87086; 87186; 93306; 93880; 95816

== ENCOUNTER → 2018-09-20 | Outpatient (CLI) | payer MEDICARE ==
--- NOTE | 2018-09-21 09:05 | MM ---
Reason for exam: screening (asymptomatic). Last mammogram was performed 3 years and 2 months ago. History: Patient is postmenopausal and history of other cancer. Family history of breast cancer in sister at age 71, breast cancer in grandmother, and breast cancer in brother at age 71. Physical Findings: A clinical breast exam by your physician is recommended on an annual basis and results should be correlated with mammographic findings. MG 3D Screening Mammo W/Cad Bilateral CC and MLO view(s) were taken. Prior study comparison: August 02, 2015, bilateral MG 3d screening mammo w/cad. June 21, 2013, bilateral digital screening mammo w/CAD. There are scattered fibroglandular densities. No significant changes when compared with prior studies. ASSESSMENT: Benign, BI-RAD 2 RECOMMENDATION: Routine screening mammogram of both breasts in 1 year.
== END | disposition home or self-care (01) ==
LOC: RADMAMWWP 13:40
PROVIDERS: ATTEND Family Medicine
DX: Z12.31 Encounter for screening mammogram for malignant neoplasm of breast (principal); Z80.3 Family history of malignant neoplasm of breast
CPT/HCPCS: 77063; 77067

== ENCOUNTER 2018-09-23 13:46 | Inpatient (IN) | payer MEDICARE ==
[2018-09-23] MEDS ORDERED: ONDANSETRON 4 MG/2 ML VIAL IVP PRN (14:32)
[2018-09-23] MEDS ORDERED: HYDROmorphone 0.5 MG/0.5 ML SYRINGE IVP PRN (14:38)
[2018-09-23] MEDS: SODIUM CHLORIDE 0.9% 1,000 ML IV SCH (14:56)
--- NOTE | 2018-09-23 15:25 | XR ---
EXAMINATION TYPE: XR abdomen acute w cxr DATE OF EXAM: 09/23/2018 CLINICAL HISTORY: Constipation and abdominal pain. TECHNIQUE: Single frontal view of chest is obtained. Supine and upright views of the abdomen are acq uired. COMPARISON: PET CT August 28, 2018.. FINDINGS: There is chronic emphysematous change without suspicious focal airspace opacity, pleural ef fusion, or pneumothorax. Cardiac silhouette size appears within normal limits with atherosclerotic c hanges in thoracic aorta. Right lateral rib fractures are redemonstrated. Some paucity of bowel gas. Visualized gas is seen in nondistended small bowel loops. Gas and fecal ma terial is seen in nondistended colon along the periphery. Numerous clips overlie the pelvis from prio r bladder removal surgery and lymph node dissection. No pneumoperitoneum. IMPRESSION: 1. No acute pulmonary process. 2. Overall nonspecific but likely nonobstructive bowel gas pattern.
[2018-09-23 15:51] VITALS: BMI 23.0
--- NOTE | 2018-09-23 15:54 | CT ---
EXAMINATION TYPE: CT brain cspine wo con DATE OF EXAM: 09/23/2018 COMPARISON: 08/15/2018 HISTORY: Dizziness and nausea. CT DLP: 1310.2 mGycm, Automated exposure control for dose reduction was used. CONTRAST: None CT of the brain is performed utilizing 3 mm thick sections through the posterior fossa and 3 mm thick sections through the remaining calvarium. Study is performed within 24 hours of arrival to the hospital. No abnormal hyperdensity is present to suggest an acute intracranial hemorrhage. No mass lesion is evident. No acute infarcts are evident. Scattered areas of hypodensity within the deep white matter compatibl e some chronic white matter ischemic change. These findings are stable from August 15, 2018 comparison. Ventricles and sulci are slightly prominent for the patient age. Paranasal sinuses and mastoid air cells within the [id number] are clear. IMPRESSIONS: 1. Normal CT brain. CT cervical spine. COMPARISON: None CT of the cervical spine is performed in the axial plane at 2 mm thick sections. Reconstructed image s in the coronal, and sagittal plane are reviewed on the computer. No acute fractures are evident. Vertebral body alignment is normal. There is narrowing of the posterior disc heights C4-5, C5-6. Diffuse loss of disc height is present t hrough C5-6. Vertebral body heights are preserved. No spinal canal stenosis is evident. C5-C6 foraminal narrowing due to uncovertebral joint hypertrophy is present. There is some narrowing of the C5-6 disc height. Left uncovertebral joint hypertrophy is present C4-5 during the moderate for aminal stenosis. Facet hypertrophy is noted within the mid cervical spine. Bilateral apical scarring appears to be present. IMPRESSIONS: 1. Degenerative changes greatest at the C4 C4-5 and C5-6 levels. There is narrowing of the disc heigh t with uncovertebral joint hypertrophy and facet hypertrophy. 2. No acute osseous abnormality.
[2018-09-23] MEDS: HEPARIN SODIUM,PORCINE 5,000 UNIT/ML 1 ML VIAL SQ SCH ×2 (16:01→21:15)
[2018-09-23] MEDS: PANTOPRAZOLE 40 MG/10 ML VIAL IVP SCH (16:02)
[2018-09-23] MEDS ORDERED: DIAZEPAM 5 MG/ML 2 ML INJ IVP PRN (16:15)
[2018-09-23 17:16] LABS: ALT 34 U/L (9-52); AST 32 U/L (14-36); African American GFR (CKD) >90 (>60 ml/min/1.73 sqM); Albumin 3.8 g/dL (3.5-5.0); Alkaline Phosphatase 88 U/L (38-126); Amylase 84 U/L (30-110); Anion Gap 12 mmol/L; Blood Urea Nitrogen 10 mg/dL (7-17); Calcium 9.1 mg/dL (8.4-10.2); Carbon Dioxide 20 mmol/L (22-30); Chloride 102 mmol/L (98-107); Glucose 92 mg/dL (74-99); Lipase 68 U/L (23-300); Potassium 4.9 mmol/L (3.5-5.1); Sodium 134 mmol/L (137-145); Total Bilirubin 0.7 mg/dL (0.2-1.3); Total Protein 6.9 g/dL (6.3-8.2)
[2018-09-23 19:34] LABS: Basophils % (A) 0 %; Eosinophils # (A) 0.1 k/uL (0-0.7); Eosinophils % (A) 2 %; HGB 13.2 gm/dL (11.4-16.0); Lymphocytes % (A) 11 %; MCH 30.1 pg (25.0-35.0); MCHC 33.7 g/dL (31.0-37.0); MCV 89.2 fL (80.0-100.0); Mean Platelet Volume 8.7; Monocytes # (A) 0.5 k/uL (0-1.0); Monocytes % (A) 6 %; Neutrophils # (A) 6.7 k/uL (1.3-7.7); Neutrophils % (A) 79 %; Platelet Count 367 k/uL (150-450); RBC 4.37 m/uL (3.80-5.40); RDW 14.6 % (11.5-15.5); WBC 8.4 k/uL (3.8-10.6)
[2018-09-23] MEDS: cycloSPORINE 0.05% OPHTH 0.4 ML DROPERETTE BOTH EYES SCH (21:15)
[2018-09-24] MEDS: SODIUM CHLORIDE 0.9% 1,000 ML IV SCH ×2 (06:20→21:15)
--- NOTE | 2018-09-24 08:54 | HP ---
HISTORY AND PHYSICAL CHIEF COMPLAINT: An 83-year-old white female comes in today with progressive vomiting, nausea, constipation, failed multiple outpatient treatments with medications as well as severe dizziness. With any ambulation her nausea gets worse. She gets dizzy which has reduced her oral intake and vomiting food and liquids at which time she was admitted for possible TIA versus dizziness secondary to cervical stenosis versus worsening vertigo, failing outpatient Antivert, failing scopolamine patches, constipation, failed Amitiza, Colace, chronic nausea. This failed with PPIs as well as Carafate. The patient cannot ambulate due to significant dizziness and falls. She will have to be worked up for a TIA versus cervical neuritis versus vertigo, which is drug-resistant to Antivert and scopolamine patches and dehydration and malnutrition. Family cannot take care of her anymore due to progressive nausea, vomiting, constipation, and dizziness and unable to do things around the house. She had an EGD with negative biopsies 2 weeks ago. She had negative PET scan for progressive bladder cancer. She has had negative mammogram, negative EGD. Her last colonoscopy was 5 years ago. She does not think she can swallow the barium for an upper GI with small-bowel follow-through due to severe nausea. HOME MEDICATIONS: 1. Lopressor 25 b.i.d. 2. Synthroid 50 mcg daily. 3. Pantoprazole 40 mg daily. 4. Prednisolone. 5. Pred Forte drops in both eyes. 6. Cyclosporine ophthalmological solution both eyes b.i.d. She has not negative orthostatic changes. Blood pressure is 130/80 and standing temp 97.8, pulse is in the 60s. Blood pressure a little high at 40s to 170s/60s to 70s. O2 is 98% on room air. CARDIOVASCULAR: S1, S2. LUNGS: Clear. CARDIAC: Regular rate and rhythm. No murmurs. GI: She has had an ostomy. Normal bowel sounds. She has a small ostomy sore, is being treated with the wound care people. HEMATOLOGY: Negative Homans. VASCULAR: Normal dorsalis pedis, posterior radial pulse. PSYCH: She may be a little bit anxious because her is an alcoholic and does not realize it. General affect and mood. Neurologic: Cranial nerves are intact. ASSESSMENT: Dizziness, vertigo versus TIA versus cervical neuritis with negative orthostatic changes with possible drug resistant vertigo, causing chronic nausea, constipation, which will be ordered with Dr. Mayorga. She may need an upper GI with small-bowel follow-through versus a colonoscopy. I think the chronic dizziness has to be worked up from a neurologic standpoint, plus get a cervical epidural injection for tenderness from the neck. She evaluates it as from the ears as she has failed scopolamine patch and Antivert and had Neurology work her up. She had a recent MRI of the brain a few weeks ago that was normal. Will await for everybody's recommendations. She has negative orthostatic changes. MMODL / IJN: [id number] /
[2018-09-24] MEDS ORDERED: LEVOTHYROXINE 25 MCG TAB PO SCH (09:00)
[2018-09-24 09:08] LABS: Basophils % (A) 1 %; Eosinophils # (A) 0.1 k/uL (0-0.7); Eosinophils % (A) 1 %; HCT 42.1 % (34.0-46.0); HGB 13.2 gm/dL (11.4-16.0); Lymphocytes # (A) 0.7 k/uL (1.0-4.8); Lymphocytes % (A) 11 %; MCHC 31.4 g/dL (31.0-37.0); MCV 92.3 fL (80.0-100.0); Mean Platelet Volume 6.7; Monocytes # (A) 0.4 k/uL (0-1.0); Monocytes % (A) 6 %; Neutrophils # (A) 5.2 k/uL (1.3-7.7); Neutrophils % (A) 79 %; Platelet Count 387 k/uL (150-450); RBC 4.56 m/uL (3.80-5.40); RDW 13.9 % (11.5-15.5); WBC 6.6 k/uL (3.8-10.6)
[2018-09-24 09:29] LABS: African American GFR (CKD) >90 (>60 ml/min/1.73 sqM); Anion Gap 9 mmol/L; Blood Urea Nitrogen 8 mg/dL (7-17); Carbon Dioxide 23 mmol/L (22-30); Chloride 105 mmol/L (98-107); Glucose 90 mg/dL (74-99); Potassium 4.5 mmol/L (3.5-5.1); Sodium 137 mmol/L (137-145)
[2018-09-24] MEDS: HEPARIN SODIUM,PORCINE 5,000 UNIT/ML 1 ML VIAL SQ SCH ×2 (11:49→20:39)
[2018-09-24] MEDS: METOPROLOL TARTRATE 25 MG TAB PO SCH ×2 (11:49→20:38)
[2018-09-24] MEDS: ASPIRIN 81 MG PO SCH (11:49)
[2018-09-24] MEDS: PANTOPRAZOLE 40 MG/10 ML VIAL IVP SCH (11:50)
[2018-09-24] MEDS: SODIUM CHLORIDE 5% OPHTH DROPS 15 ML BTL BOTH EYES SCH (11:50)
[2018-09-24] MEDS: Lubiprostone [Amitiza] 8 MCG PO SCH ×2 (11:51→21:15)
[2018-09-24] MEDS: cycloSPORINE 0.05% OPHTH 0.4 ML DROPERETTE BOTH EYES SCH ×2 (11:55→20:38)
--- NOTE | 2018-09-24 12:12 | P.CNNES ---
History of Present Illness Consult date: 09/24/18 Reason for Consult: Chronic dizziness Chief complaint: Chronic dizziness History of Present Illness: REFERRING PHYSICIAN: Dr. Davila HISTORY OF PRESENT ILLNESS: Thank you for allowing me to evaluate Ms. Elsie Whitley is an 83-year-old woman with past medical history of HYpertension, hypothyroidism, bladder cancer, GERD, hyperlipidemiaHypertension, hypothyroidism, bladder cancer, GERD, presenting with progressive vomiting, nausea, dizziness, and constipation. Patient states that she's been admitted to the hospital for similar reasons of dizziness, nausea, vomiting, constipation at least 4 times in the past month. No worsening or improvement in symptoms. Denies any room spinning sensation, ringing in the year, hearing loss.Patient denies decreased level or loss of consciousness, headache, seizure, changes in vision, diplopia, amaurosis, changes in hearing, facial droop, ptosis, d ysarthria, dysphagia, aphasia, other focal numbness/weakness not mentioned above, tremors, bowel/bladder incontinence or ataxia. Of note, as outpatient, patient had received Antivert, scopolamine patches. Also failed Colace, Amitiza for constipation. Patient cannot ambulate due to significant dizziness and falls. Patient underwent EGD with negative biopsies to weeks ago. Of note, patient was admitted at [facility] on 08/11/2018 for UTI and sepsis. During that admission, patient was noted to have acute neurological deficits including speech difficulty, right arm weakness and numbness, and some visual field deficits. Patient received TPA. PAST MEDICAL HISTORY: Hypertension, hypothyroidism, bladder cancer, GERD, hyperlipidemia PAST SURGICAL HISTORY: Multiple. See below. HOME MEDICATIONS: Eyedrops, omeprazole, levothyroxine, aspirin, Colace, metoprolol, Flexeril, scopolamine patches, Amitiza, Zofran ALLERGIES: Sulfamethoxazole, trimethoprim, levofloxacin, statin SOCIAL HISTORY: Denies smoking/alcohol/drug abuse history. FAMILY HISTORY: Mother with diabetes. Father with cancer. Sister had breast cancer. Brother had colon cancer and leukemia. REVIEW OF SYSTEMS: As above PHYSICAL EXAMINATION: VITAL SIGNS: Temperature 97.8 pulse rate 69 respiratory rate 17 blood pressure 141/65 O2 sat 98% on room air GEN.: NAD, pleasant and cooperative HEENT: NCAT, sclera without icterus NECK: Supple SKIN AND EXTREMITIES: Warm to touch, no edema Neuro: MENTAL STATUS: Patient alert and oriented to self, place, time. Able to name the current president. Speech fluent, able to name and repeat, following all commands readily. No right and left disorientation, extinction to double simultaneous stimulation, finger agnosia, neglect. CRANIAL NERVES II THROUGH XII: II: Pupils are equal and reactive to light symmetrically. No afferent pupillary defect. Visual taveras are intact. III, IV, : No ptosis. Extraocular movements full. No nystagmus. V: Facial sensation intact from V1-3. VII. No clear facial asymmetry. VIII: Hearing intact to finger rub bilaterally. IX, X: Symmetric palate elevation. XII: Shoulder shrug intact. XII: Tongue midline without fasciculation or atrophy. MOTOR: Normal bulk/tone. No pronator drift or tremor. Strength is 5/5 through out all 4 extremities. SENSORY: Intact to light touch, temperature, pinprick in all 4 extremities. Romberg is negative. REFLEXES: 2+ throughout. Toes are downgoing. No clonus. Charley's is absent COORDINATION: Finger to nose and heel to bates intact. No dysmetria. Rapid alternating movements with good speed and accuracy. GAIT: Narrow-based and stable. Able to toe/heel/tandem walk HINTS exam negative. Austin-Hallpike negative DIAGNOSTIC TESTING: Laboratory: WBC 6.6, hemoglobin 13.2, platelets 87, sodium 137, potassium 4.5, chloride 105, bicarb 23, BUN 8, creatinine 0.61, AST 32, ALT 34, amylase 84, lipase 68 Imaging: MRI brain without contrast 08/16/2018: 1. No definite acute process 2. Bilateral coronary radiata/centrum semiovale T2 hyperintensities. MRA head without contrast 08/16/2018: Negative exam Carotid Dopplers 08/15/2018: No evidence of hemodynamically significant stenosis in either carotid system. Echocardiogram 08/16/2018: Normal LV, LA, RA, RV size. EF 55-60%. Aortic valve is mildly thickened. There is trace mitral regurgitation. EEG 08/16/2018: Mildly abnormal EEG due to intermittent left temporal slowing with occasional sharp waves. Suggestive of focal cortical neuronal dysfunction and may suggest underlying cortical irritability and tendency for seizure. ASSESSMENT and PLAN: Ms. Whitley is an 83-year-old woman with past medical history of Hypertension, hypothyroidism, bladder cancer, GERD, hyperlipidemia, Hypertension, hypothyroidism, bladder cancer, GERD, presenting with progressive vomiting, nausea, dizziness, and constipation. Patient with no focal neurological deficits. No objective findings of central or peripheral etiology of dizziness. Patient with no vertigo. Unclear etiology of patient's dizziness and nausea at this time. It appears the patient has been constipated for some time. Last bowel movement was almost a week ago. Patient had received laxatives, with no relief. At this time, no further neurological workup recommended. I will consider using enema to help patient with her significant constipation. I will be cautious about using benzodiazepines, cholinergics for this elderly patient. Neurology will sign off at this time. Please feel free to contact Neurology again if with additional questions or concerns. Past Medical History Past Medical History: Cancer, Eye Disorder, GERD/Reflux, Hyperlipidemia, Hypertension, Thyroid Disorder Additional Past Medical History / Comment(s): Past couple months pt has had hospitalizations for abdominal pain/generalized weakness/fatigue/UTI (enterobacter faecalis)/ileus and possible CVA. Pt states she currently has some lesions around her ileal conduit. Other hx: Bladder cancer cystectomy/ileal conduit, UTIs, vaginal/uterine cancer with total hysterectomy, hiatal hernia, diverticular disease, constipation, hypothyroid, vertigo, murmur, bilateral keratoconis. History of Any Multi-Drug Resistant Organisms: Other MDRO Past Surgical History: Bladder Surgery, Bowel Resection, Tubal Ligation Additional Past Surgical History / Comment(s): Cystoscopy with TURB bladder tumor, bladder cystectomy/ileal conduit/partial colectomy at [facility], EGD, c olonoscopies, D&C, total hysterectomy, bilateral cataract removals/corneal transplants. Past Anesthesia/Blood Transfusion Reactions: Postoperative Nausea & Vomiting (PONV) Smoking Status: Never smoker - Past Family History Father Family Medical History: Cancer Mother Family Medical History: Diabetes Mellitus Sister(s) Family Medical History: Cancer Additional Family Medical History / Comment(s): BREAST CANCER Brother(s) Family Medical History: Cancer Additional Family Medical History / Comment(s): COLON CANCER AND LEUKEMIA Father Brother(s) Family Medical History: Cancer Medications and Allergies Home Medications Medication Instructions Recorded Confirmed Type Levothyroxine Sodium [Synthroid] 50 mcg PO DAILY 03/05/15 09/23/18 History Omeprazole [PriLOSEC] 40 mg PO AC-BRKFST 03/05/15 09/23/18 History cycloSPORINE 0.05% OPHTH SOLN 1 drop BOTH EYES BID 03/05/15 09/23/18 History [Restasis] prednisoLONE ACETATE 1% OPHTH 1 drops BOTH EYES MO 03/05/15 09/23/18 History [Pred Forte 1%] Aspirin EC [Ecotrin Low Dose] 81 mg PO DAILY 05/28/16 09/23/18 History Docusate [Colace] 100 mg PO DAILY PRN 07/20/18 09/23/18 History Metoprolol Tartrate 25 mg PO BID 07/20/18 09/23/18 History Cyclobenzaprine [Flexeril] 5 mg PO TID PRN #10 tab 08/17/18 09/23/18 Rx Lubiprostone [Amitiza] 8 mcg PO BID 09/23/18 09/23/18 History Ondansetron [Zofran] 4 mg PO Q6HR PRN 09/23/18 09/23/18 History Scopolamine [TransDerm Scop] 1 patch TRANSDERM Q72H 09/23/18 09/23/18 History Sodium Chloride 5% Ophth Soln 2 drops BOTH EYES DAILY 09/23/18 09/23/18 History [Justin 128] Allergies Allergy/AdvReac Type Severity Reaction Status Date / Time sulfamethoxazole Allergy Swelling Verified 09/23/18 15:08 [From Bactrim] lips, sore throat trimethoprim [From Bactrim] Allergy Swelling Verified 09/23/18 15:08 lips, sore throat levofloxacin [From Levaquin] AdvReac severe Verified 09/23/18 15:08 headache Edtyqoo-Pnr-Cdc Reductase AdvReac PAINFUL Verified 09/23/18 15:08 Inhibitor ARMS AND LEGS W/ MULT RX TRIED Physical Examination - Vital Signs Vital Signs: Vital Signs Temp Pulse Resp BP Pulse Ox 09/24/18 04:45 97.8 F 69 17 141/65 98 09/23/18 21:15 18 09/23/18 19:30 98.2 F 61 18 150/74 98 09/23/18 14:34 96.4 F L 65 18 172/73 96 Intake and Output 09/23/18 09/24/1809/24/19 22:59 06:59 14:59 Intake Total 225 525 Output Total 650 300 Balance -425 225 Intake: Intake, IV Titration 225 525 Amount Sodium Chloride 0.9% 1, 225 525 000 ml @ 75 mls/hr IV . [id number] [facility] Rx#:[id number] Output: Urine 650 300 Other: Voiding Method Ileal Conduit (Right) Results - Laboratory Findings CBC and BMP: 09/24/18 08:17 09/24/18 08:17 Abnormal Lab Findings: Abnormal Labs 09/23/18 09/24/18 16:46 08:17 Lymphocytes # 0.7 L Sodium 134 L Carbon Dioxide 20 L
--- NOTE | 2018-09-24 13:05 | EEG ---
ELECTROENCEPHALOGRAM REPORT DATE OF PROCEDURE: 09/24/2018 ELECTROENCEPHALOGRAM (EEG) REPORT: TECHNIQUE: A routine 18 channel EEG was performed with video using the 10/20 international electrode placement system. HISTORY: Patient admitted yesterday for dizziness and abdominal pain. CURRENT MEDICATIONS: Protonix, metoprolol, Synthroid, heparin, Valium, Amitiza. STUDY DURATION: 24 minutes. FINDINGS: BACKGROUND: The background activity consisted of 8 to 9 hertz rhythmic waveforms symmetrically distributed over both posterior quadrants. ACTIVATION: Hyperventilation: Not performed. Photic stimulation: Symmetric driving seen. Sleep: Stages I and II sleep noted. ABNORMALITIES: None. Please note that 1 channel of this EEG was dedicated to EKG. It demonstrated a sinus rhythm. IMPRESSION: Normal EEG. No epileptiform activity was present. No seizures were recorded. MMODL / IJN: [id number] /
[2018-09-24] MEDS: LEVOTHYROXINE 50 MCG TAB PO SCH (15:21)
--- NOTE | 2018-09-24 15:21 | P.CONS ---
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 Patient was seen at [facility] week ago underwent EGD with unremarkable findings. Consult requested for constipation. Patient takes Amitiza at home which is not formulary here in the hospital. Last week she was placed on scopolamine patch with Zofran 4 mg grams every 6 hours around the clock with positive response. Reglan and Antivert were discontinued secondary to patient's request as they were not helping her nausea vomiting. Last bowel movement was a week ago however this afternoon she passed a small bowel movement. She's had colonoscopies in the past nothing recent last colonoscopy was about 5 years ago. Denies hematemesis but he's he melena. Abdominal x-rays nonobstructive bowel gas pattern. Patient verbalized at this time should not be able tolerate a bowel prep for colonoscopy. White count 6.6. Hemoglobin 13.2. Sodium 137. Potassium 4.5. BUN 8. Creatinine 0.6. LFTs within normal limits. Review of Systems Constitutional: Denies fever, chills, sweats, weight gain, or loss. HEENT: Negative for migraines, blurred vision or loss, earaches, drainage, tinnitus, oral mucosal lesions, dysphagia, or odynophagia. CARDIAC: Negative for chest pain, arrhythmias, or palpitation. RESPIRATORY: Negative for shortness of breath, hemoptysis, cough, or sputum production. GI: See HPI for pertinent findings. : Negative for hematuria, urgency, frequency, polyuria, or dysuria. GYNc: Denies possibility of . Negative vaginal discharge. MUSCULOSKELETAL: Negative for muscle aches, swelling, arthritis, and arthralgias. NEUROLOGIC: Negative for stroke or TIA. ENDOCRINE: Negative for thyroid problems. SKIN: Negative for rash or itching. PSYCHIATRIC: Negative history for depression and anxiety Past Medical History Past Medical History: Cancer, Eye Disorder, GERD/Reflux, Hyperlipidemia, Hypertension, Thyroid Disorder Additional Past Medical History / Comment(s): Past couple months pt has had hospitalizations for abdominal pain/generalized weakness/fatigue/UTI (enterobacter faecalis)/ileus and possible CVA. Pt states she currently has some lesions around her ileal conduit. Other hx: Bladder cancer cystectomy/ileal conduit, UTIs, vaginal/uterine cancer with total hysterectomy, hiatal hernia, diverticular disease, constipation, hypothyroid, vertigo, murmur, bilateral keratoconis. History of Any Multi-Drug Resistant Organisms: Other MDRO Past Surgical History: Bladder Surgery, Bowel Resection, Tubal Ligation Additional Past Surgical History / Comment(s): Cystoscopy with TURB bladder tumor, bladder cystectomy/ileal conduit/partial colectomy at [facility], EGD, colonoscopies, D&C, total hysterectomy, bilateral cataract removals/corneal transplants. Past Anesthesia/Blood Transfusion Reactions: Postoperative Nausea & Vomiting (PONV) Smoking Status: Never smoker - Past Family History Father Family Medical History: Cancer Mother Family Medical History: Diabetes Mellitus Sister(s) Family Medical History: Cancer Additional Family Medical History / Comment(s): BREAST CANCER Brother(s) Family Medical History: Cancer Additional Family Medical History / Comment(s): COLON CANCER AND LEUKEMIA Father Brother(s) Family Medical History: Cancer Medications and Allergies Home Medications Medication Instructions Recorded Confirmed Type Levothyroxine Sodium [Synthroid] 50 mcg PO DAILY 03/05/15 09/23/18 History Omeprazole [PriLOSEC] 40 mg PO AC-BRKFST 03/05/15 09/23/18 History cycloSPORINE 0.05% OPHTH SOLN 1 drop BOTH EYES BID 03/05/15 09/23/18 History [Restasis] prednisoLONE ACETATE 1% OPHTH 1 drops BOTH EYES MO 03/05/15 09/23/18 History [Pred Forte 1%] Aspirin EC [Ecotrin Low Dose] 81 mg PO DAILY 05/28/16 09/23/18 History Docusate [Colace] 100 mg PO DAILY PRN 07/20/18 09/23/18 History Metoprolol Tartrate 25 mg PO BID 07/20/18 09/23/18 History Cyclobenzaprine [Flexeril] 5 mg PO TID PRN #10 tab 08/17/18 09/23/18 Rx Lubiprostone [Amitiza] 8 mcg PO BID 09/23/18 09/23/18 History Ondansetron [Zofran] 4 mg PO Q6HR PRN 09/23/18 09/23/18 History Scopolamine [TransDerm Scop] 1 patch TRANSDERM Q72H 09/23/18 09/23/18 History Sodium Chloride 5% Ophth Soln 2 drops BOTH EYES DAILY 09/23/18 09/23/18 History [Justin 128] Allergies Allergy/AdvReac Type Severity Reaction Status Date / Time sulfamethoxazole Allergy Swelling Verified 09/23/18 15:08 [From Bactrim] lips, sore throat trimethoprim [From Bactrim] Allergy Swelling Verified 09/23/18 15:08 lips, sore throat levofloxacin [From Levaquin] AdvReac severe Verified 09/23/18 15:08 headache Xboymdc-Hle-Vkv Reductase AdvReac PAINFUL Verified 09/23/18 15:08 Inhibitor ARMS AND LEGS W/ MULT RX TRIED Physical Exam Vitals: Vital Signs Temp Pulse Resp BP Pulse Ox 09/24/18 12:06 98.1 F 66 16 151/80 99 09/24/18 08:00 66 16 09/24/18 04:45 97.8 F 69 17 141/65 98 09/23/18 21:15 18 09/23/18 19:30 98.2 F 61 18 150/74 98 Intake and Output 09/24/18 09/24/18 09/24/18 06:59 14:59 22:59 Intake Total 525 Output Total 300 250 Balance 225 -250 Intake: Intake, IV Titration 525 Amount Sodium Chloride 0.9% 1, 525 000 ml @ 75 mls/hr IV . [id number] [facility] Rx#:[id number] Output: Urine 300 250 Other: Voiding Method Ileal Conduit (Right) Weight 58.967 kg General appearance: The patient is alert, oriented, in no acute distress. HET: Head is normocephalic and atraumatic. Pupils are equal and reactive. Oropharynx is clear without lesions. Neck: Supple without lymphadenopathy. Trachea midline. Heart: S1 S2. Regular rate and rhythm. Lungs: No crackles or wheezes are heard. Abdomen: Soft, nontender, nondistended with bowel sounds. No peritoneal signs. No palpable organomegaly or masses. Extremities: Normal skin color and turgor. No cyanosis, rash, ulceration, clubbing, or edema. Radial and pedal pulses are 2/4 bilaterally. Neurological: No focal deficits. Strength and sensation are grossly intact. Results CBC & Chem 7: 09/24/18 08:17 09/24/18 08:17 Labs: Abnormal Lab Results - Last 24 Hours (Table) 09/23/18 09/24/18 Range/Units 16:46 08:17 Lymphocytes # 0.7 L (1.0-4.8) k/uL Sodium 134 L (137-145) mmol/L Carbon Dioxide 20 L (22-30) mmol/L Abdominal x-ray: report reviewed (Dr. Mayorga) Assessment and Plan (1) Constipation Current Visit: Yes Status: Acute Code(s): K59.00 - CONSTIPATION, UNSPECIFIED SNOMED Code(s): 97149951 (2) History of total cystectomy Current Visit: No Status: Acute Code(s): Z98.890 - OTHER SPECIFIED POSTPROCEDURAL STATES SNOMED Code(s): 566638073 (3) Intractable nausea and vomiting Current Visit: No Status: Acute Code(s): R11.2 - NAUSEA WITH VOMITING, UNSPECIFIED SNOMED Code(s): 793245682 Plan: 1. Continue with home medications Amitiza. 2. Zofran 4 mg [id number]. 3. Primary has discontinued scopolamine and started Valium 3 times daily. 4. Inpatient colonoscopy not advised at this time patient is still having nausea vomiting and verbalizes she will not be able to tolerate a bowel prep. Presently no symptoms of hematemesis hematochezia melena recent EGD last week was unremarkable. Neurology following for symptoms of dizziness vertigo nausea vomiting. Patient verbalized she has a follow-up in [facility] next 1-2 months. Continue symptomatic supportive measures. Thank you for this kind referral and the opportunity to participate in the care of your patient. This consultation was discussed with Dr. Mayorga. The impression and plan of care have been directed as dictated.
[2018-09-24] MEDS: ONDANSETRON 4 MG/2 ML VIAL IVP SCH (16:39)
[2018-09-24] MEDS: DIAZEPAM 5 MG/ML 2 ML INJ IVP SCH (16:42)
[2018-09-24 20:35] LABS: Appearance,Urine Clear (Clear); Bilirubin,Urine Negative (Negative); Blood,Urine Small (Negative); Color,Urine Light Yellow; Glucose,Urine (UA) Negative (Negative); Ketones,Urine 1+ (Negative); Leukocyte Esterase,Urine Negative (Negative); Mucus,Urine Rare /hpf; Nitrite,Urine Negative (Negative); Protein,Urine Negative (Negative); RBC,Urine 5 /hpf (0-5); Specific Gravity,Urine 1.008 (1.001-1.035); Urobilinogen,Urine <2.0 mg/dL (<2.0)
--- NOTE | 2018-09-24 20:54 | P.PN ---
Subjective Progress Note Date: 09/24/18 EEG completed. Ambulated significant amount of distance in the hallway with PT/OT with no dizziness. Continues to have nausea and vomiting when she looks up or looks down with accompanying dizziness. Evaluated by neurology with recommendations noted. EEG completed with results pending. CT reported dege nerative changes greatest at C4-C5-C6 with narrowing of the disc height, uncovertebral joint hypertrophy and facet hypertrophy. Acute abdomen series reports nonspecific but likely non-obstructive bowel gas pattern. SHe reports constipation, occasional tiny bowel movement. Reports she had dry heaves this morning. Evaluated by GI, colonoscopy offered but patient states she is unable to tolerate prep at this time. Denies chest pain, palpitations or shortness of breath. Objective - Vital Signs Vital signs: Vital Signs Temp 98.1 F 09/24/18 12:06 Pulse 66 09/24/18 15:52 Resp 16 09/24/18 15:52 BP 151/80 09/24/18 12:06 Pulse Ox 99 09/24/18 12:06 Intake & Output 09/24/18 09/24/18 09/25/18 06:59 18:59 06:59 Intake Total 750 Output Total 700 250 Balance 50 -250 Weight 58.967 kg Intake: Intake, IV Titration 750 Amount Sodium Chloride 0.9% 1, 750 000 ml @ 75 mls/hr IV . [id number] [facility] Rx#:[id number] Output: Urine 700 250 Other: Voiding Method Ileal Conduit (Right) Ileal Conduit (Right) - Exam PHYSICAL EXAM: VITAL SIGNS: As of GENERAL: Sitting up in bed, no acute distress HEENT: Conjunctivae normal. eyes normal. Oral mucosa moist NECK: No JVD. No thyroid enlargement. No LNs CARDIOVASCULAR: S1, S2 regular. No murmur RESPIRATION: Breath sounds diminished in the bases. No rhonchi or crackles. No wheezing. ABDOMEN: Soft, nontender, nondistended .ostomy. No guarding. no masses pa lpable.Bowel sounds heard. LEGS: No edema. no swelling PSYCHIATRY: Alert and oriented X3, mood and affect normal. NERVOUS SYSTEM: Cranial N 2-12 grossly normal. Moves all 4 limbs. Diffuse weakness No focal deficits. Strength and sensation grossly intact.. Skin: no lesions, no rash. - Labs CBC & Chem 7: 09/24/18 08:17 09/24/18 08:17 Labs: Abnormal Lab Results - Last 24 Hours (Table) 09/24/18 Range/Units 08:17 Lymphocytes # 0.7 L (1.0-4.8) k/uL Assessment and Plan Assessment: -Chronic nausea, constipation and Dzziness, possible drug-resistant vertigo, possible TIA , possible cervical neuritis-CT reported degenerative changes greatest at C4-C5-C6 with narrowing of the disc height. -Gastroesophageal reflux disease -Hypertension -Hypothyroidism -Hyperlipidemia -History of cystectomy -Depression Plan: Continue on current medication regime ,monitoring and symptomatic treatment. ENT consult in place with recommendations pending. Option of cervical epidural injection discussed. Valium changed from prn to scheduled. Soft c-collar ordered. Orthostatic vital signs every shift .Maintain Zofran ATC. Evaluated by GI with colonoscopy not recommended at this time as patient states she's unable to tolerate a bowel prep. PT/OT. Prognosis guarded given multiple complex medical issues. Further recommendations to follow. The impression and plan of care has been dictated as directed. : I performed a history and examination of this patient, discussed the same with the dictator. I agree with the dictator's note ,documented as a scribe. Any additional findings or plans will be noted.
[2018-09-24 21:26] VITALS: RESP 18
[2018-09-24 22:51] LABS: Hemoglobin A1C 5.5 % (4.0-6.0)
[2018-09-25] MEDS: DIAZEPAM 5 MG/ML 2 ML INJ IVP SCH ×3 (00:03→10:37)
[2018-09-25] MEDS: ONDANSETRON 4 MG/2 ML VIAL IVP SCH ×4 (00:04→18:04)
[2018-09-25] MEDS: LEVOTHYROXINE 50 MCG TAB PO SCH (05:23)
[2018-09-25] MEDS: METOPROLOL TARTRATE 25 MG TAB PO SCH ×2 (10:04→20:20)
[2018-09-25] MEDS: ASPIRIN 81 MG PO SCH (10:04)
[2018-09-25] MEDS: HEPARIN SODIUM,PORCINE 5,000 UNIT/ML 1 ML VIAL SQ SCH ×2 (10:05→20:19)
[2018-09-25] MEDS: PANTOPRAZOLE 40 MG/10 ML VIAL IVP SCH (10:05)
[2018-09-25] MEDS: SODIUM CHLORIDE 5% OPHTH DROPS 15 ML BTL BOTH EYES SCH (10:10)
[2018-09-25] MEDS: cycloSPORINE 0.05% OPHTH 0.4 ML DROPERETTE BOTH EYES SCH ×2 (10:10→20:20)
[2018-09-25] MEDS: Lubiprostone [Amitiza] 8 MCG PO SCH ×2 (10:10→20:20)
[2018-09-25] MEDS: SODIUM CHLORIDE 0.9% 1,000 ML IV SCH (10:11)
[2018-09-25] MEDS ORDERED: SCOPOLAMINE 1.5MG/72HR PATCH TRANSDERM SCH (12:15)
[2018-09-25] MEDS ORDERED: NA PHOS,M-B/NA PHOS,DI-BA 133 ML ENEMA RECTAL ONE (17:02)
[2018-09-25] MEDS ORDERED: ACETAMINOPHEN TAB 500 MG TAB PO PRN (17:02)
--- NOTE | 2018-09-25 23:04 | PN ---
PROGRESS NOTE 83-year-old white female, still having constipation. Discussed enemas with her and discussed neurology consult as well as GI consultations and recommendations. No scoping will be done. We will try cervical collar. Increase ambulation. Increase her diet to full. Possible discharge home soon as nothing serious has been found. Advance her diet to full. Continue Zofran and scopolamine around the clock. Medications and labs reviewed. Cardiovascular: S1-S2. Lungs clear. GI soft. Hematology: Negative Homans. ASSESSMENT: Dizziness, most likely due to cervical neuritis. Cervical collar will be done. Continue with GI prophylaxis per GI recommendations. Neurology has cleared the patient. Awaiting ENT recommendations. Stop Valium. Continue with scopolamine and Zofran. Cervical collar. Increase ambulation. 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 Continue current treatment. Possible discharge home tomorrow. MMODL / IJN: [id number] /
[2018-09-26] MEDS: ONDANSETRON 4 MG/2 ML VIAL IVP SCH ×2 (01:59→04:54)
[2018-09-26 04:37] VITALS: BP 169/85; PULSE 67; TEMP 98.2
[2018-09-26] MEDS: SODIUM CHLORIDE 0.9% 1,000 ML IV SCH (04:53)
[2018-09-26] MEDS: LEVOTHYROXINE 50 MCG TAB PO SCH (04:54)
[2018-09-26] MEDS ORDERED: PANTOPRAZOLE 40 MG TABLET PO SCH (07:30)
[2018-09-26] MEDS: cycloSPORINE 0.05% OPHTH 0.4 ML DROPERETTE BOTH EYES SCH (08:26)
[2018-09-26] MEDS: HEPARIN SODIUM,PORCINE 5,000 UNIT/ML 1 ML VIAL SQ SCH (08:26)
[2018-09-26] MEDS: Lubiprostone [Amitiza] 8 MCG PO SCH (08:26)
[2018-09-26] MEDS: METOPROLOL TARTRATE 25 MG TAB PO SCH (08:26)
[2018-09-26] MEDS: ASPIRIN 81 MG PO SCH (08:26)
[2018-09-26] MEDS: SODIUM CHLORIDE 5% OPHTH DROPS 15 ML BTL BOTH EYES SCH (08:27)
[2018-09-26] MEDS ORDERED: ONDANSETRON 4 MG TAB PO PRN (11:29)
--- NOTE | 2018-09-26 12:45 | P.GSCN ---
History of Present Illness Consult date: 09/26/18 Reason for Consult: Nausea History of present illness: This is an 83-year-old female who's had a previous history of nausea and possible dehydration. Patient states that she was brought into the hospital several days ago due to nausea and dizziness. Patient states her nausea has completely resolved. She denies any abdominal pain. She is able to drink water without difficulty. Patient has a history of urostomy. Past Medical History Past Medical History: Cancer, Eye Disorder, GERD/Reflux, Hyperlipidemia, Hypertension, Thyroid Disorder Additional Past Medical History / Comment(s): Past couple months pt has had hospitalizations for abdominal pain/generalized weakness/fatigue/UTI (enterobacter faecalis)/ileus and possible CVA. Pt states she currently has some lesions around her ileal conduit. Other hx: Bladder cancer cystectomy/ileal conduit, UTIs, vaginal/uterine cancer with total hysterectomy, hiatal hernia, diverticular disease, constipation, hypothyroid, vertigo, murmur, bilateral keratoconis. History of Any Multi-Drug Resistant Organisms: Other MDRO Past Surgical History: Bladder Surgery, Bowel Resection, Tubal Ligation Additional Past Surgical History / Comment(s): Cystoscopy with TURB bladder tumor, bladder cystectomy/ileal conduit/partial colectomy at [facility], EGD, col onoscopies, D&C, total hysterectomy, bilateral cataract removals/corneal transplants. Past Anesthesia/Blood Transfusion Reactions: Postoperative Nausea & Vomiting (PONV) Smoking Status: Never smoker - Past Family History Father Family Medical History: Cancer Mother Family Medical History: Diabetes Mellitus Sister(s) Family Medical History: Cancer Additional Family Medical History / Comment(s): BREAST CANCER Brother(s) Family Medical History: Cancer Additional Family Medical History / Comment(s): COLON CANCER AND LEUKEMIA Father Brother(s) Family Medical History: Cancer Medications and Allergies Home Medications Medication Instructions Recorded Confirmed Type Levothyroxine Sodium [Synthroid] 50 mcg PO DAILY 03/05/15 09/23/18 History cycloSPORINE 0.05% OPHTH SOLN 1 drop BOTH EYES BID 03/05/15 09/23/18 History [Restasis] prednisoLONE ACETATE 1% OPHTH 1 drops BOTH EYES MO 03/05/15 09/23/18 History [Pred Forte 1%] Aspirin EC [Ecotrin Low Dose] 81 mg PO DAILY 05/28/16 09/23/18 History Metoprolol Tartrate 25 mg PO BID 07/20/18 09/23/18 History Lubiprostone [Amitiza] 8 mcg PO BID 09/23/18 09/23/18 History Ondansetron [Zofran] 4 mg PO Q6HR PRN 09/23/18 09/23/18 History Scopolamine [TransDerm Scop] 1 patch TRANSDERM Q72H 09/23/18 09/23/18 History Sodium Chloride 5% Ophth Soln 2 drops BOTH EYES DAILY 09/23/18 09/23/18 History [Justin 128] Pantoprazole [Protonix] 40 mg PO AC-BRKFST tablet. 09/26/18 Rx Allergies Allergy/AdvReac Type Severity Reaction Status Date / Time sulfamethoxazole Allergy Swelling Verified 09/23/18 15:08 [From Bactrim] lips, sore throat trimethoprim [From Bactrim] Allergy Swelling Verified 09/23/18 15:08 lips, sore throat levofloxacin [From Levaquin] AdvReac severe Verified 09/23/18 15:08 headache Qjkttzj-Yxt-Ngc Reductase AdvReac PAINFUL Verified 09/23/18 15:08 Inhibitor ARMS AND LEGS W/ MULT RX TRIED Surgical - Exam Vital Signs Temp Pulse Resp BP Pulse Ox 96.4 F L 65 18 172/73 96 09/23/18 14:34 09/23/18 14:34 09/23/18 14:34 09/23/18 14:34 09/23/18 14:34 - General well developed, well nourished, no distress - Eyes PERRL - ENT normal pinna - Neck no masses - Respiratory normal expansion - Cardiovascular Rhythm: regular - Abdomen Abdomen: soft, non tender Results - Labs 09/24/18 08:17 09/24/18 08:17 Microbiology - Last 24 Hours (Table) 09/24/18 20:20 Urine Culture - Preliminary Urine,Voided Assessment and Plan Assessment: Resolving nausea. Patient will be scheduled to see her urologist who performed her urostomy. We will follow with you
[2018-09-27] MEDS ORDERED: prednisoLONE ACETATE 1% OPHTH DROPS 5 ML BTL BOTH EYES SCH (09:00)
== END 2018-09-26 14:00 | disposition home health service (06) | DRG 74 ==
LOC: 3NMEDONC 14:03
PROVIDERS: ADMIT Family Medicine; ATTEND Family Medicine
DX: M54.12 Radiculopathy, cervical region (principal); E03.9 Hypothyroidism, unspecified; E78.5 Hyperlipidemia, unspecified; F32.9 Major depressive disorder, single episode, unspecified; I10 Essential (primary) hypertension; K21.9 Gastro-esophageal reflux disease without esophagitis; K59.00 Constipation, unspecified; Z79.82 Long term (current) use of aspirin; Z79.890 Hormone replacement therapy; Z79.899 Other long term (current) drug therapy; Z80.0 Family history of malignant neoplasm of digestive organs; Z80.3 Family history of malignant neoplasm of breast; Z80.6 Family history of leukemia; Z83.3 Family history of diabetes mellitus; Z85.42 Personal history of malignant neoplasm of other parts of uterus; Z85.51 Personal history of malignant neoplasm of bladder; Z86.73 Personal history of transient ischemic attack (TIA), and cerebral infarction without residual deficits; Z90.6 Acquired absence of other parts of urinary tract; Z90.710 Acquired absence of both cervix and uterus; Z93.6 Other artificial openings of urinary tract status; Z79.52 Long term (current) use of systemic steroids
CPT/HCPCS: 70450; 72125; 74022; 80048; 80053; 81001; 82150; 83036; 83690; 84443; 85025; 87086; 95816

== ENCOUNTER 2018-12-22 14:24 | Observation (INO) | payer MEDICARE ==
[2018-12-22] MEDS ORDERED: SODIUM CHLORIDE 0.9% 500 ML 500 ML IV ONE (15:01)
--- NOTE | 2018-12-22 15:05 | ED ---
Altered Mental Status HPI - General Chief Complaint: Altered Mental Status Stated Complaint: Altered Mental Status Time Seen by Provider: 12/22/18 14:34 Source: patient, RN notes reviewed Mode of arrival: wheelchair Limitations: no limitations - History of Present Illness Initial Comments: This is an 83-year-old female sent emergency department with family chief complaint of altered mental status. has had acute change in her mental status over the last 24 hours. Patient reportedly woke up in [place] felt that there something in her house. She has been having some visual hallucination, has been having some intermittent slurred speech or rambling speech. Family states that she is improved at this time though she still has some more flight of ideas type symptoms. Patient does admit that she fell struck her head but has no complaint head and neck pain. Patient does complain of mild low back discomfort. She denies any recent URI symptoms. Patient does have history of bladder cancer in which she is cancer free, has a urostomy. Patient also has been struggling with recurrent dizziness in which she has been diagnosed with vestibular neuritis or BPPV. Patient has been improving with treatment. Family reports no fever or chills patient did contact PCP Dr. Candelaria recommended patient come emergency department - Related Data Home Medications Medication Instructions Recorded Confirmed cycloSPORINE 0.05% OPHTH SOLN 1 drop BOTH EYES BID 03/05/15 12/22/18 [Restasis] prednisoLONE ACETATE 1% OPHTH 1 drops BOTH EYES MO 03/05/15 12/22/18 [Pred Forte 1%] Aspirin EC [Ecotrin Low Dose] 81 mg PO DAILY 05/28/16 12/22/18 Metoprolol Tartrate 25 mg PO BID 07/20/18 12/22/18 Scopolamine [TransDerm Scop] 1 patch TRANSDERM Q72H 09/23/18 12/22/18 Sodium Chloride 5% Ophth Soln 2 drops BOTH EYES DAILY 09/23/18 12/22/18 [Justin 128] Cholecalciferol [Vitamin D3 (25 3,000 unit PO DAILY 12/22/18 12/22/18 Mcg = 1000 Iu)] Docusate [Colace] 100 mg PO BID PRN 12/22/18 12/22/18 Dronabinol [Marinol] 2.5 mg PO TID 12/22/18 12/22/18 Levothyroxine Sodium [Synthroid] 50 mcg PO DAILY 12/22/18 12/22/18 Omeprazole 40 mg PO DAILY 12/22/18 12/22/18 Allergies Allergy/AdvReac Type Severity Reaction Status Date / Time lubiprostone [From Amitiza] Allergy Swelling Verified 12/22/18 16:53 nitrofurantoin Allergy Swelling Verified 12/22/18 16:53 [From Macrobid] sulfamethoxazole Allergy Swelling Verified 12/22/18 16:53 [From Bactrim] lips, sore throat trimethoprim [From Bactrim] Allergy Swelling Verified 12/22/18 16:53 lips, sore throat levofloxacin [From Levaquin] AdvReac severe Verified 12/22/18 16:53 headache Kkinmin-Oxb-Xtb Reductase AdvReac PAINFUL Verified 12/22/18 16:53 Inhibitor ARMS AND LEGS W/ MULT RX TRIED Review of Systems ROS Statement: Those systems with pertinent positive or pertinent negative responses have been documented in the HPI. ROS Other: All systems not noted in ROS Statement are negative. Past Medical History Past Medical History: Cancer, Eye Disorder, GERD/Reflux, Hyperlipidemia, Hypertension, Thyroid Disorder Additional Past Medical History / Comment(s): Past couple months pt has had hospitalizations for abdominal pain/generalized weakness/fatigue/UTI (enterobacter faecalis)/ileus and possible CVA. Pt states she currently has some lesions around her ileal conduit. Other hx: Bladder cancer cy stectomy/ileal conduit, UTIs, vaginal/uterine cancer with total hysterectomy, hiatal hernia, diverticular disease, constipation, hypothyroid, vertigo, murmur, bilateral keratoconis. BPPV benign proxysmal positional vertigo, vestibular neuritits History of Any Multi-Drug Resistant Organisms: Other MDRO Past Surgical History: Bladder Surgery, Bowel Resection, Tubal Ligation Additional Past Surgical History / Comment(s): Cystoscopy with TURB bladder tumor, bladder cystectomy/ileal conduit/[facility] , EGD, colonoscopies, D&C, total hysterectomy, bilateral cataract removals/corneal transplants. Past Anesthesia/Blood Transfusion Reactions: Postoperative Nausea & Vomiting (PONV) Past Psychological History: Depression Smoking Status: Never smoker Past Alcohol Use History: None Reported Past Drug Use History: None Reported - Past Family History Father Family Medical History: Cancer Mother Family Medical History: Diabetes Mellitus Sister(s) Family Medical History: Cancer Additional Family Medical History / Comment(s): BREAST CANCER Brother(s) Family Medical History: Cancer Additional Family Medical History / Comment(s): COLON CANCER AND LEUKEMIA Father Brother(s) Family Medical History: Cancer General Exam Limitations: no limitations General appearance: alert, in no apparent distress Head exam: Present: atraumatic, normocephalic, normal inspection Eye exam: Present: normal appearance, PERRL, EOMI. Absent: scleral icterus, c onjunctival injection, periorbital swelling ENT exam: Present: normal exam, normal oropharynx, mucous membranes moist, TM's normal bilaterally Neck exam: Present: normal inspection, full ROM. Absent: tenderness, meningismus, lymphadenopathy Respiratory exam: Present: normal lung sounds bilaterally. Absent: respiratory distress, wheezes, rales, rhonchi, stridor Cardiovascular Exam: Present: regular rate, normal rhythm, normal heart sounds. Absent: systolic murmur, diastolic murmur, rubs, gallop, clicks GI/Abdominal exam: Present: soft, normal bowel sounds. Absent: distended, tenderness, guarding, rebound, rigid Neurological exam: Present: alert, oriented X3, CN II-XII intact, reflexes normal, other (NIH 1, GCS 15). Absent: motor sensory deficit Skin exam: Present: warm, dry, intact, normal color. Absent: rash Course Vital Signs 12/22/18 12/22/18 12/22/18 14:26 14:38 14:57 Temperature 98.7 F 98.7 F 99.5 F Pulse Rate 61 61 62 Respiratory 18 18 18 Rate Blood Pressure 132/67 132/67 126/63 O2 Sat by Pulse 98 98 97 Oximetry 12/22/18 16:28 Temperature Pulse Rate 70 Respiratory 18 Rate Blood Pressure 147/68 O2 Sat by Pulse 96 Oximetry Medical Decision Making - Medical Decision Making Labs, CT, chest extremity urinalysis were unremarkable.. Patient does have some intermittent confusion, hallucinations altered mental status. Case discussed with Dr. Davila patient will be admitted for neurology evaluation, fluids well will be added. - Lab Data Result diagrams: 12/22/18 15:29 12/22/18 15:29 Lab Results 10/16/19 10/16/19 10/16/19 Range/Units 15:29 15:29 15:29 WBC 7.6 (3.8-10.6) k/uL RBC 4.44 (3.80-5.40) m/uL Hgb 13.6 (11.4-16.0) gm/dL Hct 40.6 (34.0-46.0) % MCV 91.4 (80.0-100.0) fL MCH 30.5 (25.0-35.0) pg MCHC 33.4 (31.0-37.0) g/dL RDW 13.7 (11.5-15.5) % Plt Count 357 (150-450) k/uL Neutrophils % 80 % Lymphocytes % 8 % Monocytes % 8 % Eosinophils % 2 % Basophils % 1 % Neutrophils # 6.1 (1.3-7.7) k/uL Lymphocytes # 0.6 L (1.0-4.8) k/uL Monocytes # 0.6 (0-1.0) k/uL Eosinophils # 0.1 (0-0.7) k/uL Basophils # 0.1 (0-0.2) k/uL PT 9.7 (9.0-12.0) sec INR 0.9 (<1.2) APTT 24.5 (22.0-30.0) sec Sodium 135 L (137-145) mmol/L Potassium 4.5 (3.5-5.1) mmol/L Chloride 101 (98-107) mmol/L Carbon Dioxide 22 (22-30) mmol/L Anion Gap 12 mmol/L BUN 17 (7-17) mg/dL Creatinine 0.65 (0.52-1.04) mg/dL Est GFR (CKD-EPI)AfAm >90 (>60 ml/min/1.73 sqM) Est GFR (CKD-EPI)NonAf 83 (>60 ml/min/1.73 sqM) Glucose 97 (74-99) mg/dL POC Glucose (mg/dL) (75-99) mg/dL POC Glu Moving Picture Producer ID Plasma Lactic Acid Bobby (0.7-2.0) mmol/L Calcium 9.2 (8.4-10.2) mg/dL Total Bilirubin 0.4 (0.2-1.3) mg/dL AST 28 (14-36) U/L ALT 24 (9-52) U/L Alkaline Phosphatase 94 (38-126) U/L Troponin I (0.000-0.034) ng/mL Total Protein 6.8 (6.3-8.2) g/dL Albumin 4.0 (3.5-5.0) g/dL Urine Color Urine Appearance (Clear) Urine pH (5.0-8.0) Ur Specific Abrams (1.001-1.035) Urine Protein (Negative) Urine Glucose (UA) (Negative) Urine Ketones (Negative) Urine Blood (Negative) Urine Nitrite (Negative) Urine Bilirubin (Negative) Urine Urobilinogen (<2.0) mg/dL Ur Leukocyte Esterase (Negative) Urine RBC (0-5) /hpf Urine WBC (0-5) /hpf Ur Squamous Epith Cells (0-4) /hpf Amorphous Sediment (None) /hpf Urine Bacteria (None) /hpf Urine Mucus (None) /hpf 12/22/18 12/22/18 12/22/18 Range/Units 15:29 15:29 15:37 WBC (3.8-10.6) k/uL RBC (3.80-5.40) m/uL Hgb (11.4-16.0) gm/dL Hct (34.0-46.0) % MCV (80.0-100.0) fL MCH (25.0-35.0) pg MCHC (31.0-37.0) g/dL RDW (11.5-15.5) % Plt Count (150-450) k/uL Neutrophils % % Lymphocytes % % Monocytes % % Eosinophils % % Basophils % % Neutrophils # (1.3-7.7) k/uL Lymphocytes # (1.0-4.8) k/uL Monocytes # (0-1.0) k/uL Eosinophils # (0-0.7) k/uL Basophils # (0-0.2) k/uL PT (9.0-12.0) sec INR (<1.2) APTT (22.0-30.0) sec Sodium (137-145) mmol/L Potassium (3.5-5.1) mmol/L Chloride (98-107) mmol/L Carbon Dioxide (22-30) mmol/L Anion Gap mmol/L BUN (7-17) mg/dL Creatinine (0.52-1.04) mg/dL Est GFR (CKD-EPI)AfAm (>60 ml/min/1.73 sqM) Est GFR (CKD-EPI)NonAf (>60 ml/min/1.73 sqM) Glucose (74-99) mg/dL POC Glucose (mg/dL) 99 (75-99) mg/dL POC Glu Moving Picture Producer ID Wilian Leal Plasma Lactic Acid Bobby 0.9 (0.7-2.0) mmol/L Calcium (8.4-10.2) mg/dL Total Bilirubin (0.2-1.3) mg/dL AST (14-36) U/L ALT (9-52) U/L Alkaline Phosphatase (38-126) U/L Troponin I <0.012 (0.000-0.034) ng/mL Total Protein (6.3-8.2) g/dL Albumin (3.5-5.0) g/dL Urine Color Urine Appearance (Clear) Urine pH (5.0-8.0) Ur Specific Abrams (1.001-1.035) Urine Protein (Negative) Urine Glucose (UA) (Negative) Urine Ketones (Negative) Urine Blood (Negative) Urine Nitrite (Negative) Urine Bilirubin (Negative) Urine Urobilinogen (<2.0) mg/dL Ur Leukocyte Esterase (Negative) Urine RBC (0-5) /hpf Urine WBC (0-5) /hpf Ur Squamous Epith Cells (0-4) /hpf Amorphous Sediment (None) /hpf Urine Bacteria (None) /hpf Urine Mucus (None) /hpf 12/22/18 Range/Units 16:58 WBC (3.8-10.6) k/uL RBC (3.80-5.40) m/uL Hgb (11.4-16.0) gm/dL Hct (34.0-46.0) % MCV (80.0-100.0) fL MCH (25.0-35.0) pg MCHC (31.0-37.0) g/dL RDW (11.5-15.5) % Plt Count (150-450) k/uL Neutrophils % % Lymphocytes % % Monocytes % % Eosinophils % % Basophils % % Neutrophils # (1.3-7.7) k/uL Lymphocytes # (1.0-4.8) k/uL Monocytes # (0-1.0) k/uL Eosinophils # (0-0.7) k/uL Basophils # (0-0.2) k/uL PT (9.0-12.0) sec INR (<1.2) APTT (22.0-30.0) sec Sodium (137-145) mmol/L Potassium (3.5-5.1) mmol/L Chloride (98-107) mmol/L Carbon Dioxide (22-30) mmol/L Anion Gap mmol/L BUN (7-17) mg/dL Creatinine (0.52-1.04) mg/dL Est GFR (CKD-EPI)AfAm (>60 ml/min/1.73 sqM) Est GFR (CKD-EPI)NonAf (>60 ml/min/1.73 sqM) Glucose (74-99) mg/dL POC Glucose (mg/dL) (75-99) mg/dL POC Glu Moving Picture Producer ID Plasma Lactic Acid Bobby (0.7-2.0) mmol/L Calcium (8.4-10.2) mg/dL Total Bilirubin (0.2-1.3) mg/dL AST (14-36) U/L ALT (9-52) U/L Alkaline Phosphatase (38-126) U/L Troponin I (0.000-0.034) ng/mL Total Protein (6.3-8.2) g/dL Albumin (3.5-5.0) g/dL Urine Color Colorless Urine Appearance Clear (Clear) Urine pH 6.0 (5.0-8.0) Ur Specific Abrams 1.004 (1.001-1.035) Urine Protein Negative (Negative) Urine Glucose (UA) Negative (Negative) Urine Ketones Negative (Negative) Urine Blood Small H (Negative) Urine Nitrite Negative (Negative) Urine Bilirubin Negative (Negative) Urine Urobilinogen <2.0 (<2.0) mg/dL Ur Leukocyte Esterase Moderate H (Negative) Urine RBC 1 (0-5) /hpf Urine WBC 6 H (0-5) /hpf Ur Squamous Epith Cells 3 (0-4) /hpf Amorphous Sediment Rare H (None) /hpf Urine Bacteria Rare H (None) /hpf Urine Mucus Rare H (None) /hpf - EKG Data EKG Comments: EKG interpreted by me at 15:40 sinus bradycardia rate of 57 VA 164 QRS 74 QT/QTC 426/414 Disposition Clinical Impression: Altered mental status, TIA (transient ischemic attack), Confusion Disposition: ADMITTED IP TO THIS HOSP Condition: Fair Referrals: Madan Salinas MD [Primary Care Provider] - 1-2 days
--- NOTE | 2018-12-22 15:33 | CT ---
EXAMINATION TYPE: CT brain wo con DATE OF EXAM: 12/22/2018 HISTORY: Confusion. CT DLP: 1086.4 mGycm. Automated Exposure Control for Dose Reduction was Utilized. TECHNIQUE: CT scan of the head is performed without contrast. COMPARISON: CT brain September 23, 2018 FINDINGS: There is no acute intracranial hemorrhage or midline shift identified. There is diffuse v entricular and sulcal prominence consistent with diffuse age-related cerebral atrophy. There is low- attenuation in the periventricular white matter consistent with chronic small vessel ischemic change. Vague area of low attenuation left frontal lobe axial image 27 is not significantly changed from juan or. The globes are intact and the visualized sinuses are clear. IMPRESSION: No acute intracranial hemorrhage or midline shift. There is mild to moderate diffuse ag e-related cerebral atrophy and chronic small vessel ischemic change redemonstrated. No significant c hange from prior.
[2018-12-22 15:39] LABS: Glucose,Whole Blood 99 mg/dL (75-99)
--- NOTE | 2018-12-22 15:41 | XR ---
EXAMINATION TYPE: XR chest 2V DATE OF EXAM: 12/22/2018 COMPARISON: 05/28/2018 INDICATION: Altered mental status TECHNIQUE: Frontal and lateral views of the chest are obtained. FINDINGS: The heart size is normal. The pulmonary vasculature is normal. The lungs are clear. IMPRESSION: 1. No acute pulmonary process.
[2018-12-22 15:46] LABS: Basophils # (A) 0.1 k/uL (0-0.2); Basophils % (A) 1 %; Eosinophils # (A) 0.1 k/uL (0-0.7); Eosinophils % (A) 2 %; HCT 40.6 % (34.0-46.0); HGB 13.6 gm/dL (11.4-16.0); Lymphocytes # (A) 0.6 k/uL (1.0-4.8); Lymphocytes % (A) 8 %; MCH 30.5 pg (25.0-35.0); MCHC 33.4 g/dL (31.0-37.0); MCV 91.4 fL (80.0-100.0); Mean Platelet Volume 6.1; Monocytes # (A) 0.6 k/uL (0-1.0); Monocytes % (A) 8 %; Neutrophils # (A) 6.1 k/uL (1.3-7.7); Neutrophils % (A) 80 %; Platelet Count 357 k/uL (150-450); RBC 4.44 m/uL (3.80-5.40); RDW 13.7 % (11.5-15.5); WBC 7.6 k/uL (3.8-10.6)
[2018-12-22 16:03] LABS: INR 0.9 (<1.2); Partial Thromboplastin Time 24.5 sec (22.0-30.0); Prothrombin Time 9.7 sec (9.0-12.0)
[2018-12-22 16:05] LABS: ALT 24 U/L (9-52); AST 28 U/L (14-36); African American GFR (CKD) >90 (>60 ml/min/1.73 sqM); Alkaline Phosphatase 94 U/L (38-126); Anion Gap 12 mmol/L; Blood Urea Nitrogen 17 mg/dL (7-17); Calcium 9.2 mg/dL (8.4-10.2); Carbon Dioxide 22 mmol/L (22-30); Chloride 101 mmol/L (98-107); Glucose 97 mg/dL (74-99); Non-African American GFR(CKD) 83 (>60 ml/min/1.73 sqM); Potassium 4.5 mmol/L (3.5-5.1); Sodium 135 mmol/L (137-145); Total Bilirubin 0.4 mg/dL (0.2-1.3); Total Protein 6.8 g/dL (6.3-8.2)
[2018-12-22 17:14] LABS: Amorphous Sediment,Urine Rare /hpf; Appearance,Urine Clear (Clear); Bacteria,Urine Rare /hpf; Bilirubin,Urine Negative (Negative); Blood,Urine Small (Negative); Color,Urine Colorless; Glucose,Urine (UA) Negative (Negative); Ketones,Urine Negative (Negative); Leukocyte Esterase,Urine Moderate (Negative); Mucus,Urine Rare /hpf; Nitrite,Urine Negative (Negative); Protein,Urine Negative (Negative); RBC,Urine 1 /hpf (0-5); Specific Gravity,Urine 1.004 (1.001-1.035); Squamous Epithelial Cell,Urine 3 /hpf (0-4); Urobilinogen,Urine <2.0 mg/dL (<2.0); WBC,Urine 6 /hpf (0-5)
--- NOTE | 2018-12-22 19:12 | XR ---
EXAMINATION TYPE: XR pelvis AP view DATE OF EXAM: 12/22/2018 COMPARISON: None HISTORY: Fall, pain TECHNIQUE: Single AP view of the pelvis is obtained FINDINGS: Femoral heads articulate with the acetabulum. Joint spaces appear preserved. Multiple surgi kianna clips are within the pelvis. Fecal debris is within the colon. IMPRESSION: 1. Moderate fecal retention. 2. No acute osseous abnormality.
--- NOTE | 2018-12-22 19:13 | XR ---
EXAMINATION TYPE: XR lumbar spine 2 or 3V DATE OF EXAM: 12/22/2018 COMPARISON: 11/30/2012 HISTORY: Fall, pain TECHNIQUE: Three-view lumbar spine FINDINGS: There are 5 lumbar-type vertebral bodies. Pedicles are intact. There is narrowing of the di sc height of L5-S1. Maintained disc heights are preserved. Minimal superior endplate compression defo rmity of L4 is present of indeterminate age. This is an interval finding from the comparison of 2012. Spondylosis present. Vascular calcifications within the aorta. IMPRESSION: 1. Mild superior endplate compression deformity of L4 of indeterminate age. 2. Degenerative disc changes L5-S1.
[2018-12-22] MEDS: SODIUM CHLORIDE 0.9% 1,000 ML IV SCH (19:53)
[2018-12-22] MEDS ORDERED: DOCUSATE 100 MG CAP PO PRN (21:30)
[2018-12-22] MEDS ORDERED: ACETAMINOPHEN TAB 325 MG TAB PO PRN (21:39)
[2018-12-22] MEDS: METOPROLOL TARTRATE 25 MG TAB PO SCH (23:43)
[2018-12-23] MEDS: LEVOTHYROXINE 50 MCG TAB PO SCH (07:04)
[2018-12-23] MEDS ORDERED: SCOPOLAMINE 1.5MG/72HR PATCH TRANSDERM SCH (09:00)
[2018-12-23] MEDS ORDERED: DRONABINOL 2.5 MG CAPSULE PO SCH ×2 (09:00)
[2018-12-23] MEDS: PANTOPRAZOLE 40 MG TABLET PO SCH (09:05)
[2018-12-23] MEDS: METOPROLOL TARTRATE 25 MG TAB PO SCH ×2 (09:05→20:16)
[2018-12-23] MEDS: cycloSPORINE 0.05% OPHTH 0.4 ML DROPERETTE BOTH EYES SCH ×2 (09:05→20:16)
[2018-12-23] MEDS: ASPIRIN 81 MG PO SCH (09:05)
[2018-12-23] MEDS: CHOLECALCIFEROL 1,000 UNIT TAB PO SCH (09:05)
[2018-12-23] MEDS: SODIUM CHLORIDE 0.9% 1,000 ML IV SCH ×2 (09:08→22:25)
[2018-12-23] MEDS: DRONABINOL 2.5 MG CAP PO SCH ×3 (09:15→20:16)
--- NOTE | 2018-12-23 10:20 | P.CONS ---
History of Present Illness - Reason for Consult Consult date: 12/23/18 UTI/stoma infection, fever - History of Present Illness This is an 83-year-old female known to ID service due to her recent hospitalization in Jul, 2018, bowel obstruction and it was thought that underlying infection was etiology for her ileus. She again presented in August of this year with nausea and abdominal discomfort and was seen by general surgery and urology and acute urinary obstruction or infection and bowel obstruction ruled out. The patient has an extensive past medical history in that she had a cystectomy for bladder cancer and does have an ileoconduit in place. Urine culture at that time was stenotrophomonas maltophilia and Erika species thought to be colonization. She was thought to have an acute stroke with acute neurological symptoms treated with TPA. Patient now presents with mental status changes for 24 hours and visual hallucinations. Patient states that her family noticed slurred speech and some difficulty with speaking as well as patient saw someone sitting in chair and when she showed her there was no one there. Patient had a recent fall and hit her head and complains of low back pain now. She states she has ongoing problems with lightheadedness but denies spinning and is on a scopolamine patch. Patient came into [facility] emergency center for evaluation. She was found to be afebrile, WBC 7.6, BUN 17, creatinine 0.65. Urinalysis showed leukoesterase moderate and WBC 6. Influenza testing negative. Blood culture was obtained. CAT scan of the brain showed no acute intracranial finding. Chest x-ray showed no acute pulmonary process. Pelvic x-ray showed fecal retention. Lumbar spine x-ray showed mild superior endplate compression deformity of L4 of indeterminate age. Degenerative disc changes of L5/S1. This morning patient is seen in her room. She is sitting up in a recliner and appears to be comfortable. She is denying any abdominal pain. No fever or chills. She does have some low back pain. She denies any visual hallucinations. She has been up and showered today and denies any lightheadedness/dizziness. She states she ate very little breakfast this morning has had ongoing problems with decreased appetite. She states she did have some pus in her urostomy site about a week ago and Dr. Woods was contacted and there was no concern at the time. She has had good output from her urostomy and urine is clear. Review of Systems Constitutional: Reports poor appetite, Denies chills, Denies fatigue, Denies fever, Denies lethargy, Denies malaise Eyes: denies blurred vision, denies pain Ears, nose, mouth and throat: Reports vertigo, Denies dysphagia, Denies headache, Denies nasal congestion, Denies nasal discharge, Denies sore throat Cardiovascular: Reports lightheadedness, Denies chest pain, Denies decreased exercise tolerance, Denies dyspnea on exertion, Denies edema, Denies shortness of breath, Denies syncope Respiratory: Denies congestion, Denies cough, Denies cough with sputum, Denies dyspnea, Denies excessive sputum, Denies hemoptysis, Denies home oxygen, Denies respiratory infections, Denies wheezing Gastrointestinal: Reports loss of appetite, Denies abdominal pain, Denies diarrhea, Denies nausea, Denies vomiting Genitourinary: Reports as per HPI, Denies flank pain Musculoskeletal: Denies frequent falls, Denies myalgias Integumentary: Denies pruritus, Denies rash, Denies wounds Neurological: Reports change in mentation, Reports vertigo, Denies numbness, Denies weakness Psychiatric: Reports confusion, Reports hallucinations Endocrine: Denies fatigue, Denies weight change Past Medical History Past Medical History: Cancer, Eye Disorder, GERD/Reflux, Hyperlipidemia, Hypertension, Neurologic Disorder, Thyroid Disorder Additional Past Medical History / Comment(s): Past couple months pt has had hospitalizations for abdominal pain/generalized weakness/fatigue/UTI (enterobacter faecalis)/ileus and possible CVA. Pt states she currently has some lesions around her ileal conduit. Other hx: Bladder cancer cystectomy/ileal conduit, UTIs, vaginal/uterine cancer with total hysterectomy, hiatal hernia, diverticular disease, constipation, hypothyroid, vertigo, murmur, bilateral keratoconis. BPPV benign proxysmal positional vertigo, vestibular neuritits History of Any Multi-Drug Resistant Organisms: Other MDRO Past Surgical History: Bladder Surgery, Bowel Resection, Tubal Ligation Additional Past Surgical History / Comment(s): Cystoscopy with TURB bladder tumor, bladder cystectomy/ileal conduit/partial colectomy at [facility], EGD, colonoscopies, D&C, total hysterectomy, bilateral cataract removals/corneal transplants. Past Anesthesia/Blood Transfusion Reactions: Postoperative Nausea & Vomiting (PONV) Past Psychological History: Depression Additional Psychological History / Comment(s): Pt resides with her spouse. She uses a walker. pts. daughter states family is very involved and helps alot Smoking Status: Never smoker Past Alcohol Use History: None Reported Additional Past Alcohol Use History / Comment(s): Patient is a lifelong nonsmoker. No alcohol use. Patient is retired. No service. No animal exposures. Past Drug Use History: None Reported - Past Family History Father Family Medical History: Cancer Mother Family Medical History: Diabetes Mellitus Sister(s) Family Medical History: Cancer Additional Family Medical History / Comment(s): BREAST CANCER Brother(s) Family Medical History: Cancer Additional Family Medical History / Comment(s): COLON CANCER AND LEUKEMIA Father Brother(s) Family Medical History: Cancer Medications and Allergies Home Medications Medication Instructions Recorded Confirmed Type cycloSPORINE 0.05% OPHTH SOLN 1 drop BOTH EYES BID 03/05/15 12/22/18 History [Restasis] prednisoLONE ACETATE 1% OPHTH 1 drops BOTH EYES MO 03/05/15 12/22/18 History [Pred Forte 1%] Aspirin EC [Ecotrin Low Dose] 81 mg PO DAILY 05/28/16 12/22/18 History Metoprolol Tartrate 25 mg PO BID 07/20/18 12/22/18 History Scopolamine [TransDerm Scop] 1 patch TRANSDERM Q72H 09/23/18 12/22/18 History Sodium Chloride 5% Ophth Soln 2 drops BOTH EYES DAILY 09/23/18 12/22/18 History [Justin 128] Cholecalciferol [Vitamin D3 (25 3,000 unit PO DAILY 12/22/18 12/22/18 History Mcg = 1000 Iu)] Docusate [Colace] 100 mg PO BID PRN 12/22/18 12/22/18 History Dronabinol [Marinol] 2.5 mg PO TID 12/22/18 12/22/18 History Levothyroxine Sodium [Synthroid] 50 mcg PO DAILY 12/22/18 12/22/18 History Omeprazole 40 mg PO DAILY 12/22/18 12/22/18 History Allergies Allergy/AdvReac Type Severity Reaction Status Date / Time lubiprostone [From Amitiza] Allergy Swelling Verified 12/22/18 16:53 nitrofurantoin Allergy Swelling Verified 12/22/18 16:53 [From Macrobid] sulfamethoxazole Allergy Swelling Verified 12/22/18 16:53 [From Bactrim] lips, sore throat trimethoprim [From Bactrim] Allergy Swelling Verified 12/22/18 16:53 lips, sore throat levofloxacin [From Levaquin] AdvReac severe Verified 12/22/18 16:53 headache Cmsxwrx-Dbl-Ibx Reductase AdvReac PAINFUL Verified 12/22/18 16:53 Inhibitor ARMS AND LEGS W/ MULT RX TRIED Physical Exam Vitals: Vital Signs Temp Pulse Pulse Resp BP BP Pulse Ox 12/23/18 04:00 97.9 F 82 17 152/65 95 12/23/18 00:00 98.4 F 79 17 175/73 94 L 12/22/18 21:15 77 17 12/22/18 20:50 97.8 F 69 17 144/63 94 L 12/22/18 20:33 98.9 F 67 18 138/61 96 12/22/18 19:45 98.9 F 67 18 138/61 96 12/22/18 17:27 74 18 131/73 97 12/22/18 16:28 70 18 147/68 96 12/22/18 14:57 99.5 F 62 18 126/63 97 12/22/18 14:38 98.7 F 61 18 132/67 98 12/22/18 14:26 98.7 F 61 18 132/67 98 Intake and Output 12/22/18 12/23/18 12/23/18 22:59 06:59 14:59 Intake Total 300 240 Output Total 1325 400 Balance -1025 -160 Intake: Intake, IV Titration 300 Amount Sodium Chloride 0.9% 1, 300 000 ml @ 75 mls/hr IV . [id number] [facility] Rx#:[id number] Oral 240 Output: Urine 1325 400 Other: # Voids 1 # Bowel Movements 1 Weight 54.8 kg Gen.: This is an 83-year-old female. She is resting in a recliner and appears to be comfortable and in no acute distress. HEENT: Anicteric, conjunctiva are pink and moist, nasal or oral mucosa are without lesion. The neck is supple without lymphadenopathy or thyromegaly. No oral thrush is noted. Oral mucous membranes are moist. Dentures in place. Lungs: good bilateral air entry, there are no significant crackles or wheezes, no bronchial sounds. Heart: Regular rate and rhythm with an audible S1-S2, no S3 or S4 noted. No significant murmur click or rub noted. Abdomen: Positive bowel sounds, it is soft, mild tenderness to the upper quadrants. Urostomy from ileoconduit is intact with clear pale carlyn urine present in the urostomy pouch, no flank tenderness Extremities:Upper extremities reveal evidence of equal pulses, no lesions are seen, no petechiae or telangiectasia. The lower extremities have no significant edema, peripheral pulses were 2+ and symmetric, no lesions or ulcerations are seen. Capillary refill was brisk. Skin: Intact without significant rash or lesions. Neuro:Awake and alert, oriented to person place and time. No gross focal sensory motor deficits noted. Musculoskeletal: Patient is ambulatory Results Results: Laboratory Results WBC 7.6 k/uL (3.8-10.6) 12/22/18 15:29 RBC 4.44 m/uL (3.80-5.40) 12/22/18 15:29 Hgb 13.6 gm/dL (11.4-16.0) 12/22/18 15: Hct 40.6 % (34.0-46.0) 12/22/18 15:29 MCV 91.4 fL (80.0-100.0) 12/22/18 15:29 MCH 30.5 pg (25.0-35.0) 12/22/18 15: MCHC 33.4 g/dL (31.0-37.0) 12/22/18 15:29 RDW 13.7 % (11.5-15.5) 12/22/18 15:29 Plt Count 357 k/uL (150-450) 12/22/18 15:29 Neutrophils % 80 % 12/22/18 15:29 Lymphocytes % 8 % 12/22/18 15:29 Monocytes % 8 % 12/22/18 15:29 Eosinophils % 2 % 12/22/18 15:29 Basophils % 1 % 12/22/18 15:29 Neutrophils # 6.1 k/uL (1.3-7.7) 12/22/18 15:29 Lymphocytes # 0.6 k/uL (1.0-4.8) L 12/22/18 15:29 Monocytes # 0.6 k/uL (0-1.0) 12/22/18 15:29 Eosinophils # 0.1 k/uL (0-0.7) 12/22/18 15:29 Basophils # 0.1 k/uL (0-0.2) 12/22/18 15:29 PT 9.7 sec (9.0-12.0) 12/22/18 15:29 INR 0.9 (<1.2) 12/22/18 15:29 APTT 24.5 sec (22.0-30.0) 12/22/18 15:29 Sodium 135 mmol/L (137-145) L 12/22/18 15:29 Potassium 4.5 mmol/L (3.5-5.1) 12/22/18 15: Chloride 101 mmol/L (98-107) 12/22/18 15:29 Carbon Dioxide 22 mmol/L (22-30) 12/22/18 15:29 Anion Gap 12 mmol/L 12/22/18 15:29 BUN 17 mg/dL (7-17) 12/22/18 15:29 Creatinine 0.65 mg/dL (0.52-1.04) 12/22/18 15:29 Est GFR (CKD-EPI)AfAm >90 (>60 ml/min/1.73 sqM) 12/22/18 15:29 Est GFR (CKD-EPI)NonAf 83 (>60 ml/min/1.73 sqM) 12/22/18 15:29 Glucose 97 mg/dL (74-99) 12/22/18 15:29 POC Glucose (mg/dL) 99 mg/dL (75-99) 12/22/18 15:37 POC Glu Manager [employer] ID Wilian Leal 12/22/18 15:37 Plasma Lactic Acid Bobby 0.9 mmol/L (0.7-2.0) 12/22/18 15:29 Calcium 9.2 mg/dL (8.4-10.2) 12/22/18 15:29 Total Bilirubin 0.4 mg/dL (0.2-1.3) 12/22/18 15:29 AST 28 U/L (14-36) 12/22/18 15:29 ALT 24 U/L (9-52) 12/22/18 15:29 Alkaline Phosphatase 94 U/L (38-126) 12/22/18 15:29 Troponin I <0.012 ng/mL (0.000-0.034) 12/22/18 15:29 Total Protein 6.8 g/dL (6.3-8.2) 12/22/18 15:29 Albumin 4.0 g/dL (3.5-5.0) 12/22/18 15:29 TSH 1.900 mIU/L (0.465-4.680) 12/22/18 15:29 Urine Color Colorless 12/22/18 16:58 Urine Appearance Clear (Clear) 12/22/18 16:58 Urine pH 6.0 (5.0-8.0) 12/22/18 16:58 Ur Specific [place] 1.004 (1.001-1.035) 12/22/18 16:58 Urine Protein Negative (Negative) 12/22/18 16:58 Urine Glucose (UA) Negative (Negative) 12/22/18 16:58 Urine Ketones Negative (Negative) 12/22/18 16:58 Urine Blood Small (Negative) H 12/22/18 16:58 Urine Nitrite Negative (Negative) 12/22/18 16:58 Urine Bilirubin Negative (Negative) 12/22/18 16:58 Urine Urobilinogen <2.0 mg/dL (<2.0) 12/22/18 16:58 Ur Leukocyte Esterase Moderate (Negative) H 12/22/18 16:58 Urine RBC 1 /hpf (0-5) 12/22/18 16:58 Urine WBC 6 /hpf (0-5) H 12/22/18 16:58 Ur Squamous Epith Cells 3 /hpf (0-4) 12/22/18 16:58 Amorphous Sediment Rare /hpf (None) H 12/22/18 16:58 Urine Bacteria Rare /hpf (None) H 12/22/18 16:58 Urine Mucus Rare /hpf (None) H 12/22/18 16:58 Influenza Type A RNA Not Detected (Not Detectd) 12/22/18 17:48 Influenza Type B (PCR) Not Detected (Not Detectd) 12/22/18 17:48 CBC & Chem 7: 12/22/18 15:29 10/16/19 15:29 Labs: Abnormal Lab Results - Last 24 Hours (Table) 12/22/18 12/22/18 12/22/18 Range/Units 15:29 15:29 16:58 Lymphocytes # 0.6 L (1.0-4.8) k/uL Sodium 135 L (137-145) mmol/L Urine Blood Small H (Negative) Ur Leukocyte Esterase Moderate H (Negative) Urine WBC 6 H (0-5) /hpf Amorphous Sediment Rare H (None) /hpf Urine Bacteria Rare H (None) /hpf Urine Mucus Rare H (None) /hpf Assessment and Plan Plan: This is an 83-year-old female who came into the hospital with mental status changes, acute metabolic encephalopathy of unclear etiology. She also had some visual hallucinations and mental status seems to be back to her base line. She denies any further hallucinations. No clear evidence of infectious process. Patient is currently on Rocephin and this will be addressed. Continue supportive care. Further recommendations patient progresses. The above dictated assessment and findings were discussed with Dr. Poon. The impression and plan of care have been directed as dictated. Venita Rivera nurse practitioner acting as scribe for Dr. Poon.
--- NOTE | 2018-12-23 12:54 | P.CNNES ---
History of Present Illness Consult date: 12/23/18 Reason for Consult: AMS History of Present Illness: Patient is a 83-year-old female, who came to the hospital because of mental confusion. Patient is known to me from previous admission to the hospital in August 2018 when she had symptoms of possible CVA while in the hospital for which she received TPA. Patient was doing fine. She even was seen at geriatric Center at [facility] since then, and she was told that her mentation, and memory function are consistent with her chronological age with no evidence of dementia. Patient was also admitted to the hospital in September 2018 for dizziness, and was given steroids. Patient also has episodes of nausea vomiting dizziness, for which she was seen by local neurologist Dr. Schultz, who diagnosed her with vestibular neuronitis. Patient has been planned to undergo treatment with IV steroids at his office for possible residual inflammation related to vestibular neuronitis. 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 She saw someone sitting in the chair. It was a man with long harry. She felt someone has broken in. She called her , and when her came, the man disappeared. She then realized that she may be imagining. One time she saw another kacy getting into the refrigerator. Patient's daughter also mentions that on Thursday, 2 days ago, it was first time she noticed that patient asked about day of the week 8 or 9 times the same day. Sometimes she would forget what day is it and may ask once or twice but that day she asked 8 or 9 times the same thing. She could not remember. Otherwise patient did not have any focal neurological symptoms. Patient talk to her primary physician, and was concerned if there was a UTI producing this mental confusion therefore was admitted. Patient has not started any new medications recently, except for Drobinol for nausea and dizziness related to vestibular neuronitis. Patient's computed tomography scan of the head showed no acute process. There is mild to moderate diffuse age-related cerebral atrophy and chronic small vessel ischemic change redemonstrated. No significant change from prior CT. Patient's chest x-ray is normal. EKG showed sinus bradycardia. Past Medical History Past Medical History: Cancer, Eye Disorder, GERD/Reflux, Hyperlipidemia, Hypertension, Neurologic Disorder, Thyroid Disorder Additional Past Medical History / Comment(s): Past couple months pt has had hospitalizations for abdominal pain/generalized weakness/fatigue/UTI (enterobacter faecalis)/ileus and possible CVA. Pt states she currently has some lesions around her ileal conduit. Other hx: Bladder cancer cyst ectomy/ileal conduit, UTIs, vaginal/uterine cancer with total hysterectomy, hiatal hernia, diverticular disease, constipation, hypothyroid, vertigo, murmur, bilateral keratoconis. BPPV benign proxysmal positional vertigo, vestibular neuritits History of Any Multi-Drug Resistant Organisms: Other MDRO Past Surgical History: Bladder Surgery, Bowel Resection, Tubal Ligation Additional Past Surgical History / Comment(s): Cystoscopy with TURB bladder tumor, bladder cystectomy[facility]ileal conduit[facility], co lonoscopies, D&C, total hysterectomy, bilateral cataract removals/corneal transplants. Past Anesthesia/Blood Transfusion Reactions: Postoperative Nausea & Vomiting (PONV) Past Psychological History: Depression Additional Psychological History / Comment(s): Pt resides with her spouse. She uses a walker. pts. daughter states family is very involved and helps alot Smoking Status: Never smoker Past Alcohol Use History: None Reported Additional Past Alcohol Use History / Comment(s): Patient is a lifelong nonsmoker. No alcohol use. Patient is retired. No service. No animal exposures. Past Drug Use History: None Reported - Past Family History Father Family Medical History: Cancer Mother Family Medical History: Diabetes Mellitus Sister(s) Family Medical History: Cancer Additional Family Medical History / Comment(s): BREAST CANCER Brother(s) Family Medical History: Cancer Additional Family Medical History / Comment(s): COLON CANCER AND LEUKEMIA Father Brother(s) Family Medical History: Cancer Medications and Allergies Home Medications Medication Instructions Recorded Confirmed Type cycloSPORINE 0.05% OPHTH SOLN 1 drop BOTH EYES BID 03/05/15 12/22/18 History [Restasis] prednisoLONE ACETATE 1% OPHTH 1 drops BOTH EYES MO 03/05/15 12/22/18 History [Pred Forte 1%] Aspirin EC [Ecotrin Low Dose] 81 mg PO DAILY 05/28/16 12/22/18 History Metoprolol Tartrate 25 mg PO BID 07/20/18 12/22/18 History Scopolamine [TransDerm Scop] 1 patch TRANSDERM Q72H 09/23/18 12/22/18 History Sodium Chloride 5% Ophth Soln 2 drops BOTH EYES DAILY 09/23/18 12/22/18 History [Justin 128] Cholecalciferol [Vitamin D3 (25 3,000 unit PO DAILY 12/22/18 12/22/18 History Mcg = 1000 Iu)] Docusate [Colace] 100 mg PO BID PRN 12/22/18 12/22/18 History Dronabinol [Marinol] 2.5 mg PO TID 12/22/18 12/22/18 History Levothyroxine Sodium [Synthroid] 50 mcg PO DAILY 12/22/18 12/22/18 History Omeprazole 40 mg PO DAILY 12/22/18 12/22/18 History Allergies Allergy/AdvReac Type Severity Reaction Status Date / Time lubiprostone [From Amitiza] Allergy Swelling Verified 12/22/18 16:53 nitrofurantoin Allergy Swelling Verified 12/22/18 16:53 [From Macrobid] sulfamethoxazole Allergy Swelling Verified 12/22/18 16:53 [From Bactrim] lips, sore throat trimethoprim [From Bactrim] Allergy Swelling Verified 12/22/18 16:53 lips, sore throat levofloxacin [From Levaquin] AdvReac severe Verified 12/22/18 16:53 headache Ukimwqd-Ztm-Odr Reductase AdvReac PAINFUL Verified 12/22/18 16:53 Inhibitor ARMS AND LEGS W/ MULT RX TRIED Physical Examination - Vital Signs Vital Signs: Vital Signs Temp Pulse Pulse Resp BP BP Pulse Ox 12/23/18 08:00 98.2 F 92 20 117/54 96 12/23/18 04:00 97.9 F 82 17 152/65 95 12/23/18 00:00 98.4 F 79 17 175/73 94 L 12/22/18 21:15 77 17 12/22/18 20:50 97.8 F 69 17 144/63 94 L 12/22/18 20:33 98.9 F 67 18 138/61 96 12/22/18 19:45 98.9 F 67 18 138/61 96 12/22/18 17:27 74 18 131/73 97 12/22/18 16:28 70 18 147/68 96 12/22/18 14:57 99.5 F 62 18 126/63 97 12/22/18 14:38 98.7 F 61 18 132/67 98 12/22/18 14:26 98.7 F 61 18 132/67 98 Intake and Output 12/22/18 12/23/18 12/23/18 22:59 06:59 14:59 Intake Total 300 240 Output Total 1325 400 Balance -1025 -160 Intake: Intake, IV Titration 300 Amount Sodium Chloride 0.9% 1, 300 000 ml @ 75 mls/hr IV . [id number] [facility] Rx#:[id number] Oral 240 Output: Urine 1325 400 Other: # Voids 1 # Bowel Movements 1 Weight 54.8 kg On examination patient is an elderly female, very pleasant in no acute distress. Patient's mental status, speech and language functions are normal. No obvious bruit. Cranial nerves are normal. Visual taveras are full. Face is symmetric. On muscle strength testing patient has mild left pronation. The strength is normal in the arms and legs. Reflexes are symmetric. Patient has mild dysmetria for [id number] and elci-zs-glqd testing on the left side. Tone and bulk of muscles normal. Sensations normal. Gait deferred. Results Patient's UA showed moderate leukocyte esterase, 6 WBCs and rare bacteria. Cultures not available. Sodium 135 other electrolytes and renal functions normal. Her cholesterol is 186, LDL 113. - Laboratory Findings CBC and BMP: 12/22/18 15:29 12/22/18 15:29 Abnormal Lab Findings: Abnormal Labs 12/22/18 12/22/18 12/22/18 15:29 15:29 16:58 Lymphocytes # 0.6 L Sodium 135 L Urine Blood Small H Ur Leukocyte Esterase Moderate H Urine WBC 6 H Amorphous Sediment Rare H Urine Bacteria Rare H Urine Mucus Rare H Assessment and Plan Assessment: * Altered mental status, likely mild delirium. Patient has some episodes of hallucinations. Workup showed possibility of mild UTI. Patient also was started on Drobinal, which may be the cause of mild delirium. * Hypertension * Hyperlipidemia * Hypothyroidism * History of bladder cancer, status post urostomy. Plan: Patient has been started on Rocephin for possible UTI. Her mentation has normalized. If symptoms recur, then consider decreasing dose of Drobinol. Patient and her daughter informed that delirium could get worse if she receives high-dose steroids as is planned in the near future with her neurologist. Patient's TSH is normal, hemoglobin A1c 5.5. We will check B12, folate. Otherwise clear from neurology point. Thank you very much for allowing me to participate in care of your patient.
[2018-12-23 13:08] VITALS: BMI 21.4
[2018-12-23 16:16] VITALS: RESP 18
[2018-12-23] MEDS ORDERED: MECLIZINE 12.5 MG TAB PO PRN (18:02)
[2018-12-23 19:36] LABS: Folate, Serum 14.9 ng/mL
--- NOTE | 2018-12-23 21:57 | P.CON ---
Consult Note - . Consult date: 12/23/18 Assessment/Plan:: This is an 83-year-old female known to ID service due to her recent hospitalization in Jul, 2018, bowel obstruction and it was thought that underlying infection was etiology for her ileus. She again presented in August of this year with nausea and abdominal discomfort and was seen by general surgery and urology and acute urinary obstruction or infection and bowel obstruction ruled out. The patient has an extensive past medical history in that she had a cystectomy for bladder cancer and does have an ileoconduit in place. Urine culture at that time was stenotrophomonas maltophilia and Erika species thought to be colonization. She was thought to have an acute stroke with acute neurological symptoms treated with TPA. Patient now presents with mental status changes for 24 hours and visual hallucinations. Patient states that her family noticed slurred speech and some difficulty with speaking as well as patient saw someone sitting in chair and when she showed her there was no one there. Patient had a recent fall and hit her head and complains of low back pain now. She states she has ongoing problems with lightheadedness but denies spinning and is on a scopolamine patch. Patient came into [facility] emergency center for evaluation. She was found to be afebrile, WBC 7.6, BUN 17, creatinine 0.65. Urinalysis showed leukoesterase moderate and WBC 6. Influenza testing negative. Blood culture was obtained. CAT scan of the brain showed no acute intracranial finding. Chest x-ray showed no acute pulmonary process. Pelvic x-ray showed fecal retention. Lumbar spine x-ray showed mild superior endplate compression deformity of L4 of indeterminate age. Degenerative disc changes of L5/S1. This morning patient is seen in her room. She is sitting up in a recliner and appears to be comfortable. She is denying any abdominal pain. No fever or chills. She does have some low back pain. She denies any visual hallucinations. She has been up and showered today and denies any lightheadedness/dizziness. She states she ate very little breakfast this morning has had ongoing problems with decreased appetite. She states she did have some pus in her urostomy site about a week ago and Dr. Woods was contacted and there was no concern at the time. She has had good output from her urostomy and urine is clear. Please see the consult note as dictated by JAS Mrs Venita Rivera. Patient presents with altered mental status and patient and family were concerned about recurrent infection of the urine.She has had several bouts of urinary tract infection with some altered mentation. The patient does have ongoing difficulties with vertigo and has had several medications to try to help. She states that meclizine has been not helpful at all and consequently has been on a scopolamine patch in the past he was not utilized for a bit but she has not reapplied it approximately 5 days before her hospital stay. It is had a new patch applied today. Scopolamine has significant central nervous systems side effects and this observer is very concerned that this is the etiology of some of her mental status changes. Because at this point in time she is back to her baseline and the family is quite content that she is improved. However are still concerned that she has an active urinary tract infection, I reviewed with the urinalysis shows evidence ofspecific infection at this time. Neurology evaluation has been requested and we look forward to their input. I reviewed with evaluation, assessment and plan as dictated by nurse practitioner Mrs. Venita Rivera.
[2018-12-24] MEDS: LEVOTHYROXINE 50 MCG TAB PO SCH (06:23)
[2018-12-24] MEDS: PANTOPRAZOLE 40 MG TABLET PO SCH (08:41)
[2018-12-24] MEDS: ASPIRIN 81 MG PO SCH (08:41)
[2018-12-24] MEDS: CHOLECALCIFEROL 1,000 UNIT TAB PO SCH (08:41)
[2018-12-24] MEDS: cycloSPORINE 0.05% OPHTH 0.4 ML DROPERETTE BOTH EYES SCH (08:41)
[2018-12-24] MEDS: DRONABINOL 2.5 MG CAP PO SCH (08:41)
[2018-12-24] MEDS: METOPROLOL TARTRATE 25 MG TAB PO SCH (08:41)
[2018-12-24] MEDS: SODIUM CHLORIDE 0.9% 1,000 ML IV SCH (10:41)
[2018-12-24 10:48] VITALS: BP 156/79; PULSE 90; TEMP 98.1
--- NOTE | 2018-12-24 10:48 | P.PN ---
Subjective Progress Note Date: 12/24/18 Patient feels fine. Offers no complaints. Back to baseline. Objective - Vital Signs Vital signs: Vital Signs Temp 97.8 F 12/24/18 03:25 Pulse 67 12/24/18 03:25 Resp 18 12/24/18 03:25 BP 153/68 12/24/18 03:25 Pulse Ox 95 12/24/18 03:25 Intake & Output 12/23/18 12/24/18 12/24/18 18:59 06:59 18:59 Intake Total 840 Output Total 1100 1000 375 Balance -260 -1000 -375 Weight 54.8 kg 54.7 kg Intake: Oral 840 Output: Urine 1100 1000 375 Other: Voiding Method Ileal Conduit (Right) # Voids 1 # Bowel Movements 1 - Exam Essentially unchanged. - Labs CBC & Chem 7: 12/22/18 15:29 12/22/18 15:29 Labs: Microbiology - Last 24 Hours (Table) 12/22/18 15:29 Blood Culture - Preliminary Blood No Growth after 24 hours Assessment and Plan Assessment: * Altered mental status, likely mild delirium. Patient has some episodes of hallucinations. Workup showed possibility of mild UTI. Patient also was started on Drobinal, which may be the cause of mild delirium. * Hypertension * Hyperlipidemia * Hypothyroidism * History of bladder cancer, status post urostomy. Plan: Patient has been treated with Rocephin for possible UTI. Her mentation has normalized. If symptoms recur, then consider decreasing dose of Drobinol. Patient and her daughter informed that delirium could get worse if she receives high-dose steroids as is planned in the near future with her neurologist. Patient's TSH is normal, hemoglobin A1c 5.5. B12 386, folate 14.9. Patient is clear for discharge from neurology point. Thank you very much for allowing me to participate in care of your patient.
--- NOTE | 2018-12-24 12:30 | P.DS ---
Providers Date of admission: 12/22/18 17:22 Expected date of discharge: 12/24/18 Attending physician: Madan Salinas Consults: 12/22/18 17:24 Consult Physician Urgent Consulting Provider: Panda Granados Consult Reason/Comments: confusion, altered mental status Do you want consulting provider notified?: Yes 12/22/18 18:01 Consult Physician Routine Consulting Provider: Madan Poon Consult Reason/Comments: uti/stoma infection,fever Do you want consulting provider notified?: Yes Primary care physician: [facility] Course: Final Diagnoses: -Altered mental status, delirium, acute metabolic encephalopathy, possibly toxic encephalopathy, multifactorial, medication induced, poss. mild UTI. -Hypertension -Hyperlipidemia -Hypothyroidism -History of bladder cancer with urostomy Hospital course: This is an 83-year-old female admitted with altered mental status, evaluated by both neurology and infectious disease. Maintained on IV antibiotics. TSH normal. Significant clinical improvement. Cleared by all consults for discharge. Patient being discharged home in a stable condition with guarded prognosis ,on Antivert, no scopolamine. PHYSICAL EXAM: GENERAL: Alert and oriented 3, no acute distress CARDIOVASCULAR: S1, S2 regular.. No murmur RESPIRATION: Breath sounds diminished in the bases. No rhonchi or crackles. No wheezing. ABDOMEN: Soft, nontender . No guarding. no masses palpable.Bowel sounds heard. NERVOUS SYSTEM: No focal deficits. The impression and plan of care has been dictated as directed. : I performed a history and examination of this patient, discussed the same with the dictator. I agree with the dictator's note ,documented as a scribe. Any additional findings or plans will be noted. Patient Condition at Discharge: Stable Plan - Discharge Summary Discharge Rx Participant: No New Discharge Prescriptions: New Meclizine [Antivert] 12.5 mg PO TID PRN #21 tab PRN Reason: Vertigo Pantoprazole [Protonix] 40 mg PO DAILY #30 tablet. Cefuroxime Axetil [Ceftin] 500 mg PO BID 3 Days #6 tab Continue prednisoLONE ACETATE 1% OPHTH [Pred Forte 1%] 1 drops BOTH EYES MO cycloSPORINE 0.05% OPHTH SOLN [Restasis] 1 drop BOTH EYES BID Aspirin EC [Ecotrin Low Dose] 81 mg PO DAILY Metoprolol Tartrate 25 mg PO BID Sodium Chloride 5% Ophth Soln [Justin 128] 2 drops BOTH EYES DAILY Omeprazole 40 mg PO DAILY Levothyroxine Sodium [Synthroid] 50 mcg PO DAILY Dronabinol [Marinol] 2.5 mg PO TID Docusate [Colace] 100 mg PO BID PRN PRN Reason: Constipation Cholecalciferol [Vitamin D3 (25 Mcg = 1000 Iu)] 3,000 unit PO DAILY Discontinued Scopolamine [TransDerm Scop] 1 patch TRANSDERM Q72H Discharge Medication List cycloSPORINE 0.05% OPHTH SOLN [Restasis] 1 drop BOTH EYES BID 03/05/15 [History] prednisoLONE ACETATE 1% OPHTH [Pred Forte 1%] 1 drops BOTH EYES MO 03/05/15 [History] Aspirin EC [Ecotrin Low Dose] 81 mg PO DAILY 05/28/16 [History] Metoprolol Tartrate 25 mg PO BID 07/20/18 [History] Sodium Chloride 5% Ophth Soln [Justin 128] 2 drops BOTH EYES DAILY 09/23/18 [History] Cholecalciferol [Vitamin D3 (25 Mcg = 1000 Iu)] 3,000 unit PO DAILY 12/22/18 [History] Docusate [Colace] 100 mg PO BID PRN 12/22/18 [History] Dronabinol [Marinol] 2.5 mg PO TID 12/22/18 [History] Levothyroxine Sodium [Synthroid] 50 mcg PO DAILY 12/22/18 [History] Omeprazole 40 mg PO DAILY 12/22/18 [History] Cefuroxime Axetil [Ceftin] 500 mg PO BID 3 Days #6 tab 12/24/18 [Rx] Meclizine [Antivert] 12.5 mg PO TID PRN #21 tab 12/24/18 [Rx] Pantoprazole [Protonix] 40 mg PO DAILY #30 tablet. 12/24/18 [Rx] Follow up Appointment(s)/Referral(s): Madan Salinas MD [Primary Care Provider] - 12/28/18 9:30 am Andria uCriel MD [Medical Doctor] - 2 Weeks (Dr. Curiel's office will call patient to schedule follow-up appointment.) Patient Instructions/Handouts: Urinary Tract Infection in Women (DC), Fall Prevention for Older Adults (DC), Altered Mental Status (ED)
--- NOTE | 2019-02-07 01:50 | HP ---
HISTORY AND PHYSICAL CHIEF COMPLAINT: [id number] white female came in with altered mental status with worsening over the last 24 hours, fell in her house. She was having visual hallucinations and intermittent slurred speech, rambling speech, possible flight of ideas. She fell, struck her head. Pain is possibly lower back discomfort, history of bladder cancer, urostomy, recent vestibular neuritis being treated by neurologist. HOME MEDICATIONS: See list. ALLERGIES: NITROFURANTOIN AND BACTRIM . PAST MEDICAL HISTORY: Hypertension, hypothyroidism, GERD, stable enteritis, bladder cancer, eye disorder, dyslipidemia, bladder cancer, cystectomy, ileal conduit, UTIs, uterine cancer, total hysterectomy, hiatal hernia, diverticular disease, hypothyroidism, vertigo, benign positional vertigo. Bladder surgery, bowel resection, tubal ligation. FAMILY HISTORY: Father cancer, mother diabetes mellitus. Sister, breast cancer. PHYSICAL EXAM: Temperature 98, pulse 60s, respiratory rate 18 to 20. Lungs are clear. HEART: Regular rate and rhythm. GI soft, nontender. Normal bowel sounds. Neurologic: Cranial nerves are intact. SKIN: Warm, dry, intact. Ophthalmologic: Pupils equal, round, reactive. ENT external ear canals normal. HEAD: Normocephalic, atraumatic head. CT of the chest unremarkable. ASSESSMENT: 1. Dehydration. 2. Hyponatremia. 3. Altered mental status. 4. Possible transient ischemic attack. 5. Confusion. 6. Sinus bradycardia. Admit. Rule out UTI. Rehydrate. Get a Neurology consult. PT/OT. KIKA / RENETTA: [phone] /
== END 2018-12-24 13:17 | disposition home or self-care (01) ==
LOC: EC 14:24 → 3SCARD 17:22
PROVIDERS: ADMIT Family Medicine; ATTEND Family Medicine
DX: G93.41 Metabolic encephalopathy (principal); E86.0 Dehydration; E87.1 Hypo-osmolality and hyponatremia; K21.9 Gastro-esophageal reflux disease without esophagitis; I10 Essential (primary) hypertension; E78.5 Hyperlipidemia, unspecified; E03.9 Hypothyroidism, unspecified; Z93.6 Other artificial openings of urinary tract status; M54.5 Low back pain; H81.10 Benign paroxysmal vertigo, unspecified ear; H81.20 Vestibular neuronitis, unspecified ear; K57.90 Diverticulosis of intestine, part unspecified, without perforation or abscess without bleeding; K44.9 Diaphragmatic hernia without obstruction or gangrene; F32.9 Major depressive disorder, single episode, unspecified; K59.00 Constipation, unspecified; M51.37 Other intervertebral disc degeneration, lumbosacral region; R00.1 Bradycardia, unspecified; W19.XXXA Unspecified fall, initial encounter; Z79.890 Hormone replacement therapy; Z79.82 Long term (current) use of aspirin; Z79.899 Other long term (current) drug therapy; Z85.51 Personal history of malignant neoplasm of bladder; Z87.440 Personal history of urinary (tract) infections; Z85.42 Personal history of malignant neoplasm of other parts of uterus; Z16.24 Resistance to multiple antibiotics; Z98.42 Cataract extraction status, left eye; Z98.41 Cataract extraction status, right eye; Z96.1 Presence of intraocular lens; Z87.19 Personal history of other diseases of the digestive system; Z90.710 Acquired absence of both cervix and uterus; Z86.69 Personal history of other diseases of the nervous system and sense organs; Z83.3 Family history of diabetes mellitus; Z80.3 Family history of malignant neoplasm of breast; Z80.6 Family history of leukemia; Z80.0 Family history of malignant neoplasm of digestive organs; Y92.009 Unspecified place in unspecified non-institutional (private) residence as the place of occurrence of the external cause
CPT/HCPCS: 96361 ×3; 96366 ×2; 96365; 99285; 36415; 93005; 80053; 84443; 82607; 82746; 83605; 84484; 85025; 85610; 85730; 81001; 87040; 87502; 72100; 72170; 71046; 70450; G0378 ×3; Q0167 ×2; J0696 ×3

== ENCOUNTER → 2019-02-25 | Outpatient (CLI) | payer MEDICARE ==
--- NOTE | 2019-02-25 12:19 | XR ---
EXAMINATION TYPE: XR ribs LT DATE OF EXAM: 02/25/2019 COMPARISON: Chest x-ray 12/22/2018 HISTORY: Posterior rib pain following fall TECHNIQUE: 2 view left RIBS FINDINGS: No acute fractures are evident. No pneumothorax is evident. Costochondral cartilage calcifi cation is present. IMPRESSION: 1. Normal left ribs
== END | disposition home or self-care (01) ==
LOC: RADXRMAIN 10:27
PROVIDERS: ATTEND Family Medicine
DX: R07.81 Pleurodynia (principal)

== ENCOUNTER 2019-07-17 17:53 | Inpatient (IN) | payer MEDICARE ==
[2019-07-17] MEDS ORDERED: SODIUM CHLORIDE 0.9% 500 ML 500 ML IV STA (18:14)
[2019-07-17] MEDS ORDERED: ACETAMINOPHEN TAB 325 MG TAB PO STA (18:14)
--- NOTE | 2019-07-17 18:26 | ED ---
General Adult HPI - General Chief complaint: Fever Stated complaint: Back pain Time Seen by Provider: 07/17/19 18:05 Source: patient, EMS, RN notes reviewed, old records reviewed Mode of arrival: EMS Limitations: no limitations - History of Present Illness Initial comments: 84-year-old female presenting with fever, generalized weakness. Patient has his tory of bladder cancer status post urostomy. She was recently treated for UTI and had been prescribed Levaquin which she finished 4 days ago. She is presenting with increased generalized weakness as well as chronic right lower extremity pain in the mid thigh which she has had for many months and has been seen on multiple occasions regarding this pain complaint. No vomiting or diarrhea. No abdominal pain. Patient denies cough or dyspnea. Denies URI symptoms. - Related Data Home Medications Medication Instructions Recorded Confirmed cycloSPORINE 0.05% OPHTH SOLN 1 drop BOTH EYES BID 03/05/15 12/22/18 [Restasis] prednisoLONE ACETATE 1% OPHTH 1 drops BOTH EYES MO 03/05/15 12/22/18 [Pred Forte 1%] Aspirin EC [Ecotrin Low Dose] 81 mg PO DAILY 05/28/16 12/22/18 Metoprolol Tartrate 25 mg PO BID 07/20/18 12/22/18 Sodium Chloride 5% Ophth Soln 2 drops BOTH EYES DAILY 09/23/18 12/22/18 [Justin 128] Cholecalciferol [Vitamin D3 (25 3,000 unit PO DAILY 12/22/18 12/22/18 Mcg = 1000 Iu)] Docusate [Colace] 100 mg PO BID PRN 12/22/18 12/22/18 Dronabinol [Marinol] 2.5 mg PO TID 12/22/18 12/22/18 Levothyroxine Sodium [Synthroid] 50 mcg PO DAILY 12/22/18 12/22/18 Omeprazole 40 mg PO DAILY 12/22/18 12/22/18 Previous Rx's Medication Instructions Recorded Cefuroxime Axetil [Ceftin] 500 mg PO BID 3 Days #6 tab 12/24/18 Meclizine [Antivert] 12.5 mg PO TID PRN #21 tab 12/24/18 Pantoprazole [Protonix] 40 mg PO DAILY #30 tablet. 12/24/18 Allergies Allergy/AdvReac Type Severity Reaction Status Date / Time lubiprostone [From Amitiza] Allergy Swelling Verified 07/17/19 18:07 nitrofurantoin Allergy Swelling Verified 07/17/19 18:07 [From Macrobid] sulfamethoxazole Allergy Swelling Verified 07/17/19 18:07 [From Bactrim] lips, sore throat trimethoprim [From Bactrim] Allergy Swelling Verified 07/17/19 18:07 lips, sore throat levofloxacin [From Levaquin] AdvReac severe Verified 07/17/19 18:07 headache Lzlavwo-Qev-Chw Reductase AdvReac PAINFUL Verified 07/17/19 18:07 Inhibitor ARMS AND LEGS W/ MULT RX TRIED Review of Systems ROS Statement: Those systems with pertinent positive or pertinent negative responses have been documented in the HPI. ROS Other: All systems not noted in ROS Statement are negative. Past Medical History Past Medical History: Cancer, Eye Disorder, GERD/Reflux, Hyperlipidemia, Hypertension, Neurologic Disorder, Thyroid Disorder Additional Past Medical History / Comment(s): Past couple months pt has had hospitalizations for abdominal pain/generalized weakness/fatigue/UTI (enterobacter faecalis)/ileus and possible CVA. Pt states she currently has some lesions around her ileal conduit. Other hx: Bladder cancer cystectomy/ileal conduit, UTIs, vaginal/uterine cancer with total hysterectomy, hiatal hernia, diverticular disease, constipation, hypothyroid, vertigo, murmur, bilateral keratoconis. BPPV benign proxysmal positional vertigo, vestibular neuritits History of Any Multi-Drug Resistant Organisms: Other MDRO Past Surgical History: Bladder Surgery, Bowel Resection, Tubal Ligation Additional Past Surgical History / Comment(s): Cystoscopy with TURB bladder tumor, bladder cystectomy/ileal conduit/partial colectomy at [facility], EGD, colonoscopies, D&C, total hysterectomy, bilateral cataract removals/corneal transplants. Past Anesthesia/Blood Transfusion Reactions: Postoperative Nausea & Vomiting (PONV) Past Psychological History: Depression Smoking Status: Never smoker Past Alcohol Use History: None Reported Past Drug Use History: None Reported - Past Family History Father Family Medical History: Cancer Mother Family Medical History: Diabetes Mellitus Sister(s) Family Medical History: Cancer Additional Family Medical History / Comment(s): BREAST CANCER Brother(s) Family Medical History: Cancer Additional Family Medical History / Comment(s): COLON CANCER AND LEUKEMIA Father Brother(s) Family Medical History: Cancer General Exam Limitations: no limitations General appearance: alert, in no apparent distress Head exam: Present: atraumatic, normocephalic Eye exam: Present: normal appearance, PERRL ENT exam: Present: mucous membranes dry Neck exam: Present: normal inspection. Absent: tenderness, meningismus Respiratory exam: Present: normal lung sounds bilaterally. Absent: respiratory distress, wheezes Cardiovascular Exam: Present: regular rate, normal rhythm GI/Abdominal exam: Present: soft, other (Review of the, pink, no hemorrhage, no cellulitis). Absent: distended, tenderness, guarding Extremities exam: Present: full ROM Back exam: Absent: CVA tenderness (R), CVA tenderness (L) Neurological exam: Present: alert, oriented X3, CN II-XII intact. Absent: motor sensory deficit Psychiatric exam: Present: normal affect, normal mood Skin exam: Present: warm, dry, intact. Absent: cyanosis, diaphoretic Course Vital Signs 07/17/19 18:03 Temperature 102.1 F H Pulse Rate 89 Respiratory 20 Rate Blood Pressure 131/73 O2 Sat by Pulse 96 Oximetry Medical Decision Making - Medical Decision Making 84-year-old female presenting with fever and generalized weakness. History of bladder cancer status post urostomy. Recently treated for UTI. Patient having fever, otherwise stable vitals. She had been on a course of antibiotics in his persistent fever. Laboratory testing reveals a white count 14,000, normal lactic acid, urinalysis suggestive of persistent UTI. Patient will be admitted for IV antibiotics. Case is discussed with Dr. Salinas who will accept admiss ion. - Lab Data Result diagrams: 07/17/19 18:33 07/17/19 18:33 Lab Results 07/17/19 07/17/19 07/17/19 Range/Units 18:17 18:17 18:33 WBC 14.0 H (3.8-10.6) k/uL RBC 4.22 (3.80-5.40) m/uL Hgb 12.5 (11.4-16.0) gm/dL Hct 37.7 (34.0-46.0) % MCV 89.2 (80.0-100.0) fL MCH 29.5 (25.0-35.0) pg MCHC 33.1 (31.0-37.0) g/dL RDW 15.0 (11.5-15.5) % Plt Count 415 (150-450) k/uL Neutrophils % 89 % Lymphocytes % 4 % Monocytes % 6 % Eosinophils % 0 % Basophils % 0 % Neutrophils # 12.5 H (1.3-7.7) k/uL Lymphocytes # 0.5 L (1.0-4.8) k/uL Monocytes # 0.8 (0-1.0) k/uL Eosinophils # 0.1 (0-0.7) k/uL Basophils # 0.0 (0-0.2) k/uL Sodium (137-145) mmol/L Potassium (3.5-5.1) mmol/L Chloride (98-107) mmol/L Carbon Dioxide (22-30) mmol/L Anion Gap mmol/L BUN (7-17) mg/dL Creatinine (0.52-1.04) mg/dL Est GFR (CKD-EPI)AfAm (>60 ml/min/1.73 sqM) Est GFR (CKD-EPI)NonAf (>60 ml/min/1.73 sqM) Glucose (74-99) mg/dL Plasma Lactic Acid Bobby (0.7-2.0) mmol/L Calcium (8.4-10.2) mg/dL Total Bilirubin (0.2-1.3) mg/dL AST (14-36) U/L ALT (4-34) U/L Alkaline Phosphatase (38-126) U/L Total Protein (6.3-8.2) g/dL Albumin (3.5-5.0) g/dL Urine Color Yellow Urine Appearance Cloudy H (Clear) Urine pH 6.0 (5.0-8.0) Ur Specific [place] 1.014 (1.001-1.035) Urine Protein Trace H (Negative) Urine Glucose (UA) Negative (Negative) Urine Ketones Negative (Negative) Urine Blood Negative (Negative) Urine Nitrite Negative (Negative) Urine Bilirubin Negative (Negative) Urine Urobilinogen <2.0 (<2.0) mg/dL Ur Leukocyte Esterase Trace H (Negative) Urine RBC 2 (0-5) /hpf Urine WBC 17 H (0-5) /hpf Calcium Oxalate Crystal Occasional H (None) /hpf Amorphous Sediment Rare H (None) /hpf Urine Bacteria Occasional H (None) /hpf Urine Mucus Rare H (None) /hpf Coronavirus (PCR) Not Detected (Not Detectd) 07/17/19 07/17/19 Range/Units 18:33 18:33 WBC (3.8-10.6) k/uL RBC (3.80-5.40) m/uL Hgb (11.4-16.0) gm/dL Hct (34.0-46.0) % MCV (80.0-100.0) fL MCH (25.0-35.0) pg MCHC (31.0-37.0) g/dL RDW (11.5-15.5) % Plt Count (150-450) k/uL Neutrophils % % Lymphocytes % % Monocytes % % Eosinophils % % Basophils % % Neutrophils # (1.3-7.7) k/uL Lymphocytes # (1.0-4.8) k/uL Monocytes # (0-1.0) k/uL Eosinophils # (0-0.7) k/uL Basophils # (0-0.2) k/uL Sodium 129 L (137-145) mmol/L Potassium 4.2 (3.5-5.1) mmol/L Chloride 94 L (98-107) mmol/L Carbon Dioxide 24 (22-30) mmol/L Anion Gap 11 mmol/L BUN 15 (7-17) mg/dL Creatinine 0.55 (0.52-1.04) mg/dL Est GFR (CKD-EPI)AfAm >90 (>60 ml/min/1.73 sqM) Est GFR (CKD-EPI)NonAf 87 (>60 ml/min/1.73 sqM) Glucose 103 H (74-99) mg/dL Plasma Lactic Acid Bobby 1.2 (0.7-2.0) mmol/L Calcium 9.1 (8.4-10.2) mg/dL Total Bilirubin 0.5 (0.2-1.3) mg/dL AST 23 (14-36) U/L ALT 16 (4-34) U/L Alkaline Phosphatase 112 (38-126) U/L Total Protein 6.3 (6.3-8.2) g/dL Albumin 3.3 L (3.5-5.0) g/dL Urine Color Urine Appearance (Clear) Urine pH (5.0-8.0) Ur Specific [place] (1.001-1.035) Urine Protein (Negative) Urine Glucose (UA) (Negative) Urine Ketones (Negative) Urine Blood (Negative) Urine Nitrite (Negative) Urine Bilirubin (Negative) Urine Urobilinogen (<2.0) mg/dL Ur Leukocyte Esterase (Negative) Urine RBC (0-5) /hpf Urine WBC (0-5) /hpf Calcium Oxalate Crystal (None) /hpf Amorphous Sediment (None) /hpf Urine Bacteria (None) /hpf Urine Mucus (None) /hpf Coronavirus (PCR) (Not Detectd) Disposition Clinical Impression: UTI (urinary tract infection), Sepsis Disposition: ADMITTED IP TO THIS [facility] Condition: Stable Is patient prescribed a controlled substance at d/c from ED?: No Referrals: Madan Salinas MD [Primary Care Provider] - 1-2 days Decision to Admit Reason: Admit from EC Decision Date: 07/17/19 Decision Time: 19:14
[2019-07-17 18:34] LABS: Amorphous Sediment,Urine Rare /hpf; Appearance,Urine Cloudy (Clear); Bacteria,Urine Occasional /hpf; Bilirubin,Urine Negative (Negative); Blood,Urine Negative (Negative); Calcium Oxalate Crystals,Urine Occasional /hpf; Color,Urine Yellow; Glucose,Urine (UA) Negative (Negative); Ketones,Urine Negative (Negative); Leukocyte Esterase,Urine Trace (Negative); Mucus,Urine Rare /hpf; Nitrite,Urine Negative (Negative); Protein,Urine Trace (Negative); RBC,Urine 2 /hpf (0-5); Specific Gravity,Urine 1.014 (1.001-1.035); Urobilinogen,Urine <2.0 mg/dL (<2.0); WBC,Urine 17 /hpf (0-5)
[2019-07-17 18:52] LABS: ALT 16 U/L (4-34); AST 23 U/L (14-36); African American GFR (CKD) >90 (>60 ml/min/1.73 sqM); Albumin 3.3 g/dL (3.5-5.0); Alkaline Phosphatase 112 U/L (38-126); Anion Gap 11 mmol/L; Blood Urea Nitrogen 15 mg/dL (7-17); Calcium 9.1 mg/dL (8.4-10.2); Carbon Dioxide 24 mmol/L (22-30); Chloride 94 mmol/L (98-107); Glucose 103 mg/dL (74-99); Non-African American GFR(CKD) 87 (>60 ml/min/1.73 sqM); Potassium 4.2 mmol/L (3.5-5.1); Sodium 129 mmol/L (137-145); Total Bilirubin 0.5 mg/dL (0.2-1.3); Total Protein 6.3 g/dL (6.3-8.2)
[2019-07-17 18:56] LABS: Basophils % (A) 0 %; Eosinophils # (A) 0.1 k/uL (0-0.7); Eosinophils % (A) 0 %; HCT 37.7 % (34.0-46.0); HGB 12.5 gm/dL (11.4-16.0); Lymphocytes # (A) 0.5 k/uL (1.0-4.8); Lymphocytes % (A) 4 %; MCH 29.5 pg (25.0-35.0); MCHC 33.1 g/dL (31.0-37.0); MCV 89.2 fL (80.0-100.0); Mean Platelet Volume 6.5; Monocytes # (A) 0.8 k/uL (0-1.0); Monocytes % (A) 6 %; Neutrophils # (A) 12.5 k/uL (1.3-7.7); Neutrophils % (A) 89 %; Platelet Count 415 k/uL (150-450); RBC 4.22 m/uL (3.80-5.40)
[2019-07-17] MEDS ORDERED: cefTRIAXone IN SWFI 1,000 MG/10 ML SYRINGE IVP STA (19:09)
[2019-07-17] MEDS ORDERED: VANCOMYCIN IV PER PHARMACY 1 EACH MISC MISCELLANE PRN (19:11)
[2019-07-17] MEDS ORDERED: NALOXONE 0.4 MG/ML 1 ML VIAL IV PRN (19:12)
[2019-07-17] MEDS ORDERED: VANCOMYCIN 1,250 MG in SODIUM CHLORIDE 0.9% 250 ML IVPB STA (19:36)
[2019-07-17] MEDS: SODIUM CHLORIDE 0.9% 1,000 ML IV SCH (19:55)
[2019-07-17] MEDS ORDERED: DRONABINOL 2.5 MG CAPSULE PO PRN (19:58)
--- NOTE | 2019-07-17 20:09 | XR ---
EXAMINATION TYPE: XR chest 1V portable DATE OF EXAM: 07/17/2019 COMPARISON: Prior chest x-ray dated 12/22/2018 HISTORY: Fever TECHNIQUE: Single frontal view of the chest is obtained. FINDINGS: Biapical pleural thickening is stable. Aorta is dense. Patient is rotated. There is no foca l air space opacity, pleural effusion, or pneumothorax seen. The cardiac silhouette size is within n ormal limits. The osseous structures are intact. IMPRESSION: No acute process.
[2019-07-17] MEDS: MECLIZINE 25 MG TAB PO SCH (21:13)
[2019-07-17] MEDS: METOPROLOL TARTRATE 25 MG TAB PO SCH (21:13)
[2019-07-17] MEDS: methylPREDNISolone SOD SUCCI 125 MG/2 ML VIAL IV SCH (23:00)
--- NOTE | 2019-07-17 23:20 | CT ---
EXAMINATION TYPE: CT lumbar spine wo con DATE OF EXAM: 07/17/2019 COMPARISON: 07/20/2018 HISTORY: chronic low back pain CT DLP: 612.7 mGycm Automated exposure control for dose reduction was used. Lumbar vertebra have normal alignment. There is 20% compression deformity of the L4 vertebra with ant erior wedging. There is 20% compression deformity of the L5 vertebra with posterior wedging of the ve rtebral body. Fractures appear acute. There is 5 mm posterior fragment extension into the spinal ciara l of the superior endplate of the L5 vertebral body. There is developmentally adequate spinal canal. There is osteopenia. The facet joints appear intact. There is a large right-sided paraspinal mass inv olving the lower lumbar spine. The extent of the mass is not demonstrated. Mass is probably more than 10 cm in diameter and the length is approximately 11 cm. There is erosion of the bone on the right s maya of the L5 vertebral body. IMPRESSION: Compression fractures of L4 and L5 with bone destruction on the right side of the L5 vertebral body s uggestive of metastatic disease. Large right-sided paraspinal mass. Fractures are new compared to old CT scan of 07/20/2018. Paraspinal mass is new compared to old exam.
--- NOTE | 2019-07-18 00:44 | HP ---
HISTORY AND PHYSICAL An 84-year-old white female came in with generalized weakness and fever, unable to lift or get out of her chair and unable to lift her right leg. She is status post history of bladder cancer, status post urostomy, recently treated for UTI. She has been treated with Levaquin, finished 4 days ago, generalized weakness. She apparently had a fever of 102. She is COVID negative and she came in because she is unable to move her right leg and get out of bed. CAT scan of the lumbar spine was then ordered as well as IV Solu-Medrol. She has a history of chronic vertigo and chronic dizziness and chronic nausea for which she takes Marinol, Antivert and IV steroids with Dr. Curiel high doses for all these indications. MEDICATIONS: Home medicines are: 1. Metoprolol 25 b.i.d. 2. Prednisolone. 3. Pred Forte eye drops. 4. Aspirin 81 mg daily. 5. Cyclosporine eye drops. 6. Vitamin D. 7. Colace. 8. Marinol. 9. Synthroid. 10.Omeprazole. ALLERGIES: AMITIZA, MACROBID, BACTRIM, LEVAQUIN and possibly STATINS due to myalgias. REVIEW OF SYSTEMS: Fourteen-point review of systems positive as mentioned above. PAST MEDICAL HISTORY: Bladder cancer, GERD, dyslipidemia, hypertension, chronic dizziness, chronic nausea, vomiting, cyclic vomiting disorder, hypothyroidism, history of drug-resistant UTI, prediabetes, history of bladder surgery, bowel resection, tubal ligation, multiple EGDs, total hysterectomy, colonoscopy, and TURP with a bladder tumor, bladder cystectomy, ileal conduit, partial colectomy. FAMILY HISTORY: Father cancer. Mother diabetes mellitus. Sister breast cancer. She has a sister with colon cancer, leukemia. Brother with cancer. PHYSICAL EXAMINATION: Temperature 102.1, now down to 98, pulse 80 to 89, respiratory rate 18 to 20, blood pressure 130s over 70s and O2 of 95. HEENT: Normocephalic, atraumatic. Pupils equal, round, reactive. ENT: External ear canals within normal limits. LUNGS: Normal lungs sounds bilaterally. CARDIAC: S1, S2. GI: Soft. EXTREMITIES: Full range of motion. She has tenderness to palpation bilateral lumbar spine, right greater than left. She has positive straight leg raising just in the right leg. PSYCH: She looks weak and fatigued. Slightly dehydrated with poor skin turgor, dry mucous membranes. No rash. ASSESSMENT: 1. Mild dehydration with hyponatremia. 2. Acute lumbar disc herniation. 3. Fever of unclear etiology. 4. Rule out chronic persistent urinary tract infection with recurrence. Please see further orders. IV steroids. Infectious Disease consult. CAT scan of the lumbar spine. PT, OT. UA is borderline for UTI. Await for culture. Chest x-ray looks clear to me. Please see further orders. MMODL / IJN: [id number] /
[2019-07-18] MEDS: LEVOTHYROXINE 50 MCG TAB PO SCH (05:34)
[2019-07-18 07:25] LABS: Basophils % (A) 0 %; Eosinophils % (A) 0 %; HCT 39.6 % (34.0-46.0); HGB 12.8 gm/dL (11.4-16.0); Lymphocytes # (A) 0.4 k/uL (1.0-4.8); Lymphocytes % (A) 4 %; MCH 29.4 pg (25.0-35.0); MCHC 32.3 g/dL (31.0-37.0); Monocytes # (A) 0.2 k/uL (0-1.0); Monocytes % (A) 2 %; Neutrophils # (A) 9.5 k/uL (1.3-7.7); Neutrophils % (A) 94 %; Platelet Count 377 k/uL (150-450); RBC 4.35 m/uL (3.80-5.40); RDW 14.9 % (11.5-15.5); WBC 10.1 k/uL (3.8-10.6)
[2019-07-18 07:46] LABS: ALT 17 U/L (4-34); AST 23 U/L (14-36); African American GFR (CKD) >90 (>60 ml/min/1.73 sqM); Albumin 3.1 g/dL (3.5-5.0); Alkaline Phosphatase 113 U/L (38-126); Anion Gap 10 mmol/L; Blood Urea Nitrogen 14 mg/dL (7-17); Carbon Dioxide 24 mmol/L (22-30); Chloride 98 mmol/L (98-107); Glucose 144 mg/dL (74-99); Non-African American GFR(CKD) >90 (>60 ml/min/1.73 sqM); Potassium 4.5 mmol/L (3.5-5.1); Sodium 132 mmol/L (137-145); Total Bilirubin 0.4 mg/dL (0.2-1.3); Total Protein 6.1 g/dL (6.3-8.2)
[2019-07-18] MEDS: METOPROLOL TARTRATE 25 MG TAB PO SCH ×2 (08:30→21:38)
[2019-07-18] MEDS: MECLIZINE 25 MG TAB PO SCH ×3 (08:30→21:38)
[2019-07-18] MEDS: PANTOPRAZOLE 40 MG TABLET PO SCH (08:30)
[2019-07-18] MEDS: SODIUM CHLORIDE 0.9% 1,000 ML IV SCH (08:51)
[2019-07-18] MEDS: methylPREDNISolone SOD SUCCI 125 MG/2 ML VIAL IV SCH ×3 (08:51→23:39)
[2019-07-18] MEDS: VANCOMYCIN 1,000 MG in SODIUM CHLORIDE 0.9% 250 ML IVPB SCH ×2 (09:58→21:40)
[2019-07-18 13:09] LABS: Hemoglobin A1C 5.6 % (4.0-6.0)
[2019-07-18] MEDS: ACETAMINOPHEN TAB 325 MG TAB PO PRN ×2 (15:13→23:39)
[2019-07-18] MEDS ORDERED: VANCOMYCIN 1,250 MG in SODIUM CHLORIDE 0.9% 250 ML IVPB SCH (16:00)
[2019-07-18] MEDS: NAPROXEN 250 MG TAB PO PRN (21:39)
--- NOTE | 2019-07-18 22:43 | P.CONS ---
History of Present Illness - Reason for Consult Consult date: 07/18/19 Fever /UTI Requesting physician: Madan Salinas - Chief Complaint Fever and back pain x few days - History of Present Illness Patient is a 84-year female with past medical history pertinent for bladder cancer in this patient who is status post bladder resection and urostomy she also have a history of for her recurrent urine tract infection recently completed a course of oral Levaquin the patient finished a concern for UTI 4 days ago before presentation the hospital patient is presenting to the ER at [facility] yesterday with a chief complaints of generalized weakness and her right lower extremity pain which seem to have been chronic for her effie ginating her back radiating to the leg denies any pain bowel problems no nausea no vomiting patient mention her urine has been getting more cloudy recently as well with the symptom had the patient was evaluated by the ER physician on arrival to the ER to be did have a fever of 102 F patient did have a white count of 14,000 patient did have a positive UA patient also have a chest x-ray which was negative for any acute process also have a CT of the lumbar sacral spine which shows compression fracture of L4-5 with bone destruction of the right side of the L5 vertebral body suggest metastatic disease right-sided paraspinal mass fractures are new compared to old CT patient has been started on vancomycin and Rocephin infectious disease was consulted for further management of antibiotic and concern for ureteral infection Review of Systems Positive point has been mentioned in HPI rest of the systems are negative Past Medical History Past Medical History: Cancer, Eye Disorder, GERD/Reflux, Hyperlipidemia, Hypertension, Neurologic Disorder, Thyroid Disorder Additional Past Medical History / Comment(s): Past couple months pt has had hospitalizations for abdominal pain/generalized weakness/fatigue/UTI (enterobacter faecalis)/ileus and possible CVA. Pt states she currently has some lesions around her ileal conduit. Other hx: Bladder cancer cystectomy/ileal conduit, UTIs, vaginal/uterine cancer with total hysterectomy, hiatal hernia, diverticular disease, constipation, hypothyroid, vertigo, murmur, bilateral keratoconis. BPPV benign proxysmal positional vertigo, vestibular neuritits History of Any Multi-Drug Resistant Organisms: Other MDRO Past Surgical History: Bladder Surgery, Bowel Resection, Tubal Ligation Additional Past Surgical History / Comment(s): Cystoscopy with TURB bladder tumor, bladder cystectomy/ileal conduit/partial colectomy at [facility], EGD, colonoscopies, D&C, total hysterectomy, bilateral cataract removals/corneal transplants. Past Anesthesia/Blood Transfusion Reactions: Postoperative Nausea & Vomiting (PONV) Past Psychological History: Depression Additional Psychological History / Comment(s): Pt resides with her spouse. She uses a walker. pts. daughter states family is very involved and helps alot Smoking Status: Never smoker Past Alcohol Use History: None Reported Additional Past Alcohol Use History / Comment(s): Patient is a lifelong nonsmoker. No alcohol use. Patient is retired. No service. No animal exposures. Past Drug Use History: None Reported - Past Family History Father Family Medical History: Cancer Mother Family Medical History: Diabetes Mellitus Sister(s) Family Medical History: Cancer Additional Family Medical History / Comment(s): BREAST CANCER Brother(s) Family Medical History: Cancer Additional Family Medical History / Comment(s): COLON CANCER AND LEUKEMIA Father Brother(s) Family Medical History: Cancer Medications and Allergies Home Medications Medication Instructions Recorded Confirmed Type Metoprolol Tartrate 25 mg PO BID 07/20/18 07/17/19 History Dronabinol [Marinol] 2.5 mg PO TID PRN 12/22/18 07/17/19 History Levothyroxine Sodium [Synthroid] 50 mcg PO DAILY 12/22/18 07/17/19 History Meclizine HCl 25 mg PO TID 07/17/19 07/17/19 History Naproxen 500 mg PO BID PRN 07/17/19 07/17/19 History Omeprazole 20 mg PO DAILY 07/17/19 07/17/19 History Allergies Allergy/AdvReac Type Severity Reaction Status Date / Time lubiprostone [From Amitiza] Allergy Swelling Verified 07/17/19 19:25 nitrofurantoin Allergy Swelling Verified 07/17/19 19:25 [From Macrobid] sulfamethoxazole Allergy Swelling Verified 07/17/19 19:25 [From Bactrim] lips, sore throat trimethoprim [From Bactrim] Allergy Swelling Verified 07/17/19 19:25 lips, sore throat levofloxacin [From Levaquin] AdvReac severe Verified 07/17/19 19:25 headache Flmbvzm-Lmh-Zca Reductase AdvReac PAINFUL Verified 07/17/19 19:25 Inhibitor ARMS AND LEGS W/ MULT RX TRIED Physical Exam Vitals: Vital Signs Temp Pulse Pulse Resp BP BP Pulse Ox 07/18/19 14:02 97.3 F L 89 16 120/75 98 07/18/19 07:30 97.5 F L 61 17 94/55 98 07/18/19 02:10 97.7 F 72 20 117/69 96 07/18/19 00:00 18 07/17/19 20:01 99.8 F H 78 18 111/77 96 07/17/19 19:41 98.6 F 73 18 124/72 95 07/17/19 18:03 102.1 F H 89 20 131/73 96 Intake and Output 07/18/19 07/18/19 07/18/19 06:59 14:59 22:59 Intake Total 100 Output Total 750 200 Balance -750 -100 Intake: Intake, IV Titration 100 Amount cefTRIAXone 1 gm In 100 Sodium Chloride 0.9% 50 ml @ 100 mls/hr IVPB Q24HR [facility] Rx#:[id number] Output: Urine 450 200 Right Lower Abdomen 450 Other 300 Other: Voiding Method Ileal Conduit (Right) Ileal Conduit (Right) GENERAL DESCRIPTION: Elderly female lying in bed, no distress. No tachypnea or accessory muscle of respiration use. HEENT: Shows Pallor , no scleral icterus. Oral mucous membrane is dry. NECK: Trachea central, no thyromegaly. LUNGS: Unlabored breathing. Clear to auscultation anteriorly. No wheeze or crackle. HEART: S1, S2, regular rate and rhythm. ABDOMEN: Soft, no tenderness , guarding or rigidity EXTREMITIES: No edema of feet. SKIN: No rash, no masses palpable. NEUROLOGICAL: The patient is awake, alert, oriented x3, mood and affect normal. Results CBC & Chem 7: 07/18/19 05:45 07/18/19 05:45 Labs: Abnormal Lab Results - Last 24 Hours (Table) 07/17/19 07/17/19 07/17/19 Range/Units 18:17 18:33 18:33 WBC 14.0 H (3.8-10.6) k/uL Neutrophils # 12.5 H (1.3-7.7) k/uL Lymphocytes # 0.5 L (1.0-4.8) k/uL ESR (0-20) mm/hr Sodium 129 L (137-145) mmol/L Chloride 94 L (98-107) mmol/L Creatinine (0.52-1.04) mg/dL Glucose 103 H (74-99) mg/dL Total Protein (6.3-8.2) g/dL Albumin 3.3 L (3.5-5.0) g/dL TSH (0.465-4.680) mIU/L Urine Appearance Cloudy H (Clear) Urine Protein Trace H (Negative) Ur Leukocyte Esterase Trace H (Negative) Urine WBC 17 H (0-5) /hpf Calcium Oxalate Crystal Occasional H (None) /hpf Amorphous Sediment Rare H (None) /hpf Urine Bacteria Occasional H (None) /hpf Urine Mucus Rare H (None) /hpf 07/17/19 07/18/19 07/18/19 Range/Units 18:33 05:45 05:45 WBC (3.8-10.6) k/uL Neutrophils # 9.5 H (1.3-7.7) k/uL Lymphocytes # 0.4 L (1.0-4.8) k/uL ESR 37 H (0-20) mm/hr Sodium 132 L (137-145) mmol/L Chloride (98-107) mmol/L Creatinine 0.44 L (0.52-1.04) mg/dL Glucose 144 H (74-99) mg/dL Total Protein 6.1 L (6.3-8.2) g/dL Albumin 3.1 L (3.5-5.0) g/dL TSH 0.410 L (0.465-4.680) mIU/L Urine Appearance (Clear) Urine Protein (Negative) Ur Leukocyte Esterase (Negative) Urine WBC (0-5) /hpf Calcium Oxalate Crystal (None) /hpf Amorphous Sediment (None) /hpf Urine Bacteria (None) /hpf Urine Mucus (None) /hpf Microbiology - Last 24 Hours (Table) 07/17/19 18:17 Urine Culture - Preliminary Urine,Voided Assessment and Plan Assessment: patient presented to the hospital with sepsis in this patient who did have a fever of 102 F did have elevated white count patient may symptom has been low back and right leg pain in this patient who noticed to have a destructive changes of the L5 with concern for L4-L5 compression fracture and paraspinal mass high clinical suspicious for possible discitis patient also have a, positive UA with urine showing gram-negative underlying gram-negative dheeraj infection return excluded (1) Discitis Current Visit: Yes Status: Acute Code(s): M46.40 - DISCITIS, UNSPECIFIED, SITE UNSPECIFIED SNOMED Code(s): 2470783 (2) Sepsis Current Visit: Yes Status: Acute Code(s): A41.9 - SEPSIS, UNSPECIFIED ORGANISM SNOMED Code(s): 02656736 (3) UTI (urinary tract infection) Current Visit: Yes Status: Acute Code(s): N39.0 - URINARY TRACT INFECTION, SITE NOT SPECIFIED SNOMED Code(s): 09802122 Plan: 1-spine surgery evaluation and possible biopsy/culture of the L4-L5 spine area 2-vancomycin pharmacy to dose her with a target trough of 15 while watching her kidney function and Vanco trough closely. Add Rocephin 1 g daily to continue. We will follow on clinical condition and cultures to further adjust medication if needed Thank you for this consultation we will follow the patient along with you Time with Patient: Greater than 30
[2019-07-19] MEDS: LEVOTHYROXINE 50 MCG TAB PO SCH ×2 (05:38→05:39)
[2019-07-19] MEDS: NAPROXEN 250 MG TAB PO PRN (05:38)
[2019-07-19] MEDS: SODIUM CHLORIDE 0.9% 1,000 ML IV SCH ×2 (05:41→07:59)
[2019-07-19] MEDS: methylPREDNISolone SOD SUCCI 125 MG/2 ML VIAL IV SCH ×2 (07:56→15:11)
[2019-07-19] MEDS: PANTOPRAZOLE 40 MG TABLET PO SCH (07:58)
[2019-07-19] MEDS: MECLIZINE 25 MG TAB PO SCH ×3 (07:58→22:30)
[2019-07-19] MEDS: METOPROLOL TARTRATE 25 MG TAB PO SCH ×2 (07:58→22:30)
[2019-07-19] MEDS: HYDROcodone/APAP 5-325MG 1 EACH TAB PO PRN ×3 (08:13→22:29)
[2019-07-19] MEDS: VANCOMYCIN 1,000 MG in SODIUM CHLORIDE 0.9% 250 ML IVPB SCH (08:53)
--- NOTE | 2019-07-19 09:51 | PN ---
PROGRESS NOTE DATE OF SERVICE: 07/18/2019 An 84-year-old white female who had a CAT scan that shows paraspinal mass and possible metastatic vertebral fracture for which bone scan is ordered for tomorrow. We also got a surgical consult for Dr. Ware for neurosurgery and oncology consult. She has history of bladder cancer. She is able to move her leg better today than yesterday when I saw her in the emergency room. They would do a positive straight leg raising test at 45 degrees. CARDIOVASCULAR: S1-S2. LUNGS: Clear. GI: Soft. HEMATOLOGY: Negative Homans. Straight leg raise test is as mentioned is 45 degrees on the right leg, is full on the left. ASSESSMENT: 1. Acute lumbar radiculopathy of the right leg. 2. History of bladder cancer, possible paraspinal mass with vertebral fracture for which Dr. Ware is consulted. IV Solu-Medrol has greatly improved her movement in her leg is. Prognosis is extremely guarded. Will have to do a metastatic bladder cancer workup if bone scan is positive. Wait for that result. Pain control. MMODL / IJN: [id number] /
[2019-07-19 09:55] LABS: African American GFR (CKD) >90 (>60 ml/min/1.73 sqM); Non-African American GFR(CKD) 90 (>60 ml/min/1.73 sqM)
--- NOTE | 2019-07-19 10:08 | P.CNOR ---
History of Present Illness - [facility] Consult date: 07/19/19 Consult reason: low back pain, other (Right lower extremity pain) History of present illness: Patient is very pleasant 84-year-old female seen and examined today at bedside. She says she's been having back pain over the past several weeks at home without any specific incident. She says however that yesterday her pain became quite severe and she was unable to stand up on her right leg. She says she was unable to lift her right leg yesterday and had to present to the hospital. She did not have any specific trauma. She says she had been having some fevers. She denies any specific recent injury. She says that back in November of last year she did have a fall while she is here the hospital and had some back pain at that point but did not have any specific workup until December. She denies new injury since then. She has history of bladder cancer and has urostomy bag intact. She says that her legs are feeling better today. She says that she is happy that she is able lift her leg up but she has not been out of bed yet. She still says she has some soreness down her right leg. She says she's been having some improvement since being here in Hospital. She has been on vancomycin as well as steroid. Review of Systems History of bladder cancer with urostomy in the right abdomen. History of a small fall back in November 2018. No recent injury. No acute change in neurologic function in her lower extremities. She says that yesterday she was unable to lift her leg because it was too painful for her. Past Medical History Past Medical History: Cancer, Eye Disorder, GERD/Reflux, Hyperlipidemia, Hypertension, Neurologic Disorder, Thyroid Disorder Additional Past Medical History / Comment(s): Past couple months pt has had hospitalizations for abdominal pain/generalized weakness/fatigue/UTI (ent erobacter faecalis)/ileus and possible CVA. Pt states she currently has some lesions around her ileal conduit. Other hx: Bladder cancer cystectomy/ileal conduit, UTIs, vaginal/uterine cancer with total hysterectomy, hiatal hernia, diverticular disease, constipation, hypothyroid, vertigo, murmur, bilateral keratoconis. BPPV benign proxysmal positional vertigo, vestibular neuritits History of Any Multi-Drug Resistant Organisms: Other MDRO Past Surgical History: Bladder Surgery, Bowel Resection, Tubal Ligation Additional Past Surgical History / Comment(s): Cystoscopy with TURB bladder tumor, bladder cystectomy[facility]ileal conduit[facility], colonoscopies, D&C, total hysterectomy, bilateral cataract removals/corneal transplants. Past Anesthesia/Blood Transfusion Reactions: Postoperative Nausea & Vomiting (PONV) Past Psychological History: Depression Additional Psychological History / Comment(s): Pt resides with her spouse. She uses a walker. pts. daughter states family is very involved and helps alot Smoking Status: Never smoker Past Alcohol Use History: None Reported Additional Past Alcohol Use History / Comment(s): Patient is a lifelong nonsmoker. No alcohol use. Patient is retired. No service. No animal exposures. Past Drug Use History: None Reported - Past Family History Father Family Medical History: Cancer Mother Family Medical History: Diabetes Mellitus Sister(s) Family Medical History: Cancer Additional Family Medical History / Comment(s): BREAST CANCER Brother(s) Family Medical History: Cancer Additional Family Medical History / Comment(s): COLON CANCER AND LEUKEMIA Father Brother(s) Family Medical History: Cancer Medications and Allergies Home Medications Medication Instructions Recorded Confirmed Type Metoprolol Tartrate 25 mg PO BID 07/20/18 07/17/19 History Dronabinol [Marinol] 2.5 mg PO TID PRN 12/22/18 07/17/19 History Levothyroxine Sodium [Synthroid] 50 mcg PO DAILY 12/22/18 07/17/19 History Meclizine HCl 25 mg PO TID 07/17/19 07/17/19 History Naproxen 500 mg PO BID PRN 07/17/19 07/17/19 History Omeprazole 20 mg PO DAILY 07/17/19 07/17/19 History Allergies Allergy/AdvReac Type Severity Reaction Status Date / Time lubiprostone [From Amitiza] Allergy Swelling Verified 07/17/19 19:25 nitrofurantoin Allergy Swelling Verified 07/17/19 19:25 [From Macrobid] sulfamethoxazole Allergy Swelling Verified 07/17/19 19:25 [From Bactrim] lips, sore throat trimethoprim [From Bactrim] Allergy Swelling Verified 07/17/19 19:25 lips, sore throat levofloxacin [From Levaquin] AdvReac severe Verified 07/17/19 19:25 headache Gucnghl-Vod-Glo Reductase AdvReac PAINFUL Verified 07/17/19 19:25 Inhibitor ARMS AND LEGS W/ MULT RX TRIED Physical Examination Osteopathic Statement: *. No significant issues noted on an osteopathic structural exam other than those noted in the History and Physical/Consult. - L Spine: dermatomal strength & reflexes bilateral Strength: hip flexion: 5/5 (At the patient's back she is able to sit up in bed. She's not having significant pain with palpation of her lower back. She is able lift her legs up off the bed independently and maintain 5 out of 5 strength the dorsiflexion plantar flexion and EHL bilaterally. Denies calves soft nontender. She has a urostomy bag intact at her right abdomen. Her abdomen is soft.) Results - Labs Labs: Microbiology - Last 24 Hours (Table) 07/17/19 18:33 Blood Culture - Preliminary Blood No Growth after 24 hours 07/17/19 18:17 Urine Culture - Preliminary Urine,Voided Gram Neg Bacilli H & H 07/17/19 07/18/19 Range/Units 18:33 05:45 Hgb 12.5 12.8 (11.4-16.0) gm/dL Hct 37.7 39.6 (34.0-46.0) % Result Diagrams: 07/18/19 05:45 07/18/19 05:45 - Diagnostic results CT Scan - lumbar: report reviewed, image reviewed (Review of her lumbar spine CT shows evidence of compression deformities at L4 and L5. There is some bony healing evident at L4 and L5 vertebrae. There is some retropulsion which appears stable. She has some evidence of stenosis L4 5 and L5-S1. There is degenerative disc disease. There are some bony erosion of the L5 vertebral body on the right and extension of a mass reported approximately 10 centimeters on the right side of her lumbar spine.), other (Pertinent images of her lumbar s pine from December 2018 show evidence of mild compression deformity at L4. 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 She denied any specific incident or trauma. She does have a compression deformity at L4 and L5 of undetermined age. The L4 fracture did show presence in December 2018 after she had site sustained a fall and the L5 fracture may been present at that point as well. Currently she is not particularly having significant back pain. With her urostomy bag intact at her abdomen I do not think that she would be able to use a brace for her fractures. And I do not plan on ordering a lumbar brace at this point. She is having some improvement in her symptoms particularly at her right leg. If there is an infectious process the improvement could be accounted for with the vancomycin however if there is other inflammatory process she has been on steroid which would improve some of symptoms as wel She has any bony erosion at L5 with evidence of a paraspinal mass. This could be a psoas abscess based on her symptoms and exam, but this with the very difficult to predict given her history of bladder cancer. It does not appear to be discitis specifically. An MRI would certainly help to delineate the nature of the mass more appropriately and we will order an MRI with contrast. If they need a biopsy of the area or aspiration and it would likely be performed with [facility]. I think it is okay for the patient to try to mobilize. We will have physical therapy see her and try to mobilize and ambulate. We will continue follow her closely. Time with Patient: Greater than 30
--- NOTE | 2019-07-19 11:42 | P.CONS ---
History of Present Illness - Reason for Consult Consult date: 07/19/19 ? spinal mets, Hx bladder ca Requesting physician: Madan Salinas - Chief Complaint back pain - History of Present Illness Mrs. Whitley is a very pleasant cuacasian female pt of Dr. Salinas who we have been asked to see regarding back pain with suspicious findings on CT. Pt has been in overall decent health, she has a Hx of bladder ca 2 years ago, surgery with Dr. Taylor, no chemo or XRT. Pain in the back has been present for some time, last 2 weeks though, more persistent, not as responsive to pain mgmt, leg strength and ROM is unchanged, no numbness. Denies fevers, LN swelling, acute changes in appetite, unusual wt.loss, sweats, cough, abd pain, incontinen ce of bowel or bladder, swelling in legs. Review of Systems 14 point ROS is negative except as stated in HPI Past Medical History Past Medical History: Cancer, Eye Disorder, GERD/Reflux, Hyperlipidemia, Hypertension, Neurologic Disorder, Thyroid Disorder Additional Past Medical History / Comment(s): Past couple months pt has had hospitalizations for abdominal pain/generalized weakness/fatigue/UTI (ent erobacter faecalis)/ileus and possible CVA. Pt states she currently has some lesions around her ileal conduit. Other hx: Bladder cancer cystectomy/ileal conduit, UTIs, vaginal/uterine cancer with total hysterectomy, hiatal hernia, diverticular disease, constipation, hypothyroid, vertigo, murmur, bilateral keratoconis. BPPV benign proxysmal positional vertigo, vestibular neuritits History of Any Multi-Drug Resistant Organisms: Other MDRO Past Surgical History: Bladder Surgery, Bowel Resection, Tubal Ligation Additional Past Surgical History / Comment(s): Cystoscopy with TURB bladder tumor, bladder cystectomy/ileal conduit/[facility] , EGD, colonoscopies, D&C, total hysterectomy, bilateral cataract removals/corneal transplants. Past Anesthesia/Blood Transfusion Reactions: Postoperative Nausea & Vomiting (PONV) Past Psychological History: Depression Additional Psychological History / Comment(s): Pt resides with her spouse. She uses a walker. pts. daughter states family is very involved and helps alot Smoking Status: Never smoker Past Alcohol Use History: None Reported Additional Past Alcohol Use History / Comment(s): Patient is a lifelong nonsmoker. No alcohol use. Patient is retired. No service. No animal exposures. Past Drug Use History: None Reported - Past Family History Father Family Medical History: Cancer Mother Family Medical History: Diabetes Mellitus Sister(s) Family Medical History: Cancer Additional Family Medical History / Comment(s): BREAST CANCER Brother(s) Family Medical History: Cancer Additional Family Medical History / Comment(s): COLON CANCER AND LEUKEMIA Father Brother(s) Family Medical History: Cancer Medications and Allergies Home Medications Medication Instructions Recorded Confirmed Type Metoprolol Tartrate 25 mg PO BID 07/20/18 07/17/19 History Dronabinol [Marinol] 2.5 mg PO TID PRN 12/22/18 07/17/19 History Levothyroxine Sodium [Synthroid] 50 mcg PO DAILY 12/22/18 07/17/19 History Meclizine HCl 25 mg PO TID 07/17/19 07/17/19 History Naproxen 500 mg PO BID PRN 07/17/19 07/17/19 History Omeprazole 20 mg PO DAILY 07/17/19 07/17/19 History Allergies Allergy/AdvReac Type Severity Reaction Status Date / Time lubiprostone [From Amitiza] Allergy Swelling Verified 07/17/19 19:25 nitrofurantoin Allergy Swelling Verified 07/17/19 19:25 [From Macrobid] sulfamethoxazole Allergy Swelling Verified 07/17/19 19:25 [From Bactrim] lips, sore throat trimethoprim [From Bactrim] Allergy Swelling Verified 07/17/19 19:25 lips, sore throat levofloxacin [From Levaquin] AdvReac severe Verified 07/17/19 19:25 headache [id number] Reductase AdvReac PAINFUL Verified 07/17/19 19:25 Inhibitor ARMS AND LEGS W/ MULT RX TRIED Physical Exam Vitals: Vital Signs Temp Pulse Resp BP Pulse Ox 07/19/19 06:58 98.5 F 64 16 151/69 98 07/19/19 01:12 98.0 F 70 14 128/77 97 07/18/19 19:20 98.0 F 74 18 119/66 97 07/18/19 14:02 97.3 F L 89 16 120/75 98 Intake and Output 07/18/19 07/19/1907/18/20 22:59 06:59 14:59 Intake Total 280 Output Total 500 200 Balance -500 -200 280 Intake: Intake, IV Titration 100 Amount cefTRIAXone 1 gm In 100 Sodium Chloride 0.9% 50 ml @ 100 mls/hr IVPB Q24HR [facility] Rx#:[id number] Oral 180 Output: Urine 500 200 Other: Voiding Method Ileal Conduit (Right) Ileal Conduit (Right) Ileal Conduit (Right) - Constitutional General appearance: average body habitus, cooperative, no acute distress - EENT Eyes: anicteric sclerae, EOMI ENT: hearing grossly normal, normal oropharynx - Neck Neck: no lymphadenopathy - Respiratory Respiratory: bilateral: CTA - Cardiovascular Rhythm: regular Heart sounds: normal: S1, S2 Abnormal Heart Sounds: no systolic murmur, no diastolic murmur, no rub, no S3 Gallop, no S4 Gallop, no click, no other leg Peripheral Edema: bilateral: None - Gastrointestinal General gastrointestinal: no absent bowel sounds, no decreased bowel sounds, no distended, no hepatomegaly, no hyperactive bowel sounds, normal bowel sounds, no organomegaly, no rigid, no scaphoid, soft, no splenomegaly, no tenderness, no umbilical hernia, no ventral hernia - Integumentary Integumentary: normal - Neurologic Neurologic: CNII-XII intact - Musculoskeletal Fullness palpated lateral to the spine on the right, just inferior to the ribs Musculoskeletal: strength equal bilaterally - Psychiatric Psychiatric: A&O x's 3, appropriate affect, intact judgment & insight Results CBC & Chem 7: 07/18/19 05:45 07/19/19 09:09 Labs: Abnormal Lab Results - Last 24 Hours (Table) 07/19/19 Range/Units 09:09 Creatinine 0.49 L (0.52-1.04) mg/dL Microbiology - Last 24 Hours (Table) 07/17/19 18:33 Blood Culture - Preliminary Blood No Growth after 24 hours 07/17/19 18:17 Urine Culture - Preliminary Urine,Voided Gram Neg Bacilli Comments: L-spine CT Chest x-ray: report reviewed Assessment and Plan (1) Back pain Narrative/Plan: Case discussed with Dr. Ware. Pending MRI to closer evaluate the area in question. If vertebral Orthopedic Spine may consider biopsy, if soft tissue mass invading spine, IR would be consulted. Pt has requested waiting for any further testing/biopsy until after MRI. Infection vs malignancy. Pain mgmt adequate, pt is comfortable Current Visit: Yes Status: Acute Code(s): M54.9 - DORSALGIA, UNSPECIFIED SNOMED Code(s): 586987109 (2) Bladder cancer Narrative/Plan: History of 2 years ago, pt has been on imaging f/u Q 6 mo, just now due for f/u scans. No scans yet per pt request Current Visit: Yes Status: Chronic Priority: Medium Code(s): C67.9 - MALIGNANT NEOPLASM OF BLADDER, UNSPECIFIED SNOMED Code(s): 373494744 Plan: Doctor attests: I performed a history and physical examination of this patient, developed impression and plan of care, discussed with dictator. I agree with dictators note, documented as a scribe.
[2019-07-19] MEDS ORDERED: ALPRAZolam 0.25 MG TAB PO ONE (12:45)
--- NOTE | 2019-07-19 13:06 | NM ---
EXAMINATION TYPE: NM bone scan whole body DATE OF EXAM: 07/19/2019 COMPARISON: 07/17/2019 HISTORY: Pain Delayed whole-body scanning was performed following the injection of 20.3 mCi Tc 99m MDP. Images acq uired 3.5 hours post injection. FINDINGS: There is multiple areas of abnormal uptake involving the posterior and posterior lateral left rib cag e at the approximate eighth, ninth and 10th ribs. There is intense linear abnormal uptake in L4 and L5 as well as involving the right sacrum, pubic tiny i and right femur. Soft tissue uptake along the right femur also suspected. Abnormal uptake involving the feet, knees and shoulders likely post arthritic. Abnormal uptake involv ing the right mandible likely on the basis of periodontal disease. Faint uptake throughout the thorac ic and lower cervical spine likely degenerative. IMPRESSION: 1. Abnormal linear uptake L4 and L5 corresponds to the compression fractures seen by recent CT scan. Correlate for acute compression fractures. 2. Correlate for right-sided pelvic trauma and left-sided rib fractures.
--- NOTE | 2019-07-19 13:20 | P.PN ---
Subjective Progress Note Date: 07/19/19 This is an 84-year-old female admitted with acute lumbar radiculopathy of the right leg with possible paraspinal mass and vertebral fracture, in a patient with history of bladder cancer. Evaluated by both oncology and orthopedic surgery with recommendations noted and appreciated. Scheduled for bone scan and MRI of the lumbar spine today. Afebrile, urine cultures reporting gram-negative bacilli.Maintained on vancomycin, Rocephin, IV steroids.Reports improvement in right leg, strength, and lifting leg off the bed. Denies numbness. Back pain management with [place]. Objective - Vital Signs Vital signs: Vital Signs Temp 98.5 F 07/19/19 06:58 Pulse 64 07/19/19 06:58 Resp 16 07/19/19 06:58 BP 151/69 07/19/19 06:58 Pulse Ox 98 07/19/19 06:58 Intake & Output 07/18/19 07/19/19 07/19/19 18:59 06:59 18:59 Intake Total 100 280 Output Total 600 300 Balance -500 -300 280 Intake: Intake, IV Titration 100 100 Amount cefTRIAXone 1 gm In 100 100 Sodium Chloride 0.9% 50 ml @ 100 mls/hr IVPB Q24HR [facility] Rx#:[id number] Oral 180 Output: Urine 600 300 Other: Voiding Method Ileal Conduit (Right) Ileal Conduit (Right) Ileal Conduit (Right) - Exam PHYSICAL EXAM: VITAL SIGNS: As above GENERAL: Sitting up in bed, no acute distress HEENT: Conjunctivae normal. eyes normal. Oral mucosa moist NECK: No JVD. No thyroid enlargement. No lymphadenopathy. CARDIOVASCULAR: S1, S2 regular. No murmur RESPIRATION: Breath sounds diminished in the bases. No rhonchi or crackles. Inferior to the ribs on the right side of the spine, fullness. ABDOMEN: Soft, nontender . No guarding. Urostomy bag present. no masses palpable. Bowel sounds heard. LEGS: No edema. no swelling PSYCHIATRY: Alert and oriented X3, mood and affect normal. NERVOUS SYSTEM: Cranial N 2-12 grossly normal. Moves all 4 limbs. No focal deficits. Strength and sensation grossly intact.. Skin: no rash Joints: No active swelling. No inflammation. Lymphatic system. No LN neck axilla or groin. - Labs CBC & Chem 7: 07/18/19 05:45 07/19/19 09:09 Labs: Abnormal Lab Results - Last 24 Hours (Table) 07/19/19 Range/Units 09:09 Creatinine 0.49 L (0.52-1.04) mg/dL Microbiology - Last 24 Hours (Table) 07/17/19 18:33 Blood Culture - Preliminary Blood No Growth after 24 hours 07/17/19 18:17 Urine Culture - Preliminary Urine,Voided Gram Neg Bacilli Assessment and Plan Assessment: Acute lumbar radiculopathy of the right leg Lumbar spine paraspinal mass with bony erosion of L5 of uncertain etiology. Possible psoas abscess. L4 and L5 compression deformities-age undetermined, etiology unclear History of bladder cancer Plan: Continue current medication regime ,monitoring and symptomatic treatment. Bone scan and MRI pending. Potential biopsy of mass. PT/OT. Follow closely with oncology and orthopedic surgery. Prognosis guarded given multiple complex medical issues. The impression and plan of care has been dictated as directed. : I performed a history and examination of this patient, discussed the same with the dictator. I agree with the dictator's note ,documented as a scribe. Any additional findings or plans will be noted.
--- NOTE | 2019-07-19 15:35 | MR ---
EXAMINATION TYPE: MR lumbar spine wo/w con DATE OF EXAM: 07/19/2019 COMPARISON: 07/17/2019 HISTORY: Lumbar paraspinal mass, hx bladder cancer TECHNIQUE: T1 and T2 axial and sagittal images of the lumbar spine are submitted. FINDINGS: There is no abnormal signal seen within the visualized spinal cord. There is abnormal signa l seen diffusely along the right paraspinal line extending in the right retroperitoneum. This was als o noted on the previous CT scan. At L1-2 there is mild degenerative disc disease. Hypertrophic change of the facets. No disc herniation, canal stenosis or foraminal encroachment. At L2-3 there is degenerative disc disease with central disc bulging and hypertrophy ligamentum flavu m and facets. Mild central stenosis and bilateral foraminal encroachment. At L3-4 there is vacuum disc and severe degenerative disc disease. Disc bulging and facet arthropathy with bilateral foraminal encroachment and mild canal stenosis. There is a severe compression fractur e of L4 with retropulsion. This measures approximately 5%. Of mild canal stenosis. At L4-5 there is compression fracture of L4 with central disc herniation broad-based. There is facet arthropathy and ligamentum flavum hypertrophy. There is severe canal stenosis. Moderate bilateral for aminal encroachment. There is enhancement of the vertebral body of L4. At L5-S1 there is compression fracture of L5 as previously noted with central disc herniation and mil d compression of thecal sac. Retropulsion approximately 5-10%. Bilateral moderate foraminal encroachm ent. There does appear to be erosive change of a portion of the lateral margin of the right L5 verteb ral body with destruction and extension toward the right neural foramina. There is enhancement verteb ral body of L5. IMPRESSION: 1. Compression fractures with retropulsion L4-5 and L5-S1 complicated by disc herniations resulting i n significant canal stenosis and bilateral foraminal encroachment. 2. There is a destructive and erosive change along the right lateral margin of L5 is stable from the recent scan any large right retroperitoneal and abdominal sided mass extending toward the right neura l foramina with possible compromise of the right nerve root at L4-5 and L5-S1. There is enhancement of the marrow both L4 and L5 which could be related to recent compression fractu re. Neoplastic process is in the differential diagnosis. Correlate for history of malignancy with omid tructive bony changes. 3. There is a large right-sided mass along the paraspinal line extending into the retroperitoneum and abdomen on the right. Dedicated CT of the abdomen and pelvis to assess for large abdominal mass is r ecommended
[2019-07-19] MEDS: IOPAMIDOL CONTRAST (ORAL USE) VIAL PO PRN ×2 (18:07→19:30)
[2019-07-19] MEDS: VANCOMYCIN 1,250 MG in SODIUM CHLORIDE 0.9% 250 ML IVPB SCH (22:30)
--- NOTE | 2019-07-19 22:37 | CT ---
EXAMINATION TYPE: CT abdomen pelvis w con DATE OF EXAM: 07/19/2019 COMPARISON: 08/28/2018 PET/CT scan HISTORY: Right sided abdominal mass. CT DLP: 807.4 mGycm Automated exposure control for dose reduction was used. CONTRAST: Performed with IV Contrast, patient injected with 100 mL of Isovue 300. There is coarse interstitial density and subsegmental atelectasis at the lung bases. Heart size is no rmal. There is no pericardial effusion. There is mild pleural thickening and fluid at the lung bases. Liver and spleen appear normal. Bile ducts are not dilated. Pancreas appears normal. Stomach appears normal. There is no evidence of pancreatic mass. Gallbladder has normal size and contour. There is pr obably a small calcified gallstone near the gallbladder neck. There is no adrenal mass. Kidneys show satisfactory contrast opacification. There is no hydronephrosi s. Ureters are not dilated. There is a large mixed density soft tissue mass involving the right alirio carina abdomen from the level of L3-S1 vertebra. The mass measures 10.6 x 8.1 x 7.6 cm. There is destr uctive change in the adjacent right side of the L5 vertebral body. There is 30% compression fracture of L4 vertebral body. There is no retroperitoneal adenopathy. There is ileal conduit in the right mid abdomen. Bladder is absent. There is no sign of a bowel obstruction. There is no mesenteric edema. T here is no ascites. There are multiple sigmoid diverticula. There is no sign of diverticulitis. There is 20% compression deformity of the posterior aspect of the L5 vertebral body. The bony pelvis appea rs intact. IMPRESSION: Large right-sided paraspinal mass at the lower lumbar region. There is adjacent destruction of L5 annita tebral body and consistent with malignancy. Cystectomy is noted. Mass appears new compared to 08/28/2018 PET/CT scan. There are compression fractu res of L4 and L5 vertebral bodies which are probably pathologic and are a change compared to old PET CT scan. Mild pleural thickening and scarring and atelectasis at the lung bases. No renal obstruction.
[2019-07-20] MEDS: methylPREDNISolone SOD SUCCI 125 MG/2 ML VIAL IV SCH ×2 (01:19→09:29)
[2019-07-20] MEDS: SODIUM CHLORIDE 0.9% 1,000 ML IV SCH ×3 (01:19→23:09)
[2019-07-20 07:25] LABS: Basophils % (A) 0 %; Eosinophils % (A) 0 %; HCT 39.8 % (34.0-46.0); HGB 12.4 gm/dL (11.4-16.0); Hypochromasia Slight; Lymphocytes # (A) 0.4 k/uL (1.0-4.8); Lymphocytes % (A) 3 %; MCH 28.9 pg (25.0-35.0); MCHC 31.3 g/dL (31.0-37.0); MCV 92.5 fL (80.0-100.0); Mean Platelet Volume 7.5; Monocytes # (A) 0.4 k/uL (0-1.0); Monocytes % (A) 3 %; Neutrophils # (A) 13.7 k/uL (1.3-7.7); Neutrophils % (A) 94 %; Platelet Count 415 k/uL (150-450); RDW 15.2 % (11.5-15.5); WBC 14.6 k/uL (3.8-10.6)
[2019-07-20 07:48] LABS: African American GFR (CKD) >90 (>60 ml/min/1.73 sqM); Anion Gap 9 mmol/L; Blood Urea Nitrogen 15 mg/dL (7-17); Calcium 8.6 mg/dL (8.4-10.2); Carbon Dioxide 19 mmol/L (22-30); Chloride 102 mmol/L (98-107); Glucose 119 mg/dL (74-99); Non-African American GFR(CKD) >90 (>60 ml/min/1.73 sqM); Potassium 4.7 mmol/L (3.5-5.1); Sodium 130 mmol/L (137-145)
[2019-07-20] MEDS: METOPROLOL TARTRATE 25 MG TAB PO SCH ×2 (09:56→23:10)
[2019-07-20] MEDS: PANTOPRAZOLE 40 MG TABLET PO SCH (09:56)
[2019-07-20] MEDS: MECLIZINE 25 MG TAB PO SCH ×3 (09:56→23:10)
[2019-07-20] MEDS: ACETAMINOPHEN TAB 325 MG TAB PO PRN (09:56)
[2019-07-20] MEDS: VANCOMYCIN 1,250 MG in SODIUM CHLORIDE 0.9% 250 ML IVPB SCH (10:16)
[2019-07-20 10:27] LABS: INR 0.9 (<1.2); Prothrombin Time 9.8 sec (9.0-12.0)
--- NOTE | 2019-07-20 10:40 | P.PN ---
Progress Note - Text Progress Note Date: 07/20/19 Patient is seen and examined today at bedside. Pain is being controlled with medication. she has been able to ambulate in the room. She does not feel weak in her leg. She still has some soreness across her right side of her lower back. She is not having any new neurologic issues. She underwent testing last night with her bone scan and her MRI and apparently a computed tomography scan as well. Physical Exam Afebrile with stable vital signs Abdomen is soft nontender. urostomy bags intact.Chest has good excursion deep and space expiration Extremities have not had neurologic change from yesterday. She has 5 out of 5 strength with dorsiflexion plantarflexion and EHL. She has some soreness at her back with hip flexion but she is able to do so with 4+ out of 5 strength. Sensory is intact in her bilateral lower extremities. Calves and thighs were soft nontender without evidence of DVT. the bone scan from yesterday is reviewed which shows multiple areas of uptake at the pelvis sacrum L4-L5 and number of ribs The MRI from yesterday is reviewed as well as the report that shows a large mass at the retroperitoneal space on the right side with erosion into L4-L5 vertebrae as well as into the sacrum. There is signal change L4-L5. There is some right foraminal encroachment L45. There is degenerative disc disease L3 4 L4 5 and L5-S1. There is evidence of compression deformity L4 and L5. There is some small retropulsion with some central stenosis. Assessment/Plan large retroperitoneal mass Likely metastatic spread at L4-L5 Pathologic fractures L4 and L5 Degenerative disc disease L3 4 L4 5 L5-S1 Stenosis L4 5 L5-S1 No evidence of neurologic deficit or neurologic change History of bladder cancer with current urostomy bag intact The patient is a very large retroperitoneal mass extending to the paraspinal area and involving L4 and L5. There may be some encroachment of the mass into the L4 5 neural foramen on the right. The involvements of L4 and L5 vertebral bodies also have evidence of pathologic fracture. These do not seem to be grossly unstable at this point. The patient is unable to use a brace for her back with her urostomy bag and we will have to try to treat this without bracing. We could consider kyphoplasty however the patient is not having overtly severe pain at her lumbar spine at this point and would like to try to avoid surgical intervention possible. I think that it may be more accessible for the patient undergo biopsy with interventional radiology bands through spine service. Oncology will continue to manage in terms of treatment based on some typing and the patient's history. We will have further input today. We will continue to increase the patient's mobilization with therapy. We will continue pain control with oral or IV medications. We'll continue to follow patient closely.
--- NOTE | 2019-07-20 14:06 | P.PN ---
Subjective Progress Note Date: 07/20/19 Principal diagnosis: Right lumbar paraspinal mass, change in bowel habits, back pain. In follow-up today patient feels that her pain is fairly well-controlled, she does have discomforts for ongoing in the right leg but it is not numb, does not give out on her, she has control over her bowel and bladder. Objective - Vital Signs Vital signs: Vital Signs Temp 98.2 F 07/20/19 07:00 Pulse 67 07/20/19 09:28 Resp 15 07/20/19 07:00 BP 140/65 07/20/19 07:00 Pulse Ox 94 L 07/20/19 07:00 Intake & Output 07/19/19 07/20/19 07/20/19 18:59 06:59 18:59 Intake Total 640 960 Output Total 1350 Balance 640 -390 Intake: Intake, IV Titration 100 Amount cefTRIAXone 1 gm In 100 Sodium Chloride 0.9% 50 ml @ 100 mls/hr IVPB Q24HR [facility] Rx#:[id number] Oral 540 960 Output: Urine 1350 Other: Voiding Method Ileal Conduit (Right) Ileal Conduit (Right) Ileal Conduit (Right) # Voids 3 - Constitutional General appearance: Present: average body habitus, cooperative, no acute distress - EENT Eyes: Present: anicteric sclerae, EOMI ENT: Present: hearing grossly normal - Respiratory Respiratory: bilateral: CTA - Cardiovascular Heart sounds: normal: S1, S2 Abnormal Heart Sounds: Absent: systolic murmur, diastolic murmur, rub, S3 Gallop, S4 Gallop, click, other - Peripheral edema leg Peripheral Edema: bilateral: None - Gastrointestinal General gastrointestinal: Present: soft - Neurologic Neurologic: Present: CNII-XII intact - Musculoskeletal Musculoskeletal: Present: strength equal bilaterally - Psychiatric Psychiatric: Present: A&O x's 3, appropriate affect, intact judgment & insight - Labs CBC & Chem 7: 07/20/19 06:26 07/20/19 06:26 Labs: Abnormal Lab Results - Last 24 Hours (Table) 07/20/19 07/20/19 Range/Units 06:26 06:26 WBC 14.6 H (3.8-10.6) k/uL Neutrophils # 13.7 H (1.3-7.7) k/uL Lymphocytes # 0.4 L (1.0-4.8) k/uL Sodium 130 L (137-145) mmol/L Carbon Dioxide 19 L (22-30) mmol/L Creatinine 0.45 L (0.52-1.04) mg/dL Glucose 119 H (74-99) mg/dL Microbiology - Last 24 Hours (Table) 07/17/19 18:17 Urine Culture - Final Urine,Voided Klebsiella pneumoniae 07/17/19 18:33 Blood Culture - Preliminary Blood No Growth after 48 hours - Imaging and Cardiology CT scan - abdomen: report reviewed CT scan - pelvis: report reviewed MRI of the lumbar spine report reviewed. Review Orthopedic Spine notes. Assessment and Plan (1) Back pain Narrative/Plan: Pain mgmt adequate, pt is comfortable at this time. Continue current analgesics. Monitor closely for narcotic-induced constipation, medications are available for prevention/treatment of the same. Current Visit: Yes Status: Acute Code(s): M54.9 - DORSALGIA, UNSPECIFIED SNOMED Code(s): 676734075 (2) Bladder cancer Narrative/Plan: History of 2 years ago, pt has been on imaging f/u Q 6 mo, just now due for f/u scans. No scans yet per pt request Current Visit: Yes Status: Chronic Priority: Medium Code(s): C67.9 - MALIGNANT NEOPLASM OF BLADDER, UNSPECIFIED SNOMED Code(s): 933643001 Plan: Review Dr. Ware's notes. Reviewed MRI of the spine report. Discussed results and recommendations with the patient. Patient has requested that we discussed with her any plans for scans or biopsies prior to performing. She is in a greement with having a biopsy of the area lateral to the spine on the right. We'll request cytology as well as culture and sensitivity. Consult has been placed for insertion Interventional Radiology.
--- NOTE | 2019-07-20 15:29 | P.PN ---
Subjective Progress Note Date: 07/20/19 This is an 84-year-old female admitted with acute lumbar radiculopathy of the right leg with possible paraspinal mass and vertebral fracture, in a patient with history of bladder cancer. Evaluated by both oncology and orthopedic surgery with recommendations noted and appreciated. Scheduled for bone scan and MRI of the lumbar spine today. Afebrile, urine cultures reporting gram-negative bacilli.Maintained on vancomycin, Rocephin, IV steroids.Reports improvement in right leg, strength, and lifting leg off the bed. Denies numbness. Back pain management with Cash Atkinson. 07/20/2019 Completed bone scan and lumbar spine MRI yesterday, tolerated procedures well. Bone scan report and multiple areas of abnormal uptake including intense linear uptake L4, L5 involving right sacrum, pubic [place], r ight femur. Suggesting acute compression fractures, right pelvic trauma, left rib fracture. MRI suggests neoplasms-lumber spine MRI reporting large right- sided paraspinal mass extending into the retroperitoneum and right abdomen. Abdomen/pelvis CT reported large right-sided paraspinal mass at the lower lumbar region adjacent destruction of L5 vertebral body,consistent with malignancy. The mass appears new compared to 08/28/2018 PET/computed tomography scan. Compression fractures of L4 and L5 vertebral bodies probably pathologic and also a change compared to old PET/computed tomography scan. Biopsy with interventional radiology ordered. Pain controlled, complains of right lower back discomfort. Positive bowel movement, denies incontinence. Maintained on IV steroids .Sitting in chair, regressed -T&A, Unable to lift right leg up off chair. Urine culture reporting ESBL, antibiotics adjusted/changed to ertapenem. ( ID had been consulted on admission but patient declined -requested consult to be canceled, did not want to follow with Dr. Payan, knowing he is the only ID available). Objective - Vital Signs Vital signs: Vital Signs Temp 98.2 F 07/20/19 07:00 Pulse 67 07/20/19 09:28 Resp 15 07/20/19 07:00 BP 140/65 07/20/19 07:00 Pulse Ox 94 L 07/20/19 07:00 Intake & Output 07/19/19 07/20/19 07/20/19 18:59 06:59 18:59 Intake Total 640 960 Output Total 1350 Balance 640 -390 Intake: Intake, IV Titration 100 Amount cefTRIAXone 1 gm In 100 Sodium Chloride 0.9% 50 ml @ 100 mls/hr IVPB Q24HR [facility] Rx#:[id number] Oral 540 960 Output: Urine 1350 Other: Voiding Method Ileal Conduit (Right) Ileal Conduit (Right) Ileal Conduit (Right) - Exam PHYSICAL EXAM: VITAL SIGNS: As above GENERAL: Sitting up in chair, no acute distress HEENT: Conjunctivae normal. eyes normal. Oral mucosa moist NECK: No JVD. No thyroid enlargement. No lymphadenopathy. CARDIOVASCULAR: S1, S2 regular. No murmur RESPIRATION: Breath sounds diminished in the bases. No rhonchi or crackles. ABDOMEN: Soft, nontender . No guarding. Urostomy bag present. no masses palpable. Bowel sounds heard. LEGS: No edema. no swelling PSYCHIATRY: Alert and oriented X3, mood and affect normal. NERVOUS SYSTEM: Unable to lift right leg up off the chair today, this is a change from yesterday-regressed. Skin: no rash Microbiology 07/17/19 18:17 Urine,Voided Urine Culture - Final Klebsiella pneumoniae 07/17/19 18:33 Blood Blood Culture - Preliminary No Growth after 48 hours - Labs CBC & Chem 7: 07/20/19 06:26 07/20/19 06:26 Labs: Abnormal Lab Results - Last 24 Hours (Table) 07/20/19 07/20/19 Range/Units 06:26 06:26 WBC 14.6 H (3.8-10.6) k/uL Neutrophils # 13.7 H (1.3-7.7) k/uL Lymphocytes # 0.4 L (1.0-4.8) k/uL Sodium 130 L (137-145) mmol/L Carbon Dioxide 19 L (22-30) mmol/L Creatinine 0.45 L (0.52-1.04) mg/dL Glucose 119 H (74-99) mg/dL Microbiology - Last 24 Hours (Table) 07/17/19 18:17 Urine Culture - Final Urine,Voided Klebsiella pneumoniae 07/17/19 18:33 Blood Culture - Preliminary Blood No Growth after 48 hours Assessment and Plan Assessment: Acute lumbar radiculopathy of the right leg secondary to #2 and #3 Lumbar spine paraspinal mass with bony erosion of L5 of uncertain etiology. Large retroperitoneal mass. Possible psoas abscess. L4 and L5 compression deformities-age undetermined, etiology unclear, suspect pathological fractures with metastasis Acute UTI with Klebsiella pneumoniae, ESBL Stenosis L4 5 L5-S1 History of bladder cancer Plan: Continue current medication regime ,monitoring and symptomatic treatment. Antibiotics adjusted to ertapenem .Biopsy of mass pending. Discussed with oncology -Oncology radiation consulted, currently on IV steroids , unable to lift right leg today -suspect mass upon nerve involvement. PT/OT. Prognosis guarded given multiple complex medical issues. The impression and plan of care has been dictated as directed. : I performed a history and examination of this patient, discussed the same with the dictator. I agree with the dictator's note ,documented as a scribe. Any additional findings or plans will be noted.
[2019-07-20] MEDS: ERTAPENEM 1 GM in SODIUM CHLORIDE 0.9% 50 ML IVPB SCH (16:03)
[2019-07-20 16:29] LABS: Glucose,Whole Blood 152 mg/dL (75-99)
[2019-07-20] MEDS: INSULIN ASPART (NovoLOG) 100 UNIT/ML VIAL SQ SCH ×2 (18:11→23:10)
[2019-07-20 20:21] LABS: Glucose,Whole Blood 160 mg/dL (75-99)
[2019-07-20] MEDS: HYDROcodone/APAP 5-325MG 1 EACH TAB PO PRN (23:10)
[2019-07-21] MEDS: LEVOTHYROXINE 50 MCG TAB PO SCH (05:41)
[2019-07-21 06:56] LABS: Glucose,Whole Blood 83 mg/dL (75-99)
[2019-07-21] MEDS: INSULIN ASPART (NovoLOG) 100 UNIT/ML VIAL SQ SCH ×4 (07:02→21:06)
[2019-07-21] MEDS ORDERED: VANCOMYCIN TROUGH DUE 1 EACH MISC MISCELLANE ONE (08:00)
[2019-07-21] MEDS ORDERED: predniSONE 20 MG TAB PO SCH (09:00)
[2019-07-21] MEDS: MECLIZINE 25 MG TAB PO SCH ×3 (09:04→22:59)
[2019-07-21] MEDS: PANTOPRAZOLE 40 MG TABLET PO SCH (09:04)
[2019-07-21] MEDS: METOPROLOL TARTRATE 25 MG TAB PO SCH ×2 (09:04→22:59)
[2019-07-21 09:16] LABS: Basophils % (A) 0 %; Eosinophils # (A) 0.1 k/uL (0-0.7); Eosinophils % (A) 1 %; HCT 41.1 % (34.0-46.0); HGB 13.1 gm/dL (11.4-16.0); Lymphocytes % (A) 6 %; MCH 29.2 pg (25.0-35.0); MCV 91.4 fL (80.0-100.0); Mean Platelet Volume 7.2; Monocytes # (A) 0.8 k/uL (0-1.0); Monocytes % (A) 5 %; Neutrophils # (A) 13.9 k/uL (1.3-7.7); Neutrophils % (A) 88 %; Platelet Count 447 k/uL (150-450); RDW 15.2 % (11.5-15.5); WBC 15.8 k/uL (3.8-10.6)
[2019-07-21 09:25] LABS: INR 0.9 (<1.2); Prothrombin Time 9.7 sec (9.0-12.0)
[2019-07-21 09:34] LABS: Partial Thromboplastin Time 20.5 sec (22.0-30.0)
[2019-07-21] MEDS: HYDROcodone/APAP 5-325MG 1 EACH TAB PO PRN ×2 (09:49→22:58)
[2019-07-21] MEDS: amLODIPine 5 MG TAB PO SCH (09:59)
[2019-07-21] MEDS ORDERED: ALPRAZolam 0.25 MG TAB PO STA (11:28)
[2019-07-21 11:29] LABS: Glucose,Whole Blood 99 mg/dL (75-99)
[2019-07-21] MEDS: ACETAMINOPHEN TAB 325 MG TAB PO PRN (11:34)
--- NOTE | 2019-07-21 12:18 | P.CONS ---
History of Present Illness - Reason for Consult Consult date: 07/20/19 right hip pain, paraspinal mass Requesting physician: Randy Kruger - Chief Complaint right hip pain - History of Present Illness The patient is an 84-year-old female with a previous history of high-grade papillary carcinoma of the bladder. She is status post cystectomy with ileal conduit at the [facility] approximately 3 years ago. She has been doing well up until this past month, when she presented with increasing right- sided hip and low back pain and right lower extremity weakness. The patient reports approximately 1 month ago she developed right-sided hip and low back pain. This typically radiate down the leg to the knee. She initially underwent some treatments for possible arthritis, with minimal change. Initially she had no difficulty with weakness, however that changed this past Thursday. She noted difficulty getting up from a seated position, and was having trouble lifting her leg. She did not have any bladder or bowel complaints, and denied saddle anesthesia. She presented to the ER on July 16 and was found to have a fever along with this right-sided hip and lower extremity pain. Covid testing was negative. She underwent a CT scan of the lumbar spine which revealed 20% compression fractures of L4 and L5 with a large right-sided paraspinal mass appreciated eroding into the L5 vertebral body. She underwent a bone scan on July 18 which showed some left lateral rib fractures, which are chronic based on prior imaging. There is also note of intense uptake at the L4-L5 region associated with the large mass. A CT scan of the abdomen and pelvis performed the same day revealed a large mixed density soft tissue mass involving the right paraspinal abdominal region which appear to invade the psoas muscle, spanning from L3 to S1 measuring 10 x 8 x 7 cm. There is no elsewhere masses or adenopathy appreciated. MRI of the lumbar spine was performed revealing the aforementioned L4 and L5 compression fractures with disc herniation causing central canal stenosis. The right-sided pelvic mass was seen to possibly compromise the L4 to 5 and L5-S1 neural foramina. The patient reports that at the time of my visit, she has not had any pain medication since last night. She is reporting significant pain up to 8 out of 10 radiating down to her leg on the right side. She is tentatively scheduled to undergo biopsy today, and we are waiting on the time for that. She does feel that she has had some improvement since her hospital stay and being able to lift the leg, but she still feels weakness in the right lower extremity. Review of Systems Constitutional: Denies chills, Denies fever Eyes: denies blurred vision Ears, nose, mouth and throat: Denies headache Cardiovascular: Denies chest pain, Denies dyspnea on exertion Respiratory: Denies cough Gastrointestinal: Denies abdominal pain, Denies bloating, Denies change in bowel habits, Denies diarrhea Genitourinary: Reports flank pain Musculoskeletal: Reports muscle weakness, Denies frequent falls Musculoskeletal: right: hip pain, hip stiffness Integumentary: Denies rash Neurological: Denies aphasia, Denies ataxia, Denies confusion Psychiatric: Denies anxiety, Denies depression Past Medical History Past Medical History: Cancer, Eye Disorder, GERD/Reflux, Hyperlipidemia, Hypertension, Neurologic Disorder, Thyroid Disorder Additional Past Medical History / Comment(s): Past couple months pt has had hospitalizations for abdominal pain/generalized weakness/fatigue/UTI (enterobacter faecalis)/ileus and possible CVA. Pt states she currently has some lesions around her ileal conduit. Other hx: Bladder cancer cystectomy/ileal conduit, UTIs, vaginal/uterine cancer with total hysterectomy, hiatal hernia, diverticular disease, constipation, hypothyroid, vertigo, murmur, bilateral keratoconis. BPPV benign proxysmal positional vertigo, vestibular neuritits History of Any Multi-Drug Resistant Organisms: ESBL Year Discovered:: 07/17/19 MDRO Source:: ESBL URINE Past Surgical History: Bladder Surgery, Bowel Resection, Tubal Ligation Additional Past Surgical History / Comment(s): Cystoscopy with TURB bladder tumor, bladder cystectomy/ileal conduit/partial colectomy at [facility], EGD, colonoscopies, D&C, total hysterectomy, bilateral cataract removals/corneal t ransplants. Past Anesthesia/Blood Transfusion Reactions: Postoperative Nausea & Vomiting (PONV) Past Psychological History: Depression Additional Psychological History / Comment(s): Pt resides with her spouse. She uses a walker. pts. daughter states family is very involved and helps alot Smoking Status: Never smoker Past Alcohol Use History: None Reported Additional Past Alcohol Use History / Comment(s): Patient is a lifelong nonsmoker. No alcohol use. Patient is retired. No service. No animal exposures. Past Drug Use History: None Reported - Past Family History Father Family Medical History: Cancer Mother Family Medical History: Diabetes Mellitus Sister(s) Family Medical History: Cancer Additional Family Medical History / Comment(s): BREAST CANCER Brother(s) Family Medical History: Cancer Additional Family Medical History / Comment(s): COLON CANCER AND LEUKEMIA Father Brother(s) Family Medical History: Cancer Medications and Allergies Home Medications Medication Instructions Recorded Confirmed Type Metoprolol Tartrate 25 mg PO BID 07/20/18 07/17/19 History Dronabinol [Marinol] 2.5 mg PO TID PRN 12/22/18 07/17/19 History Levothyroxine Sodium [Synthroid] 50 mcg PO DAILY 12/22/18 07/17/19 History Meclizine HCl 25 mg PO TID 07/17/19 07/17/19 History Naproxen 500 mg PO BID PRN 07/17/19 07/17/19 History Omeprazole 20 mg PO DAILY 07/17/19 07/17/19 History Allergies Allergy/AdvReac Type Severity Reaction Status Date / Time lubiprostone [From Amitiza] Allergy Swelling Verified 07/17/19 19:25 nitrofurantoin Allergy Swelling Verified 07/17/19 19:25 [From Macrobid] sulfamethoxazole Allergy Swelling Verified 07/17/19 19:25 [From Bactrim] lips, sore throat trimethoprim [From Bactrim] Allergy Swelling Verified 07/17/19 19:25 lips, sore throat levofloxacin [From Levaquin] AdvReac severe Verified 07/17/19 19:25 headache Hipxkeq-Qge-Iah Reductase AdvReac PAINFUL Verified 07/17/19 19:25 Inhibitor ARMS AND LEGS W/ MULT RX TRIED Physical Exam Vitals: Vital Signs Temp Pulse Resp BP Pulse Ox 07/21/19 10:53 182/79 07/21/19 09:57 190/71 07/21/19 07:00 97.7 F 64 16 178/80 96 07/21/19 03:13 98.5 F 56 L 18 151/72 99 07/20/19 21:36 97.8 F 71 18 158/62 97 07/20/19 14:53 97.6 F 69 15 156/70 96 Intake and Output 07/20/19 07/21/19 07/21/19 22:59 06:59 14:59 Other: Voiding Method Ileal Conduit (Right) Ileal Conduit (Right) Ileal Conduit (Right) # Voids 1 1 - Constitutional General appearance: average body habitus, no acute distress - EENT Eyes: EOMI, PERRLA ENT: hearing grossly normal - Neck Neck: no lymphadenopathy - Respiratory Respiratory: bilateral: CTA - Cardiovascular Rhythm: regular - Gastrointestinal General gastrointestinal: no distended, no tenderness - Integumentary Integumentary: no calor, no cellulitis - Neurologic Neurologic: CNII-XII intact - Musculoskeletal Musculoskeletal: right sided weakness (RLE - hip flexion 3+/5, jasen flexion/ext and knee flexion 5/5, LLE - 5/5 throughout) Results CBC & Chem 7: 07/21/19 08:36 07/20/19 06:26 Labs: Abnormal Lab Results - Last 24 Hours (Table) 07/20/19 07/20/19 07/21/19 Range/Units 16:26 20:19 08:36 WBC (3.8-10.6) k/uL Neutrophils # (1.3-7.7) k/uL APTT 20.5 L (22.0-30.0) sec POC Glucose (mg/dL) 152 H 160 H (75-99) mg/dL 07/21/19 Range/Units 08:36 WBC 15.8 H (3.8-10.6) k/uL Neutrophils # 13.9 H (1.3-7.7) k/uL APTT (22.0-30.0) sec POC Glucose (mg/dL) (75-99) mg/dL Microbiology - Last 24 Hours (Table) 07/17/19 18:33 Blood Culture - Preliminary Blood No Growth after 72 hours 07/17/19 18:17 Urine Culture - Final Urine,Voided Klebsiella pneumoniae CT scan - abdomen: report reviewed, image reviewed CT scan - pelvis: report reviewed, image reviewed Assessment and Plan Plan: The patient is an 84-year-old female with a previous history of high-grade papillary carcinoma of the bladder. She is status post cystectomy with ileal conduit at the [facility] approximately 3 years ago. She has been doing well up until this past month, when she presented with increasing right- sided hip and low back pain and right lower extremity weakness. She was found to have a large right paraspinal mass with invasion of the L5 vertebral body, and compression of the L4-5/L5-S1 neural foramina. 1. Paraspinal Mass: This is certainly the cause of the patient's right lower extremity radiculopathy. She does not appear to have any spinal cord compromise or cauda equina syndrome. However, she does have right lower extremity weakness which is likely secondary to the mass compressing the nerves exiting the foramina. I discussed with the patient that this is certainly suspicious for cancer, specifically suspicious for recurrence of her bladder cancer versus less likely a second primary such as retroperitoneal sarcoma. In retrospect, this mass may have been evident on patient's PET/CT from August 2018 (obviously much smaller), however this would've been difficult to discern from ureter uptake. I feel that the patient would have a much more toxic appearance if this was some type of abscess or infectious process. I would recommend switching out prednisone and moving to dexamethasone 4 mg 3 times a day and adding on a proton pump inhibitor. I agree with biopsy as scheduled. As the patient is asymptomatic with right lower extremity weakness, I will have the patient undergo CT simulation today with plans for palliative radiotherapy to start as soon as tomorrow. Considering the highly suggestive nature of the lesion, I feel it is reasonable per to proceed with radiotherapy despite not having the final pathologic result. I discussed with the patient she would require CT simulation for treatment planning. Treatment will be delivered Thursday through Thursday, 5 days a week for approximately 1-2 weeks. I discussed possible side effects this treatment which include, but are not limited to; fatigue, skin irritation, increased frequency of bowel movements, loose stools, nausea, and low risk of long-term toxicity considering palliative dosing regimen. If the patient was found to have an unlikely second primary li ke a retroperitoneal sarcoma, that radiotherapy could certainly be converted into more of a long course treatment. Considering this tumor has invasion into the L5 vertebral body, it is likely to be unresectable and require further radiotherapy if this were to be found to be a sarcoma. 2. Possible recurrent bladder cancer: I discussed with the patient that she should also undergo a CT scan of the chest to complete a staging workup. This could certainly be performed on an outpatient basis. Time with Patient: Greater than 30
[2019-07-21 13:05] LABS: African American GFR (CKD) >90 (>60 ml/min/1.73 sqM); Anion Gap 10 mmol/L; Blood Urea Nitrogen 16 mg/dL (7-17); Calcium 9.5 mg/dL (8.4-10.2); Carbon Dioxide 23 mmol/L (22-30); Chloride 101 mmol/L (98-107); Glucose 92 mg/dL (74-99); Non-African American GFR(CKD) 87 (>60 ml/min/1.73 sqM); Potassium 3.8 mmol/L (3.5-5.1); Sodium 134 mmol/L (137-145)
--- NOTE | 2019-07-21 13:26 | P.PN ---
Subjective Progress Note Date: 07/21/19 This is an 84-year-old female admitted with acute lumbar radiculopathy of the right leg with possible paraspinal mass and vertebral fracture, in a patient with history of bladder cancer. Evaluated by both oncology and orthopedic surgery with recommendations noted and appreciated. Scheduled for bone scan and MRI of the lumbar spine today. Afebrile, urine cultures reporting gram-negative bacilli.Maintained on vancomycin, Rocephin, IV steroids.Reports improvement in right leg, strength, and lifting leg off the bed. Denies numbness. Back pain management with [place], Naprosyn. 07/20/2019 Completed bone scan and lumbar spine MRI yesterday, tolerated procedures well. Bone scan report and multiple areas of abnormal uptake including intense linear uptake L4, L5 involving right sacrum, pubic [place], r ight femur. Suggesting acute compression fractures, right pelvic trauma, left rib fracture. MRI suggests neoplasms-lumber spine MRI reporting large right- sided paraspinal mass extending into the retroperitoneum and right abdomen. Abdomen/pelvis CT reported large right-sided paraspinal mass at the lower lumbar region adjacent destruction of L5 vertebral body,consistent with malignancy. The mass appears new compared to 08/28/2018 PET/computed tomography scan. Compression fractures of L4 and L5 vertebral bodies probably pathologic and also a change compared to old PET/computed tomography scan. Biopsy with interventional radiology ordered. Pain controlled, complains of right lower back discomfort. Positive bowel movement, denies incontinence. Maintained on IV steroids .Sitting in chair, regressed -T&A, Unable to lift right leg up off chair. Urine culture reporting ESBL, antibiotics adjusted/changed to ertapenem. ( ID had been consulted on admission but patient declined -requested consult to be canceled, did not want to follow with Dr. Payan, knowing he is the only ID available). 07/21/2019 this morning sitting up in bed, able to lift right leg off the bed-significantly improved from yesterday. IV steroids discontinued yesterday and currently on oral steroids. Scheduled for biopsy today with interventional radiology. Complains of right lateral hip pain radiating down through to ankle. Hypertensive this morning, received in addition to antihypertensive med regime, Norvasc, [place], Tylenol as well as a one-time dose of Xanax. Systolic Blood pressure trending down from systolic of 190-182 and now currently at 166. Apparently patient was taking baby aspirin daily as a home medication not listed on our home medication list. Last dose was 4 days ago and interventional radiologists requesting to wait another day for biopsy. Radiation oncology evaluation pending. Objective - Vital Signs Vital signs: Vital Signs Temp 97.7 F 07/21/19 07:00 Pulse 64 07/21/19 07:00 Resp 16 07/21/19 07:00 BP 178/80 07/21/19 07:00 Pulse Ox 96 07/21/19 07:00 Intake & Output 07/20/19 07/21/19 07/21/19 18:59 06:59 18:59 Other: Voiding Method Ileal Conduit (Right) Ileal Conduit (Right) # Voids 3 1 - Exam PHYSICAL EXAM: VITAL SIGNS: As above GENERAL: Sitting up in bed, no acute distress HEENT: Conjunctivae normal. eyes normal. Oral mucosa moist NECK: No JVD. No thyroid enlargement. No lymphadenopathy. CARDIOVASCULAR: S1, S2 regular. No murmur RESPIRATION: Breath sounds diminished in the bases. No rhonchi or crackles. ABDOMEN: Soft, nontender . No guarding. Urostomy bag present. no masses palpable. Bowel sounds heard. LEGS: No edema. no swelling PSYCHIATRY: Alert and oriented X3, mood and affect normal. NERVOUS SYSTEM: Continue on nurse 2 through 12 grossly intact, no focal deficits. Today able to lift right leg up off the bed which patient was unable to do yesterday-fluctuates Skin: no rash Microbiology 07/17/19 18:33 Blood Blood Culture - Preliminary No Growth after 72 hours 07/17/19 18:17 Urine,Voided Urine Culture - Final Klebsiella pneumoniae - Labs CBC & Chem 7: 07/21/19 08:36 07/21/19 08:37 Labs: Abnormal Lab Results - Last 24 Hours (Table) 07/20/19 07/20/19 Range/Units 16:26 20:19 POC Glucose (mg/dL) 152 H 160 H (75-99) mg/dL Microbiology - Last 24 Hours (Table) 07/17/19 18:33 Blood Culture - Preliminary Blood No Growth after 72 hours 07/17/19 18:17 Urine Culture - Final Urine,Voided Klebsiella pneumoniae Assessment and Plan Assessment: Acute lumbar radiculopathy of the right leg secondary to #2 and #3 Lumbar spine paraspinal mass with bony erosion of L5 of uncertain etiology. Large retroperitoneal mass. Possible psoas abscess. L4 and L5 compression deformities-age undetermined, etiology unclear, suspect pathological fractures with metastasis Acute UTI with Klebsiella pneumoniae, ESBL Stenosis L4 5 L5-S1 History of bladder cancer Plan: Continue current medication regime ,monitoring and symptomatic treatment. Antihypertensives further adjusted, close monitoring of blood pressure Maintain IV antibiotics of ertapenem .Biopsy of mass pending. Oncology radiation consult in place, evaluation/recommendations pending PT/OT. Prognosis guarded given multiple complex medical issues. The impression and plan of care has been dictated as directed. : I performed a history and examination of this patient, discussed the same with the dictator. I agree with the dictator's note ,documented as a scribe. Any additional findings or plans will be noted.
[2019-07-21] MEDS: DEXAMETHASONE 4 MG TAB PO SCH ×2 (14:56→22:59)
[2019-07-21] MEDS: ERTAPENEM 1 GM in SODIUM CHLORIDE 0.9% 50 ML IVPB SCH ×2 (15:00→17:41)
[2019-07-21] MEDS ORDERED: RX INFO: IV CONTRAST WAS GIVEN 1 EACH MISC MISCELLANE PRN (15:35)
[2019-07-21] MEDS ORDERED: MAGNESIUM HYDROXIDE 2,400 MG/10 ML CUP PO PRN (15:50)
--- NOTE | 2019-07-21 15:58 | P.PN ---
Subjective Progress Note Date: 07/21/19 Principal diagnosis: Right lumbar paraspinal mass, change in bowel habits, back pain. In follow-up today patient does seem rather down. She was unable to get biopsy due to hypertension. She has been seen by the Radiation Oncologist who has reviewed her scans. High suspicion for a recurrence of bladder cancer, she is being simulated for treatment of symptoms. Patient's back pain is fairly well controlled on current medication regimen, pain pill can make her nauseated. No fever, vomiting, cough, chest pain, abdominal distention, swelling in the legs. There is weakness in the legs, persistent not yet progressive Objective - Vital Signs Vital signs: Vital Signs Temp 97.9 F 07/21/19 15:00 Pulse 75 07/21/19 15:00 Resp 17 07/21/19 15:00 BP 133/66 07/21/19 15:00 Pulse Ox 97 07/21/19 15:00 Intake & Output 07/20/19 07/21/19 07/21/19 18:59 06:59 18:59 Other: Voiding Method Ileal Conduit (Right) Ileal Conduit (Right) Ileal Conduit (Right) # Voids 3 1 - Constitutional General appearance: Present: average body habitus, cooperative, no acute distress - EENT Eyes: Present: anicteric sclerae, EOMI ENT: Present: hearing grossly normal - Respiratory Details: spray shins even and unlabored - Cardiovascular Details: skin warm and dry to the touch - Integumentary Integumentary: Present: normal - Neurologic Neurologic: Present: CNII-XII intact - Psychiatric Psychiatric Comment(s): patient seems down, depressed today Psychiatric: Present: A&O x's 3, intact judgment & insight - Labs CBC & Chem 7: 07/21/19 08:36 07/21/19 08:37 Labs: Abnormal Lab Results - Last 24 Hours (Table) 07/20/19 07/20/19 07/21/19 Range/Units 16:26 20:19 08:36 WBC (3.8-10.6) k/uL Neutrophils # (1.3-7.7) k/uL APTT 20.5 L (22.0-30.0) sec Sodium (137-145) mmol/L POC Glucose (mg/dL) 152 H 160 H (75-99) mg/dL 07/21/19 07/21/19 Range/Units 08:36 08:37 WBC 15.8 H (3.8-10.6) k/uL Neutrophils # 13.9 H (1.3-7.7) k/uL APTT (22.0-30.0) sec Sodium 134 L (137-145) mmol/L POC Glucose (mg/dL) (75-99) mg/dL Microbiology - Last 24 Hours (Table) 07/17/19 18:33 Blood Culture - Preliminary Blood No Growth after 72 hours Assessment and Plan (1) Back pain Narrative/Plan: From mass. Rad Onc has seen pt and is going to begin palliative treatment. Pain mgmt adequate, pt is comfortable at this time. Continue current analgesics, steroids. Monitor closely for narcotic-induced constipation, medications are available for prevention/treatment of the same. Current Visit: Yes Status: Acute Code(s): M54.9 - DORSALGIA, UNSPECIFIED SNOMED Code(s): 486495531 (2) Bladder cancer Narrative/Plan: History of 2 years ago, pt has been on imaging f/u Q 6 mo. Unfortunately, there are no scans that we can find from 6 mo ago so, it has been nearly a year since imaging. Concern is for a recurrent bladder cancer. Pending biopsy Current Visit: Yes Status: Chronic Priority: Medium Code(s): C67.9 - MALIGNANT NEOPLASM OF BLADDER, UNSPECIFIED SNOMED Code(s): 821690670 Plan: Case discussed with Rad Onc. CT chest to complete staging [place], dex, compazine, senna and pepcid sent to pt preferred pharmacy
[2019-07-21 16:26] LABS: Glucose,Whole Blood 145 mg/dL (75-99)
[2019-07-21] MEDS: SODIUM CHLORIDE 0.9% 1,000 ML IV SCH (17:24)
[2019-07-21 20:17] LABS: Glucose,Whole Blood 131 mg/dL (75-99)
[2019-07-21] MEDS: SENNOSIDES-DOCUSATE SODIUM 1 EACH TAB PO SCH (22:59)
--- NOTE | 2019-07-21 23:27 | CT ---
EXAMINATION TYPE: CT chest w con DATE OF EXAM: 07/21/2019 COMPARISON: PET CT scan 08/28/2018 HISTORY: INITAL STAGING Bladder cancer CT DLP: 282.7 mGycm Automated exposure control for dose reduction was used. CONTRAST: Performed with IV Contrast, patient injected with 100 mL of Isovue 300. Images were obtained from the thoracic inlet to the diaphragm with IV contrast. There are mild bilateral pleural effusions. Thoracic aorta is atheromatous. Ascending aorta measures 3.4 cm. There is no mediastinal adenopathy. There are no hilar masses. Heart size is top normal. Ther e is no pericardial effusion. Upper abdominal soft tissues appear intact. There is minimal pleural thickening at the lung apices. There is no evidence of a pulmonary mass. The re is minimal interstitial infiltrate at the lung bases. Thoracic spine is intact. Sternum is intact. The ribs appear intact. There are old right-sided healed rib fractures. Visualized upper abdominal soft tissues are intact. IMPRESSION: Compared to old exam there is appearance of small new bilateral pleural effusions. No suspicious pulm onary mass. There is stable scarring at the lung apices. Mild interstitial infiltrates at the lung ba ses increased compared to old exam.
[2019-07-22] MEDS: HYDROcodone/APAP 5-325MG 1 EACH TAB PO PRN (05:42)
[2019-07-22] MEDS: DEXAMETHASONE 4 MG TAB PO SCH ×3 (05:43→20:13)
[2019-07-22] MEDS: SODIUM CHLORIDE 0.9% 1,000 ML IV SCH ×2 (05:43→20:19)
[2019-07-22 07:23] LABS: Glucose,Whole Blood 114 mg/dL (75-99)
[2019-07-22] MEDS: LEVOTHYROXINE 50 MCG TAB PO SCH (07:24)
[2019-07-22] MEDS: INSULIN ASPART (NovoLOG) 100 UNIT/ML VIAL SQ SCH ×4 (07:25→20:13)
[2019-07-22] MEDS: MECLIZINE 25 MG TAB PO SCH ×3 (07:37→20:13)
[2019-07-22] MEDS: amLODIPine 5 MG TAB PO SCH (07:37)
[2019-07-22] MEDS: SENNOSIDES-DOCUSATE SODIUM 1 EACH TAB PO SCH ×2 (07:37→20:13)
[2019-07-22] MEDS: METOPROLOL TARTRATE 25 MG TAB PO SCH ×2 (07:37→20:13)
[2019-07-22] MEDS: PANTOPRAZOLE 40 MG TABLET PO SCH (07:37)
[2019-07-22] MEDS ORDERED: ALPRAZolam 0.25 MG TAB PO STA (08:44)
[2019-07-22] MEDS: ACETAMINOPHEN TAB 325 MG TAB PO PRN (09:45)
[2019-07-22] MEDS: HYDROcodone/APAP 7.5-325MG 1 EACH TAB PO PRN ×2 (10:58→16:48)
[2019-07-22 13:07] LABS: Glucose,Whole Blood 127 mg/dL (75-99)
--- NOTE | 2019-07-22 14:13 | P.PN ---
Subjective Progress Note Date: 07/22/19 This is an 84-year-old female admitted with acute lumbar radiculopathy of the right leg with possible paraspinal mass and vertebral fracture, in a patient with history of bladder cancer. Evaluated by both oncology and orthopedic surgery with recommendations noted and appreciated. Scheduled for bone scan and MRI of the lumbar spine today. Afebrile, urine cultures reporting gram-negative bacilli.Maintained on vancomycin, Rocephin, IV steroids.Reports improvement in right leg, strength, and lifting leg off the bed. Denies numbness. Back pain management with Radisson, Naprosyn. 07/20/2019 Completed bone scan and lumbar spine MRI yesterday, tolerated procedures well. Bone scan report and multiple areas of abnormal uptake including intense linear uptake L4, L5 involving right sacrum, pubic [place], r ight femur. Suggesting acute compression fractures, right pelvic trauma, left rib fracture. MRI suggests neoplasms-lumber spine MRI reporting large right- sided paraspinal mass extending into the retroperitoneum and right abdomen. Abdomen/pelvis CT reported large right-sided paraspinal mass at the lower lumbar region adjacent destruction of L5 vertebral body,consistent with malignancy. The mass appears new compared to 08/28/2018 PET/computed tomography scan. Compression fractures of L4 and L5 vertebral bodies probably pathologic and also a change compared to old PET/computed tomography scan. Biopsy with interventional radiology ordered. Pain controlled, complains of right lower back discomfort. Positive bowel movement, denies incontinence. Maintained on IV steroids .Sitting in chair, regressed -T&A, Unable to lift right leg up off chair. Urine culture reporting ESBL, antibiotics adjusted/changed to ertapenem. ( ID had been consulted on admission but patient declined -requested consult to be canceled, did not want to follow with Dr. Payan, knowing he is the only ID available). 07/21/2019 this morning sitting up in bed, able to lift right leg off the bed-significantly improved from yesterday. IV steroids discontinued yesterday and currently on oral steroids. Scheduled for biopsy today with interventional radiology. Complains of right lateral hip pain radiating down through to ankle. Hypertensive this morning, received in addition to antihypertensive med regime, Norvasc, Radisson, Tylenol as well as a one-time dose of Xanax. Systolic Blood pressure trending down from systolic of 190-182 and now currently at 166. Apparently patient was taking baby aspirin daily as a home medication not listed on our home medication list. Last dose was 4 days ago and interventional radiologists requesting to wait another day for biopsy. Radiation oncology evaluation pending. 05/22/2019 reports pain management only lasting about 2-1/2 hours. Radisson increase. Blood pressure better controlled. Scheduled for biopsy and radiation today. Chest CT reporting new small bilateral pleural effusions no suspicious pulmonary mass, stable scarring of the lung apices. Increased mild interstitial infiltrates at the lung bases. Denies shortness of breath, denies cough. M aintaining O2 sats in the high 90s on room air. Maintained on ertapenem for ESBL UTI. Afebrile. Objective - Vital Signs Vital signs: Vital Signs Temp 98.0 F 07/22/19 06:57 Pulse 88 07/22/19 12:49 Resp 16 07/22/19 12:49 BP 167/83 07/22/19 12:49 Pulse Ox 98 07/22/19 12:49 Intake & Output 07/21/19 07/22/19 07/22/19 18:59 06:59 18:59 Other: Voiding Method Ileal Conduit (Right) Ileal Conduit (Right) Ileal Conduit (Right) # Voids 1 - Exam PHYSICAL EXAM: VITAL SIGNS: As above GENERAL: Sitting up in chair, no acute distress HEENT: Conjunctivae normal. eyes normal. Oral mucosa moist NECK: No JVD. No thyroid enlargement. No lymphadenopathy. CARDIOVASCULAR: S1, S2 regular. No murmur RESPIRATION: Breath sounds diminished in the bases. No rhonchi or crackles. ABDOMEN: Soft, nontender . No guarding. Urostomy bag present. no masses palpable. Bowel sounds heard. LEGS: No edema. no swelling PSYCHIATRY: Alert and oriented X3, mood and affect normal. NERVOUS SYSTEM: Continue on nurse 2 through 12 grossly intact, no focal deficits. lifting right leg up off the chair Skin: no rash Microbiology 07/17/19 18:33 Blood Blood Culture - Preliminary No Growth after 96 hours 07/17/19 18:17 Urine,Voided Urine Culture - Final Klebsiella pneumoniae - Labs CBC & Chem 7: 07/21/19 08:36 07/21/19 08:37 Labs: Abnormal Lab Results - Last 24 Hours (Table) 07/21/19 07/21/19 07/22/19 Range/Units 16:25 20:15 06:58 POC Glucose (mg/dL) 145 H 131 H 114 H (75-99) mg/dL 07/22/19 Range/Units 13:06 POC Glucose (mg/dL) 127 H (75-99) mg/dL Microbiology - Last 24 Hours (Table) 07/17/19 18:33 Blood Culture - Preliminary Blood No Growth after 96 hours Assessment and Plan Assessment: Acute lumbar radiculopathy of the right leg secondary to #2 and #3 Lumbar spine paraspinal mass with bony erosion of L5 of uncertain etiology. Large retroperitoneal mass. Possible psoas abscess. Biopsy pending L4 and L5 compression deformities-age undetermined, etiology unclear, suspect pathological fractures with metastasis New small bilateral pleural effusions no suspicious pulmonary mass, stable scarring of the lung apices. Increased mild interstitial infiltrates at the lung bases per CT. Acute UTI with Klebsiella pneumoniae, ESBL Stenosis L4 5 L5-S1 History of bladder cancer Plan: Continue current medication regime ,monitoring and symptomatic treatment. Antihypertensives further adjusted, close monitoring of blood pressure Maintain IV antibiotics of ertapenem .Biopsy of mass pending. Oncology radiation consult in place, evaluation/recommendations pending PT/OT. Prognosis guarded given multiple complex medical issues. The impression and plan of care has been dictated as directed. : I performed a history and examination of this patient, discussed the same with the dictator. I agree with the dictator's note ,documented as a scribe. Any additional findings or plans will be noted.
--- NOTE | 2019-07-22 14:32 | P.PN ---
Subjective Progress Note Date: 07/22/19 Principal diagnosis: Paraspinal Mass, Symptomatic No acute changes, no sensation loss in legs. Objective - Vital Signs Vital signs: Vital Signs Temp 98.0 F 07/22/19 06:57 Pulse 88 07/22/19 12:49 Resp 16 07/22/19 12:49 BP 167/83 07/22/19 12:49 Pulse Ox 98 07/22/19 12:49 Intake & Output 07/21/19 07/22/19 07/22/19 18:59 06:59 18:59 Other: Voiding Method Ileal Conduit (Right) Ileal Conduit (Right) Ileal Conduit (Right) # Voids 1 4 - Exam - Constitutional General appearance: Present: average body habitus, cooperative, no acute distress - EENT Eyes: Present: anicteric sclerae, EOMI ENT: Present: hearing grossly normal - Respiratory Details: spray shins even and unlabored - Cardiovascular Details: skin warm and dry to the touch - Integumentary Integumentary: Present: normal - Neurologic Neurologic: Present: CNII-XII intact - Psychiatric Psychiatric Comment(s): Psychiatric: Present: A&O x's 3, intact judgment & insight - Labs CBC & Chem 7: 07/21/19 08:36 07/21/19 08:37 Labs: Abnormal Lab Results - Last 24 Hours (Table) 07/21/19 07/21/19 07/22/19 Range/Units 16:25 20:15 06:58 POC Glucose (mg/dL) 145 H 131 H 114 H (75-99) mg/dL 07/22/19 Range/Units 13:06 POC Glucose (mg/dL) 127 H (75-99) mg/dL Microbiology - Last 24 Hours (Table) 07/17/19 18:33 Blood Culture - Preliminary Blood No Growth after 96 hours Assessment and Plan Plan: Assessment and recommendations: Back pain New Right Paraspinal Mass - Rad Onc has seen pt and is going to begin palliative treatment. - Pain mgmt adequate, pt is comfortable at this time. - Continue current analgesics, steroids/PPI. - Monitor closely for narcotic-induced constipation, medications are available for prevention/treatment of the same. History of Bladder cancer - History of 2 years ago, pt has been on imaging f/u Q 6 mo. - Unfortunately, there are no scans that we can find from 6 mo ago so, it has been nearly a year since imaging. - Concern is for a recurrent bladder cancer. New small bilateral pleural effusions: - no suspicious pulmonary mass or evidence of metastatic disease. - Increased mild interstitial infiltrates at the lung bases per CT. Acute UTI with Klebsiella pneumoniae, ESBL - Continue on antibiotics per primary team Plan: - CT chest to complete staging does not show evidence of definite metastatic disease to lungs. - Status Post Tissue Biopsy, Await results of pathology for further recommendations - [place], dex, compazine, senna and pepcid sent to pt preferred pharmacy - Follow-up appointment is made with Dr. Kruger for 07/28/19 to review pathology and discuss treatment plan options. Physician Attest: I have completed the full history and physical and agree with above dictation, Dictated as a scribe
--- NOTE | 2019-07-22 15:29 | CDI ---
Documentation Clarification Form Date: 07/22/2019 03:09:54 PM From: Ale Amaya CCS, CCDS Admit Date: 07/17/2019 07:13:00 PM Patient Name: Elsie Whitley Visit Number: [id number] Discharge Date: ATTENTION: The Clinical Documentation Specialists (CDI) and [facility] Coding Staff appreciate your assistance in clarifying documentation. Please respond to the clarification below the line at the bottom and electronically sign. The CDI & [facility] Coding staff will review the response and follow-up if needed. Please note: Queries are made part of the Legal Health Record. If you have any questions, please contact the author of this message via ITS. Dr. Madan Salinas: The patient presented to the ED on 07/16 with fever & generalized weakness with history of bladder cancer status post urostomy. UA suggestive of UTI, admitted for IV antibiotics. 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 Clinical Indicators: Presented as above, diagnosed with Sepsis & ESBL UTI per the 07/17 Infectious Disease Consult. Also Acute lumbar radiculopathy of the right leg secondary to a large lumbar spine paraspinal mass with bony erosion of L5 of uncertain etiology. Admission VS: T 102.1^, P 89, R 20, BP 131/73, PO 96 RA Admission LABS: WBC 14.0^, Neut 12.5^, ESR 37^, Na 129*. COVID-19 Negative UA: 07/16: Cloudy, trace protein, trace esterase, WBC 17. 5/10 Urine Cx: Final: Klebsiella pneumonia 07/16 Blood Cx: Preliminary, negative at 96 hrs. Treatment: IV fluid bolus 500 mls @ 999 mls/hr, IV Rocephin, IV Vancomycin, IV Solumedrol, po [place]. In your professional opinion, please clarify if these findings signify one of the following conditions, whether the condition is POA, and cause, if known: Sepsis ruled out Sepsis ruled in Other, please specify Unable to determine Present on Admission o Yes or No Identify the (suspected) organism Link or clarify if there is associated (due to/with): Organ failure (Last Revision: June 2017) MTDD
[2019-07-22] MEDS: ERTAPENEM 1 GM in SODIUM CHLORIDE 0.9% 50 ML IVPB SCH ×2 (15:54→16:40)
[2019-07-22 16:44] LABS: Glucose,Whole Blood 136 mg/dL (75-99)
[2019-07-22] MEDS: DRONABINOL 2.5 MG CAP PO PRN (17:18)
[2019-07-22 20:12] LABS: Glucose,Whole Blood 177 mg/dL (75-99)
[2019-07-23] MEDS: HYDROcodone/APAP 7.5-325MG 1 EACH TAB PO PRN ×3 (01:01→20:48)
[2019-07-23] MEDS: LEVOTHYROXINE 50 MCG TAB PO SCH (05:44)
[2019-07-23] MEDS: DEXAMETHASONE 4 MG TAB PO SCH ×3 (05:44→20:39)
[2019-07-23 06:33] LABS: Basophils % (A) 0 %; Eosinophils # (A) 0.2 k/uL (0-0.7); Eosinophils % (A) 1 %; HGB 14.1 gm/dL (11.4-16.0); Lymphocytes # (A) 0.7 k/uL (1.0-4.8); Lymphocytes % (A) 4 %; MCH 30.1 pg (25.0-35.0); MCHC 33.5 g/dL (31.0-37.0); MCV 89.7 fL (80.0-100.0); Mean Platelet Volume 7.5; Monocytes # (A) 0.6 k/uL (0-1.0); Monocytes % (A) 3 %; Neutrophils # (A) 15.6 k/uL (1.3-7.7); Neutrophils % (A) 91 %; Platelet Count 417 k/uL (150-450); RBC 4.68 m/uL (3.80-5.40); WBC 17.2 k/uL (3.8-10.6)
[2019-07-23 07:20] LABS: ALT 39 U/L (4-34); AST 36 U/L (14-36); African American GFR (CKD) >90 (>60 ml/min/1.73 sqM); Albumin 3.4 g/dL (3.5-5.0); Alkaline Phosphatase 61 U/L (38-126); Anion Gap 10 mmol/L; Blood Urea Nitrogen 19 mg/dL (7-17); Carbon Dioxide 25 mmol/L (22-30); Chloride 97 mmol/L (98-107); Glucose 105 mg/dL (74-99); Non-African American GFR(CKD) >90 (>60 ml/min/1.73 sqM); Potassium 4.8 mmol/L (3.5-5.1); Sodium 132 mmol/L (137-145); Total Bilirubin 0.7 mg/dL (0.2-1.3); Total Protein 6.4 g/dL (6.3-8.2)
[2019-07-23] MEDS: INSULIN ASPART (NovoLOG) 100 UNIT/ML VIAL SQ SCH ×4 (07:46→20:39)
[2019-07-23] MEDS: ACETAMINOPHEN TAB 325 MG TAB PO PRN (07:47)
[2019-07-23] MEDS: DRONABINOL 2.5 MG CAP PO PRN (07:48)
[2019-07-23 07:51] LABS: Glucose,Whole Blood 112 mg/dL (75-99)
[2019-07-23 09:38] VITALS: BMI 24.7
[2019-07-23] MEDS: amLODIPine 5 MG TAB PO SCH (09:43)
[2019-07-23] MEDS: METOPROLOL TARTRATE 25 MG TAB PO SCH ×3 (09:43→20:39)
[2019-07-23] MEDS: MECLIZINE 25 MG TAB PO SCH ×3 (09:43→20:39)
[2019-07-23] MEDS: SENNOSIDES-DOCUSATE SODIUM 1 EACH TAB PO SCH ×2 (09:43→20:39)
[2019-07-23] MEDS: SODIUM CHLORIDE 0.9% 1,000 ML IV SCH ×2 (09:44→14:49)
[2019-07-23] MEDS: PANTOPRAZOLE 40 MG TABLET PO SCH (09:51)
[2019-07-23 11:48] LABS: Glucose,Whole Blood 109 mg/dL (75-99)
[2019-07-23] MEDS: ERTAPENEM 1 GM in SODIUM CHLORIDE 0.9% 50 ML IVPB SCH (14:48)
[2019-07-23 16:46] LABS: Glucose,Whole Blood 127 mg/dL (75-99)
[2019-07-23 20:25] LABS: Glucose,Whole Blood 154 mg/dL (75-99)
[2019-07-23] MEDS: NAPROXEN 250 MG TAB PO PRN (22:32)
[2019-07-24] MEDS: LEVOTHYROXINE 50 MCG TAB PO SCH (05:26)
[2019-07-24] MEDS: DEXAMETHASONE 4 MG TAB PO SCH ×3 (05:26→20:52)
[2019-07-24 06:58] LABS: Glucose,Whole Blood 102 mg/dL (75-99)
[2019-07-24] MEDS: INSULIN ASPART (NovoLOG) 100 UNIT/ML VIAL SQ SCH ×4 (07:04→20:53)
--- NOTE | 2019-07-24 07:10 | PN ---
PROGRESS NOTE 84-year-old white female status post radiation treatment, on IV antibiotics for drug- resistant UTI, IV Invanz is being continued. Radiation and biopsy of the mass in the pelvis has been done. Cardiovascular S1-S2. Lungs clear. GI soft. Hematology is negative Homans. ASSESSMENT: 1. Renal cell cancer. 2. Drug-resistant urinary tract infection, ESBL. Continue current treatments. IV antibiotics, radiation treatment. ( ) 24-48 hours. MMODL / IJN: [id number] /
[2019-07-24] MEDS: amLODIPine 5 MG TAB PO SCH (08:25)
[2019-07-24] MEDS: METOPROLOL TARTRATE 25 MG TAB PO SCH ×2 (08:25→20:53)
[2019-07-24] MEDS: DRONABINOL 2.5 MG CAP PO PRN (08:25)
[2019-07-24] MEDS: SENNOSIDES-DOCUSATE SODIUM 1 EACH TAB PO SCH ×2 (08:25→20:53)
[2019-07-24] MEDS: NAPROXEN 250 MG TAB PO PRN (08:27)
[2019-07-24 08:49] LABS: ALT 31 U/L (4-34); AST 33 U/L (14-36); African American GFR (CKD) >90 (>60 ml/min/1.73 sqM); Albumin 3.5 g/dL (3.5-5.0); Alkaline Phosphatase 70 U/L (38-126); Anion Gap 9 mmol/L; Blood Urea Nitrogen 19 mg/dL (7-17); Carbon Dioxide 23 mmol/L (22-30); Chloride 98 mmol/L (98-107); Glucose 101 mg/dL (74-99); Non-African American GFR(CKD) >90 (>60 ml/min/1.73 sqM); Sodium 130 mmol/L (137-145); Total Bilirubin 0.7 mg/dL (0.2-1.3); Total Protein 6.4 g/dL (6.3-8.2)
[2019-07-24 09:55] LABS: Basophils % (A) 0 %; Eosinophils % (A) 0 %; HCT 41.7 % (34.0-46.0); HGB 13.3 gm/dL (11.4-16.0); Lymphocytes # (A) 0.5 k/uL (1.0-4.8); Lymphocytes % (A) 3 %; MCV 90.8 fL (80.0-100.0); Mean Platelet Volume 9.2; Monocytes # (A) 0.5 k/uL (0-1.0); Monocytes % (A) 3 %; Neutrophils # (A) 15.9 k/uL (1.3-7.7); Neutrophils % (A) 94 %; Platelet Count 338 k/uL (150-450); RBC 4.59 m/uL (3.80-5.40); RDW 15.5 % (11.5-15.5)
[2019-07-24] MEDS: PANTOPRAZOLE 40 MG TABLET PO SCH (10:24)
[2019-07-24] MEDS: MECLIZINE 25 MG TAB PO SCH ×3 (10:24→20:53)
[2019-07-24 11:11] LABS: Glucose,Whole Blood 108 mg/dL (75-99)
[2019-07-24] MEDS: SODIUM CHLORIDE 0.9% 1,000 ML IV SCH ×2 (11:29→23:41)
[2019-07-24] MEDS: ERTAPENEM 1 GM in SODIUM CHLORIDE 0.9% 50 ML IVPB SCH (14:32)
[2019-07-24] MEDS: ACETAMINOPHEN TAB 325 MG TAB PO PRN (15:33)
[2019-07-24 16:32] LABS: Glucose,Whole Blood 126 mg/dL (75-99)
[2019-07-24 20:43] LABS: Glucose,Whole Blood 157 mg/dL (75-99)
[2019-07-25] MEDS: HYDROcodone/APAP 7.5-325MG 1 EACH TAB PO PRN ×2 (01:11→10:05)
--- NOTE | 2019-07-25 02:17 | PN ---
PROGRESS NOTE She has had day one of radiation for abdominal metastatic cancer, unclear what the biopsy report shows at this point. Remains on IV Invanz. She will need a PICC line placed tomorrow prior to going home. She will be set up with outpatient radiation for 10 days straight. CARDIOVASCULAR: S1, S2. LUNGS: Clear. GI: Soft. HEMATOLOGIC: Homans negative. PSYCH: Fair mood and affect. ASSESSMENT: 1. ESBL urinary tract infection. 2. Metastatic bladder cancer, most likely causing abdominal mass. Awaiting biopsy report. Remains on chemotherapy. Continue radiation therapy. Family discussed whether they want palliative, hospice depending if it is covered with radiation treatment. Please see further orders. MMODL / IJN: [id number] /
[2019-07-25] MEDS: DEXAMETHASONE 4 MG TAB PO SCH ×3 (05:35→21:10)
[2019-07-25] MEDS: LEVOTHYROXINE 50 MCG TAB PO SCH (05:35)
[2019-07-25 06:44] LABS: Glucose,Whole Blood 115 mg/dL (75-99)
[2019-07-25] MEDS: INSULIN ASPART (NovoLOG) 100 UNIT/ML VIAL SQ SCH ×4 (07:58→21:11)
[2019-07-25] MEDS: amLODIPine 5 MG TAB PO SCH (08:07)
[2019-07-25] MEDS: MECLIZINE 25 MG TAB PO SCH ×3 (08:07→21:09)
[2019-07-25] MEDS: SENNOSIDES-DOCUSATE SODIUM 1 EACH TAB PO SCH ×2 (08:07→21:11)
[2019-07-25] MEDS: PANTOPRAZOLE 40 MG TABLET PO SCH (08:07)
[2019-07-25] MEDS: METOPROLOL TARTRATE 25 MG TAB PO SCH ×2 (08:07→21:09)
[2019-07-25] MEDS: ACETAMINOPHEN TAB 325 MG TAB PO PRN ×2 (08:07→15:11)
[2019-07-25 08:37] LABS: Basophils % (A) 0 %; Eosinophils # (A) 0.3 k/uL (0-0.7); Eosinophils % (A) 1 %; HCT 41.8 % (34.0-46.0); HGB 13.8 gm/dL (11.4-16.0); Lymphocytes # (A) 0.3 k/uL (1.0-4.8); Lymphocytes % (A) 2 %; MCH 29.8 pg (25.0-35.0); MCHC 32.9 g/dL (31.0-37.0); MCV 90.7 fL (80.0-100.0); Mean Platelet Volume 8.5; Monocytes # (A) 0.2 k/uL (0-1.0); Monocytes % (A) 1 %; Neutrophils # (A) 18.2 k/uL (1.3-7.7); Neutrophils % (A) 96 %; Platelet Count 470 k/uL (150-450); RBC 4.61 m/uL (3.80-5.40); RDW 15.3 % (11.5-15.5); WBC 19.1 k/uL (3.8-10.6)
[2019-07-25 09:03] LABS: AST 33 U/L (14-36); African American GFR (CKD) >90 (>60 ml/min/1.73 sqM); Albumin 3.4 g/dL (3.5-5.0); Alkaline Phosphatase 72 U/L (38-126); Anion Gap 17 mmol/L; Blood Urea Nitrogen 20 mg/dL (7-17); Calcium 9.1 mg/dL (8.4-10.2); Carbon Dioxide 19 mmol/L (22-30); Chloride 100 mmol/L (98-107); Glucose 168 mg/dL (74-99); Non-African American GFR(CKD) >90 (>60 ml/min/1.73 sqM); Potassium 5.2 mmol/L (3.5-5.1); Sodium 136 mmol/L (137-145); Total Bilirubin 0.6 mg/dL (0.2-1.3); Total Protein 6.2 g/dL (6.3-8.2)
--- NOTE | 2019-07-25 09:14 | CT ---
EXAMINATION TYPE: CT biopsy st back/flank [facility] DATE OF EXAM: 07/22/2019 HISTORY: Retroperitoneal mass COMPARISON: CT 07/19/2019 Maximal barrier technique was utilized, hand hygiene obtained with soap and water. The skin overlyin g a suitable path to the lesion was localized using CT and the overlying skin was prepped and draped. Lidocaine used for local anesthesia. A skin federico made with a scalpel. Using CT guidance, access w as gained to the lesion with a 18-gauge core needle. Core specimen submitted to cytology. 1 pass(es ) performed in all. Following the procedure no immediate complications. The patient is discharged in stable condition. Hemostasis achieved. IMPRESSION: SUCCESSFUL CT GUIDED CORE BIOPSY retroperitoneal mass. PATHOLOGY PENDING. THIS PROCEDURE WAS PERFOR MED BY THE UNDERSIGNED.
[2019-07-25 12:03] LABS: Glucose,Whole Blood 100 mg/dL (75-99)
[2019-07-25] MEDS ORDERED: LIDOCAINE 1% INJ 10MG/ML (20 ML MDV) ONE (14:41)
[2019-07-25] MEDS: ERTAPENEM 1 GM in SODIUM CHLORIDE 0.9% 50 ML IVPB SCH (15:11)
--- NOTE | 2019-07-25 15:30 | IR ---
EXAMINATION TYPE: IR cvc insert >=5 years DATE OF EXAM: 07/25/2019 COMPARISON: NONE CLINICAL HISTORY: Retroperitoneal mass Needs long-term intravenous access for therapy. PROCEDURE: Hand hygiene obtained and alcohol-based hand rub. After informed consent, the skin overlying the left brachial vein was localized with ultrasound and n oted to be compressible and patent. The left basilic vein appears small and is noncompressible. An u ltrasound image was obtained and submitted on the patient's chart. The overlying skin was prepped an d draped and Lidocaine was used for local anesthesia. A skin federico was made with a scalpel. Access w as gained to the vein under ultrasound guidance with a 21 gauge needle and a 0.018 inch wire was adva nced. Access site was dilated with Peel-Away sheath and catheter tailored to the appropriate length and advanced such that the distal tip is at the cavoatrial junction. Spot image was obtained verifyi ng placement. Catheter was fixed to the skin and a sterile dressing was placed following hemostasis. Catheter was aspirated and flushed with saline. Patient was discharged in stable condition without complication. Maximal barrier technique is utilized. Ultrasound image is documented on the chart. U ltrasound used with sterile technique. Fluoro time and fluoroscopic images submitted to document procedure: 330 intraoperative images, 0.7 m inutes fluoroscopy time IMPRESSION: STATUS POST ULTRASOUND AND FLUOROSCOPIC GUIDED PICC LINE PLACEMENT, READY FOR USE. THIS PROCEDURE WAS PERFORMED BY THE UNDERSIGNED. There may be underlying superficial venous thrombosis of the left basilic vein incidentally noted.
--- NOTE | 2019-07-25 16:45 | P.PN ---
Subjective Progress Note Date: 07/25/19 Principal diagnosis: Paraspinal Mass, Symptomatic biopsy still pending Objective - Vital Signs Vital signs: Vital Signs Temp 98.2 F 07/25/19 15:00 Pulse 67 07/25/19 15:00 Resp 17 07/25/19 15:00 BP 120/64 07/25/19 15:00 Pulse Ox 98 07/25/19 15:00 Intake & Output 07/24/19 07/25/19 07/25/19 18:59 06:59 18:59 Intake Total 400 50 Output Total 795 400 500 Balance -395 -350 -500 Intake: Oral 400 50 Output: Urine 795 400 500 Other: Voiding Method Ileal Conduit (Right) Ileal Conduit (Right) Ileal Conduit (Right) # Voids 1 2 - Exam - Constitutional General appearance: Present: average body habitus, cooperative, no acute distress - EENT Eyes: Present: anicteric sclerae, EOMI ENT: Present: hearing grossly normal - Respiratory Details: spray shins even and unlabored - Cardiovascular Details: skin warm and dry to the touch - Integumentary Integumentary: Present: normal - Neurologic Neurologic: Present: CNII-XII intact - Psychiatric Psychiatric Comment(s): Psychiatric: Present: A&O x's 3, intact judgment & insight - Labs CBC & Chem 7: 07/25/19 08:03 07/25/19 08:03 Labs: Abnormal Lab Results - Last 24 Hours (Table) 07/24/19 07/25/19 07/25/19 Range/Units 20:41 06:43 08:03 WBC 19.1 H (3.8-10.6) k/uL Plt Count 470 H (150-450) k/uL Neutrophils # 18.2 H (1.3-7.7) k/uL Lymphocytes # 0.3 L (1.0-4.8) k/uL Sodium (137-145) mmol/L Potassium (3.5-5.1) mmol/L Carbon Dioxide (22-30) mmol/L BUN (7-17) mg/dL Creatinine (0.52-1.04) mg/dL Glucose (74-99) mg/dL POC Glucose (mg/dL) 157 H 115 H (75-99) mg/dL Total Protein (6.3-8.2) g/dL Albumin (3.5-5.0) g/dL 07/25/19 07/25/19 Range/Units 08:03 12:02 WBC (3.8-10.6) k/uL Plt Count (150-450) k/uL Neutrophils # (1.3-7.7) k/uL Lymphocytes # (1.0-4.8) k/uL Sodium 136 L (137-145) mmol/L Potassium 5.2 H (3.5-5.1) mmol/L Carbon Dioxide 19 L (22-30) mmol/L BUN 20 H (7-17) mg/dL Creatinine 0.43 L (0.52-1.04) mg/dL Glucose 168 H (74-99) mg/dL POC Glucose (mg/dL) 100 H (75-99) mg/dL Total Protein 6.2 L (6.3-8.2) g/dL Albumin 3.4 L (3.5-5.0) g/dL Assessment and Plan Plan: Assessment and recommendations: Back pain New Right Paraspinal Mass - Rad Onc has seen pt and is going to begin palliative treatment. - Pain mgmt adequate, pt is comfortable at this time. - Continue current analgesics, steroids/PPI. - Monitor closely for narcotic-induced constipation, medications are available for prevention/treatment of the same. History of Bladder cancer - History of 2 years ago, pt has been on imaging f/u Q 6 mo. - Unfortunately, there are no scans that we can find from 6 mo ago so, it has been nearly a year since imaging. - Concern is for a recurrent bladder cancer. New small bilateral pleural effusions: - no suspicious pulmonary mass or evidence of metastatic disease. - Increased mild interstitial infiltrates at the lung bases per CT. Acute UTI with Klebsiella pneumoniae, ESBL - Continue on antibiotics per primary team Plan: - Await biopsy further recommendations once results, Status post bx 07/21 - Status POst Picc line today Physician Attest: I have completed the full history and physical and agree with above dictation, Dictated as a scribe
[2019-07-25 16:54] LABS: Glucose,Whole Blood 112 mg/dL (75-99)
--- NOTE | 2019-07-25 17:20 | P.PN ---
Subjective Progress Note Date: 07/25/19 This is an 84-year-old female admitted with acute lumbar radiculopathy of the right leg with possible paraspinal mass and vertebral fracture, in a patient with history of bladder cancer. Evaluated by both oncology and orthopedic surgery with recommendations noted and appreciated. Scheduled for bone scan and MRI of the lumbar spine today. Afebrile, urine cultures reporting gram-negative bacilli.Maintained on vancomycin, Rocephin, IV steroids.Reports improvement in right leg, strength, and lifting leg off the bed. Denies numbness. Back pain management with [place], Naprosyn. 07/20/2019 Completed bone scan and lumbar spine MRI yesterday, tolerated procedures well. Bone scan report and multiple areas of abnormal uptake including intense linear uptake L4, L5 involving right sacrum, pubic [place], r ight femur. Suggesting acute compression fractures, right pelvic trauma, left rib fracture. MRI suggests neoplasms-lumber spine MRI reporting large right- sided paraspinal mass extending into the retroperitoneum and right abdomen. Abdomen/pelvis CT reported large right-sided paraspinal mass at the lower lumbar region adjacent destruction of L5 vertebral body,consistent with malignancy. The mass appears new compared to 08/28/2018 PET/computed tomography scan. Compression fractures of L4 and L5 vertebral bodies probably pathologic and also a change compared to old PET/computed tomography scan. Biopsy with interventional radiology ordered. Pain controlled, complains of right lower back discomfort. Positive bowel movement, denies incontinence. Maintained on IV steroids .Sitting in chair, regressed -T&A, Unable to lift right leg up off chair. Urine culture reporting ESBL, antibiotics adjusted/changed to ertapenem. ( ID had been consulted on admission but patient declined -requested consult to be canceled, did not want to follow with Dr. Payan, knowing he is the only ID available). 07/21/2019 this morning sitting up in bed, able to lift right leg off the bed-significantly improved from yesterday. IV steroids discontinued yesterday and currently on oral steroids. Scheduled for biopsy today with interventional radiology. Complains of right lateral hip pain radiating down through to ankle. Hypertensive this morning, received in addition to antihypertensive med regime, Norvasc, [place], Tylenol as well as a one-time dose of Xanax. Systolic Blood pressure trending down from systolic of 190-182 and now currently at 166. Apparently patient was taking baby aspirin daily as a home medication not listed on our home medication list. Last dose was 4 days ago and interventional radiologists requesting to wait another day for biopsy. Radiation oncology evaluation pending. 07/22/2019 reports pain management only lasting about 2-1/2 hours. [place] increase. Blood pressure better controlled. Scheduled for biopsy and radiation today. Chest CT reporting new small bilateral pleural effusions no suspicious pulmonary mass, stable scarring of the lung apices. Increased mild interstitial infiltrates at the lung bases. Denies shortness of breath, denies cough. M aintaining O2 sats in the high 90s on room air. Maintained on ertapenem for ESBL UTI. Afebrile. 07/25/2019 maintained on ertapenem for ESBL UTI .scheduled for PICC line placement and radiation treatments today. Biopsy path results pending. Denies chest pain, palpitations or shortness of breath. Denies chest pain, palpitations or shortness of breath. Afebrile. Objective - Vital Signs Vital signs: Vital Signs Temp 98.2 F 07/25/19 15:00 Pulse 67 07/25/19 15:00 Resp 17 07/25/19 15:00 BP 120/64 07/25/19 15:00 Pulse Ox 98 07/25/19 15:00 Intake & Output 07/24/19 07/25/19 07/25/19 18:59 06:59 18:59 Intake Total 400 50 Output Total 795 400 500 Balance -395 -350 -500 Intake: Oral 400 50 Output: Urine 795 400 500 Other: Voiding Method Ileal Conduit (Right) Ileal Conduit (Right) Ileal Conduit (Right) # Voids 1 2 - Exam PHYSICAL EXAM: VITAL SIGNS: As above GENERAL: Sitting up in chair, no acute distress HEENT: Conjunctivae normal. eyes normal. Oral mucosa moist NECK: No JVD. No thyroid enlargement. CARDIOVASCULAR: S1, S2 regular. No murmur RESPIRATION: Breath sounds diminished in the bases. No rhonchi or crackles. No wheezing ABDOMEN: Soft, nontender . No guarding. Urostomy bag present. no masses palpable. Bowel sounds heard. LEGS: No edema. no swelling PSYCHIATRY: Alert and oriented X3, mood and affect normal. NERVOUS SYSTEM: Continue on nurse 2 through 12 grossly intact, no focal deficits. Skin: no rash - Labs CBC & Chem 7: 05/18/20 08:03 07/25/19 08:03 Labs: Abnormal Lab Results - Last 24 Hours (Table) 07/24/19 07/25/19 07/25/19 Range/Units 20:41 06:43 08:03 WBC 19.1 H (3.8-10.6) k/uL Plt Count 470 H (150-450) k/uL Neutrophils # 18.2 H (1.3-7.7) k/uL Lymphocytes # 0.3 L (1.0-4.8) k/uL Sodium (137-145) mmol/L Potassium (3.5-5.1) mmol/L Carbon Dioxide (22-30) mmol/L BUN (7-17) mg/dL Creatinine (0.52-1.04) mg/dL Glucose (74-99) mg/dL POC Glucose (mg/dL) 157 H 115 H (75-99) mg/dL Total Protein (6.3-8.2) g/dL Albumin (3.5-5.0) g/dL 07/25/19 07/25/19 07/25/19 Range/Units 08:03 12:02 16:52 WBC (3.8-10.6) k/uL Plt Count (150-450) k/uL Neutrophils # (1.3-7.7) k/uL Lymphocytes # (1.0-4.8) k/uL Sodium 136 L (137-145) mmol/L Potassium 5.2 H (3.5-5.1) mmol/L Carbon Dioxide 19 L (22-30) mmol/L BUN 20 H (7-17) mg/dL Creatinine 0.43 L (0.52-1.04) mg/dL Glucose 168 H (74-99) mg/dL POC Glucose (mg/dL) 100 H 112 H (75-99) mg/dL Total Protein 6.2 L (6.3-8.2) g/dL Albumin 3.4 L (3.5-5.0) g/dL Assessment and Plan Assessment: Acute lumbar radiculopathy of the right leg secondary to #2 and #3 Lumbar spine paraspinal mass with bony erosion of L5 of uncertain etiology. Large retroperitoneal mass. Possible psoas abscess. Biopsy pending L4 and L5 compression deformities-age undetermined, etiology unclear, suspect pathological fractures with metastasis New small bilateral pleural effusions no suspicious pulmonary mass, stable scarring of the lung apices. Increased mild interstitial infiltrates at the lung bases per CT. Acute UTI with Klebsiella pneumoniae, ESBL Stenosis L4 5 L5-S1 History of bladder cancer Plan: Continue current medication regime ,monitoring and symptomatic treatment. Biopsy pathology pending. PICC line placement, radiation treatment pending for today. Discharge planning in progress for tomorrow. Prognosis guarded given multiple complex medical issues. The impression and plan of care has been dictated as directed. : I performed a history and examination of this patient, discussed the same with the dictator. I agree with the dictator's note ,documented as a scribe. Any additional findings or plans will be noted.
[2019-07-25 19:21] VITALS: RESP 18
[2019-07-25 20:09] LABS: Glucose,Whole Blood 136 mg/dL (75-99)
[2019-07-25] MEDS: SODIUM CHLORIDE 0.9% 1,000 ML IV SCH (21:11)
[2019-07-26] MEDS: HYDROcodone/APAP 7.5-325MG 1 EACH TAB PO PRN ×2 (00:10→14:12)
[2019-07-26] MEDS: SODIUM CHLORIDE 0.9% 1,000 ML IV SCH (01:58)
[2019-07-26] MEDS: LEVOTHYROXINE 50 MCG TAB PO SCH (05:36)
[2019-07-26] MEDS: DEXAMETHASONE 4 MG TAB PO SCH ×2 (05:36→13:22)
[2019-07-26] MEDS: NAPROXEN 250 MG TAB PO PRN (05:46)
[2019-07-26 06:50] LABS: Glucose,Whole Blood 94 mg/dL (75-99)
[2019-07-26] MEDS: INSULIN ASPART (NovoLOG) 100 UNIT/ML VIAL SQ SCH ×2 (06:59→12:09)
[2019-07-26] MEDS ORDERED: DIAZEPAM 2 MG TAB PO STA (08:12)
[2019-07-26] MEDS: SENNOSIDES-DOCUSATE SODIUM 1 EACH TAB PO SCH (08:16)
[2019-07-26] MEDS: PANTOPRAZOLE 40 MG TABLET PO SCH (08:16)
[2019-07-26] MEDS: amLODIPine 5 MG TAB PO SCH (08:16)
[2019-07-26 08:17] VITALS: BP 145/61; PULSE 67; TEMP 97.8
[2019-07-26] MEDS: MECLIZINE 25 MG TAB PO SCH (08:17)
[2019-07-26] MEDS: METOPROLOL TARTRATE 25 MG TAB PO SCH (08:17)
--- NOTE | 2019-07-26 11:37 | P.DS ---
Providers Date of admission: 07/17/19 19:13 Expected date of discharge: 07/26/19 Attending physician: Madan Salinas Consults: 07/18/19 14:40 Consult Physician Routine Consulting Provider: Kellen Waer Consult Reason/Comments: vertebral pathologic fractures Do you want consulting provider notified?: Yes 07/18/19 14:41 Consult Physician Routine Consulting Provider: Randy Kruger Consult Reason/Comments: metastatic vertebral fractures Do you want consulting provider notified?: Yes 07/20/19 14:36 Consult Physician Urgent Consulting Provider: Chase Lebron Consult Reason/Comments: radiation/malignancy affecting lumar spine/rt leg immobile Do you want consulting provider notified?: Yes Primary care physician: [facility] Course: Final Diagnoses: Acute lumbar radiculopathy of the right leg secondary to #2 and #3 Lumbar spine paraspinal mass with bony erosion of L5 of uncertain etiology. Large retroperitoneal mass. Possible psoas abscess. Biopsy pathology pending L4 and L5 compression deformities-age undetermined, etiology unclear, suspect pathological fractures with metastasis New small bilateral pleural effusions no suspicious pulmonary mass, stable scarring of the lung apices. Increased mild interstitial infiltrates at the lung bases per CT. Acute UTI with Klebsiella pneumoniae, ESBL Stenosis L4 5 L5-S1 History of bladder cancer Hospital course:This is an 84-year-old female admitted with acute lumbar radiculopathy of the right leg with possible paraspinal mass and vertebral fracture, in a patient with history of bladder cancer. Evaluated by both oncology and orthopedic surgery with recommendations noted and appreciated. Scheduled for bone scan and MRI of the lumbar spine today. Afebrile, urine cultures reporting gram-negative bacilli.Maintained on vancomycin, Rocephin, IV steroids.Reports improvement in right leg, strength, and lifting leg off the bed. Denies numbness. Back pain management with [place], Naprosyn. 07/20/2019 Completed bone scan and lumbar spine MRI yesterday, tolerated procedures well. Bone scan report and multiple areas of abnormal uptake including intense linear uptake L4, L5 involving right sacrum, pubic [place], right femur. Suggesting acute compression fractures, right pelvic trauma, left rib fracture. MRI suggests neoplasms-lumber spine MRI reporting large right- sided paraspinal mass extending into the retroperitoneum and right abdomen. Abdomen/pelvis CT reported large right-sided paraspinal mass at the lower lumbar region adjacent destruction of L5 vertebral body,consistent with malignancy. The mass appears new compared to 08/28/2018 PET/computed tomography scan. Compression fractures of L4 and L5 vertebral bodies probably pathologic and also a change compared to old PET/computed tomography scan. Biopsy with interventional radiology ordered. Pain controlled, complains of right lower back discomfort. Positive bowel movement, denies incontinence. Maintained on IV steroids .Sitting in chair, regressed -T&A, Unable to lift right leg up off chair. Urine culture reporting ESBL, antibiotics adjusted/changed to ertapenem. ( ID had been consulted on admission but patient declined -requested consult to be canceled, did not want to follow with Dr. Payan, knowing he is the only ID available). 07/21/2019 this morning sitting up in bed, able to lift right leg off the bed- significantly improved from yesterday. IV steroids discontinued yesterday and currently on oral steroids. Scheduled for biopsy today with interventional radiology. Complains of right lateral hip pain radiating down through to ankle. Hypertensive this morning, received in addition to antihypertensive med regime, Norvasc, [place], Tylenol as well as a one-time dose of Xanax. Systolic Blood p ressure trending down from systolic of 190-182 and now currently at 166. Apparently patient was taking baby aspirin daily as a home medication not listed on our home medication list. Last dose was 4 days ago and interventional radiologists requesting to wait another day for biopsy. Radiation oncology evaluation pending. 07/22/2019 reports pain management only lasting about 2-1/2 hours. [place] increase. Blood pressure better controlled. Scheduled for biopsy and radiation today. Chest CT reporting new small bilateral pleural effusions no suspicious pulmonary mass, stable scarring of the lung apices. Increased mild interstitial infiltrates at the lung bases. Denies shortness of breath, denies cough. Maintaining O2 sats in the high 90s on room air. Maintained on ertapenem for ESBL UTI. Afebrile. 07/25/2019 maintained on ertapenem for ESBL UTI .scheduled for PICC line placement and radiation treatments today. Biopsy path results pending. Denies chest pain, palpitations or shortness of breath. Denies chest pain, palpitations or shortness of breath. Afebrile. Significant clinical improvement. Patient will be discharged home today after receiving radiation therapy in a stable condition. Patient will receive ertapenem 2 weeks as discussed between infectious disease, and PCP. The impression and plan of care has been dictated as directed. : I performed a history and examination of this patient, discussed the same with the dictator. I agree with the dictator's note ,documented as a scribe. Any additional findings or plans will be noted. Patient Condition at Discharge: Stable Plan - Discharge Summary Discharge Rx Participant: No New Discharge Prescriptions: New Prochlorperazine [Compazine] 10 mg PO Q6H #20 tab Dexamethasone 4 mg PO TID #46 tablet HYDROcodone/APAP 5-325MG [[place] 5-325] 1 tab PO Q6HR PRN 3 Days #12 tab PRN Reason: Pain Pantoprazole Sodium [Protonix] 40 mg PO DAILY #60 tablet. Sennosideemi/Docusate Sodium [Senna Plus 8.6-50 mg Softgel] 1 each PO BID #60 capsule Ertapenem [INVanz] 1 gm IVPB Q24H #14 vial amLODIPine [Norvasc] 5 mg PO DAILY #30 tab Continue Metoprolol Tartrate 25 mg PO BID Levothyroxine Sodium [Synthroid] 50 mcg PO DAILY Dronabinol [Marinol] 2.5 mg PO TID PRN PRN Reason: Nausea Naproxen 500 mg PO BID PRN PRN Reason: Pain Meclizine HCl 25 mg PO TID Omeprazole 20 mg PO DAILY Discharge Medication List Metoprolol Tartrate 25 mg PO BID 07/20/18 [History] Dronabinol [Marinol] 2.5 mg PO TID PRN 12/22/18 [History] Levothyroxine Sodium [Synthroid] 50 mcg PO DAILY 12/22/18 [History] Meclizine HCl 25 mg PO TID 07/17/19 [History] Naproxen 500 mg PO BID PRN 07/17/19 [History] Omeprazole 20 mg PO DAILY 07/17/19 [History] Dexamethasone 4 mg PO TID #46 tablet 07/21/19 [Rx] HYDROcodone/APAP 5-325MG [[place] 5-325] 1 tab PO Q6HR PRN 3 Days #12 tab 07/21/19 [Rx] Pantoprazole Sodium [Protonix] 40 mg PO DAILY #60 tablet. 07/21/19 [Rx] Prochlorperazine [Compazine] 10 mg PO Q6H #20 tab 07/21/19 [Rx] Sennosides/Docusate Sodium [Senna Plus 8.6-50 mg Softgel] 1 each PO BID #60 capsule 07/21/19 [Rx] Ertapenem [INVanz] 1 gm IVPB Q24H #14 vial 07/26/19 [Rx] amLODIPine [Norvasc] 5 mg PO DAILY #30 tab 07/26/19 [Rx] Follow up Appointment(s)/Referral(s): Pao Bowling NPC [Nurse Practitioner] - 07/28/19 2:30 pm (In person at [facility] 2nd floor) Madan Salinas MD [Primary Care Provider] - 3 Days Ambulatory/Diagnostic Orders: Complete Blood Count w/diff [LAB.AMB] Time Frame: 1 Week, Location: None Selected Activity/Diet/Wound Care/Special Instructions: Outpatient IV antibiotics will be at [facility]: First appointment on 07/27/2019 - 2:00 p.m. Please go to the main entrance desk and they will direct you where to go. Please call [phone] if you have any questions. Pt is set up for radiation at [facility] daily at 3 or 3:30 for the next 10 days - pt radiation will be completed on 07/29/19
[2019-07-26 11:56] LABS: Glucose,Whole Blood 110 mg/dL (75-99)
[2019-07-26] MEDS: ERTAPENEM 1 GM in SODIUM CHLORIDE 0.9% 50 ML IVPB SCH (13:21)
--- NOTE | 2019-07-27 07:50 | CDI ---
Documentation Clarification Form Date: 07/22/2019 03:09:00 PM From: Ale Amaya CCS, CCDS Admit Date: 07/17/2019 07:13:00 PM Patient Name: Elsie Whitley Visit Number: [id number] Discharge Date: 07/26/2019 04:35:00 PM ATTENTION: The Clinical Documentation Specialists (CDI) and [facility] Coding Staff appreciate your assistance in clarifying documentation. Please respond to the clarification below the line at the bottom and electronically sign. The CDI & [facility] Coding staff will review the response and follow-up if needed. Please note: Queries are made part of the Legal Health Record. If you have any questions, please contact the author of this message via ITS. Dr. Madan Salinas: The patient presented to the ED on 07/16 with fever & generalized weakness with history of bladder cancer status post urostomy. UA suggestive of UTI, admitted for IV antibiotics. 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 Clinical Indicators: Presented as above, diagnosed with Sepsis & ESBL UTI per the 07/17 Infectious Disease Consult. Also diagnosed with Acute lumbar radiculopathy of the right leg secondary to a large lumbar spine paraspinal mass with bony erosion of L5 of uncertain etiology. Admission VS: T 102.1^, P 89, R 20, BP 131/73, PO 96 RA Admission LABS: WBC 14.0^, Neut 12.5^, ESR 37^, Na 129* UA: 07/16: Cloudy, trace protein, trace esterase, WBC 17 07/16 Urine Cx: Final: Klebsiella pneumonia 07/16 Blood Cx: Preliminary, negative at 96 hrs. COVID-19 negative. Treatment: IV fluid bolus 500 mls @ 999 mls/hr, IV Rocephin, IV Vancomycin, IV Solumedrol, po [place]. In your professional opinion, please clarify if these findings signify one of the following conditions, whether the condition is POA, and cause, if known: Sepsis ruled out Sepsis ruled in Other, please specify Unable to determine Present on Admission: Yes or No Identify the (suspected) organism Link or clarify if there is associated (due to/with): Organ failure (Last Revision: June 2017) MTDD
--- NOTE | 2019-07-29 09:20 | PN ---
PROGRESS NOTE ADDENDUM: Please add to her discharge med rec: Sepsis ruled out. KIKA / BUNNYN: [id number] /
== END 2019-07-26 16:35 | disposition home or self-care (01) | DRG 543 ==
LOC: EC 17:53 → 4SSUR 19:13
PROVIDERS: ADMIT Family Medicine; ATTEND Family Medicine
PROC: 05HA33Z Insertion of Infusion Device into Left Brachial Vein, Percutaneous Approach (ICD-10-PCS; 2019-07-20)
PROC: 0WBH3ZX Excision of Retroperitoneum, Percutaneous Approach, Diagnostic (ICD-10-PCS; principal; 2019-07-22)
PROC: DW031ZZ Beam Radiation of Abdomen using Photons 1 - 10 MeV (ICD-10-PCS; 2019-07-22)
PROC: 02HV33Z Insertion of Infusion Device into Superior Vena Cava, Percutaneous Approach (ICD-10-PCS; 2019-07-25)
DX: C79.51 Secondary malignant neoplasm of bone (principal); C78.6 Secondary malignant neoplasm of retroperitoneum and peritoneum; J90 Pleural effusion, not elsewhere classified; E87.1 Hypo-osmolality and hyponatremia; M48.56XA Collapsed vertebra, not elsewhere classified, lumbar region, initial encounter for fracture; N39.0 Urinary tract infection, site not specified; Z16.12 Extended spectrum beta lactamase (ESBL) resistance; Z11.59 Encounter for screening for other viral diseases; Z90.6 Acquired absence of other parts of urinary tract; E86.0 Dehydration; Z93.6 Other artificial openings of urinary tract status; M51.16 Intervertebral disc disorders with radiculopathy, lumbar region; I10 Essential (primary) hypertension; E78.5 Hyperlipidemia, unspecified; K21.9 Gastro-esophageal reflux disease without esophagitis; E03.9 Hypothyroidism, unspecified; H81.10 Benign paroxysmal vertigo, unspecified ear; K57.90 Diverticulosis of intestine, part unspecified, without perforation or abscess without bleeding; K44.9 Diaphragmatic hernia without obstruction or gangrene; H93.3X9 Disorders of unspecified acoustic nerve; F32.9 Major depressive disorder, single episode, unspecified; M48.061 Spinal stenosis, lumbar region without neurogenic claudication; B96.1 Klebsiella pneumoniae [K. pneumoniae] as the cause of diseases classified elsewhere; S22.42XD Multiple fractures of ribs, left side, subsequent encounter for fracture with routine healing; R73.03 Prediabetes; Z79.82 Long term (current) use of aspirin; Z79.899 Other long term (current) drug therapy; Z79.890 Hormone replacement therapy; Z85.51 Personal history of malignant neoplasm of bladder; Z87.440 Personal history of urinary (tract) infections; Z90.710 Acquired absence of both cervix and uterus; Z85.42 Personal history of malignant neoplasm of other parts of uterus; Z98.890 Other specified postprocedural states; Z90.49 Acquired absence of other specified parts of digestive tract; Z98.42 Cataract extraction status, left eye; Z98.41 Cataract extraction status, right eye; Z96.1 Presence of intraocular lens; Z86.73 Personal history of transient ischemic attack (TIA), and cerebral infarction without residual deficits; Z88.1 Allergy status to other antibiotic agents; Z88.2 Allergy status to sulfonamides; Z88.8 Allergy status to other drugs, medicaments and biological substances; Z80.3 Family history of malignant neoplasm of breast; Z80.6 Family history of leukemia; Z80.0 Family history of malignant neoplasm of digestive organs; Z83.3 Family history of diabetes mellitus
CPT/HCPCS: 21920; 36410; 36415; 36573; 71045; 71260; 72131; 72158; 74177; 76937; 77012; 77280; 77290; 77307; 77332; 77334; 77387; 77412; 77417; 78306; 80048; 80053; 80202; 81001; 82565; 83036; 83605; 84439; 84443; 85025; 85610; 85652; 85730; 87040; 87077; 87086; 87186; 87635; 88305; 88341; 88342; 96361; 96365; 96375; 99285